=== PATIENT | female | born 1955 | race Caucasian/White ===

== ENCOUNTER 2023-01-13 19:00 | Emergency (ER) | payer OTHER ==
--- OUTSIDE RECORDS SUMMARY | 2023-01-13 19:13 | XMS REPORT | Continuity of Care Document ---
:1955 Author Organization [facility] t Address [address] [facility]. [address] [place] [address] Care Team Providers Name Role Phone DANICA JEAN-BAPTISTE Primary Care Physician Unavailable CK VEGA Attending Clinician Unavailable DARCY ZAMAN Attending Clinician Unavailable Jonh Clark MD Attending Clinician Thais WORRELL, Dioni Chavez Attending Clinician [phone] Brittni Gallo APRN Attending Clinician Tabitha WORRELL, Sangita Martinez Attending Clinician Lynda Alston Attending Clinician Zahira Hui MA Attending Clinician Unavailable Kerry Dunaway MA Attending Clinician Unavailable Luis Emery MD Attending Clinician Félix Recinos MD Attending Clinician Juan Smith MD Attending Clinician Stanton WORRELL, Jony Recinos Attending Clinician [phone] Pastora Kenny MD Attending Clinician [phone] Mo WORRELL, James Soto Attending Clinician Declan WORRELL, Jeremy Loya Attending Clinician MD JONH CLARK Attending Clinician Unavailable MILI CHEUNG Attending Clinician Unavailable Kirk BOOTH, Jessica Kruse Attending Clinician [phone] Silvia WORRELL, Ck Fontana Attending Clinician Austyn WORRELL, Darcy Attending Clinician HERNAN TINSLEY Attending Clinician Unavailable CK VEGA Admitting Clinician Unavailable DARCY ZAMAN Admitting Clinician Unavailable JONH CLARK Admitting Clinician Unavailable FÉLIX RECINOS Admitting Clinician Unavailable MD JONH CLARK Admitting Clinician Unavailable Payers Payer Name Policy Type Policy Number Effective Date Expiration Date S ourdella BCBS ADV HMO [id number] 2015 2016 EXCHANGE 00:00:00 00:00:00 [employer] MEDICARE [id number] 2018 2019 HMO POS PPO 00:00:00 00:00:00 [facility]LY [facility] [id number] 2017 2018 CHOICE EXCHANGE 00:00:00 00:00:00 Problems Condition Condition Condition Status Onset Resolution Last Treating Co mments Source Name Details Category Date Date Treatment Clinician Date Respirator Respirator Disease Active M ethodi y failure y failure [facility]-23 [facility] 00[facility]: Hospita 00 l Mobility Mobility Disease Active [facility] di impaired impaired 01-22 [facility] 00:00: Hospita 00 l Tracheobro Tracheobro Disease Active M ethodi nchitis nchitis 5-20 st 00:00: Hospita 00 l Trachea, Trachea, Disease 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 Dyspnea Dyspnea Disease Active [facility] 3-11 College 00:00: of 00 Medicin e 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 00:00: Medi barbie 00 Center Dyspnea on Dyspnea on Disease Active [facility] exertion exertion 5[facility]12 [facility] 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 2[facility]12 [facility] Supraglott Supraglott Disease Active 2016-[address] ic ic 1-14 [facility]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 00:00: Medica l 00 Center 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 00:00: Medi barbie 00 Center Tracheal Tracheal Disease Active 2015-08 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 5-03 [facility] Edema of Edema of Disease Active [facility] larynx larynx 224 [facility] 00:00: of 00 Medicin e Tracheosto Tracheosto Disease Active [facility] 2-24 [facility] dependence dependence 00:00: of (HCCode) (HCCode) 00 Medici n e 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 2-24 Colleg e 00:00: of 00 Medicin e Tracheal Tracheal Disease Active [facility]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 2-24 [facility] e 00:00: of 00 Medicin e Dysphagia Dysphagia Disease Active [facility] 224 College 00:00: of 00 Medicin e Hoarse Hoarse Disease Active [facility] 2-24 College 00:00: of 00 Medicin e Insomnia Insomnia Diagnosis Active [facility] Depression Depression Diagnosis Active [facility] Anxiety Anxiety Problem Active [facility] 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 - [facility] Osteoarthr Osteoarthr Diagnosis Active Common itis of itis of Spirit multiple multiple - [facility] joints joints [facility] Bilateral Bilateral Diagnosis Active C ommon lower lower Spirit extremity extremity - CH I edema edema [facility] Hyperlipid Hyperlipid Diagnosis Active Common emia, emia, Spirit mixed mixed [facility] Allergies, Adverse Reactions, Alerts Allergy Allergy Status Severity Reaction(s) Onset Inactive Treating Comm ents Source Name Type Date Date Clinician LATEX Allergy [facility] LATEX Allergy [facility] Latex Propensi Active Other (See Pt unsure M ethodi ty to Comments) 03-[address] adverse 00:00: allergy Hospita reaction 00 l s to drug NO KNOWN Allergy Active [facility] Family History Family Member Diagnosis Comments Start Date Stop Date Source Natural father Hyperlipidemia Method [facility] Natural mother Cancer [facility] Social History Social Habit Start Date Stop Date Quantity Comments Source Exposure to Not sure Steve Ana Rosa jamshid SARS-CoV-2 (event) of Med icine Gender identity [facility] Sexual orientation Method [facility] Alcohol intake 2022-12-26 2022-12-26 Ex-drinker Worship 00:00:00 00:00:00 (finding) Hospital History of Social 2022-12-26 2022-12-[address] function 00:00:00 00:00:00 Hospital Tobacco use and 2022-06-09 2022-06-09 Smokeless Worship exposure 00:00:00 00:00:00 tobacco non-user Hospital Sex Ass[birth year] At [birth year] [facility] 00[facility]00:00 00:00:00 Hospital Smoking Status Start Date Stop Date Source Never smoked tobacco [facility]ital Medications Ordered Filled Start Stop Current Ordering Indication Dosage Frequency Signature Comments Components Source Medication Medication Date Date Medication? Clinician (SIG) Name Name omeprazole Yes 40mg QD Take 1 Metho di (PriLOSEC) 4-[address] 40 MG 14:17: (40 mg Hospita capsule 33 total) by l mouth daily. aspirin Yes 81mg QD Take 1 [facility]i (ECOTRIN) 4-28 tablet (81 st 81 MG 14:17: mg total) Hospita enteric 33 by mouth l coated daily. tablet furosemide Yes 20mg QD Take 1 Metho di (LASIX) 20 -28 tablet (20 st mg tablet 14:17: mg total) Hos olive 33 by mouth l daily. tiZANidine 0 Yes 4mg Q.5D Take 1 Metho di (ZANAFLEX) 4-28 tablet (4 st 4 MG tablet 14:17: mg total) H ospita 33 by mouth 2 l (two) times a day. buprenorphi 0 Yes 1{film} Q.5D Place 1 [facility] ne-naloxone 4-[address] (SUBOXONE) 14:17: the tongue H ospita 8-2 mg film 33 2 (two) l times a day .acute pain. (per Prescripti on Drug Monitoring Program, last filled 01/10/2022 , quantity: 42, day supply: 21) alendronate Yes 70mg 1 tablet [facility] (FOSAMAX) - ([address] 70 MG 14:17: total). Hospita tablet 33 l citalopram 2022- No 1 tablet [facility] (CeleXA) 10 12-12- st MG tablet 15:21: 00:00 Hospita 01 :00 l meloxicam 2022- No 1 tablet Met hodi 15 mg 12-12 st tablet,disi 15:21: 00:00 Hospi ta ntegrating 01 :00 l omeprazole No 40mg QD Take 40 mg Methodi magnesium 12-[address] 10 mg 15:21: 00:00 daily. Hospita susp,delaye 01 :00 l d release for recon indapamide No 2.5mg QD Take 1 Met hodi (LOZOL) 2.5 12-11- tablet st MG tablet 10:24: 00:00 (2.5 mg Hosp fran 13 :00 total) by l mouth daily. amoxicillin Yes 1{tbl} Q.5D Take 1 [facility] -pot 12-[address] clavulanate 00:00: mouth 2 Hos olive (Augmentin) 00 (two) l 875-125 mg times a per tablet day. acetaminoph 2022- [place] [id number] 1{tbl} Q6H Take 1 Methodi en-codeine 12-11- tablet by st (TYLENOL 00:00: 04:59 mouth Hospita WITH 00 :00 every 6 l CODEINE #3) (six) 300-30 mg hours as per tablet needed for moderate pain for up to 7 days .acute pain. alendronate 2022- No 70mg Q1W Take 1 Met hodi (FOSAMAX) 3-28 -28 tablet (70 st 70 MG 13:26: 00:00 mg total) Hospit a tablet 25 :00 by mouth l every 7 days. On in the morning with a full glass of water on an empty stomach, do NOT take anything else by mouth or lie down for the next 30 min. budesonide Yes [id number] .5mg QD Take 2 mL [facility] (Pulmicort) 05-12 (0.[address] 0.5 mg/2 mL 00:00: total) by H ospita nebulizer 00 nebulizati l suspension on once daily. acetylcyste 2022- No 4mL Q.5D Take 4 mL Methodi ine 05-12-[address] (MUCOMYST) 00:00: 00:00 (two) Hospi ta 200 mg/mL 00 :00 times a l (20 %) day. solution buprenorphi 2021- No [id number] 1{tbl} Q.5D Place 1 [facility]i ne-naloxone 01-25 05-[address] (SUBOXONE) 16:38: 00:00 under the H ospita 8-2 mg per 03 :00 tongue 2 l SL tablet (two) times a day .acute pain. predniSONE 2021- No 50mg QD Take 1 Meth kiko (DELTASONE) 01-25-03 tablet (50 s t 50 mg 00:00: 04:59 mg total) Hospit a tablet 00 :00 by mouth l daily for 5 days. gabapentin No 300mg QD Take 1 Met hodi (NEURONTIN) 01-24-[address] 300 mg 00:00: 04:59 (300 mg Hospita capsule 00 :00 total) by l mouth nightly for 30 days. benzonatate 2021- No 100mg Q6H Take 1 Me thodi (TESSALON) 01-24-[address] 100 MG 00:00: 04:59 (100 mg Hospita capsule 00 :00 total) by l mouth every 6 (six) hours as needed for cough for up to 30 days. nystatin 2021- No 5mL Q.25D Take 5 mL Me [facility] (MYCOSTATIN 01-24 06-02 by mouth 4 s t ) 100,000 00:00: 04:59 (four) Hospi ta unit/mL 00 :00 times a l suspension day for 5 days. Swish in mouth HYDROcodone 2021- No [id number] 1{tbl} Q6H Take 1 [facility]i -acetaminop 5-20 05-[address] hen (NORCO) 16:28: 00:00 mouth Hosp fran 10-325 mg 06 :00 every 6 l per tablet (six) hours as needed for moderate pain .acute pain. clonazePAM Yes 1mg Take [address] (KLONOPIN) 4-27 by mouth 2 Sarah es 1 MG tablet 16:04: (two) Medic al 17 times Center daily as needed for Anxiety. aspirin 81 Yes 81mg QD Take [address] MG EC 4-27 by mouth [facility] tablet 16:04: daily. Medical 17 Center gabapentin Yes 300mg Q.5D Take [address] (NEURONTIN) 4-27 mg by [facility] 300 MG 16:04: mouth 2 Medical capsule 17 (two) Center times daily. atorvastati Yes 10mg QD Take [address] n (LIPITOR) 4-27 by mouth Luke s 10 MG 16:04: daily. Medical tablet 17 Center citalopram Yes 40mg QD Take [address] (CELEXA) 20 4-27 by mouth Luke s MG tablet 16:04: daily . Medic al 17 Center indapamide Yes 2.5mg QD Take 2.[address] (LOZOL) 2.5 4-27 mg by [facility] MG tablet 16:04: mouth Medical 17 every Center morning. omeprazole Yes 40mg QD Take [address] (PRILOSEC) 4-27 by mouth [facility] 40 MG 16:04: daily. Medical capsule 17 Center alendronate Yes 70mg Take [address] (FOSAMAX) 4-27 by mouth [facility] 70 MG 16:04: every 7 Medical tablet 17 days Take Center in the morning with a full glass of water, on an empty stomach, and do not take anything else by mouth or lie down for the next 30 min. . ferrous Yes QD Take by [facility] fumarate 4-27 mouth [facility] (HEMOCYTE 16:04: daily. Medica l ORAL) 17 Center acetaminoph 2021-0 Yes 1{tbl} Take [address] en-codeine 4-27 tablet by [place] (TYLENOL 16:04: mouth Medical #3) 300-30 17 every 4 Center mg per (four) tablet hours as needed for Pain. guaiFENesin 1-0 Yes 1200mg Q.5D Take 1,[address] (mucINEX) 4-27 mg by [facility] 600 mg 12 16:04: mouth 2 Medic al hr tablet 17 (two) Center times daily. aspirin 81 2020-0 Yes 81mg Take 81 mg [facility] tablet 3-08 by mouth Colleg e 20:09: daily. of 28 Medicin e GuaiFENesin 2020-0 Yes Take by [facility] (MUCUS 3-08 mouth. College RELIEF 20:09: of ADULT OR) 28 Medicin e Omeprazole 2020-0 Yes 40mg Take 40 mg [facility] (PRILOSEC 3-08 by mouth Colleg e OR) 20:09: daily. of 28 Medicin e Alendronate 2020-0 Yes Take by [facility] Sodium 3-08 mouth. College (FOSAMAX 20:09: of OR) 28 Medicin e aspirin 81 2020-0 Yes 81mg Take 81 mg [facility] MG tablet 3-08 by mouth Colleg e 20:09: daily. of 28 Medicin e GuaiFENesin 2020-0 Yes Take by [facility] (MUCUS 3-08 mouth. College RELIEF 20:09: of ADULT OR) 28 Medicin e Omeprazole 2020-0 Yes 40mg Take 40 mg [facility] (PRILOSEC 3-08 by mouth Colleg e OR) 20:09: daily. of 28 Medicin e Alendronate 2020-0 Yes Take by [facility] Sodium 3-08 mouth. College (FOSAMAX 20:09: of OR) 28 Medicin e aspirin 81 2020-0 Yes 81mg Take 81 mg [facility] MG tablet 2-25 by mouth Colleg e 18:33: daily. of 41 Medicin e GuaiFENesin 2020-0 Yes Take by [facility] (MUCUS 2-25 mouth. College RELIEF 18:33: of ADULT OR) 41 Medicin e Omeprazole 1-0 Yes 40mg Take 40 mg [facility] (PRILOSEC 2-25 by mouth Colleg e OR) 18:33: daily. of 41 Medicin e Alendronate 2020-0 Yes Take by [facility] Sodium 2-25 mouth. College (FOSAMAX 18:33: of OR) 41 Medicin e acetaminoph 2020-0 Yes [id number] 1{tbl} Take 1-2 Steve en-codeine 5-12 Tabs by Colleg e (TYLENOL 00:00: mouth of #3) 300-30 00 every 6 Medici n MG per hours as e tablet needed for Pain. acetaminoph 2020-0 Yes [id number] 1{tbl} Take 1-2 [facility] en-codeine 5-12 Tabs by Colleg e (TYLENOL 00:00: mouth of #3) 300-30 00 every 6 Medici n MG per hours as e tablet needed for Pain. acetaminoph 2020-0 Yes [id number] 1{tbl} Take 1-2 [facility] en-codeine 5-12 Tabs by Colleg e (TYLENOL 00:00: mouth of #3) 300-30 00 every 6 Medici n MG per hours as e tablet needed for Pain. acetaminoph 2020-0 Yes [id number] 1{tbl} Take 1-2 [facility] en-codeine 5-12 Tabs by Colleg e (TYLENOL 00:00: mouth of #3) 300-30 00 every 6 Medici n MG per hours as e tablet needed for Pain. aspirin 81 2020-0 Yes 81mg Take 81 mg [facility] MG tablet 3-16 by mouth Colleg e 20:09: daily. of 39 Medicin e GuaiFENesin 2020-0 Yes Take by [facility] (MUCUS 3-16 mouth. College RELIEF 20:09: of ADULT OR) 39 Medicin e Omeprazole 2020-0 Yes 40mg Take 40 mg [facility] (PRILOSEC 3-16 by mouth Colleg e OR) 20:09: daily. of 39 Medicin e Alendronate 2020-0 Yes Take by [facility] Sodium 3-16 mouth. College (FOSAMAX 20:09: of OR) 39 Medicin e aspirin 81 2020-0 Yes 81mg Take 81 mg [facility] MG tablet 3-16 by mouth Colleg e 20:09: daily. of 39 Medicin e GuaiFENesin 2020-0 Yes Take by [facility] (MUCUS 3-16 mouth. College RELIEF 20:09: of ADULT OR) 39 Medicin e Omeprazole 2019-0 Yes 40mg Take 40 mg [facility] (PRILOSEC 3-16 by mouth Colleg e OR) 20:09: daily. of 39 Medicin e Alendronate 2019-0 Yes Take by [facility] Sodium 3-16 mouth. [place] (FOSAMAX 20:09: of OR) 39 Medicin e acetaminoph 2019-0 Yes [id number] 1{tbl} Take 1-2 [facility] en-codeine 1-21 Tabs by Colleg e (TYLENOL 00:00: mouth of #3) 300-30 00 every 6 Medici n MG per hours as e tablet needed for Pain. aspirin 81 2018-08 Yes 81mg Take 81 mg [facility] MG tablet 0-28 by mouth Colleg e 17:05: daily. of 19 Medicin e GuaiFENesin 2018-08 Yes Take by [facility] (MUCUS 0-28 mouth. [place] RELIEF 17:05: of ADULT OR) 19 Medicin e Omeprazole 2018-08 Yes 40mg Take 40 mg [facility] (PRILOSEC 0-28 by mouth Colleg e OR) 17:05: daily. of 19 Medicin e Alendronate 2018-08 Yes Take by [facility] Sodium 0-28 mouth. [place] (FOSAMAX 17:05: of OR) 19 Medicin e aspirin 81 0 Yes 81mg Take 81 mg [facility] MG tablet 8-19 by mouth Colleg e 16:47: daily. of 24 Medicin e GuaiFENesin Yes Take by [facility] (MUCUS 8-19 mouth. [place] RELIEF 16:47: of ADULT OR) 24 Medicin e Omeprazole 2019-0 Yes 40mg Take 40 mg [facility] (PRILOSEC 8-19 by mouth Colleg e OR) 16:47: daily. of 24 Medicin e Omeprazole 2019-0 Yes 40mg Take 40 mg [facility] (PRILOSEC 8-08 by mouth Colleg e OR) 20:48: daily. of 24 Medicin e aspirin 81 2019-0 Yes 81mg Take 81 mg [facility] MG tablet 8-08 by mouth Colleg e 20:47: daily. of 59 Medicin e GuaiFENesin 2018-0 Yes Take by [facility] (MUCUS 8-08 mouth. College RELIEF 20:47: of ADULT OR) 59 Medicin e Tessalon Tessalon 2017- Yes [facility] 1 capsule Common Perles Perles 7-19 [facility] as needed Spiri t 00:00: - [facility] 00 [facility] citalopram Yes 1{tbl} Take 1 Tab Steve (CELEXA) 20 4-06 by mouth [facility] MG tablet 00:00: daily. of Medicin e citalopram Yes 1{tbl} Take 1 Tab [facility] (CELEXA) 20 4-06 by mouth [facility] MG tablet 00:00: daily. of Medicin e citalopram Yes 1{tbl} Take 1 Tab Steve (CELEXA) 20 4-06 by mouth [facility] MG tablet 00:00: daily. of Medicin e citalopram Yes 1{tbl} Take 1 Tab [facility] (CELEXA) 20 4-06 by mouth [facility] ege MG tablet 00:00: daily. of Medicin e citalopram Yes 1{tbl} Take 1 Tab Steve (CELEXA) 20 4-06 by mouth [facility] MG tablet 00:00: daily. of Medicin e citalopram Yes 1{tbl} Take 1 Tab Steve (CELEXA) 20 4-06 by mouth [facility] MG tablet 00:00: daily. of Medicin e citalopram Yes 1{tbl} Take 1 Tab Steve (CELEXA) 20 4-06 by mouth [facility] MG tablet 00:00: daily. of Medicin e citalopram Yes 1{tbl} Take 1 Tab [facility] (CELEXA) 20 4-06 by mouth [facility] MG tablet 00:00: daily. of Medicin e citalopram Yes 20mg QD Take 1 Metho di (CeleXA) 20 4-06 tablet (20 st MG tablet 00:00: mg total) Hos olive 00 by mouth l daily. clonazepam Yes [facility] (KLONOPIN) 2-16 [place] 1 MG tablet 00:00: of Medicin e clonazepam Yes [facility] (KLONOPIN) 2-16 College 1 MG tablet 00:00: of 00 Medicin e clonazepam 2016-0 Yes [facility] (KLONOPIN) 2-16 College 1 MG tablet 00:00: of 00 Medicin e clonazepam 2016-0 Yes [facility] (KLONOPIN) 2-16 College 1 MG tablet 00:00: of 00 Medicin e clonazepam 2016-0 Yes [facility] (KLONOPIN) 2-16 College 1 MG tablet 00:00: of 00 Medicin e clonazepam 2015-0 Yes [facility] (KLONOPIN) 2-16 College 1 MG tablet 00:00: of 00 Medicin e clonazepam 2016-0 Yes [facility] (KLONOPIN) 2-16 College 1 MG tablet 00:00: of 00 Medicin e clonazepam 2015-0 Yes [facility] (KLONOPIN) 2-16 [place] 1 MG tablet 00:00: of 00 Medicin e clonAZEPAM 2015-0 Yes 1mg Q.5D Take 1 Metho di (KlonoPIN) 2-16 tablet (1 st 1 MG tablet 00:00: mg total) H ospita 00 by mouth 2 l (two) times a day as needed for anxiety. (per Prescripti on Drug Monitoring Program, last filled 01/06/2022 , quantity: 60, day supply: 30) gabapentin 2016-0 Yes [facility] (NEURONTIN) 2-11 College 300 MG 00:00: of capsule 00 Medicin e gabapentin 2016-0 Yes [facility] (NEURONTIN) 2-11 College 300 MG 00:00: of capsule 00 Medicin e gabapentin 2016-0 Yes [facility] (NEURONTIN) 2-11 College 300 MG 00:00: of capsule 00 Medicin e gabapentin 2016-0 Yes [facility] (NEURONTIN) 2-11 College 300 MG 00:00: of capsule 00 Medicin e gabapentin 2016-0 Yes [facility] (NEURONTIN) 2-11 College 300 MG 00:00: of capsule 00 Medicin e gabapentin 2016-0 Yes [facility] (NEURONTIN) 2-11 College 300 MG 00:00: of capsule 00 Medicin e gabapentin 2016-0 Yes [facility] (NEURONTIN) 2-11 College 300 MG 00:00: of capsule 00 Medicin e gabapentin 2015-0 Yes [facility] (NEURONTIN) 2-11 College 300 MG 00:00: of capsule 00 Medicin e gabapentin 2016-0 2021- No 600mg QD Take 600 M ethodi (NEURONTIN) 2-11 05-[address] 300 mg 00:00: 00:00 mouth Hospita capsule 00 :00 nightly. l atorvastati Yes Steve n (LIPITOR) 1-15 College 10 MG 00:00: of tablet 00 Medicin e atorvastati Yes [facility] n (LIPITOR) 1-15 College 10 MG 00:00: of tablet 00 Medicin e indapamide Yes Steve (LOZOL) 2.5 1-15 College MG tablet 00:00: of 00 Medicin e meloxicam Yes [facility] (MOBIC) 15 1-15 College MG tablet 00:00: of 00 Medicin e indapamide Yes Steve (LOZOL) 2.5 1-15 College MG tablet 00:00: of 00 Medicin e atorvastati Yes Steve n (LIPITOR) 1-15 College 10 MG 00:00: of tablet 00 Medicin e indapamide Yes [facility] (LOZOL) 2.5 1-15 College MG tablet 00:00: of 00 Medicin e meloxicam Yes [facility] (MOBIC) 15 1-15 College MG tablet 00:00: of 00 Medicin e atorvastati Yes [facility] n (LIPITOR) 1-15 College 10 MG 00:00: of tablet 00 Medicin e indapamide Yes [facility] (LOZOL) 2.5 1-15 College MG tablet 00:00: of 00 Medicin e atorvastati Yes [facility] n (LIPITOR) 1-15 College 10 MG 00:00: of tablet 00 Medicin e indapamide Yes [facility] (LOZOL) 2.5 1-15 College MG tablet 00:00: of 00 Medicin e atorvastati Yes [facility] n (LIPITOR) 1-15 College 10 MG 00:00: of tablet 00 Medicin e indapamide 0 Yes [facility] (LOZOL) 2.5 1-15 College MG tablet 00:00: of 00 Medicin e atorvastati Yes Steve n (LIPITOR) 1-15 College 10 MG 00:00: of tablet 00 Medicin e indapamide Yes [facility] (LOZOL) 2.5 1-15 College MG tablet 00:00: of 00 Medicin e meloxicam Yes [facility] (MOBIC) 15 1-15 College MG tablet 00:00: of 00 Medicin e atorvastati Yes [facility] n (LIPITOR) 1-15 College 10 MG 00:00: of tablet 00 Medicin e indapamide Yes [facility] (LOZOL) 2.5 1-15 College MG tablet 00:00: of 00 Medicin e meloxicam Yes [facility] (MOBIC) 15 1-15 College MG tablet 00:00: of 00 Medicin e atorvastati Yes 10mg QD Take 1 Meth kiko n (LIPITOR) 1-15 tablet (10 st 10 mg 00:00: mg total) Hospita tablet 00 by mouth l nightly. meloxicam [facility] (MOBIC) 15 1-15 -21 College MG tablet 00:00: 00:00 of 00 :00 Medicin e Neurontin Neurontin Yes [facility] 1 capsule Common [facility] before [facility] bedtime [facility] Indapamide Indapamide Yes [facility] 1 tablet Common [facility] in the Spirit morning [facility] Lipitor Lipitor Yes [facility] 1 tablet [facility] Aspir-81 Aspir-81 Yes [facility] 1 tablet C ommon [facility] Meloxicam Meloxicam Yes [facility] 1 tablet Common [facility] Citalopram Citalopram Yes [facility] 1 tablet Common Hydrobromid Hydrobromid [facility] Clonazepam Clonazepam Yes [facility] 1 tablet Common [facility] Immunizations Ordered Immunization Filled Immunization Date Status Commen ts Source Name Name ANGELA SCOTT-2022-11-27 Completed [facility] MRNA BIVALENT 00:00:00 Hospital BOOSTER VACCINATION ANGELA COVID-19 2020-12-21 Completed [facility] VACCINATION 00:00:00 Hospital [facility] COVID-19 2020-11-23 Completed [facility] t MRNA VACCINATION 00:00:00 Hospital Pneumococcal 2019-06-27 Completed W[facility] Conjugate 13-Valent 00:00:00 Hospi rose FLUZONE HIGH-DOSE PF 2019-06-27 Completed Meth odist 00:00:00 Hospital Influenza Hd 2019-06-27 Completed Steve Colle ge 00:00:00 of Medicine Pneumococcal 2019-06-27 Completed [facility] Colle ge 13-valent Conjugate 00:00:00 of Me dicine Vaccine Influenza Hd 2019-06-27 Completed Steve [facility] 00:00:00 of Medicine Pneumococcal 2019-06-27 Completed Steve [facility] 13-valent Conjugate 00:00:00 of Me dicine Vaccine Influenza Hd 2019-06-27 Completed [facility] Colle ge 00:00:00 of Medicine Pneumococcal 2019-06-27 Completed [facility] Colle ge 13-valent Conjugate 00:00:00 of Me dicine Vaccine Influenza Hd 2019-06-27 Completed [facility] Colle ge 00:00:00 of Medicine Pneumococcal 2019-06-27 Completed [facility] Colle ge 13-valent Conjugate 00:00:00 of Me dicine Vaccine Influenza Hd 2019-06-27 Completed Steve [facility] 00:00:00 of Medicine Pneumococcal 2019-06-27 Completed Steve [facility]le [facility] 13-valent Conjugate 00:00:00 of Me dicine Vaccine FLUZONE QUAD PF 2018-05-20 Completed [facility] 00:00:00 Hospital Influenza Quad-PF 2018-05-20 Completed [facility] 00:00:00 of Medicine Influenza Quad-PF 2018-05-20 Completed [facility] 00:00:00 of Medicine Influenza Quad-PF 2018-05-20 Completed [facility] 00:00:00 of Medicine Influenza Quad-PF 2018-05-20 Completed [facility] 00:00:00 of Medicine Influenza Quad-PF 2018-05-20 Completed [facility] 00:00:00 of Medicine Influenza Quad-PF 2018-05-20 Completed [facility] 00:00:00 of Medicine Influenza Quad-PF 2018-05-20 Completed [facility] 00:00:00 of Medicine Influenza Quad-PF 2018-05-20 Completed [facility] 00:00:00 of Medicine Vital Signs Vital Name Observation Time Observation Value Comments Source HEIGHT 2020-12-25 11:00:00 160 cm WEIGHT 2020-12-25 11:00:00 46.267 kg HEIGHT 2020-12-24 10:31:00 160 cm WEIGHT 2020-12-24 10:31:00 47.628 kg WEIGHT 2020-10-12 06:20:00 46.811 kg HEIGHT 2020-10-12 06:20:00 160 cm HEIGHT 2020-10-09 09:11:00 160 cm WEIGHT 2020-10-09 09:11:00 44.453 kg HEIGHT 2020-09-11 09:00:00 160 cm WEIGHT 2020-09-11 09:00:00 47.628 kg HEIGHT 2020 10:00:00 160 cm WEIGHT 2020 10:00:00 48.081 kg WEIGHT 2020-07-17 08:56:00 48.081 kg HEIGHT 2020-07-16 15:14:00 160 cm WEIGHT 2020-07-16 15:14:00 51.256 kg HEIGHT 2020-05-29 00:00:00 160 cm WEIGHT 2020-05-29 00:00:00 47.537 kg HEIGHT 2020-03-15 00:00:00 160 cm WEIGHT 2020-03-15 00:00:00 47.083 kg HEIGHT 2020-12-25 11:00:00 160 cm WEIGHT 2020-12-25 11:00:00 46.267 kg HEIGHT 2020-12-24 10:31:00 160 cm WEIGHT 2020-12-24 10:31:00 47.628 kg Systolic blood 2020-11-05 20:05:00 138 mm[Hg] [facility] Diastolic blood 2020-11-05 20:05:00 74 mm[Hg] [facility] pressure Medicine Heart rate 2020-11-05 20:05:00 66 /min [facility] Body temperature 2020-11-05 20:05:00 36.11 [facility] Respiratory rate 2020-11-05 20:05:00 16 /min [facility] Body height 2020-11-05 20:05:00 160 cm [facility] Body weight 2020-11-05 20:05:00 47.9 kg [facility] BMI 2020-11-05 20:05:00 18.71 kg/m2 [facility] Systolic blood 2020-10-25 18:34:00 130 mm[Hg] [facility] Diastolic blood 2020-10-25 18:34:00 75 mm[Hg] [facility] pressure Medicine Heart rate 2020-10-25 18:34:00 61 /min [facility] Respiratory rate 2020-10-25 18:34:00 18 /min [facility] Body height 2020-10-25 18:34:00 160 cm [facility] Body weight 2020-10-25 18:34:00 48.081 kg [facility] BMI 2020-10-25 18:34:00 18.78 kg/m2 [facility] WEIGHT 2020-10-12 06:20:00 46.811 kg HEIGHT 2020-10-12 06:20:00 160 cm HEIGHT 2020-10-09 09:11:00 160 cm WEIGHT 2020-10-09 09:11:00 44.453 kg Systolic blood 2020-09-20 21:35:00 120 mm[Hg] [facility] Diastolic blood 2020-09-20 21:35:00 60 mm[Hg] [facility] pressure Medicine Heart rate 2020-09-20 21:35:00 73 /min [facility] Body height 2020-09-20 21:35:00 160 cm [facility] Body weight 2020-09-20 21:35:00 48.081 kg [facility] BMI 2020-09-20 21:35:00 18.78 kg/m2 [facility] HEIGHT 2020-09-11 09:00:00 160 cm WEIGHT 2020-09-11 09:00:00 47.628 kg HEIGHT 2020 10:00:00 160 cm WEIGHT 2020 10:00:00 48.081 kg WEIGHT 2020-07-17 08:56:00 48.081 kg HEIGHT 2020-07-16 15:14:00 160 cm WEIGHT 2020-07-16 15:14:00 51.256 kg HEIGHT 2020-05-29 00:00:00 160 cm WEIGHT 2020-05-29 00:00:00 47.537 kg HEIGHT 2020-03-15 00:00:00 160 cm WEIGHT 2020-03-15 00:00:00 47.083 kg HEIGHT 2020-01-03 00:00:00 160 cm WEIGHT 2020-01-03 00:00:00 51.256 kg HEIGHT 2020-01-03 00:00:00 160 cm WEIGHT 2020-01-03 00:00:00 51.256 kg Systolic blood 2019-11-14 20:06:00 147 mm[Hg] [facility] Diastolic blood 2019-11-14 20:06:00 83 mm[Hg] [facility] Medicine Heart rate 2019-11-14 20:06:00 58 /min [facility] Body temperature 2019-11-14 20:06:00 36.67 [facility] Respiratory rate 2019-11-14 20:06:00 16 /min [facility] Body height 2019-11-14 20:06:00 160 cm [facility] Body weight 2019-11-14 20:06:00 50.349 kg [facility] BMI 2019-11-14 20:06:00 19.66 kg/m2 [facility] Systolic blood 2019-11-14 20:06:00 147 mm[Hg] [facility] Diastolic blood 2019-11-14 20:06:00 83 mm[Hg] [facility] Medicine Heart rate 2019-11-14 20:06:00 58 /min [facility] Body temperature 2019-11-14 20:06:00 36.67 [facility] Respiratory rate 2019-11-14 20:06:00 16 /min [facility] Body height 2019-11-14 20:06:00 160 cm [facility] Body weight 2019-11-14 20:06:00 50.349 kg [facility] BMI 2019-11-14 20:06:00 19.66 kg/m2 [facility] Systolic blood 2019-06-27 17:00:00 119 mm[Hg] [facility] Diastolic blood 2019-06-27 17:00:00 76 mm[Hg] [facility] pressure Medicine Heart rate 2019-06-27 17:00:00 67 /min [facility] Body temperature 2019-06-27 17:00:00 37.06 [facility] Respiratory rate 2019-06-27 17:00:00 16 /min [facility] Body height 2019-06-27 17:00:00 160 cm [facility] Body weight 2019-06-27 17:00:00 49.17 kg [facility] BMI 2019-06-27 17:00:00 19.20 [facility] Systolic blood 2019-06-27 17:00:00 119 mm[Hg] [facility] Diastolic blood 2019-06-27 17:00:00 76 mm[Hg] [facility] pressure Medicine Heart rate 2019-06-27 17:00:00 67 /min [facility] Body temperature 2019-06-27 17:00:00 37.06 [facility] Respiratory rate 2019-06-27 17:00:00 16 /min [facility] Body height 2019-06-27 17:00:00 160 cm [facility] Body weight 2019-06-27 17:00:00 [facility].17 [facility] BMI 2019-06-27 17:00:00 19.20 kg[facility]m2 [facility] Systolic blood 2019-04-18 16:43:00 119 mm[Hg] [facility] Diastolic blood 2019-04-18 16:43:00 79 mm[Hg] [facility] pressure Medicine Heart rate 2019-04-18 16:43:00 78 /min [facility] Body temperature 2019-04-18 16:43:00 37.33 [facility] Respiratory rate 2019-04-18 16:43:00 16 /min [facility] Body height 2019-04-18 16:43:00 160 cm [facility] Body weight 2019-04-18 16:43:00 49.986 kg [facility] BMI 2019-04-18 16:43:00 19.52 kg/m2 [facility] Systolic blood 2019-04-18 16:43:00 119 mm[Hg] [facility] Medicine Diastolic blood 2019-04-18 16:43:00 79 mm[Hg] [facility] pressure Medicine Heart rate 2019-04-18 16:43:00 78 /min [facility] Body temperature 2019-04-18 16:43:00 37.33 [facility] Respiratory rate 2019-04-18 16:43:00 16 /min [facility] Body height 2019-04-18 16:43:00 160 cm [facility] Body weight 2019-04-18 16:43:00 49.986 kg [facility] BMI 2019-04-18 16:43:00 19.52 kg/m2 [facility] Systolic blood 2019-04-07 20:47:00 121 mm[Hg] [facility] Medicine Diastolic blood 2019-04-07 20:47:00 67 mm[Hg] [facility] Medicine Heart rate 2019-04-07 20:47:00 67 /min [facility] Body height 2019-04-07 20:47:00 160 cm [facility] Body weight 2019-04-07 20:47:00 48.535 kg [facility] BMI 2019-04-07 20:47:00 18.95 kg/m2 [facility] Systolic blood 2019-04-07 20:47:00 121 mm[Hg] [facility] Diastolic blood 2019-04-07 20:47:00 67 mm[Hg] [facility] Medicine Heart rate 2019-04-07 20:47:00 67 /min [facility] Body height 2019-04-07 20:47:00 160 cm [facility] Body weight 2019-04-07 20:47:00 48.535 kg [facility] BMI 2019-04-07 20:47:00 18.95 kg/m2 [facility] Body height 2022-12-26 19:17:00 160 cm [facility] Body weight 2022-12-26 19:17:00 40.824 kg [facility] BMI 2022-12-26 19:17:00 15.94 kg/m2 [facility] Systolic blood 2022-12-11 19:30:00 121 mm[Hg] [facility] pressure Diastolic blood 2022-12-11 19:30:00 60 mm[Hg] [facility] pressure Heart rate 2022-12-11 19:30:00 59 /min [facility] Body temperature 2022-12-11 19:30:00 36.78 Niya [facility] Respiratory rate 2022-12-11 19:30:00 18 /min [facility] Oxygen saturation in 2022-12-11 19:30:00 95 /min [facility] Arterial blood by Pulse oximetry Procedures Procedure Date / Time Performing Clinician Source Performed SURGICAL PATHOLOGY REQUEST 2022-12-11 20:05:00 Amber, [facility] ANESTHESIA INTUBATION 2022-12-11 16:46:00 Wandy Earl [facility] Rukayat LARYNGOSCOPY, DIRECT 2022-12-11 16:31:00 [facility] URINE CULTURE 2022-11-27 19:35:00 Sabino [facility] URINALYSIS SCREEN AND 2022-11-27 19:35:00 Sabion, [facility] MICROSCOPY, WITH REFLEX TO CULTURE PARTIAL THROMBOPLASTIN TIME 2022-11-27 19:17:00 [facility] (PTT) PROTHROMBIN TIME WITH INR 2022-11-27 19:17:00 [facility] CBC WITH PLATELET AND 2022-11-27 19:17:00 [facility] DIFFERENTIAL COMPREHENSIVE METABOLIC 2022-11-27 19:17:00 [facility] PANEL HEMOGLOBIN A1C 2022-11-27 19:17:00 [facility] ESTIMATED GFR 2022-11-27 19:17:00 [facility] ECG PRE/POST OP 2022-11-27 19:14:58 Sabino, [facility] SURGICAL PATHOLOGY REQUEST 2022-05-29 18:41:00 Amber, [facility] ANESTHESIA INTUBATION 2022-05-29 15:08:00 Sangita Lu [facility] LARYNGOSCOPY, DIRECT 2022-05-29 14:55:00 Amber, [facility] COVID-19 QUALITATIVE RT-PCR 2022-05-26 18:59:00 Amber, [facility] CBC WITH PLATELET AND 2022-05-15 20:12:00 [facility] DIFFERENTIAL Magda COMPREHENSIVE METABOLIC 2022-05-15 20:12:00 [facility] PANEL Magda HEMOGLOBIN A1C 2022-05-15 20:12:00 [facility] ospital Magda ESTIMATED GFR 2022-05-15 20:12:00 [facility] ospital Magda ANTINUCLEAR ANTIBODIES (SEGUNDO) 2022-02-07 16:28:00 [facility], [facility] WITH REFLEX TO TITER AND PATTERN, IMMUNOFLUORESCENCE RHEUMATOID FACTOR 2022-02-07 16:28:00 Amber, [facility] ANTI-NEUTROPHILIC 2022-02-07 16:28:00 Amber, [facility] CYTOPLASMIC ABS PANEL C-REACTIVE PROTEIN 2022-02-07 16:28:00 [facility], [facility] SEDIMENTATION RATE 2022-02-07 16:28:00 [facility] DURABLE MEDICAL EQUIPMENT 2022-01-24 17:21:00 Jony Eid [facility] Graciela PHOSPHORUS LEVEL 2022-01-24 09:36:00 Félix Recinos [facility] ospital BASIC METABOLIC PANEL 2022-01-24 09:36:00 [facility] CBC WITH PLATELET AND 2022-01-24 09:36:00 [facility]FFER[facility] [place] MAGNESIUM LEVEL 2022-01-24 09:36:00 Jony Eid [facility] spital Graciela ESTIMATED GFR 2022-01-24 09:36:00 Jony Eid [facility] DURABLE MEDICAL EQUIPMENT 2022-01-24 00:02:31 Jony Eid [facility] Graciela XR CHEST 1 VW PORTABLE 2022-01-23 21:55:00 [facility] VT AN ELECTIVE ENDOTRACHEAL 2022-01-23 20:19:00 Lynn Figueroa [facility] AIRWAY Andre BRONCHOSCOPY 2022-01-23 20:08:[address] [facility] BASIC METABOLIC PANEL 2022-01-23 09:24:00 Félix Recinos [facility] CBC WITH PLATELET AND 2022-01-23 09:24:00 Félix Recinos [facility] DIFFERENTIAL MAGNESIUM LEVEL 2022-01-23 09:24:00 Félix Recinos spital PHOSPHORUS LEVEL 2022-01-23 09:24:00 Félix Recinos ospital ESTIMATED GFR 2022-01-23 09:24:00 Félix Recinos spital DURABLE MEDICAL EQUIPMENT 2022-01-22 18:53:27 Juan Smith [facility] COVID-19 QUALITATIVE RT-PCR 2022-01-22 16:36:00 [facility] BASIC METABOLIC PANEL 2022-01-22 09:49:00 Félix Recinos [facility] CBC WITH PLATELET AND 2022-01-22 09:49:00 Félix Recinos [facility] DIFFERENTIAL MAGNESIUM LEVEL 2022-01-22 09:49:00 Félix Recinos Ho spital PHOSPHORUS LEVEL 2022-01-22 09:49:00 Félix Recinos ospital ESTIMATED GFR 2022-01-22 09:49:00 Félix Recinos spital BASIC METABOLIC PANEL 2022-01-21 09:34:00 Félix Recinos [facility] CBC WITH PLATELET AND 2022-01-21 09:34:00 Félix Recinos [facility] DIFFERENTIAL MAGNESIUM LEVEL 2022-01-21 09:34:00 Félix eRcinos Ho spital PHOSPHORUS LEVEL 2022-01-21 09:34:00 Félix Recinos ospital ESTIMATED GFR 2022-01-21 09:34:00 Félix Recinos spital BASIC METABOLIC PANEL 2022-01-20 09:21:00 Félix Recinos [facility] CBC WITH PLATELET AND 2022-01-20 09:21:00 Graciela [facility] DIFFERENTIAL MAGNESIUM LEVEL 2022-01-20 09:21:00 Félix Recinos [facility] spital PHOSPHORUS LEVEL 2022-01-20 09:21:00 [facility] 2022-01-20 09:21:00 Félix Recinos [facility] spital ZZCOVID-19 ANTI-SPIKE IGG 2022-01-19 10:03:00 [facility] ANTIBODY TITER [place] BASIC METABOLIC PANEL 2022-01-19 10:03:00 Graciela [facility] CBC WITH PLATELET AND 2022-01-19 10:03:00 Graciela [facility] DIFFERENTIAL MAGNESIUM LEVEL 2022-01-19 10:03:00 [facility] PHOSPHORUS LEVEL 2022-01-19 10:03:00 Félix Recinos [facility] ospital ZZCOVID-19 SEROLOGY PATIENT 2022-01-19 10:03:00 [facility] SURVEILLANCE [place] ESTIMATED GFR 2022-01-19 10:03:00 Félix Recinos spital SPUTUM CULTURE 2022-01-18 16:21:00 [facility] 2022-01-18 16:21:00 Estelle Jefferson [facility] ospital US DUPLEX VENOUS LOWER 2022-01-18 15:10:00 Estelle Jefferson [facility] EXTREMITY BILATERAL TTE COMPLETE, WO CONTRAST, W 2022-01-18 14:32:00 Estelle Jefferson [facility] DOPPLER ([id number]) BASIC METABOLIC PANEL 2022-01-18 10:08:00 Graciela [facility] CBC WITH PLATELET AND 2022-01-18 10:08:00 Graciela [facility] DIFFERENTIAL MAGNESIUM LEVEL 2022-01-18 10:08:00 Graciela Félix [facility] spital PHOSPHORUS LEVEL 2022-01-18 10:08:00 Graciela [facility] ospital ESTIMATED GFR 2022-01-18 10:08:00 Graciela [facility] spital METHICILLIN-RESISTANT 2022-01-18 01:54:00 [facility] STAPHYLOCOCCUS AUREUS (MRSA), MENA BLOOD CULTURE, AEROBIC & 2022-01-17 22:40:00 [facility] ANAEROBIC INFLUENZA ANTIGEN TEST, 2022-01-17 22:38:00 [facility] REFLEX NEGATIVE TO RPP RESPIRATORY PATHOGEN PANEL 2022-01-17 22:38:00 [facility] WITH COVID-19 RT-PCR COVID-19 QUALITATIVE RT-PCR 2022-01-17 22:25:00 [facility] BLOOD CULTURE, AEROBIC & 2022-01-17 22:25:00 [facility] ANAEROBIC B NATRIURETIC PEPTIDE 2022-01-17 22:25:00 [facility] COVID-19 QUALITATIVE RT-PCR 2022-01-17 20:56:00 [facility] CBC WITH PLATELET AND 2022-01-17 20:56:00 [facility] DIFFERENTIAL COMPREHENSIVE METABOLIC 2022-01-17 20:56:00 [facility] PANEL ESTIMATED GFR 2022-01-17 20:56:00 [facility] spital XR CHEST 1 VW PORTABLE 2022-01-17 20:45:00 [facility] ECG ED PRELIMINARY 2022-01-17 20:32:28 [facility] INTERPRETATION ECG 12-LEAD 2022-01-17 19:34:47 [facility] spital Plan of Care Planned Activity Planned Date Details Comments Source Future Scheduled 2023-05-[address] [facility] Test 00:00:00 (Season Ended) [code Medical Center = INFLUENZA VACCINE (Season Ended)] Future Scheduled 2023-01-06 Hepatitis C [facility] Test 08:35:43 screening Hospital (procedure) [code = 000741006] Future Scheduled 2023-01-06 BREAST CANCER [facility] 08:35:43 SCREENING [code = Hospital BREAST CANCER SCREENING] Future Scheduled 2023-01-06 COLONOSCOPY [facility] 08:35:43 SCREENING [code = Hospital COLONOSCOPY SCREENING] Future Scheduled 2023-01-06 SHINGLES VACCINES (1 Met [facility] Test 08:35:43 of 2) [code = Hospital SHINGLES VACCINES (1 of 2)] Future Scheduled 2023-01-06 65+ [facility]OC[facility]CC[facility] Test 08:35:43 VACCINE (2 - PPSV23 Hospital if available, else PCV20) [code = 65+ PNEUMOCOCCAL VACCINE (2 - PPSV23 if available, else PCV20)] Future Scheduled 2023-01-06 INFLUENZA VACCINE Method ist Test 08:35:43 [code = INFLUENZA Hospital VACCINE] Future Scheduled 2022-08-[address] [facility] Test 00:00:00 (12+) [code = Medical Center DEPRESSION SCREENING (12+)] Future Scheduled 2022-08-31 FALLS RISK SCREENING [facility] Test 00:00:00 [code = FALLS RISK Medical C enter SCREENING] Future Scheduled 2021-12-[address] [facility] Test 00:00:00 Counseling and Medical Cente r Screening (12+) [code = Tobacco Cessation Counseling and Screening (12+)] Future Scheduled 2020-06-27 PNEUMOCOCCAL 65+ YRS [facility] Test 00:00:00 (2 - PPSV23 if Medical Cente r available, else PCV20) [code = PNEUMOCOCCAL 65+ YRS (2 - PPSV23 if available, else PCV20)] Future Scheduled 2019-09-[address] [facility] 00:00:00 WELLNESS (YEAR 2 or Medical Center FIRST YEAR if no IPPE) [code = MEDICARE ANNUAL WELLNESS (YEAR 2 or FIRST YEAR if no IPPE)] Diagnostic Test 2019-07-08 BRONCHOSCOPY [code = Expected: [employer] Pending 00:00:00 NOCPT] 07/08/2019, of Medicine Expires: 06/27/2020 Diagnostic Test 2019-04-29 BRONCHOSCOPY [code = Expected: [employer] Pending 00:00:00 NOCPT] 04/29/2019, of Medicine Expires: 04/18/2020 Future Scheduled 2003 SHINGLES VACCINES ([address] [facility] Test 00:00:00 of 2) [code = Medical Center SHINGLES VACCINES (1 of 2)] Future Scheduled 1972 DTAP/TDAP/TD [facility] 00:[facility]00 VACCINES (1 - Tdap) [facility] [code = DTAP/TDAP/TD VACCINES (1 - Tdap)] Future Scheduled [address] [facility] Test 00:00:00 SCREENING [code = Medical nter HEPATITIS C SCREENING] Future Scheduled 1954-02-18 COVID-[address] [facility] Test 00:00:00 (#1) [code = Medical Center COVID-19 VACCINE (#1)] Future Scheduled [address] [facility] Test 00:00:00 malignant neoplasm Medical C enter of breast (procedure) [code = 408536170] Future Scheduled [address] [facility] Test 00:00:00 (combo) [code = CT Medical C enter Colonography (combo)] Future Scheduled [address] [facility] Test 00:00:00 malignant neoplasm Medical C enter of colon (procedure) [code = 656326273] Future Scheduled [address] [facility] Test 00:00:00 malignant neoplasm Medical C enter of colon (procedure) [code = 939436658] Future Scheduled 1953 DXA SCAN [code = DXA [facility] Test 00:00:00 SCAN] [facility] Future Scheduled [address] [facility] Test 00:00:00 malignant neoplasm Medical C enter of colon (procedure) [code = 234963306] Future Scheduled [address] [facility] Test 00:00:00 malignant neoplasm Medical C enter of colon (procedure) [code = 239223406] Future Scheduled 1955 Sigmoidoscopy [code [facility] Test 00:00:00 = Sigmoidoscopy] Medical [facility] Future Scheduled COLON CANCER [facility] ege Test SCREENING: of Medicine COLONOSCOPY [code = COLON CANCER SCREENING: COLONOSCOPY] Future Scheduled MAMMOGRAM ANNUAL [facility] Test [code = MAMMOGRAM of Medicin e ANNUAL] Future Scheduled MEDICARE AWV [code = [employer] Test MEDICARE AWV] of Medicine Future Scheduled TETANUS SHOT (ADULT) [employer] Test [code = TETANUS SHOT of Medi cine (ADULT)] Future Scheduled HEPATITIS C [facility] Test SCREENING [code = of Medicin e HEPATITIS C SCREENING] Future Scheduled FALL SCREEN [code = [employer] Test FALL SCREEN] of Medicine Future Scheduled OSTEOPOROSIS [facility] [employer] Test SCREENING [code = of Medicin e OSTEOPOROSIS SCREENING] Future Scheduled PNEUMOVAX >=65 [facility] Test (PPSV23) [code = of Medicine PNEUMOVAX >=65 (PPSV23)] Future Scheduled PREVNAR >= 65 [facility] Test (PCV13) [code = of Medicine PREVNAR >= 65 (PCV13)] Future Scheduled FLU VACCINE > 6 [facility] C [facility]lege Test MONTHS [code = FLU of Medici ne VACCINE > 6 MONTHS] Future Scheduled COLON CANCER [facility] Test SCREENING: of Medicine COLONOSCOPY [code = COLON CANCER SCREENING: COLONOSCOPY] Future Scheduled MAMMOGRAM ANNUAL [facility] Test [code = MAMMOGRAM of Medicin e ANNUAL] Future Scheduled TETANUS SHOT (ADULT) [employer] Test [code = TETANUS SHOT of Medi cine (ADULT)] Future Scheduled HEPATITIS C [facility] [employer] Test SCREENING [code = of Medicin e HEPATITIS C SCREENING] Future Scheduled FALL SCREEN [code = [employer] Test FALL SCREEN] of Medicine Future Scheduled OSTEOPOROSIS [facility] [employer] Test SCREENING [code = of Medicin e OSTEOPOROSIS SCREENING] Future Scheduled MEDICARE IPPE [facility] Test (WELCOME TO of Medicine MEDICARE) [code = MEDICARE IPPE (WELCOME TO MEDICARE)] Future Scheduled LARYNGOSCOPY, Ordered: [facility] Test FLEXIBLE OR RIGID 09/20/2020 of Medicin e TELESCOPIC, WITH STROBOSCOPY [code = 12236] Future Scheduled LARYNGOSCOPY, Ordered: [facility] Test FLEXIBLE: DIAGNOSTIC 09/20/2020 of Medi cine [code = 06862] Future Scheduled COLON CANCER [facility] [employer] Test SCREENING: of Medicine COLONOSCOPY [code = COLON CANCER SCREENING: COLONOSCOPY] Future Scheduled COVID-19 Vaccine [facility] Test Evaluation [code = of Medici ne COVID-19 Vaccine Evaluation] Future Scheduled MAMMOGRAM ANNUAL [facility] Test [code = MAMMOGRAM of Medicin e ANNUAL] Future Scheduled TETANUS SHOT (ADULT) [employer] Test [code = TETANUS SHOT of Medi cine (ADULT)] Future Scheduled HEPATITIS C [facility] [employer] Test SCREENING [code = of Medicin e HEPATITIS C SCREENING] Future Scheduled ZOSTER VACCINE (1 of [employer] Test 2) [code = ZOSTER of Medicin e VACCINE (1 of 2)] Future Scheduled FALL SCREEN [code = [employer] Test FALL SCREEN] of Medicine Future Scheduled OSTEOPOROSIS [facility] Test SCREENING [code = of Medicin e OSTEOPOROSIS SCREENING] Future Scheduled MEDICARE IPPE [facility] (WELCOME TO of Medicine MEDICARE) [code = MEDICARE IPPE (WELCOME TO MEDICARE)] Future Scheduled FLU VACCINE > 6 [facility] C [facility] Test MONTHS [code = FLU of Medici ne VACCINE > 6 MONTHS] Future Scheduled SETH SCOPE [code = Ordered: [facility] Test [id number]] 10/25/2020 of Medicine Future Scheduled COLON CANCER [facility] [employer] Test SCREENING: of Medicine COLONOSCOPY [code = COLON CANCER SCREENING: COLONOSCOPY] Future Scheduled COVID-19 Vaccine [facility] Test Evaluation [code = of Medici ne COVID-19 Vaccine Evaluation] Future Scheduled MAMMOGRAM ANNUAL [facility] Test [code = MAMMOGRAM of Medicin e ANNUAL] Future Scheduled TETANUS SHOT (ADULT) [employer] Test [code = TETANUS SHOT of Medi cine (ADULT)] Future Scheduled HEPATITIS C [facility] Test SCREENING [code = of Medicin e HEPATITIS C SCREENING] Future Scheduled ZOSTER VACCINE (1 of [employer] Test 2) [code = ZOSTER of Medicin e VACCINE (1 of 2)] Future Scheduled FALL SCREEN [code = [employer] [facility] FALL SCREEN] of Medicine Future Scheduled OSTEOPOROSIS [facility] Test SCREENING [code = of Medicin e OSTEOPOROSIS SCREENING] Future Scheduled MEDICARE IPPE [facility] Col lege Test (WELCOME TO [facility] MEDICARE) [code = MEDICARE IPPE (WELCOME TO MEDICARE)] Future Scheduled FLU VACCINE > 6 [facility] C ollege Test MONTHS [code = FLU of Medici ne VACCINE > 6 MONTHS] Future Scheduled COLON CANCER [facility] Yamil ege Test SCREENING: of Medicine COLONOSCOPY [code = COLON CANCER SCREENING: COLONOSCOPY] Future Scheduled COVID-19 Vaccine [facility] College Test Evaluation [code = of Medici ne COVID-19 Vaccine Evaluation] Future Scheduled MAMMOGRAM ANNUAL [facility] Test [code = MAMMOGRAM of Medicin e ANNUAL] Future Scheduled TETANUS SHOT (ADULT) [employer] Test [code = TETANUS SHOT of Medi cine (ADULT)] Future Scheduled HEPATITIS C [facility] [employer] Test SCREENING [code = of Medicin e HEPATITIS C SCREENING] Future Scheduled ZOSTER VACCINE (1 of [employer] Test 2) [code = ZOSTER of Medicin e VACCINE (1 of 2)] Future Scheduled FALL SCREEN [code = [employer] [facility] FALL SCREEN] of Medicine Future Scheduled OSTEOPOROSIS [facility] [employer] Test SCREENING [code = of Medicin e OSTEOPOROSIS SCREENING] Future Scheduled MEDICARE IPPE [facility] [employer] Test (WELCOME TO of Medicine MEDICARE) [code = MEDICARE IPPE (WELCOME TO MEDICARE)] Future Scheduled FLU VACCINE > 6 [facility] C ollege Test MONTHS [code = FLU of Medici ne VACCINE > 6 MONTHS] Future Scheduled Screening for [facility] Col lege Test malignant neoplasm of Medici ne of colon (procedure) [code = 514734651] Future Scheduled COVID-19 Vaccine [facility] Test Evaluation [code = of Medici ne COVID-19 Vaccine Evaluation] Future Scheduled Screening for [facility] Col lege Test malignant neoplasm of Medici ne of breast (procedure) [code = 100584124] Future Scheduled [place] LARYNGOSCOPY Ordered: [facility] ollege Test FLEXIBLE DIAGNOSTIC 04/07/2019 of Medic ine [code = 83721] Future Scheduled TETANUS SHOT (ADULT) [employer] Test [code = TETANUS SHOT of Medi cine (ADULT)] Future Scheduled Hepatitis C [facility] [employer] Test screening of Medicine (procedure) [code = 259373356] Future Scheduled ZOSTER VACCINE (1 of [employer] Test 2) [code = ZOSTER of Medicin e VACCINE (1 of 2)] Future Scheduled FALL SCREEN [code = [employer] FALL SCREEN] of Medicine Future Scheduled Screening for [facility] Col lege Test osteoporosis of Medicine (procedure) [code = 090959578] Future Scheduled MEDICARE IPPE [facility] [employer] Test (WELCOME TO of Medicine MEDICARE) [code = MEDICARE IPPE (WELCOME TO MEDICARE)] Future Scheduled FLU VACCINE > 6 [facility] [employer]lege Test MONTHS [code = FLU of Medici ne VACCINE > 6 MONTHS] Future Scheduled COLON CANCER [facility] [employer] Test SCREENING: of Medicine COLONOSCOPY [code = COLON CANCER SCREENING: COLONOSCOPY] Future Scheduled MAMMOGRAM ANNUAL [facility] Test [code = MAMMOGRAM of Medicin e ANNUAL] Future Scheduled MEDICARE AWV [code = [employer] Test MEDICARE AWV] of Medicine Future Scheduled TETANUS SHOT (ADULT) [employer] Test [code = TETANUS SHOT of Medi cine (ADULT)] Future Scheduled HEPATITIS C [facility] [employer] Test SCREENING [code = of Medicin e HEPATITIS C SCREENING] Future Scheduled FALL SCREEN [code = [employer] FALL SCREEN] of Medicine Future Scheduled OSTEOPOROSIS [facility] [employer] Test SCREENING [code = of Medicin e OSTEOPOROSIS SCREENING] Future Scheduled PNEUMOVAX >=65 [facility] Co [employer]lege Test (PPSV23) [code = of Medicine PNEUMOVAX >=65 (PPSV23)] Future Scheduled PREVNAR >= 65 [facility] Col [facility]ge Test (PCV13) [code = of Medicine PREVNAR >= 65 (PCV13)] Future Scheduled FLU VACCINE > 6 [facility] [employer]lege Test MONTHS [code = FLU of Medici ne VACCINE > 6 MONTHS] Future Scheduled COLON CANCER [facility] Test SCREENING: of Medicine COLONOSCOPY [code = COLON CANCER SCREENING: COLONOSCOPY] Future Scheduled MAMMOGRAM ANNUAL [facility] Test [code = MAMMOGRAM of Medicin e ANNUAL] Future Scheduled MEDICARE AWV [code = [employer] MEDICARE AWV] of Medicine Future Scheduled TETANUS SHOT (ADULT) [employer] Test [code = TETANUS SHOT of Medi cine (ADULT)] Future Scheduled HEPATITIS C [facility] Test SCREENING [code = of Medicin e HEPATITIS C SCREENING] Future Scheduled FALL SCREEN [code = [employer] FALL SCREEN] of Medicine Future Scheduled OSTEOPOROSIS [facility] [employer] Test SCREENING [code = of Medicin e OSTEOPOROSIS SCREENING] Future Scheduled PNEUMOVAX >=65 [facility] Co [employer]lege Test (PPSV23) [code = of Medicine PNEUMOVAX >=65 (PPSV23)] Future Scheduled PREVNAR >= 65 [facility] Col lege Test (PCV13) [code = of Medicine PREVNAR >= 65 (PCV13)] Future Scheduled FLU VACCINE > 6 [facility] C ollege Test MONTHS [code = FLU of Medici ne VACCINE > 6 MONTHS] Future Scheduled BRONCHOSCOPY [code = 1 Occurrences [employer] Test NOCPT] starting of Medicine 11/14/2019 until 11/13/2020 Encounters Start End Encounter Admission Attending Care Care Encounter Source Date/Time Date/Time Type Type Clinicians Facility Department ID 2021-06-08 Outpatient CK VEGA Surgery [id number] [facility] 15:02:15 2021-06-08 Outpatient AUSTYN SLE Surgery [id number] [facility] 00:49:01 DARCY 2021-06-08 Outpatient CK VEGA [facility] Surgery [id number] [facility] 00:31:54 2021-06-07 Outpatient CK VEGA SLE Surgery [id number] [facility] 20:14:13 2021-06-05 Outpatient CK VEGA [facility] Surgery [id number] [facility] 10:33:00 2021-06-05 Outpatient CK VEGA [facility] Surgery [id number] [facility] 08:46:19 2021-06-05 Outpatient CK VEGA SLE Surgery [id number] [facility] 00:05:33 2022-12-26 2022-12-26 Office Jonh Clark 1.2.840.1 [id number] 89330 Methodi 13:30:00 14:42:[address] 3.430.2.7 Hospit a .3.455806 l .8 2022-12-26 2022-12-26 Outpatient JONH CLARK [facility] [id number] [place] 00:00:00 00:00:[address] 2022-12-11 2022-12-11 [facility] Jonh Clark 1.2.840.1 [id number] 2100 [id number] Methodi 09:49:00 15:21:[address] 3.430.2.7 Hospit a .3.673903 l .8 2022-12-11 2022-12-11 Surgery Jonh Clark 1.2.840.1 [id number] 85599 10327 Methodi 11:30:00 13:20:[address] 3.430.2.7 Hospit a .3.791431 l .8 2022-12-11 2022-12-11 Anesthesia Dioni Plascencia 1.2.840 .1 [id number] Methodi 11:31:00 13:17:00 Event Sabino, Brittni W. 93237.1.[address] 3.430.2.7 Hospit a .3.784873 l .8 2022-12-11 2022-12-11 Telephone Jonh Clark 1.2.840.1 [id number] 087 [id number] Methodi 00:00:00 00:00:[address] 3.430.2.7 Hospit a .3.566509 l .8 2022-12-11 2022-12-11 Travel 1.2.840.1 1.2.721.117 1160 374966 Methodi 00:00:00 00:00:[address] 3.430.2.7 0.2.7.3.698 Ho spita .3.291435 084.8 l .8 2022-12-11 2022-12-11 Outpatient JONH CLARK [facility] 021 [id number] 1270 [place] 00:00:00 00:00:[address] 2022-11-27 2022-11-27 Pre-Admiss Jonh Clark 1.2.840.1 [id number] 21 [id number] Methodi 13:20:00 14:20:00 Brittni JacksonSarita 84721.1.[address] Testing 3.430.2.7 Hospit a .3.567156 l .8 2022-11-27 2022-11-27 Travel 1.2.840.1 1.2.289.150 9119 620482 Methodi 00:00:00 00:00:[address] 3.430.2.7 0.2.7.3.698 Ho spita .3.857515 084.8 l .8 2022-11-27 2022-11-27 Outpatient JONH CLARK [facility] [id number] 7460 [place] 00:00:00 00:00:[address] 2022-11-25 2022-11-25 Office Jonh Clark 1.2.840.1 [id number] 80617 57771 Methodi 13:15:00 17:23:[address] 3.430.2.7 Hospit a .3.091387 l .8 2022-11-25 2022-11-25 Travel 1.2.840.1 1.2.792.655 4891 401667 Methodi 00:00:00 00:00:[address] 3.430.2.7 0.2.7.3.698 Ho spita .3.218518 084.8 l .8 2022-11-25 2022-11-25 Outpatient [facility] [id number] 512 [place] 00:00:00 00:00:[address] 2022-10-14 2022-10-14 Office Jonh Clark 1.2.840.1 [id number] 48788 Methodi 14:45:00 15:50:[address] 3.430.2.7 Hospit a .3.746669 l .8 2022-10-14 2022-10-14 Travel 1.2.840.1 1.2.966.336 6592 596428 Methodi 00:00:00 00:00:[address] 3.430.2.7 0.2.7.3.698 Ho spita .3.819363 084.8 l .8 2022-10-14 2022-10-14 Outpatient JONH CLARK [facility] [id number] 4546 [place] 00:00:00 00:00:[address] 2022-06-09 2022-06-09 Office Jonh Clark 1.2.840.1 [id number] 12640 Methodi 13:45:00 16:26:[address] 3.430.2.7 Hospit a .3.994506 l .8 2022-06-09 2022-06-09 Outpatient JONH CLARK [facility] [id number] 4640 [place] 00:00:00 00:00:[address] 2022-06-09 2022-06-09 Travel 1.2.840.1 1.2.876.045 5655 744904 Methodi 00:00:00 00:00:[address] 3.430.2.7 0.2.7.3.698 Ho spita .3.456504 084.8 l .8 2022-05-29 2022-05-29 Hospital Jonh Clark 1.2.840.1 [id number] 2100 [id number] Methodi 08:29:00 14:02:[address] 3.430.2.7 Hospit a .3.878438 l .8 2022-05-29 2022-05-29 Anesthesia TabithaSangita 1.2.840.1 104 [id number] Methodi 09:55:00 12:07:00 Event Lynda Alston 24647.1.[address] 3.430.2.7 Hospit a .3.606058 l .8 2022-05-29 2022-05-29 Surgery Jonh Clark 1.2.840.1 [id number] 36670 47447 Methodi 09:25:00 11:15:[address] 3.430.2.7 Hospit a .3.011796 l .8 2022-05-29 2022-05-29 Outpatient JONH CLARK [facility] 021 [id number] 6116 [place] 00:00:00 00:00:[address] 2022-05-29 2022-05-29 Travel 1.2.840.1 1.2.512.626 2322 410091 Methodi 00:00:00 00:00:[address] 3.430.2.7 0.2.7.3.698 Ho spita .3.518563 084.8 l .8 2022-05-26 2022-05-26 Outpatient JONH CLARK [facility] [id number] 1579 [place] 00:00:00 00:00:[address] 2022-05-20 2022-05-20 Travel 1.2.840.1 1.2.277.567 6794 527867 Methodi 00:00:00 00:00:[address] 3.430.2.7 0.2.7.3.698 Ho spita .3.894655 084.8 l .8 2022-05-15 2022-05-15 Pre-Admiss Jonh Clark 1.2.840.1 [id number] 21 [id number] Methodi 13:30:00 14:30:[address] Testing 3.430.2.7 Hospit a .3.234506 l .8 2022-05-15 2022-05-15 Outpatient JONH CLARK [facility] [id number] 3795 [place] 00:00:00 00:00:[address] 2022-05-14 2022-05-14 Travel 1.2.840.1 1.2.889.888 8412 122714 Methodi 00:00:00 00:00:[address] 3.430.2.7 0.2.7.3.698 Ho spita .3.749444 084.8 l .8 2022-05-12 2022-05-12 Office Jonh Clark 1.2.840.1 [id number] 05175 20277 Methodi 14:00:00 16:48:[address] 3.430.2.7 Hospit a .3.040004 l .8 2022-05-12 2022-05-12 Outpatient JONH CLARK [facility] [id number] 6248 [place] 00:00:00 00:00:[address] 2022-05-12 2022-05-12 Orders Korina, 1.2.840.1 [id number] 5938 Methodi 00:00:00 00:00:00 Only Zahira 10984.1.[address] 3.430.2.7 Hospit a .3.527880 l .8 2022-05-12 2022-05-12 Travel 1.2.840.1 1.2.078.894 6926 779666 Methodi 00:00:00 00:00:[address] 3.430.2.7 0.2.7.3.698 Ho spita .3.379435 084.8 l .8 2022-04-08 2022-04-08 Office AmberJonh 1.2.840.1 [id number] 54954 87233 Methodi 13:00:00 13:52:[address] 3.430.2.7 Hospit a .3.822477 l .8 2022-04-08 2022-04-08 Outpatient JONH CLARK [facility] [id number] 4394 [place] 00:00:00 00:00:[address] 2022-04-08 2022-04-08 Travel 1.2.840.1 1.2.831.616 0939 151258 Methodi 00:00:00 00:00:[address] 3.430.2.7 0.2.7.3.698 Ho spita .3.721220 084.8 l .8 2022-02-26 2022-02-26 Telephone Gume 1.2.840.1 [id number] 21 [id number] Methodi 00:00:00 00:00:[address] 3.430.2.7 Hospit a .3.402239 l .8 2022-02-25 2022-02-25 Telephone Jonh Clark 1.2.840.1 [id number] 053 [id number] Methodi 00:00:00 00:00:[address] 3.430.2.7 Hospit a .3.281938 l .8 2022-02-07 2022-02-07 Office Jonh Clark 1.2.840.1 [id number] 07673 42090 Methodi 10:45:00 14:39:[address] 3.430.2.7 Hospit a .3.167545 l .8 2022-02-07 2022-02-07 Lab Jonh Clark 1.2.840.1 [id number] 38656 98720 Methodi 11:35:00 11:40:[address] 3.430.2.7 Hospit a .3.366368 l .8 2022-02-07 2022-02-07 Outpatient JNOH CLARK [facility] [id number] 7627 [place] 00:00:00 00:00:[address] 2022-02-07 2022-02-07 Outpatient JONH CLARK [facility] [id number] 8546 [place] 00:00:00 00:00:[address] 2022-02-07 2022-02-07 Travel 1.2.840.1 1.2.684.324 3923 499114 Methodi 00:00:00 00:00:[address] 3.430.2.7 0.2.7.3.698 Ho spita .3.633293 084.8 l .8 2022-01-17 2022-01-24 Hospital EmeryLuis 1.2.840.1 [id number] 54 [id number] Methodi 14:43:00 16:38:00 Encounter Félix Recinos 58644.1.[address] Juan Smith Salvador 3.430.2.7 [facility]ospita [facility] Eidmaty Recinos .3.411219 l .8 2022-01-17 2022-01-24 [facility] 064 [id number] 20 [place] 00:00:00 00:00:00 JONY [address] 2022-01-23 2022-01-23 Anesthesia Pastora Kenny. 1.2.840 .1 [id number] Methodi 15:05:00 16:33:00 Event James Hampton 38454.1.[address] 3.430.2.7 Hospit a .3.695450 l .8 2022-01-23 2022-01-23 Surgery Jeremy Manriquez 1.2.840.1 [id number] 954 [id number] Methodi 13:30:00 15:30:00 Mart Loya 41259.1.[address] 3.430.2.7 Hospit a .3.488126 l .8 2022-01-17 2022-01-17 Office Jonh Clark 1.2.840.1 [id number] 13899 51561 Methodi 13:15:00 14:17:[address] 3.430.2.7 Hospit a .3.226746 l .8 2022-01-17 2022-01-17 Outpatient JONH CLARK [facility] [id number] 1476 [place] 00:00:00 00:00:[address] 2022-01-17 2022-01-17 Travel 1.2.840.1 1.2.908.352 8552 310390 Methodi 00:00:00 00:00:[address] 3.430.2.7 0.2.7.3.698 spita .3.279746 084.8 l .8 2021-10-18 2021-10-18 Outpatient JONH CLARK [facility] [id number] 1241 [place] 00:00:00 00:00:[address] 2021-10-10 2021-10-10 Outpatient JONH CLARK [facility] 021 [id number] [place] 00:00:00 00:00:[address] 2021-10-07 2021-10-07 Outpatient JONH CLARK [facility] [id number] 7488 [place] 00:00:00 00:00:[address] 2021-10-07 2021-10-07 Outpatient JONH CLARK [facility] [id number] 2731 [place] 00:00:00 00:00:[address] 2021-09-18 2021-09-18 Outpatient JONH CLARK [facility] [id number] 3156 [place] 00:00:00 00:00:[address] 2021-08-14 2021-08-14 Outpatient JONH CLARK [facility] [id number] 5891 [place] 00:00:00 00:00:[address] 2021-06-03 2021-06-03 Outpatient [facility] [id number] 571 [place] 00:00:00 00:00:[address] 2021-04-29 2021-04-29 Outpatient JONH CLARK [facility] [id number] 7317 [place] 00:00:00 00:00:[address] 2021-04-18 2021-04-18 Outpatient JONH CLARK [facility] 021 [id number] 0066 [place] 00:00:00 00:00:[address] 2021-04-16 2021-04-16 Outpatient JONH CLARK [facility] [id number] 6187 [place] 00:00:00 00:00:[address] 2021-04-02 2021-04-02 Outpatient JONH CLARK [facility] [id number] 7193 [place] 00:00:00 00:00:[address] 2021-03-28 2021-03-28 Outpatient [facility] [id number] 414 [place] 00:00:00 00:00:00 350 Method i 2021-03-28 2021-03-28 Outpatient THEYANELII, [facility] [id number] 414 [place] 00:00:00 00:00:00 MILI [address] 2020-12-24 2020-12-24 Outpatient EL SLE SLE [id number] [facility] 00:00:00 00:00:00 2020-11-08 2020-11-08 Office NIRU Bradley 1.2.840.114 [id number] [facility] 11:02:43 12:05:27 Visit Jessica AMBULATOR 350.1.13.21 College Uriah Y 0.2.7.2.686 of [id number] [facility] maribel 800 e 2020-11-05 2020-11-05 Office Ck Vega [facility] 1.2.840.114 81 [id number] [facility] 14:01:58 14:31:58 Visit Addi AMBULATOR 350.1.13.21 College Y 0.2.7.2.686 of [id number] Medi maribel 380 e 2020-10-25 2020-10-25 Office NIRU Zaman 1.2.840.114 81 [id number] [facility] 12:24:49 16:36:07 Visit Deandreina AMBULATOR 350.1.13.21 College Y 0.2.7.2.686 of [id number] [facility] 800 e 2020-10-09 2020-10-09 Outpatient EL [facility] [id number] [facility] 09:15:53 23:59:00 2020-09-20 2020-09-20 Office NIRU Zaman 1.2.840.114 79 [id number] [facility] 15:04:13 16:32:24 Visit Julina AMBULATOR 350.1.13.21 College Y 0.2.7.2.686 of [id number] [facility] 800 e 2020 2020 Outpatient EL [facility] [id number] [facility] 00:00:00 00:00:00 2020-07-16 2020-07-16 Outpatient EL [facility] [id number] [facility] 00:00:00 00:00:00 2020-01-10 2020-01-10 Outpatient EL CK VEGA [facility] Surgery [id number] [facility] 06:21:00 06:21:00 2020-01-05 2020-01-05 Outpatient EL [facility] [id number] [facility] 00:00:00 00:00:00 2019-11-15 2019-11-15 Outpatient SLEH [facility] [id number] 2-2 [facility] 12:24:00 12:24:00 [id number] 2019-11-14 2019-11-14 Office Ck Vega [facility] 1.2.840.114 [id number] 15:01:16 15:31:16 Visit Addi AMBULATOR 350.1.13.21 Y 0.2.7.2.686 [id number] 380 2019-11-14 2019-11-14 Office Ck Vega [facility] 1.2.840.114 [id number] [facility] 15:01:16 15:31:16 Visit Addi AMBULATOR 350.1.13.21 College Y 0.2.7.2.686 of [id number] [facility] 380 e 2019-06-27 2019-06-27 Office Ck Vega [facility] 1.2.840.114 71 [id number] [facility] 11:51:26 12:21:26 Visit Addi AMBULATOR 350.1.13.21 College Y 0.2.7.2.686 of [id number] [facility] 315 e 2019-06-27 2019-06-27 Office Ck Vega [facility] 1.2.840.114 71 [id number] 11:51:26 12:21:26 Visit Addi AMBULATOR 350.1.13.21 Y 0.2.7.2.686 [id number] 315 2019-04-28 2019-04-28 Outpatient CK VEGA [facility] SLE [id number] [facility] 00:00:00 00:00:00 2019-04-28 2019-04-28 Outpatient SLE SLE [id number] 2-2 [facility] 00:00:00 00:00:00 [id number] 2019-04-18 2019-04-18 Office Ck Vega 1.2.840.114 68 [id number] [facility] 11:37:35 12:07:35 Visit Addi AMBULATOR 350.1.13.21 College Y 0.2.7.2.686 of [id number] [facility] 315 e 2019-04-18 2019-04-18 Office Ck Vega 1.2.840.114 68 [id number] 11:37:35 12:07:35 Visit Addi AMBULATOR 350.1.13.21 Y 0.2.7.2.686 [id number] 315 2019-04-07 2019-04-07 Office NIRU Zaman 1.2.840.114 70 [id number] [facility] 14:34:30 16:44:29 Visit Julina AMBULATOR 350.1.13.21 College Y 0.2.7.2.686 of [id number] [facility] 800 e 2019-04-07 2019-04-07 Office NIRU Zaman 1.2.840.114 70 [id number] 14:34:30 16:44:29 Visit Julina AMBULATOR 350.1.13.21 Y 0.2.7.2.686 [id number] 800 2018-09-23 2018-09-23 Outpatient [facility] 22 [id number] [place] 11:00:00 11:00:[address] [place] [address] [facility] 2018-09-17 2018-09-17 Out[facility] 23 [id number] [facility] 11:00:00 11:00:[address] [address] [facility] 2018-06-03 2018-06-03 Out[facility] 14 [id number] [facility] 15:30:00 15:30:[address] [address] [facility] 2018-03-18 2018-03-18 Out[facility] 14 [id number] Common 15:00:00 15:00:[address] [address] [facility] 2018-02-23 2018-02-23 Out[facility] 14 [id number] Common 14:40:00 14:40:[address] [address] [facility] 2018-02-03 2018-02-03 [facility] 12 [id number] Common 15:15:00 15:15:[address] [address] [facility] 2017-11-16 2017-11-16 [facility] 13 [id number] Common 13:45:00 13:45:[address] [address] [facility] Results Test Description Test Time Test Comments Results Result Comments Source Surgical pathology request 2022-12-15 16:05:27 Test Item Value Reference Range Interpretation Comme nts Case number (test code = 4774247) [id number] Surgical pathology report (test code = See link below for PDF Lab R eport 5590) Result status (test code = 3644963) This is Final Report for [id number] [facility] Pre/Post [id number] 02:14:20 Test Item Value Reference Range Interpretation Comments Ventricular rate (test 61 code = 253) Atrial rate (test code 61 = 255) VT interval (test code 156 = 266) QRSD interval (test 84 code = 260) QT interval (test code 442 = 264) QTC interval (test code 444 = 265) P axis 1 (test code = 80 267) QRS axis 1 (test code = 71 268) T wave axis (test code 69 = 270) EKG impression (test Normal sinus code = 273) rhythm-Minimal voltage criteria for LVH, may be normal variant ( Sokolow-Zhang )-Borderline ECG-In automated comparison with ECG of 17-JAN-2022 14:34,-No significant change was found[id number] 20:35:00 Test Item Value Reference Range Interpretation Comments Urine culture (test SEE COMMENT Bacteriu rupali screen code = 0561390) negative. [facility] RNA [Presence] in Respiratory specimen by MENA with probe [id number] 22:16:15 Test Item Value Reference Range Interpretation Comments SARS-CoV-2 (COVID-19) RNA Not detected [Presence] in Respiratory specimen by MENA with probe detection (test code = 75366-4) Whether patient is employed in a Unknown healthcare setting (test code = 41299-8) Whether the patient has symptoms Unknown related to condition of interest (test code = 36509-5) Whether the patient was Unknown hospitalized for condition of interest (test code = 33481-2) Whether the patient was admitted Unknown to intensive care unit (ICU) for condition of interest (test code = 50647-3) Whether patient resides in a Unknown congregate care setting (test code = 62948-9) status (test code = Unknown 26166-8) Date and time of symptom onset Unknown (test code = 95805-0) [facility]22-02-12 03:07:00 Test Item Value Reference Interpretation Comments Range C-ANCA (test <1:20 See_Comment [Automated mes clara] The code = 47383-4) system which generated this result tra nsmitted reference range : Neg:<1:20 titer . The reference range was not used to interpr et this result as normal/abnormal . Perinuclear <1:20 See_Comment The presence of positive (P-ANCA) (test fluorescence exhibiting code = 77517-9) P-ANCA or C- ANCApatterns alone is not sp ecific for the diagnosis o f Bette'sGranul omatosis (WG) or microsc opic polyangiitis. D ecisions abouttreatment should not be based solely on ANCA IFA results. TheInternationa l ANCA Group Consensus recommends foll ow up testing ofposit meghan sera with both VT-3 and MPO-ANCA enzyme immunoassays. A smany as 5% serum sample s are positive only b y EIA.Ref. AM J Clin Patho l 1999;111:507-51 3. [Automated mess age] The system which ge nerated this result tra nsmitted reference range : Neg:<1:20 titer . The reference range was not used to interpr et this result as normal/abnormal . Atypical pANCA <1:20 See_Comment The atypical pANCA (test code = pattern has bee n observed 77296-4) in a significantperc entage of patients with u lcerative colitis, primar y sclerosingchola ngitis and autoimmune hepa titis. [Automated mess age] The system which ge nerated this result tra nsmitted reference range : Neg:<1:20 titer . The reference range was not used to interpr et this result as normal/abnormal . NAS (test code = Performed at: [facility]) [address] [place] [id number] Director: Henrietta Taveras MD, Phone: [phone] [facility]2022-06-14 05:06:00 Test Item Value Reference Range Interpretation Comments SEGUNDO direct (test code Negative Negative = 8061-4) NAS (test code = NAS) Performed at: [address] [place] [id number] Director: Benjamin Albarado MD, Phone: [phone] [facility] [id number] 14:10:00 Test Item Value Reference Range Interpretation Comments CRP (test code = 3 mg/L 01987-12) NAS (test code = Performed at: [facility]) [address] [id number] Director: Benjamin Albarado MD, Phone: [phone] [facility]heumatoid [id number] 14:10:00 Test Item Value Reference Range Interpretation Comments Rheumatoid <10.0 See_Comment [Automated arthritis latex message] The turbid (test code system whi ch = 58018-2) generated this result transmit dustin reference range : <14.0 IU/mL. Th e reference range was not used to interpret this result as normal/abnormal . NAS (test code = Performed at: NAS) [facility] [address] [place], [place] [id number] Director: Benjamin Albarado MD, Phone: [phone] [facility] Services[facility] [id number] 12:11:00 Test Item Value Reference Range Interpretation Comments Sedimentation rate 31 See_Comment [Automat ed (test code = 4537-7) message ] The system which generated this result transmitted reference range : 0 - 40 mm/hr. T he reference range was not used to interpret this result as normal/abnormal . NAS (test code = Performed at: NAS) - [facility] [address] [place], [place] [id number] Director: Benjamin Albarado MD, Phone: [phone] [facility] O2 [id number] 23:49:59 Test Item Value Reference Range Interpretation Comments SUPPLIER NAME (test [facility] code = 6415) SUPPLIER PHONE (test code = 6416) ORDER STATUS (test Delivery code = 6417) Successful DELIVERY NOTE (test code = 6419) REQUESTED DELIVEY 01/24/2022 DATE (test code = 6420) ITEM DESCRIPTION Portable Tank with Qty: (test code = 6423) Conserving Device 1Ins tructions: / Pulse Dose Supplier to evaluate patien t for oxygen conserving adela ce via pulse oximetry at res t and with activities of daily living. Maintain oxygen saturation leve ls at or above 90% while on oxygen conserving setting range o f 1-5 EXPECTED DELIVERY 01/24/2022 DATE (test code = 6421) ACTUAL DELIVERY 01/24/2022 DATE (test code = 6422) [facility]19) RNA [Presence] in Respiratory specimen by MENA with probe [id number] 15:25:38 Test Item Value Reference Range Interpretation Comments SARS-CoV-2 (COVID-19) RNA Not detected [Presence] in Respiratory specimen by MENA with probe detection (test code = 45606-4) Whether patient is employed in a Unknown healthcare setting (test code = 38151-6) Whether the patient has symptoms Unknown related to condition of interest (test code = 64462-7) Whether the patient was Unknown hospitalized for condition of interest (test code = 91336-1) Whether the patient was admitted Unknown to intensive care unit (ICU) for condition of interest (test code = 85362-1) Whether patient resides in a Unknown congregate care setting (test code = 66232-3) status (test code = Unknown 80667-5) Date and time of symptom onset Unknown (test code = 23529-6) [facility] 12 [id number] 19:59:16 Test Item Value Reference Range Interpretation Comments Ventricular rate (test 67 code = 253) Atrial rate (test code 67 = 255) VT interval (test code 146 = 266) QRSD interval (test 82 code = 260) QT interval (test code 458 = 264) QTC interval (test code 483 = 265) P axis 1 (test code = 85 267) QRS axis 1 (test code = 66 268) T wave axis (test code 59 = 270) EKG impression (test Normal sinus code = 273) rhythm-Normal ECG-In automated comparison with ECG of 02-APR-2021 15:10,-No significant change was found- [facility]uuFCS[facility]-FgO-4 (COVID-19) RNA [Presence] in Respiratory specimen by MENA with probe [id number] 08:29:07 Test Item Value Reference Range Interpretation Comments SARS-CoV-2 (COVID-19) RNA Not detected [Presence] in Respiratory specimen by MENA with probe detection (test code = 56198-4) Whether patient is employed in a Unknown healthcare setting (test code = 97418-1) Whether the patient has symptoms Unknown related to condition of interest (test code = 62344-3) Whether the patient was Unknown hospitalized for condition of interest (test code = 12063-5) Whether the patient was admitted Unknown to intensive care unit (ICU) for condition of interest (test code = 39372-6) Whether patient resides in a Unknown congregate care setting (test code = 30556-1) status (test code = Unknown 38157-1) Date and time of symptom onset Unknown (test code = 73795-5) IVIS CORTEZSARS-CoV-2 (COVID-19) RNA [Presence] in Respiratory specimen by MENA with probe [id number] 19:55:27 Test Item Value Reference Range Interpretation Comments SARS-CoV-2 (COVID-19) RNA Not detected [Presence] in Respiratory specimen by MENA with probe detection (test code = 43740-4) Whether patient is employed in a Unknown healthcare setting (test code = 42541-7) Whether the patient has symptoms Unknown related to condition of interest (test code = 24143-4) Whether the patient was Unknown hospitalized for condition of interest (test code = 39952-1) Whether the patient was admitted Unknown to intensive care unit (ICU) for condition of interest (test code = 26281-5) Whether patient resides in a Unknown congregate care setting (test code = 60266-6) status (test code = Unknown 78857-8) Date and time of symptom onset Unknown (test code = 01735-5) IVIS CORTEZSARS-CoV-2 (COVID-19) RNA [Presence] in Respiratory specimen by MENA with probe [id number] 20:30:47 Test Item Value Reference Range Interpretation Comments SARS-CoV-2 (COVID-19) RNA Not detected Not-Detected [Presence] in Respiratory specimen by MENA with probe detection (test code = 51103-4) Whether patient is employed in a healthcare setting (test code = 07266-7) Whether the patient has symptoms related to condition of interest (test code = 71919-1) Patient was hospitalized because of this condition (test code = 91362-8) Whether the patient was admitted to intensive care unit (ICU) for condition of interest (test code = 43884-8) Whether patient resides in a congregate care setting (test code = 03200-0) IVIS CORTEZSARS-CoV-2 (COVID-19) RNA [Presence] in Respiratory specimen by MENA with probe [id number] 22:21:01 Test Item Value Reference Range Interpretation Comments SARS-CoV-2 (COVID-19) RNA Not detected Not-Detected [Presence] in Respiratory specimen by MENA with probe detection (test code = 39793-3) Whether patient is employed in a healthcare setting (test code = 57389-2) Whether the patient has symptoms related to condition of interest (test code = 65038-7) Patient was hospitalized because of this condition (test code = 20262-8) Whether the patient was admitted to intensive care unit (ICU) for condition of interest (test code = 95134-3) Whether patient resides in a congregate care setting (test code = 56072-0) [facility] [id number] 11:50:00 Test Item Value Reference Range Interpretation Comments TOTAL PROTEIN 7.3 gm/dL 6.0-8.3 Specimen sligh tly (BEAKER) (test code = hemoly zed 770) ALBUMIN (BEAKER) 4.1 g/dL 3.5-5.0 Specimen sl ightly (test code = 1145) hemolyzed ALKALINE PHOSPHATASE 192 U/L 40-150 H (BEAKER) (test code = 346) BILIRUBIN TOTAL 0.4 mg/dL 0.2-1.2 Specimen sli ghtly (BEAKER) (test code = hemoly zed 377) SODIUM (BEAKER) (test 143 meq/L 136-145 code = 381) POTASSIUM (BEAKER) 4.1 meq/L 3.5-5.1 Specimen slightly (test code = 379) hemolyzed CHLORIDE (BEAKER) 99 meq/L 98-107 (test code = 382) CO2 (BEAKER) (test 32 meq/L 22-29 H code = 355) BLOOD UREA NITROGEN 36 mg/dL 7-21 H (BEAKER) (test code = 354) CREATININE (BEAKER) 0.90 mg/dL 0.57-1.25 Specimen slightly (test code = 358) hemolyzed GLUCOSE RANDOM 86 mg/dL 70-105 (BEAKER) (test code = 652) CALCIUM (BEAKER) 8.8 mg/dL 8.4-10.2 (test code = 697) AST (SGOT) (BEAKER) 88 U/L 5-34 H Specimen slightly (test code = 353) hemolyzed ALT (SGPT) (BEAKER) 128 U/L 6-55 H Specimen slightly (test code = 347) hemolyzed EGFR (BEAKER) (test 62 mL/min/1.73 ESTIMA DUSTIN GFR IS code = 1092) sq m NOT ACCURATE CREATININE CLEARANCE IN PREDICTING GLOMERULAR FILTRATION RATE . ESTIMATED GFR I S NOT APPLICABLE FOR DIALYSIS PATIEN TS. Proofer ID - RMPROTHROMBIN TIME/[id number] 11:44:00 Test Item Value Reference Range Interpretation Comments PROTIME (BEAKER) 12.4 seconds 11.9-14.2 (test code = 759) INR (BEAKER) (test 0.95 See_Comment [Automat ed message] code = 370) The system [employer] generated this result transmitted ref erence range: <=5.90. The reference range was not used to int erpret this result as normal/abnormal . Effective 01/26/2019: PT Reference Range ChangeNew: 11.9-14.2 Previous: 11.7- 14.7RECOMMENDED COUMADIN/WARFARIN INR THERAPY RANGESSTANDARD DOSE: 2.0-3.0 Includes: PROPHYLAXIS for venous thrombosis, systemic embolization; TREATMENT for venous thrombosis and/or pulmonary embolus.HIGH RISK: Target INR is 2.5-3.5 for patients wiht mechanical heart valves.[id number] 11:44:00 Test Item Value Reference Range Interpretation Comments PARTIAL THROMBOPLASTIN TIME 30.6 seconds 22.5-36.0 (BEAKER) (test code = 760) CBC W/PLT COUNT & AUTO [id number] 11:35:00 Test Item Value Reference Range Interpretation Comments WHITE BLOOD CELL COUNT (BEAKER) 6.2 K/ L 3.5-10.5 (test code = 775) RED BLOOD CELL COUNT (BEAKER) 4.45 M/ L 3.93-5.22 (test code = 761) HEMOGLOBIN (BEAKER) (test code = 13.2 GM/DL 11.2-15.7 410) HEMATOCRIT (BEAKER) (test code = 41.3 % 34.1-44.9 411) MEAN CORPUSCULAR VOLUME (BEAKER) 92.8 fL 79.4-94.8 (test code = 753) MEAN CORPUSCULAR HEMOGLOBIN 29.7 pg 25.6-32.2 (BEAKER) (test code = 751) MEAN CORPUSCULAR HEMOGLOBIN CONC 32.0 GM/DL 32.2-35.5 L (BEAKER) (test code = 752) RED CELL DISTRIBUTION WIDTH 14.4 % 11.7-14.4 (BEAKER) (test code = 412) PLATELET COUNT (BEAKER) (test 274 K/CU MM 150-450 code = 756) MEAN PLATELET VOLUME (BEAKER) 9.2 fL 9.4-12.3 L (test code = 754) NUCLEATED RED BLOOD CELLS 0 /100 WBC 0-0 (BEAKER) (test code = 413) NEUTROPHILS RELATIVE PERCENT 61 % (BEAKER) (test code = 429) LYMPHOCYTES RELATIVE PERCENT 26 % (BEAKER) (test code = 430) MONOCYTES RELATIVE PERCENT 10 % (BEAKER) (test code = 431) EOSINOPHILS RELATIVE PERCENT 3 % (BEAKER) (test code = 432) BASOPHILS RELATIVE PERCENT 1 % (BEAKER) (test code = 437) NEUTROPHILS ABSOLUTE COUNT 3.79 K/ L 1.56-6.13 (BEAKER) (test code = 670) LYMPHOCYTES ABSOLUTE COUNT 1.59 K/ L 1.18-3.74 (BEAKER) (test code = 414) MONOCYTES ABSOLUTE COUNT (BEAKER) 0.61 K/ L 0.24-0.36 H (test code = 415) EOSINOPHILS ABSOLUTE COUNT 0.17 K/ L 0.04-0.36 (BEAKER) (test code = 416) BASOPHILS ABSOLUTE COUNT (BEAKER) 0.03 K/ L 0.01-0.08 (test code = 417) IMMATURE GRANULOCYTES-RELATIVE 0 % 0-1 PERCENT (BEAKER) (test code = 2801) CBC W/PLT COUNT & AUTO [id number] 08:31:00 Test Item Value Reference Range Interpretation Comments WHITE BLOOD CELL COUNT (BEAKER) 17.2 K/ L 3.5-10.5 H (test code = 775) RED BLOOD CELL COUNT (BEAKER) 4.28 M/ L 3.93-5.22 (test code = 761) HEMOGLOBIN (BEAKER) (test code = 12.8 GM/DL 11.2-15.7 410) HEMATOCRIT (BEAKER) (test code = 39.0 % 34.1-44.9 411) MEAN CORPUSCULAR VOLUME (BEAKER) 91.1 fL 79.4-94.8 (test code = 753) MEAN CORPUSCULAR HEMOGLOBIN 29.9 pg 25.6-32.2 (BEAKER) (test code = 751) MEAN CORPUSCULAR HEMOGLOBIN CONC 32.8 GM/DL 32.2-35.5 (BEAKER) (test code = 752) RED CELL DISTRIBUTION WIDTH 14.7 % 11.7-14.4 H (BEAKER) (test code = 412) PLATELET COUNT (BEAKER) (test 389 K/CU MM 150-450 code = 756) MEAN PLATELET VOLUME (BEAKER) 10.0 fL 9.4-12.3 (test code = 754) NUCLEATED RED BLOOD CELLS 0 /100 WBC 0-0 (BEAKER) (test code = 413) (CELLAVISION MANUAL DIFF)2020-10-12 08:31:00 Test Item Value Reference Range Interpretation Comments NEUTROPHILS - REL 78 % (CELLAVISION)(BEAKER) (test code = 2816) LYMPHOCYTES - REL 6 % (CELLAVISION)(BEAKER) (test code = 2817) MONOCYTES - REL 10 % (CELLAVISION)(BEAKER) (test code = 2818) EOSINOPHILS - REL 2 % (CELLAVISION)(BEAKER) (test code = 2819) BASOPHILS - REL 1 % (CELLAVISION)(BEAKER) (test code = 2820) BANDS - REL (CELLAVISION)(BEAKER) 2 % 0-10 (test code = 2826) ATYPICAL LYMPHOCYTES - REL 1 % 0-0 H (CELLAVISION)(BEAKER) (test code = 2829) NEUTROPHILS - ABS 13.42 K/ul 1.56-6.13 H (CELLAVISION)(BEAKER) (test code = 2830) LYMPHOCYTES - ABS 1.03 K/ul 1.18-3.74 L (CELLAVISION)(BEAKER) (test code = 2831) MONOCYTES - ABS 1.72 K/uL 0.24-0.36 H (CELLAVISION)(BEAKER) (test code = 2832) EOSINOPHILS - ABS 0.34 K/uL 0.04-0.36 (CELLAVISION)(BEAKER) (test code = 2834) BASOPHILS - ABS 0.17 K/uL 0.01-0.08 H (CELLAVISION)(BEAKER) (test code = 2835) BANDS - ABS (CELLAVISION)(BEAKER) 0.34 K/uL 0.00-0.80 (test code = 2840) ATYPICAL LYMPHOCYTES - ABS 0.17 K/uL 0.00-0.00 H (CELLAVISION)(BEAKER) (test code = 2858) TOTAL COUNTED (BEAKER) (test code 100 = 1351) RBC MORPHOLOGY (BEAKER) (test code Normal = 762) WBC MORPHOLOGY (BEAKER) (test code Normal = 487) PLT MORPHOLOGY (BEAKER) (test code Normal = 486) PLATELET CONCENTRATION Adequate (CELLAVISION)(BEAKER) (test code = 3438) Proofer ID - Khadra comments: Slide comments:COMPREHENSIVE METABOLIC PANEL 2020-10-12 08:03:00 Test Item Value Reference Range Interpretation Comments TOTAL PROTEIN 6.2 gm/dL 6.0-8.3 (BEAKER) (test code = 770) ALBUMIN (BEAKER) 3.1 g/dL 3.5-5.0 L (test code = 1145) ALKALINE PHOSPHATASE 178 U/L 40-150 H (BEAKER) (test code = 346) BILIRUBIN TOTAL 0.3 mg/dL 0.2-1.2 (BEAKER) (test code = 377) SODIUM (BEAKER) (test 138 meq/L 136-145 code = 381) POTASSIUM (BEAKER) 3.3 meq/L 3.5-5.1 L (test code = 379) CHLORIDE (BEAKER) 95 meq/L 98-107 L (test code = 382) CO2 (BEAKER) (test 31 meq/L 22-29 H code = 355) BLOOD UREA NITROGEN 34 mg/dL 7-21 H (BEAKER) (test code = 354) CREATININE (BEAKER) 0.92 mg/dL 0.57-1.25 (test code = 358) GLUCOSE RANDOM 104 mg/dL 70-105 (BEAKER) (test code = 652) CALCIUM (BEAKER) 8.4 mg/dL 8.4-10.2 (test code = 697) AST (SGOT) (BEAKER) 36 U/L 5-34 H (test code = 353) ALT (SGPT) (BEAKER) 35 U/L 6-55 (test code = 347) EGFR (BEAKER) (test 61 mL/min/1.73 ESTIMA DUSTIN GFR IS code = 1092) sq m NOT ACCURATE CREATININE CLEARANCE IN PREDICTING GLOMERULAR FILTRATION RATE . ESTIMATED GFR I S NOT APPLICABLE FOR DIALYSIS PATIEN TS. Proofer ID - KWESI [id number] 07:50:00 Test Item Value Reference Range Interpretation Comments PARTIAL THROMBOPLASTIN TIME 30.4 seconds 22.5-36.0 (BEAKER) (test code = 760) PROTHROMBIN TIME/[id number] 07:49:00 Test Item Value Reference Range Interpretation Comments PROTIME (BEAKER) 13.0 seconds 11.9-14.2 (test code = 759) INR (BEAKER) (test 1.01 See_Comment [Automat ed message] code = 370) The system [employer] generated this result transmitted ref erence range: <=5.90. The reference range was not used to int erpret this result as normal/abnormal . Effective 01/26/2019: PT Reference Range ChangeNew: 11.9-14.2 Previous: 11.7- 14.7RECOMMENDED COUMADIN/WARFARIN INR THERAPY RANGESSTANDARD DOSE: 2.0-3.0 Includes: PROPHYLAXIS for venous thrombosis, systemic embolization; TREATMENT for venous thrombosis and/or pulmonary embolus.HIGH RISK: Target INR is 2.5-3.5 for patients wiht mechanical heart valves.POCT-GLUCOSE [id number] 06:33:00 Test Item Value Reference Range Interpretation Comments POC-GLUCOSE METER 91 mg/dL 70-110 : TESTED A T [facility] 6720 (BEAKER) (test code = [place], 1538) [address]: Proofer/Techni mirtha ID = [id number] for JORD AN, EDAYSTAL COMPREHENSIVE METABOLIC [id number] 10:10:00 Test Item Value Reference Range Interpretation Comments TOTAL PROTEIN 6.7 gm/dL 6.0-8.3 Specimen sligh tly (BEAKER) (test code = hemoly zed 770) ALBUMIN (BEAKER) 4.0 g/dL 3.5-5.0 Specimen sl ightly (test code = 1145) hemolyzed ALKALINE PHOSPHATASE 74 U/L 40-150 (BEAKER) (test code = 346) BILIRUBIN TOTAL 0.4 mg/dL 0.2-1.2 Specimen sli ghtly (BEAKER) (test code = hemoly zed 377) SODIUM (BEAKER) (test 142 meq/L 136-145 code = 381) POTASSIUM (BEAKER) 3.8 meq/L 3.5-5.1 Specimen slightly (test code = 379) hemolyzed CHLORIDE (BEAKER) 100 meq/L 98-107 (test code = 382) CO2 (BEAKER) (test 34 meq/L 22-29 H code = 355) BLOOD UREA NITROGEN 28 mg/dL 7-21 H (BEAKER) (test code = 354) CREATININE (BEAKER) 0.80 mg/dL 0.57-1.25 Specimen slightly (test code = 358) hemolyzed GLUCOSE RANDOM 89 mg/dL 70-105 (BEAKER) (test code = 652) CALCIUM (BEAKER) 8.6 mg/dL 8.4-10.2 (test code = 697) AST (SGOT) (BEAKER) 34 U/L 5-34 Specimen slightly (test code = 353) hemolyzed ALT (SGPT) (BEAKER) 27 U/L 6-55 Specimen slightly (test code = 347) hemolyzed EGFR (BEAKER) (test 72 mL/min/1.73 ESTIMA DUSTIN GFR IS code = 1092) sq m NOT ACCURATE CREATININE CLEARANCE IN PREDICTING GLOMERULAR FILTRATION RATE . ESTIMATED GFR I S NOT APPLICABLE FOR DIALYSIS PATIEN TS. Proofer ID - JUAN MPROTHROMBIN TIME/[id number] 09:42:00 Test Item Value Reference Range Interpretation Comments PROTIME (BEAKER) (test code = 12.3 seconds 11.9-14.2 759) INR (BEAKER) (test code = 370) 0.94 <=5.90 Effective 01/26/2019: PT Reference Range ChangeNew: 11.9-14.2 Previous: 11.7- 14.7RECOMMENDED COUMADIN/WARFARIN INR THERAPY RANGESSTANDARD DOSE: 2.0-3.0 Includes: PROPHYLAXIS for venous thrombosis, systemic embolization; TREATMENT for venous thrombosis and/or pulmonary embolus.HIGH RISK: Target INR is 2.5-3.5 for patients wiht mechanical heart valves.[id number] 09:42:00 Test Item Value Reference Range Interpretation Comments PARTIAL THROMBOPLASTIN TIME 29.2 seconds 22.5-36.0 (BEAKER) (test code = 760) CBC W/PLT COUNT & AUTO [id number] 09:32:00 Test Item Value Reference Range Interpretation Comments WHITE BLOOD CELL COUNT (BEAKER) 6.3 K/ L 3.5-10.5 (test code = 775) RED BLOOD CELL COUNT (BEAKER) 4.32 M/ L 3.93-5.22 (test code = 761) HEMOGLOBIN (BEAKER) (test code = 13.2 GM/DL 11.2-15.7 410) HEMATOCRIT (BEAKER) (test code = 40.5 % 34.1-44.9 411) MEAN CORPUSCULAR VOLUME (BEAKER) 93.8 fL 79.4-94.8 (test code = 753) MEAN CORPUSCULAR HEMOGLOBIN 30.6 pg 25.6-32.2 (BEAKER) (test code = 751) MEAN CORPUSCULAR HEMOGLOBIN CONC 32.6 GM/DL 32.2-35.5 (BEAKER) (test code = 752) RED CELL DISTRIBUTION WIDTH 13.3 % 11.7-14.4 (BEAKER) (test code = 412) PLATELET COUNT (BEAKER) (test 292 K/CU MM 150-450 code = 756) MEAN PLATELET VOLUME (BEAKER) 9.5 fL 9.4-12.3 (test code = 754) NUCLEATED RED BLOOD CELLS 0 /100 WBC 0-0 (BEAKER) (test code = 413) NEUTROPHILS RELATIVE PERCENT 55 % (BEAKER) (test code = 429) LYMPHOCYTES RELATIVE PERCENT 27 % (BEAKER) (test code = 430) MONOCYTES RELATIVE PERCENT 14 % (BEAKER) (test code = 431) EOSINOPHILS RELATIVE PERCENT 4 % (BEAKER) (test code = 432) BASOPHILS RELATIVE PERCENT 1 % (BEAKER) (test code = 437) NEUTROPHILS ABSOLUTE COUNT 3.42 K/ L 1.56-6.13 (BEAKER) (test code = 670) LYMPHOCYTES ABSOLUTE COUNT 1.71 K/ L 1.18-3.74 (BEAKER) (test code = 414) MONOCYTES ABSOLUTE COUNT (BEAKER) 0.87 K/ L 0.24-0.36 H (test code = 415) EOSINOPHILS ABSOLUTE COUNT 0.22 K/ L 0.04-0.36 (BEAKER) (test code = 416) BASOPHILS ABSOLUTE COUNT (BEAKER) 0.03 K/ L 0.01-0.08 (test code = 417) IMMATURE GRANULOCYTES-RELATIVE 0 % 0-1 PERCENT (BEAKER) (test code = 2801) COMPREHENSIVE METABOLIC [id number] 10:02:00 Test Item Value Reference Range Interpretation Comments TOTAL PROTEIN 7.1 gm/dL 6.0-8.3 (BEAKER) (test code = 770) ALBUMIN (BEAKER) 4.3 g/dL 3.5-5.0 (test code = 1145) ALKALINE PHOSPHATASE 73 U/L 40-150 (BEAKER) (test code = 346) BILIRUBIN TOTAL 0.2 mg/dL 0.2-1.2 (BEAKER) (test code = 377) SODIUM (BEAKER) (test 139 meq/L 136-145 code = 381) POTASSIUM (BEAKER) 3.6 meq/L 3.5-5.1 (test code = 379) CHLORIDE (BEAKER) 98 meq/L 98-107 (test code = 382) CO2 (BEAKER) (test 31 meq/L 22-29 H code = 355) BLOOD UREA NITROGEN 32 mg/dL 7-21 H (BEAKER) (test code = 354) CREATININE (BEAKER) 0.86 mg/dL 0.57-1.25 (test code = 358) GLUCOSE RANDOM 90 mg/dL 70-105 (BEAKER) (test code = 652) CALCIUM (BEAKER) 8.8 mg/dL 8.4-10.2 (test code = 697) AST (SGOT) (BEAKER) 22 U/L 5-34 (test code = 353) ALT (SGPT) (BEAKER) 17 U/L 6-55 (test code = 347) EGFR (BEAKER) (test 66 mL/min/1.73 ESTIMA DUSTIN GFR IS code = 1092) sq m NOT ACCURATE CREATININE CLEARANCE IN PREDICTING GLOMERULAR FILTRATION RATE . ESTIMATED GFR I S NOT APPLICABLE FOR DIALYSIS PATIEN TS. Proofer ID - ТАТЬЯНА FPROTHROMBIN TIME/[id number] 09:33:00 Test Item Value Reference Range Interpretation Comments PROTIME (BEAKER) (test code = 12.2 seconds 11.9-14.2 759) INR (BEAKER) (test code = 370) 0.93 <=5.90 Effective 01/26/2019: PT Reference Range ChangeNew: 11.9-14.2 Previous: 11.7- 14.7RECOMMENDED COUMADIN/WARFARIN INR THERAPY RANGESSTANDARD DOSE: 2.0-3.0 Includes: PROPHYLAXIS for venous thrombosis, systemic embolization; TREATMENT for venous thrombosis and/or pulmonary embolus.HIGH RISK: Target INR is 2.5-3.5 for patients wiht mechanical heart valves.[id number] 09:33:00 Test Item Value Reference Range Interpretation Comments PARTIAL THROMBOPLASTIN TIME 30.6 seconds 22.5-36.0 (BEAKER) (test code = 760) CBC W/PLT COUNT & AUTO [id number] 09:25:00 Test Item Value Reference Range Interpretation Comments WHITE BLOOD CELL COUNT (BEAKER) 8.1 K/ L 3.5-10.5 (test code = 775) RED BLOOD CELL COUNT (BEAKER) 4.37 M/ L 3.93-5.22 (test code = 761) HEMOGLOBIN (BEAKER) (test code = 13.4 GM/DL 11.2-15.7 410) HEMATOCRIT (BEAKER) (test code = 42.1 % 34.1-44.9 411) MEAN CORPUSCULAR VOLUME (BEAKER) 96.3 fL 79.4-94.8 H (test code = 753) MEAN CORPUSCULAR HEMOGLOBIN 30.7 pg 25.6-32.2 (BEAKER) (test code = 751) MEAN CORPUSCULAR HEMOGLOBIN CONC 31.8 GM/DL 32.2-35.5 L (BEAKER) (test code = 752) RED CELL DISTRIBUTION WIDTH 12.7 % 11.7-14.4 (BEAKER) (test code = 412) PLATELET COUNT (BEAKER) (test 302 K/CU MM 150-450 code = 756) MEAN PLATELET VOLUME (BEAKER) 9.7 fL 9.4-12.3 (test code = 754) NUCLEATED RED BLOOD CELLS 0 /100 WBC 0-0 (BEAKER) (test code = 413) NEUTROPHILS RELATIVE PERCENT 55 % (BEAKER) (test code = 429) LYMPHOCYTES RELATIVE PERCENT 30 % (BEAKER) (test code = 430) MONOCYTES RELATIVE PERCENT 13 % (BEAKER) (test code = 431) EOSINOPHILS RELATIVE PERCENT 2 % (BEAKER) (test code = 432) BASOPHILS RELATIVE PERCENT 1 % (BEAKER) (test code = 437) NEUTROPHILS ABSOLUTE COUNT 4.44 K/ L 1.56-6.13 (BEAKER) (test code = 670) LYMPHOCYTES ABSOLUTE COUNT 2.45 K/ L 1.18-3.74 (BEAKER) (test code = 414) MONOCYTES ABSOLUTE COUNT (BEAKER) 1.02 K/ L 0.24-0.36 H (test code = 415) EOSINOPHILS ABSOLUTE COUNT 0.14 K/ L 0.04-0.36 (BEAKER) (test code = 416) BASOPHILS ABSOLUTE COUNT (BEAKER) 0.04 K/ L 0.01-0.08 (test code = 417) IMMATURE GRANULOCYTES-RELATIVE 0 % 0-1 PERCENT (BEAKER) (test code = 2801) COMPREHENSIVE METABOLIC [id number] 09:53:00 Test Item Value Reference Range Interpretation Comments TOTAL PROTEIN 6.7 gm/dL 6.0-8.3 Specimen sligh tly (BEAKER) (test code = hemoly zed 770) ALBUMIN (BEAKER) 3.9 g/dL 3.5-5.0 Specimen sl ightly (test code = 1145) hemolyzed ALKALINE PHOSPHATASE 64 U/L 40-150 (BEAKER) (test code = 346) BILIRUBIN TOTAL 0.3 mg/dL 0.2-1.2 Specimen sli ghtly (BEAKER) (test code = hemoly zed 377) SODIUM (BEAKER) (test 142 meq/L 136-145 code = 381) POTASSIUM (BEAKER) 4.1 meq/L 3.5-5.1 Specimen slightly (test code = 379) hemolyzed CHLORIDE (BEAKER) 102 meq/L 98-107 (test code = 382) CO2 (BEAKER) (test 31 meq/L 22-29 H code = 355) BLOOD UREA NITROGEN 26 mg/dL 7-21 H (BEAKER) (test code = 354) CREATININE (BEAKER) 0.78 mg/dL 0.57-1.25 Specimen slightly (test code = 358) hemolyzed GLUCOSE RANDOM 84 mg/dL 70-105 (BEAKER) (test code = 652) CALCIUM (BEAKER) 8.5 mg/dL 8.4-10.2 (test code = 697) AST (SGOT) (BEAKER) 33 U/L 5-34 Specimen slightly (test code = 353) hemolyzed ALT (SGPT) (BEAKER) 24 U/L 6-55 Specimen slightly (test code = 347) hemolyzed EGFR (BEAKER) (test 74 mL/min/1.73 ESTIMA DUSTIN GFR IS code = 1092) sq m NOT ACCURATE CREATININE CLEARANCE IN PREDICTING GLOMERULAR FILTRATION RATE . ESTIMATED GFR I S NOT APPLICABLE FOR DIALYSIS PATIEN TS. Proofer ID - YAEL CPROTHROMBIN TIME/[id number] 09:47:00 Test Item Value Reference Range Interpretation Comments PROTIME (BEAKER) (test code = 12.6 seconds 11.9-14.2 759) INR (BEAKER) (test code = 370) 0.97 <=5.90 Effective 01/26/2019: PT Reference Range ChangeNew: 11.9-14.2 Previous: 11.7- 14.7RECOMMENDED COUMADIN/WARFARIN INR THERAPY RANGESSTANDARD DOSE: 2.0-3.0 Includes: PROPHYLAXIS for venous thrombosis, systemic embolization; TREATMENT for venous thrombosis and/or pulmonary embolus.HIGH RISK: Target INR is 2.5-3.5 for patients wiht mechanical heart valves.[id number] 09:47:00 Test Item Value Reference Range Interpretation Comments PARTIAL THROMBOPLASTIN TIME 29.6 seconds 22.5-36.0 (BEAKER) (test code = 760) CBC W/PLT COUNT & AUTO [id number] 09:43:00 Test Item Value Reference Range Interpretation Comments WHITE BLOOD CELL COUNT (BEAKER) 6.0 K/ L 3.5-10.5 (test code = 775) RED BLOOD CELL COUNT (BEAKER) 4.02 M/ L 3.93-5.22 (test code = 761) HEMOGLOBIN (BEAKER) (test code = 12.4 GM/DL 11.2-15.7 410) HEMATOCRIT (BEAKER) (test code = 38.6 % 34.1-44.9 411) MEAN CORPUSCULAR VOLUME (BEAKER) 96.0 fL 79.4-94.8 H (test code = 753) MEAN CORPUSCULAR HEMOGLOBIN 30.8 pg 25.6-32.2 (BEAKER) (test code = 751) MEAN CORPUSCULAR HEMOGLOBIN CONC 32.1 GM/DL 32.2-35.5 L (BEAKER) (test code = 752) RED CELL DISTRIBUTION WIDTH 13.1 % 11.7-14.4 (BEAKER) (test code = 412) PLATELET COUNT (BEAKER) (test 292 K/CU MM 150-450 code = 756) MEAN PLATELET VOLUME (BEAKER) 9.6 fL 9.4-12.3 (test code = 754) NUCLEATED RED BLOOD CELLS 0 /100 WBC 0-0 (BEAKER) (test code = 413) NEUTROPHILS RELATIVE PERCENT 43 % (BEAKER) (test code = 429) LYMPHOCYTES RELATIVE PERCENT 36 % (BEAKER) (test code = 430) MONOCYTES RELATIVE PERCENT 16 % (BEAKER) (test code = 431) EOSINOPHILS RELATIVE PERCENT 4 % (BEAKER) (test code = 432) BASOPHILS RELATIVE PERCENT 1 % (BEAKER) (test code = 437) NEUTROPHILS ABSOLUTE COUNT 2.61 K/ L 1.56-6.13 (BEAKER) (test code = 670) LYMPHOCYTES ABSOLUTE COUNT 2.17 K/ L 1.18-3.74 (BEAKER) (test code = 414) MONOCYTES ABSOLUTE COUNT (BEAKER) 0.97 K/ L 0.24-0.36 H (test code = 415) EOSINOPHILS ABSOLUTE COUNT 0.21 K/ L 0.04-0.36 (BEAKER) (test code = 416) BASOPHILS ABSOLUTE COUNT (BEAKER) 0.05 K/ L 0.01-0.08 (test code = 417) IMMATURE GRANULOCYTES-RELATIVE 0 % 0-1 PERCENT (BEAKER) (test code = 2801) POCT-GLUCOSE [id number] 08:59:00 Test Item Value Reference Range Interpretation Comments POC-GLUCOSE METER 81 mg/dL 70-110 : TESTED A T [facility] 6720 (BEAKER) (test code = [place], 1538) [id number]: Proofer/Techni mirtha ID = [id number] for CHARIS MARIANO COMPREHENSIVE METABOLIC [id number] 11:27:00 Test Item Value Reference Range Interpretation Comments TOTAL PROTEIN 6.4 gm/dL 6.0-8.3 Specimen sligh tly (BEAKER) (test code = hemoly zed 770) ALBUMIN (BEAKER) 3.9 g/dL 3.5-5.0 Specimen sl ightly (test code = 1145) hemolyzed ALKALINE PHOSPHATASE 60 U/L 40-150 (BEAKER) (test code = 346) BILIRUBIN TOTAL 0.3 mg/dL 0.2-1.2 Specimen sli ghtly (BEAKER) (test code = hemoly zed 377) SODIUM (BEAKER) (test 140 meq/L 136-145 code = 381) POTASSIUM (BEAKER) 4.4 meq/L 3.5-5.1 Specimen slightly (test code = 379) hemolyzed CHLORIDE (BEAKER) 102 meq/L 98-107 (test code = 382) CO2 (BEAKER) (test 31 meq/L 22-29 H code = 355) BLOOD UREA NITROGEN 33 mg/dL 7-21 H (BEAKER) (test code = 354) CREATININE (BEAKER) 0.92 mg/dL 0.57-1.25 Specimen slightly (test code = 358) hemolyzed GLUCOSE RANDOM 77 mg/dL 70-105 (BEAKER) (test code = 652) CALCIUM (BEAKER) 8.7 mg/dL 8.4-10.2 (test code = 697) AST (SGOT) (BEAKER) 27 U/L 5-34 Specimen slightly (test code = 353) hemolyzed ALT (SGPT) (BEAKER) 25 U/L 6-55 Specimen slightly (test code = 347) hemolyzed EGFR (BEAKER) (test 61 mL/min/1.73 ESTIMA DUSTIN GFR IS code = 1092) sq m NOT ACCURATE CREATININE CLEARANCE IN PREDICTING GLOMERULAR FILTRATION RATE . ESTIMATED GFR I S NOT APPLICABLE FOR DIALYSIS PATIEN TS. Proofer ID - NTPPROTHROMBIN TIME/[id number] 11:25:00 Test Item Value Reference Range Interpretation Comments PROTIME (BEAKER) (test code = 12.8 seconds 11.9-14.2 759) INR (BEAKER) (test code = 370) 1.0 <=5.9 Effective 01/26/2019: PT Reference Range ChangeNew: 11.9-14.2 Previous: 11.7- 14.7RECOMMENDED COUMADIN/WARFARIN INR THERAPY RANGESSTANDARD DOSE: 2.0-3.0 Includes: PROPHYLAXIS for venous thrombosis, systemic embolization; TREATMENT for venous thrombosis and/or pulmonary embolus.HIGH RISK: Target INR is 2.5-3.5 for patients wiht mechanical heart valves.CBC W/PLT COUNT & AUTO [id number] 11:03:00 Test Item Value Reference Range Interpretation Comments WHITE BLOOD CELL COUNT (BEAKER) 6.3 K/ L 3.5-10.5 (test code = 775) RED BLOOD CELL COUNT (BEAKER) 3.98 M/ L 3.93-5.22 (test code = 761) HEMOGLOBIN (BEAKER) (test code = 12.2 GM/DL 11.2-15.7 410) HEMATOCRIT (BEAKER) (test code = 37.4 % 34.1-44.9 411) MEAN CORPUSCULAR VOLUME (BEAKER) 94.0 fL 79.4-94.8 (test code = 753) MEAN CORPUSCULAR HEMOGLOBIN 30.7 pg 25.6-32.2 (BEAKER) (test code = 751) MEAN CORPUSCULAR HEMOGLOBIN CONC 32.6 GM/DL 32.2-35.5 (BEAKER) (test code = 752) RED CELL DISTRIBUTION WIDTH 14.3 % 11.7-14.4 (BEAKER) (test code = 412) PLATELET COUNT (BEAKER) (test 316 K/CU MM 150-450 code = 756) MEAN PLATELET VOLUME (BEAKER) 9.4 fL 9.4-12.3 (test code = 754) NUCLEATED RED BLOOD CELLS 0 /100 WBC 0-0 (BEAKER) (test code = 413) NEUTROPHILS RELATIVE PERCENT 49 % (BEAKER) (test code = 429) LYMPHOCYTES RELATIVE PERCENT 32 % (BEAKER) (test code = 430) MONOCYTES RELATIVE PERCENT 13 % (BEAKER) (test code = 431) EOSINOPHILS RELATIVE PERCENT 5 % (BEAKER) (test code = 432) BASOPHILS RELATIVE PERCENT 1 % (BEAKER) (test code = 437) NEUTROPHILS ABSOLUTE COUNT 3.09 K/ L 1.56-6.13 (BEAKER) (test code = 670) LYMPHOCYTES ABSOLUTE COUNT 2.01 K/ L 1.18-3.74 (BEAKER) (test code = 414) MONOCYTES ABSOLUTE COUNT (BEAKER) 0.81 K/ L 0.24-0.36 H (test code = 415) EOSINOPHILS ABSOLUTE COUNT 0.34 K/ L 0.04-0.36 (BEAKER) (test code = 416) BASOPHILS ABSOLUTE COUNT (BEAKER) 0.05 K/ L 0.01-0.08 (test code = 417) IMMATURE GRANULOCYTES-RELATIVE 0 % 0-1 PERCENT (BEAKER) (test code = 2801) POCT-GLUCOSE [id number] 09:13:00 Test Item Value Reference Range Interpretation Comments POC-GLUCOSE METER 75 mg/dL 70-110 : TESTED A T [facility] 6720 (BEAKER) (test code = [place], 1538) [id number]: Proofer/Techni mirtha ID = [id number] for JORD AN, LACRYSTAL COMPREHENSIVE METABOLIC [id number] 07:36:00 Test Item Value Reference Range Interpretation Comments TOTAL PROTEIN 6.7 gm/dL 6.0-8.3 Specimen sligh tly (BEAKER) (test code = hemoly zed 770) ALBUMIN (BEAKER) 4.0 g/dL 3.5-5.0 Specimen sl ightly (test code = 1145) hemolyzed ALKALINE PHOSPHATASE 59 U/L 40-150 (BEAKER) (test code = 346) BILIRUBIN TOTAL 0.2 mg/dL 0.2-1.2 Specimen sli ghtly (BEAKER) (test code = hemoly zed 377) SODIUM (BEAKER) (test 142 meq/L 136-145 code = 381) POTASSIUM (BEAKER) 4.2 meq/L 3.5-5.1 Specimen slightly (test code = 379) hemolyzed CHLORIDE (BEAKER) 106 meq/L 98-107 (test code = 382) CO2 (BEAKER) (test 27 meq/L 22-29 code = 355) BLOOD UREA NITROGEN 30 mg/dL 7-21 H (BEAKER) (test code = 354) CREATININE (BEAKER) 0.98 mg/dL 0.57-1.25 Specimen slightly (test code = 358) hemolyzed GLUCOSE RANDOM 81 mg/dL 70-105 (BEAKER) (test code = 652) CALCIUM (BEAKER) 8.4 mg/dL 8.4-10.2 (test code = 697) AST (SGOT) (BEAKER) 28 U/L 5-34 Specimen slightly (test code = 353) hemolyzed ALT (SGPT) (BEAKER) 21 U/L 6-55 Specimen slightly (test code = 347) hemolyzed EGFR (BEAKER) (test 57 mL/min/1.73 ESTIMA DUSTIN GFR IS code = 1092) sq m NOT ACCURATE CREATININE CLEARANCE IN PREDICTING GLOMERULAR FILTRATION RATE . ESTIMATED GFR I S NOT APPLICABLE FOR DIALYSIS PATIEN TS. Proofer ID - LAPROTHROMBIN TIME/[id number] 07:29:00 Test Item Value Reference Range Interpretation Comments PROTIME (BEAKER) (test code = 12.5 seconds 11.9-14.2 759) INR (BEAKER) (test code = 370) 1.0 <=5.9 Effective 01/26/2019: PT Reference Range ChangeNew: 11.9-14.2 Previous: 11.7- 14.7RECOMMENDED COUMADIN/WARFARIN INR THERAPY RANGESSTANDARD DOSE: 2.0-3.0 Includes: PROPHYLAXIS for venous thrombosis, systemic embolization; TREATMENT for venous thrombosis and/or pulmonary embolus.HIGH RISK: Target INR is 2.5-3.5 for patients wiht mechanical heart valves.[id number] 07:29:00 Test Item Value Reference Range Interpretation Comments PARTIAL THROMBOPLASTIN TIME 29.8 seconds 22.5-36.0 (BEAKER) (test code = 760) CBC W/PLT COUNT & AUTO [id number] 07:22:00 Test Item Value Reference Range Interpretation Comments WHITE BLOOD CELL COUNT (BEAKER) 6.1 K/ L 3.5-10.5 (test code = 775) RED BLOOD CELL COUNT (BEAKER) 4.18 M/ L 3.93-5.22 (test code = 761) HEMOGLOBIN (BEAKER) (test code = 11.8 GM/DL 11.2-15.7 410) HEMATOCRIT (BEAKER) (test code = 37.3 % 34.1-44.9 411) MEAN CORPUSCULAR VOLUME (BEAKER) 89.2 fL 79.4-94.8 (test code = 753) MEAN CORPUSCULAR HEMOGLOBIN 28.2 pg 25.6-32.2 (BEAKER) (test code = 751) MEAN CORPUSCULAR HEMOGLOBIN CONC 31.6 GM/DL 32.2-35.5 L (BEAKER) (test code = 752) RED CELL DISTRIBUTION WIDTH 16.8 % 11.7-14.4 H (BEAKER) (test code = 412) PLATELET COUNT (BEAKER) (test 325 K/CU MM 150-450 code = 756) MEAN PLATELET VOLUME (BEAKER) 9.8 fL 9.4-12.3 (test code = 754) NUCLEATED RED BLOOD CELLS 0 /100 WBC 0-0 (BEAKER) (test code = 413) NEUTROPHILS RELATIVE PERCENT 45 % (BEAKER) (test code = 429) LYMPHOCYTES RELATIVE PERCENT 37 % (BEAKER) (test code = 430) MONOCYTES RELATIVE PERCENT 13 % (BEAKER) (test code = 431) EOSINOPHILS RELATIVE PERCENT 4 % (BEAKER) (test code = 432) BASOPHILS RELATIVE PERCENT 1 % (BEAKER) (test code = 437) NEUTROPHILS ABSOLUTE COUNT 2.74 K/ L 1.56-6.13 (BEAKER) (test code = 670) LYMPHOCYTES ABSOLUTE COUNT 2.27 K/ L 1.18-3.74 (BEAKER) (test code = 414) MONOCYTES ABSOLUTE COUNT (BEAKER) 0.80 K/ L 0.24-0.36 H (test code = 415) EOSINOPHILS ABSOLUTE COUNT 0.26 K/ L 0.04-0.36 (BEAKER) (test code = 416) BASOPHILS ABSOLUTE COUNT (BEAKER) 0.05 K/ L 0.01-0.08 (test code = 417) IMMATURE GRANULOCYTES-RELATIVE 0 % 0-1 PERCENT (BEAKER) (test code = 2801) COMPREHENSIVE METABOLIC [id number] 13:37:00 Test Item Value Reference Range Interpretation Comments TOTAL PROTEIN 7.1 gm/dL 6.0-8.3 Specimen sligh tly (BEAKER) (test code = hemoly zed 770) ALBUMIN (BEAKER) 4.4 g/dL 3.5-5.0 Specimen sl ightly (test code = 1145) hemolyzed ALKALINE PHOSPHATASE 63 U/L 40-150 (BEAKER) (test code = 346) BILIRUBIN TOTAL 0.4 mg/dL 0.2-1.2 Specimen sli ghtly (BEAKER) (test code = hemoly zed 377) SODIUM (BEAKER) (test 140 meq/L 136-145 code = 381) POTASSIUM (BEAKER) 4.0 meq/L 3.5-5.1 Specimen slightly (test code = 379) hemolyzed CHLORIDE (BEAKER) 103 meq/L 98-107 (test code = 382) CO2 (BEAKER) (test 27 meq/L 22-29 code = 355) BLOOD UREA NITROGEN 30 mg/dL 7-21 H (BEAKER) (test code = 354) CREATININE (BEAKER) 0.99 mg/dL 0.57-1.25 Specimen slightly (test code = 358) hemolyzed GLUCOSE RANDOM 82 mg/dL 70-105 (BEAKER) (test code = 652) CALCIUM (BEAKER) 8.6 mg/dL 8.4-10.2 (test code = 697) AST (SGOT) (BEAKER) 29 U/L 5-34 Specimen slightly (test code = 353) hemolyzed ALT (SGPT) (BEAKER) 22 U/L 6-55 Specimen slightly (test code = 347) hemolyzed EGFR (BEAKER) (test 56 mL/min/1.73 ESTIMA DUSTIN GFR IS code = 1092) sq m NOT ACCURATE CREATININE CLEARANCE IN PREDICTING GLOMERULAR FILTRATION RATE . ESTIMATED GFR I S NOT APPLICABLE FOR DIALYSIS PATIEN TS. Proofer ID - JUAN MPROTHROMBIN TIME/[id number] 13:25:00 Test Item Value Reference Range Interpretation Comments PROTIME (BEAKER) (test code = 13.0 seconds 11.9-14.2 759) INR (BEAKER) (test code = 370) 1.0 <=5.9 Effective 01/26/2019: PT Reference Range ChangeNew: 11.9-14.2 Previous: 11.7- 14.7RECOMMENDED COUMADIN/WARFARIN INR THERAPY RANGESSTANDARD DOSE: 2.0-3.0 Includes: PROPHYLAXIS for venous thrombosis, systemic embolization; TREATMENT for venous thrombosis and/or pulmonary embolus.HIGH RISK: Target INR is 2.5-3.5 for patients wiht mechanical heart valves.[id number] 13:25:00 Test Item Value Reference Range Interpretation Comments PARTIAL THROMBOPLASTIN TIME 31.3 seconds 22.5-36.0 (BEAKER) (test code = 760) CBC W/PLT COUNT & AUTO [id number] 13:18:00 Test Item Value Reference Range Interpretation Comments WHITE BLOOD CELL COUNT (BEAKER) 6.7 K/ L 3.5-10.5 (test code = 775) RED BLOOD CELL COUNT (BEAKER) 3.91 M/ L 3.93-5.22 L (test code = 761) HEMOGLOBIN (BEAKER) (test code = 10.9 GM/DL 11.2-15.7 L 410) HEMATOCRIT (BEAKER) (test code = 34.3 % 34.1-44.9 411) MEAN CORPUSCULAR VOLUME (BEAKER) 87.7 fL 79.4-94.8 (test code = 753) MEAN CORPUSCULAR HEMOGLOBIN 27.9 pg 25.6-32.2 (BEAKER) (test code = 751) MEAN CORPUSCULAR HEMOGLOBIN CONC 31.8 GM/DL 32.2-35.5 L (BEAKER) (test code = 752) RED CELL DISTRIBUTION WIDTH 15.8 % 11.7-14.4 H (BEAKER) (test code = 412) PLATELET COUNT (BEAKER) (test 382 K/CU MM 150-450 code = 756) MEAN PLATELET VOLUME (BEAKER) 10.1 fL 9.4-12.3 (test code = 754) NUCLEATED RED BLOOD CELLS 0 /100 WBC 0-0 (BEAKER) (test code = 413) NEUTROPHILS RELATIVE PERCENT 47 % (BEAKER) (test code = 429) LYMPHOCYTES RELATIVE PERCENT 36 % (BEAKER) (test code = 430) MONOCYTES RELATIVE PERCENT 12 % (BEAKER) (test code = 431) EOSINOPHILS RELATIVE PERCENT 5 % (BEAKER) (test code = 432) BASOPHILS RELATIVE PERCENT 1 % (BEAKER) (test code = 437) NEUTROPHILS ABSOLUTE COUNT 3.11 K/ L 1.56-6.13 (BEAKER) (test code = 670) LYMPHOCYTES ABSOLUTE COUNT 2.39 K/ L 1.18-3.74 (BEAKER) (test code = 414) MONOCYTES ABSOLUTE COUNT (BEAKER) 0.77 K/ L 0.24-0.36 H (test code = 415) EOSINOPHILS ABSOLUTE COUNT 0.36 K/ L 0.04-0.36 (BEAKER) (test code = 416) BASOPHILS ABSOLUTE COUNT (BEAKER) 0.05 K/ L 0.01-0.08 (test code = 417) IMMATURE GRANULOCYTES-RELATIVE 0 % 0-1 PERCENT (BEAKER) (test code = 2801) COMPREHENSIVE METABOLIC [id number] 08:11:00 Test Item Value Reference Range Interpretation Comments TOTAL PROTEIN 7.1 gm/dL 6.0-8.3 (BEAKER) (test code = 770) ALBUMIN (BEAKER) 4.4 g/dL 3.5-5.0 (test code = 1145) ALKALINE PHOSPHATASE 73 U/L 40-150 (BEAKER) (test code = 346) BILIRUBIN TOTAL 0.1 mg/dL 0.2-1.2 L (BEAKER) (test code = 377) SODIUM (BEAKER) (test 143 meq/L 136-145 code = 381) POTASSIUM (BEAKER) 4.0 meq/L 3.5-5.1 (test code = 379) CHLORIDE (BEAKER) 106 meq/L 98-107 (test code = 382) CO2 (BEAKER) (test 28 meq/L 22-29 code = 355) BLOOD UREA NITROGEN 32 mg/dL 7-21 H (BEAKER) (test code = 354) CREATININE (BEAKER) 1.02 mg/dL 0.57-1.25 (test code = 358) GLUCOSE RANDOM 83 mg/dL 70-105 (BEAKER) (test code = 652) CALCIUM (BEAKER) 8.9 mg/dL 8.4-10.2 (test code = 697) AST (SGOT) (BEAKER) 21 U/L 5-34 (test code = 353) ALT (SGPT) (BEAKER) 18 U/L 6-55 (test code = 347) EGFR (BEAKER) (test 54 mL/min/1.73 ESTIMA DUSTIN GFR IS code = 1092) sq m NOT ACCURATE CREATININE CLEARANCE IN PREDICTING GLOMERULAR FILTRATION RATE . ESTIMATED GFR I S NOT APPLICABLE FOR DIALYSIS PATIEN TS. Proofer ID - [id number] 08:00:00 Test Item Value Reference Range Interpretation Comments PARTIAL THROMBOPLASTIN TIME 28.8 seconds 22.5-36.0 (BEAKER) (test code = 760) PROTHROMBIN [id number] 07:59:00 Test Item Value Reference Range Interpretation Comments PROTIME (BEAKER) (test code = 12.4 seconds 11.9-14.2 759) INR (BEAKER) (test code = 370) 1.0 <=5.9 Effective 01/26/2019: PT Reference Range ChangeNew: 11.9-14.2 Previous: 11.7- 14.7RECOMMENDED COUMADIN/WARFARIN INR THERAPY RANGESSTANDARD DOSE: 2.0-3.0 Includes: PROPHYLAXIS for venous thrombosis, systemic embolization; TREATMENT for venous thrombosis and/or pulmonary embolus.HIGH RISK: Target INR is 2.5-3.5 for patients wiht mechanical heart valves.CBC W/PLT COUNT & AUTO [id number] 07:51:00 Test Item Value Reference Range Interpretation Comments WHITE BLOOD CELL COUNT (BEAKER) 8.1 K/ L 3.5-10.5 (test code = 775) RED BLOOD CELL COUNT (BEAKER) 3.90 M/ L 3.93-5.22 L (test code = 761) HEMOGLOBIN (BEAKER) (test code = 10.6 GM/DL 11.2-15.7 L 410) HEMATOCRIT (BEAKER) (test code = 34.3 % 34.1-44.9 411) MEAN CORPUSCULAR VOLUME (BEAKER) 87.9 fL 79.4-94.8 (test code = 753) MEAN CORPUSCULAR HEMOGLOBIN 27.2 pg 25.6-32.2 (BEAKER) (test code = 751) MEAN CORPUSCULAR HEMOGLOBIN CONC 30.9 GM/DL 32.2-35.5 L (BEAKER) (test code = 752) RED CELL DISTRIBUTION WIDTH 15.4 % 11.7-14.4 H (BEAKER) (test code = 412) PLATELET COUNT (BEAKER) (test 366 K/CU MM 150-450 code = 756) MEAN PLATELET VOLUME (BEAKER) 9.6 fL 9.4-12.3 (test code = 754) NUCLEATED RED BLOOD CELLS 0 /100 WBC 0-0 (BEAKER) (test code = 413) NEUTROPHILS RELATIVE PERCENT 52 % (BEAKER) (test code = 429) LYMPHOCYTES RELATIVE PERCENT 32 % (BEAKER) (test code = 430) MONOCYTES RELATIVE PERCENT 11 % (BEAKER) (test code = 431) EOSINOPHILS RELATIVE PERCENT 4 % (BEAKER) (test code = 432) BASOPHILS RELATIVE PERCENT 1 % (BEAKER) (test code = 437) NEUTROPHILS ABSOLUTE COUNT 4.21 K/ L 1.56-6.13 (BEAKER) (test code = 670) LYMPHOCYTES ABSOLUTE COUNT 2.61 K/ L 1.18-3.74 (BEAKER) (test code = 414) MONOCYTES ABSOLUTE COUNT (BEAKER) 0.89 K/ L 0.24-0.36 H (test code = 415) EOSINOPHILS ABSOLUTE COUNT 0.29 K/ L 0.04-0.36 (BEAKER) (test code = 416) BASOPHILS ABSOLUTE COUNT (BEAKER) 0.05 K/ L 0.01-0.08 (test code = 417) IMMATURE GRANULOCYTES-RELATIVE 0 % 0-1 PERCENT (BEAKER) (test code = 2801) COMPREHENSIVE METABOLIC [id number] 10:29:00 Test Item Value Reference Range Interpretation Comments TOTAL PROTEIN 7.2 gm/dL 6.0-8.3 Specimen sligh tly (BEAKER) (test code = hemoly zed 770) ALBUMIN (BEAKER) 4.3 g/dL 3.5-5.0 Specimen sl ightly (test code = 1145) hemolyzed ALKALINE PHOSPHATASE 70 U/L 40-150 (BEAKER) (test code = 346) BILIRUBIN TOTAL 0.3 mg/dL 0.2-1.2 Specimen sli ghtly (BEAKER) (test code = hemoly zed 377) SODIUM (BEAKER) (test 141 meq/L 136-145 code = 381) POTASSIUM (BEAKER) 3.8 meq/L 3.5-5.1 Specimen slightly (test code = 379) hemolyzed CHLORIDE (BEAKER) 102 meq/L 98-107 (test code = 382) CO2 (BEAKER) (test 30 meq/L 22-29 H code = 355) BLOOD UREA NITROGEN 23 mg/dL 7-21 H (BEAKER) (test code = 354) CREATININE (BEAKER) 1.01 mg/dL 0.57-1.25 Specimen slightly (test code = 358) hemolyzed GLUCOSE RANDOM 82 mg/dL 70-105 (BEAKER) (test code = 652) CALCIUM (BEAKER) 9.0 mg/dL 8.4-10.2 (test code = 697) AST (SGOT) (BEAKER) 29 U/L 5-34 Specimen slightly (test code = 353) hemolyzed ALT (SGPT) (BEAKER) 23 U/L 6-55 Specimen slightly (test code = 347) hemolyzed EGFR (BEAKER) (test 55 mL/min/1.73 ESTIMA DUSTIN GFR IS code = 1092) sq m NOT ACCURATE CREATININE CLEARANCE IN PREDICTING GLOMERULAR FILTRATION RATE . ESTIMATED GFR I S NOT APPLICABLE FOR DIALYSIS PATIEN [id number] 09:42:00 Test Item Value Reference Range Interpretation Comments PARTIAL THROMBOPLASTIN TIME 31.2 seconds 22.5-36.0 (BEAKER) (test code = 760) CBC W/PLT COUNT & AUTO [id number] 09:41:00 Test Item Value Reference Range Interpretation Comments WHITE BLOOD CELL COUNT (BEAKER) 6.8 K/ L 3.5-10.5 (test code = 775) RED BLOOD CELL COUNT (BEAKER) 3.95 M/ L 3.93-5.22 (test code = 761) HEMOGLOBIN (BEAKER) (test code = 10.9 GM/DL 11.2-15.7 L 410) HEMATOCRIT (BEAKER) (test code = 34.7 % 34.1-44.9 411) MEAN CORPUSCULAR VOLUME (BEAKER) 87.8 fL 79.4-94.8 (test code = 753) MEAN CORPUSCULAR HEMOGLOBIN 27.6 pg 25.6-32.2 (BEAKER) (test code = 751) MEAN CORPUSCULAR HEMOGLOBIN CONC 31.4 GM/DL 32.2-35.5 L (BEAKER) (test code = 752) RED CELL DISTRIBUTION WIDTH 15.5 % 11.7-14.4 H (BEAKER) (test code = 412) PLATELET COUNT (BEAKER) (test 398 K/CU MM 150-450 code = 756) MEAN PLATELET VOLUME (BEAKER) 9.7 fL 9.4-12.3 (test code = 754) NUCLEATED RED BLOOD CELLS 0 /100 WBC 0-0 (BEAKER) (test code = 413) NEUTROPHILS RELATIVE PERCENT 47 % (BEAKER) (test code = 429) LYMPHOCYTES RELATIVE PERCENT 34 % (BEAKER) (test code = 430) MONOCYTES RELATIVE PERCENT 12 % (BEAKER) (test code = 431) EOSINOPHILS RELATIVE PERCENT 6 % (BEAKER) (test code = 432) BASOPHILS RELATIVE PERCENT 1 % (BEAKER) (test code = 437) NEUTROPHILS ABSOLUTE COUNT 3.19 K/ L 1.56-6.13 (BEAKER) (test code = 670) LYMPHOCYTES ABSOLUTE COUNT 2.33 K/ L 1.18-3.74 (BEAKER) (test code = 414) MONOCYTES ABSOLUTE COUNT (BEAKER) 0.84 K/ L 0.24-0.36 H (test code = 415) EOSINOPHILS ABSOLUTE COUNT 0.39 K/ L 0.04-0.36 H (BEAKER) (test code = 416) BASOPHILS ABSOLUTE COUNT (BEAKER) 0.05 K/ L 0.01-0.08 (test code = 417) IMMATURE GRANULOCYTES-RELATIVE 0 % 0-1 PERCENT (BEAKER) (test code = 2801) PROTHROMBIN [id number] 09:41:00 Test Item Value Reference Range Interpretation Comments PROTIME (BEAKER) (test code = 12.3 seconds 11.9-14.2 759) INR (BEAKER) (test code = 370) 1.0 <=5.9 Effective 01/26/2019: PT Reference Range ChangeNew: 11.9-14.2 Previous: 11.7- 14.7RECOMMENDED COUMADIN/WARFARIN INR THERAPY RANGESSTANDARD DOSE: 2.0-3.0 Includes: PROPHYLAXIS for venous thrombosis, systemic embolization; TREATMENT for venous thrombosis and/or pulmonary embolus.HIGH RISK: Target INR is 2.5-3.5 for patients wiht mechanical heart valves.POCT-GLUCOSE [id number] 09:17:00 Test Item Value Reference Range Interpretation Comments POC-GLUCOSE METER 77 mg/dL 70-110 : TESTED A T [facility] 6720 (BEAKER) (test code = [place], 1538) [id number]: Proofer/Techni mirtha ID = [id number] for CHARIS MARIANO COMPREHENSIVE METABOLIC [id number] 07:43:00 Test Item Value Reference Range Interpretation Comments TOTAL PROTEIN 7.3 gm/dL 6.0-8.3 (BEAKER) (test code = 770) ALBUMIN (BEAKER) 4.5 g/dL 3.5-5.0 (test code = 1145) ALKALINE PHOSPHATASE 70 U/L 40-150 (BEAKER) (test code = 346) BILIRUBIN TOTAL 0.3 mg/dL 0.2-1.2 (BEAKER) (test code = 377) SODIUM (BEAKER) (test 137 meq/L 136-145 code = 381) POTASSIUM (BEAKER) 3.8 meq/L 3.5-5.1 (test code = 379) CHLORIDE (BEAKER) 102 meq/L 98-107 (test code = 382) CO2 (BEAKER) (test 25 meq/L 22-29 code = 355) BLOOD UREA NITROGEN 29 mg/dL 7-21 H (BEAKER) (test code = 354) CREATININE (BEAKER) 1.47 mg/dL 0.57-1.25 H (test code = 358) GLUCOSE RANDOM 90 mg/dL 70-105 (BEAKER) (test code = 652) CALCIUM (BEAKER) 8.9 mg/dL 8.4-10.2 (test code = 697) AST (SGOT) (BEAKER) 24 U/L 5-34 (test code = 353) ALT (SGPT) (BEAKER) 20 U/L 6-55 (test code = 347) EGFR (BEAKER) (test 36 mL/min/1.73 ESTIMA DUSTIN GFR IS code = 1092) sq m NOT ACCURATE CREATININE CLEARANCE IN PREDICTING GLOMERULAR FILTRATION RATE . ESTIMATED GFR I S NOT APPLICABLE FOR DIALYSIS PATIEN TS. [id number] 07:39:00 Test Item Value Reference Range Interpretation Comments PARTIAL THROMBOPLASTIN TIME 29.3 seconds 22.5-36.0 (BEAKER) (test code = 760) PROTHROMBIN [id number] 07:38:00 Test Item Value Reference Range Interpretation Comments PROTIME (BEAKER) (test code = 12.3 seconds 11.9-14.2 759) INR (BEAKER) (test code = 370) 1.0 <=5.9 Effective 01/26/2019: PT Reference Range ChangeNew: 11.9-14.2 Previous: 11.7- 14.7RECOMMENDED COUMADIN/WARFARIN INR THERAPY RANGESSTANDARD DOSE: 2.0-3.0 Includes: PROPHYLAXIS for venous thrombosis, systemic embolization; TREATMENT for venous thrombosis and/or pulmonary embolus.HIGH RISK: Target INR is 2.5-3.5 for patients wiht mechanical heart valves.CBC W/PLT COUNT & AUTO [id number] 07:28:00 Test Item Value Reference Range Interpretation Comments WHITE BLOOD CELL COUNT (BEAKER) 8.1 K/ L 3.5-10.5 (test code = 775) RED BLOOD CELL COUNT (BEAKER) 4.17 M/ L 3.93-5.22 (test code = 761) HEMOGLOBIN (BEAKER) (test code = 11.5 GM/DL 11.2-15.7 410) HEMATOCRIT (BEAKER) (test code = 36.5 % 34.1-44.9 411) MEAN CORPUSCULAR VOLUME (BEAKER) 87.5 fL 79.4-94.8 (test code = 753) MEAN CORPUSCULAR HEMOGLOBIN 27.6 pg 25.6-32.2 (BEAKER) (test code = 751) MEAN CORPUSCULAR HEMOGLOBIN CONC 31.5 GM/DL 32.2-35.5 L (BEAKER) (test code = 752) RED CELL DISTRIBUTION WIDTH 15.5 % 11.7-14.4 H (BEAKER) (test code = 412) PLATELET COUNT (BEAKER) (test 392 K/CU MM 150-450 code = 756) MEAN PLATELET VOLUME (BEAKER) 9.6 fL 9.4-12.3 (test code = 754) NUCLEATED RED BLOOD CELLS 0 /100 WBC 0-0 (BEAKER) (test code = 413) NEUTROPHILS RELATIVE PERCENT 43 % (BEAKER) (test code = 429) LYMPHOCYTES RELATIVE PERCENT 41 % (BEAKER) (test code = 430) MONOCYTES RELATIVE PERCENT 12 % (BEAKER) (test code = 431) EOSINOPHILS RELATIVE PERCENT 4 % (BEAKER) (test code = 432) BASOPHILS RELATIVE PERCENT 1 % (BEAKER) (test code = 437) NEUTROPHILS ABSOLUTE COUNT 3.46 K/ L 1.56-6.13 (BEAKER) (test code = 670) LYMPHOCYTES ABSOLUTE COUNT 3.31 K/ L 1.18-3.74 (BEAKER) (test code = 414) MONOCYTES ABSOLUTE COUNT (BEAKER) 0.98 K/ L 0.24-0.36 H (test code = 415) EOSINOPHILS ABSOLUTE COUNT 0.29 K/ L 0.04-0.36 (BEAKER) (test code = 416) BASOPHILS ABSOLUTE COUNT (BEAKER) 0.05 K/ L 0.01-0.08 (test code = 417) IMMATURE GRANULOCYTES-RELATIVE 0 % 0-1 PERCENT (BEAKER) (test code = 2801) POCT-GLUCOSE [id number] 07:06:00 Test Item Value Reference Range Interpretation Comments POC-GLUCOSE METER 87 mg/dL 70-110 : TESTED [place] T [facility] 6720 (BEAKER) (test code = [place], 1538) [id number]: Proofer/Techni mirtha ID = [id number] for JOHANNA AN, LACRYSTAL BASIC METABOLIC [id number] 10:55:00 Test Item Value Reference Range Interpretation Comments SODIUM (BEAKER) 141 meq/L 136-145 (test code = 381) POTASSIUM (BEAKER) 4.3 meq/L 3.5-5.1 Specimen moderately (test code = 379) hemolyzed CHLORIDE (BEAKER) 102 meq/L 98-107 (test code = 382) CO2 (BEAKER) (test 31 meq/L 22-29 H code = 355) BLOOD UREA NITROGEN 32 mg/dL 7-21 H (BEAKER) (test code = 354) CREATININE (BEAKER) 0.99 mg/dL 0.57-1.25 Specimen moderately (test code = 358) hemolyzed GLUCOSE RANDOM 81 mg/dL 70-105 (BEAKER) (test code = 652) CALCIUM (BEAKER) 9.0 mg/dL 8.4-10.2 (test code = 697) EGFR (BEAKER) (test 56 mL/min/1.73 ESTIMA DUSTIN GFR IS code = 1092) sq m NOT ACCURATE CREATININE CLEARANCE IN PREDICTING GLOMERULAR FILTRATION RATE . ESTIMATED GFR I S NOT APPLICABLE FOR DIALYSIS PATIEN TS. PROTHROMBIN [id number] 10:42:00 Test Item Value Reference Range Interpretation Comments PROTIME (BEAKER) (test code = 12.4 seconds 11.9-14.2 759) INR (BEAKER) (test code = 370) 1.0 <=5.9 Effective 01/26/2019: PT Reference Range ChangeNew: 11.9-14.2 Previous: 11.7- 14.7RECOMMENDED COUMADIN/WARFARIN INR THERAPY RANGESSTANDARD DOSE: 2.0-3.0 Includes: PROPHYLAXIS for venous thrombosis, systemic embolization; TREATMENT for venous thrombosis and/or pulmonary embolus.HIGH RISK: Target INR is 2.5-3.5 for patients wiht mechanical heart valves.CBC W/PLT COUNT & AUTO [id number] 10:35:00 Test Item Value Reference Range Interpretation Comments WHITE BLOOD CELL COUNT (BEAKER) 5.7 K/ L 3.5-10.5 (test code = 775) RED BLOOD CELL COUNT (BEAKER) 3.71 M/ L 3.93-5.22 L (test code = 761) HEMOGLOBIN (BEAKER) (test code = 10.5 GM/DL 11.2-15.7 L 410) HEMATOCRIT (BEAKER) (test code = 33.7 % 34.1-44.9 L 411) MEAN CORPUSCULAR VOLUME (BEAKER) 90.8 fL 79.4-94.8 (test code = 753) MEAN CORPUSCULAR HEMOGLOBIN 28.3 pg 25.6-32.2 (BEAKER) (test code = 751) MEAN CORPUSCULAR HEMOGLOBIN CONC 31.2 GM/DL 32.2-35.5 L (BEAKER) (test code = 752) RED CELL DISTRIBUTION WIDTH 12.9 % 11.7-14.4 (BEAKER) (test code = 412) PLATELET COUNT (BEAKER) (test 359 K/CU MM 150-450 code = 756) MEAN PLATELET VOLUME (BEAKER) 9.8 fL 9.4-12.3 (test code = 754) NUCLEATED RED BLOOD CELLS 0 /100 WBC 0-0 (BEAKER) (test code = 413) NEUTROPHILS RELATIVE PERCENT 51 % (BEAKER) (test code = 429) LYMPHOCYTES RELATIVE PERCENT 31 % (BEAKER) (test code = 430) MONOCYTES RELATIVE PERCENT 13 % (BEAKER) (test code = 431) EOSINOPHILS RELATIVE PERCENT 4 % (BEAKER) (test code = 432) BASOPHILS RELATIVE PERCENT 1 % (BEAKER) (test code = 437) NEUTROPHILS ABSOLUTE COUNT 2.90 K/ L 1.56-6.13 (BEAKER) (test code = 670) LYMPHOCYTES ABSOLUTE COUNT 1.78 K/ L 1.18-3.74 (BEAKER) (test code = 414) MONOCYTES ABSOLUTE COUNT (BEAKER) 0.72 K/ L 0.24-0.36 H (test code = 415) EOSINOPHILS ABSOLUTE COUNT 0.23 K/ L 0.04-0.36 (BEAKER) (test code = 416) BASOPHILS ABSOLUTE COUNT (BEAKER) 0.06 K/ L 0.01-0.08 (test code = 417) IMMATURE GRANULOCYTES-RELATIVE 0 % 0-1 PERCENT (BEAKER) (test code = 2801) COMPREHENSIVE METABOLIC [id number] 08:31:00 Test Item Value Reference Range Interpretation Comments TOTAL PROTEIN 7.0 gm/dL 6.0-8.3 (BEAKER) (test code = 770) ALBUMIN (BEAKER) 4.3 g/dL 3.5-5.0 (test code = 1145) ALKALINE PHOSPHATASE 72 U/L 40-150 (BEAKER) (test code = 346) BILIRUBIN TOTAL 0.3 mg/dL 0.2-1.2 (BEAKER) (test code = 377) SODIUM (BEAKER) (test 145 meq/L 136-145 code = 381) POTASSIUM (BEAKER) 4.1 meq/L 3.5-5.1 (test code = 379) CHLORIDE (BEAKER) 105 meq/L 98-107 (test code = 382) CO2 (BEAKER) (test 31 meq/L 22-29 H code = 355) BLOOD UREA NITROGEN 45 mg/dL 7-21 H (BEAKER) (test code = 354) CREATININE (BEAKER) 1.05 mg/dL 0.57-1.25 (test code = 358) GLUCOSE RANDOM 82 mg/dL 70-105 (BEAKER) (test code = 652) CALCIUM (BEAKER) 9.4 mg/dL 8.4-10.2 (test code = 697) AST (SGOT) (BEAKER) 30 U/L 5-34 (test code = 353) ALT (SGPT) (BEAKER) 32 U/L 6-55 (test code = 347) EGFR (BEAKER) (test 53 mL/min/1.73 ESTIMA DUSTIN GFR IS code = 1092) sq m NOT ACCURATE CREATININE CLEARANCE IN PREDICTING GLOMERULAR FILTRATION RATE . ESTIMATED GFR I S NOT APPLICABLE FOR DIALYSIS PATIEN TS. [id number] 08:24:00 Test Item Value Reference Range Interpretation Comments PARTIAL THROMBOPLASTIN TIME 30.6 seconds 22.5-36.0 (BEAKER) (test code = 760) PROTHROMBIN TIME/[id number] 08:23:00 Test Item Value Reference Range Interpretation Comments PROTIME (BEAKER) (test code = 14.7 seconds 11.7-14.7 759) INR (BEAKER) (test code = 370) 1.1 <=5.9 RECOMMENDED COUMADIN/WARFARIN INR THERAPY RANGESSTANDARD DOSE: 2.0 - 3.0 Includes: PROPHYLAXIS for venous thrombosis, systemic embolization; TREATMENT for venous thrombosis and/or pulmonary embolus.HIGH RISK: Target INR is 2.5-3.5 for patients with mechanical heart valves.CBC W/PLT COUNT & AUTO [id number] 08:13:00 Test Item Value Reference Range Interpretation Comments WHITE BLOOD CELL COUNT (BEAKER) 7.7 K/ L 3.5-10.5 (test code = 775) RED BLOOD CELL COUNT (BEAKER) 3.92 M/ L 3.93-5.22 L (test code = 761) HEMOGLOBIN (BEAKER) (test code = 12.3 GM/DL 11.2-15.7 410) HEMATOCRIT (BEAKER) (test code = 38.0 % 34.1-44.9 411) MEAN CORPUSCULAR VOLUME (BEAKER) 96.9 fL 79.4-94.8 H (test code = 753) MEAN CORPUSCULAR HEMOGLOBIN 31.4 pg 25.6-32.2 (BEAKER) (test code = 751) MEAN CORPUSCULAR HEMOGLOBIN CONC 32.4 GM/DL 32.2-35.5 (BEAKER) (test code = 752) RED CELL DISTRIBUTION WIDTH 13.7 % 11.7-14.4 (BEAKER) (test code = 412) PLATELET COUNT (BEAKER) (test 369 K/CU MM 150-450 code = 756) MEAN PLATELET VOLUME (BEAKER) 9.5 fL 9.4-12.3 (test code = 754) NUCLEATED RED BLOOD CELLS 0 /100 WBC 0-0 (BEAKER) (test code = 413) NEUTROPHILS RELATIVE PERCENT 49 % (BEAKER) (test code = 429) LYMPHOCYTES RELATIVE PERCENT 32 % (BEAKER) (test code = 430) MONOCYTES RELATIVE PERCENT 11 % (BEAKER) (test code = 431) EOSINOPHILS RELATIVE PERCENT 8 % (BEAKER) (test code = 432) BASOPHILS RELATIVE PERCENT 1 % (BEAKER) (test code = 437) NEUTROPHILS ABSOLUTE COUNT 3.75 K/ L 1.56-6.13 (BEAKER) (test code = 670) LYMPHOCYTES ABSOLUTE COUNT 2.47 K/ L 1.18-3.74 (BEAKER) (test code = 414) MONOCYTES ABSOLUTE COUNT (BEAKER) 0.83 K/ L 0.24-0.36 H (test code = 415) EOSINOPHILS ABSOLUTE COUNT 0.58 K/ L 0.04-0.36 H (BEAKER) (test code = 416) BASOPHILS ABSOLUTE COUNT (BEAKER) 0.06 K/ L 0.01-0.08 (test code = 417) IMMATURE GRANULOCYTES-RELATIVE 0 % 0-1 PERCENT (BEAKER) (test code = 2801) PROTHROMBIN [id number] 10:21:00 Test Item Value Reference Range Interpretation Comments PROTIME (BEAKER) (test code = 13.5 seconds 11.7-14.7 759) INR (BEAKER) (test code = 370) 1.0 <=5.9 RECOMMENDED COUMADIN/WARFARIN INR THERAPY RANGESSTANDARD DOSE: 2.0 - 3.0 Includes: PROPHYLAXIS for venous thrombosis, systemic embolization; TREATMENT for venous thrombosis and/or pulmonary embolus.HIGH RISK: Target INR is 2.5-3.5 for patients with mechanical heart valves.[id number] 10:21:00 Test Item Value Reference Range Interpretation Comments PARTIAL THROMBOPLASTIN TIME 28.7 seconds 22.5-36.0 (BEAKER) (test code = 760) CBC W/PLT COUNT & AUTO [id number] 10:05:00 Test Item Value Reference Range Interpretation Comments WHITE BLOOD CELL COUNT (BEAKER) 9.2 K/ L 3.5-10.5 (test code = 775) RED BLOOD CELL COUNT (BEAKER) 4.12 M/ L 3.93-5.22 (test code = 761) HEMOGLOBIN (BEAKER) (test code = 12.6 GM/DL 11.2-15.7 410) HEMATOCRIT (BEAKER) (test code = 39.1 % 34.1-44.9 411) MEAN CORPUSCULAR VOLUME (BEAKER) 94.9 fL 79.4-94.8 H (test code = 753) MEAN CORPUSCULAR HEMOGLOBIN 30.6 pg 25.6-32.2 (BEAKER) (test code = 751) MEAN CORPUSCULAR HEMOGLOBIN CONC 32.2 GM/DL 32.2-35.5 (BEAKER) (test code = 752) RED CELL DISTRIBUTION WIDTH 13.7 % 11.7-14.4 (BEAKER) (test code = 412) PLATELET COUNT (BEAKER) (test 375 K/CU MM 150-450 code = 756) MEAN PLATELET VOLUME (BEAKER) 9.8 fL 9.4-12.3 (test code = 754) NUCLEATED RED BLOOD CELLS 0 /100 WBC 0-0 (BEAKER) (test code = 413) NEUTROPHILS RELATIVE PERCENT 61 % (BEAKER) (test code = 429) LYMPHOCYTES RELATIVE PERCENT 25 % (BEAKER) (test code = 430) MONOCYTES RELATIVE PERCENT 10 % (BEAKER) (test code = 431) EOSINOPHILS RELATIVE PERCENT 4 % (BEAKER) (test code = 432) BASOPHILS RELATIVE PERCENT 0 % (BEAKER) (test code = 437) NEUTROPHILS ABSOLUTE COUNT 5.60 K/ L 1.56-6.13 (BEAKER) (test code = 670) LYMPHOCYTES ABSOLUTE COUNT 2.29 K/ L 1.18-3.74 (BEAKER) (test code = 414) MONOCYTES ABSOLUTE COUNT (BEAKER) 0.89 K/ L 0.24-0.36 H (test code = 415) EOSINOPHILS ABSOLUTE COUNT 0.36 K/ L 0.04-0.36 (BEAKER) (test code = 416) BASOPHILS ABSOLUTE COUNT (BEAKER) 0.04 K/ L 0.01-0.08 (test code = 417) IMMATURE GRANULOCYTES-RELATIVE 0 % 0-1 PERCENT (BEAKER) (test code = 2801) COMPREHENSIVE METABOLIC [id number] 07:38:00 Test Item Value Reference Range Interpretation Comments TOTAL PROTEIN 6.7 gm/dL 6.0-8.3 (BEAKER) (test code = 770) ALBUMIN (BEAKER) 4.3 g/dL 3.5-5.0 (test code = 1145) ALKALINE PHOSPHATASE 74 U/L 40-150 (BEAKER) (test code = 346) BILIRUBIN TOTAL 0.2 mg/dL 0.2-1.2 (BEAKER) (test code = 377) SODIUM (BEAKER) (test 142 meq/L 136-145 code = 381) POTASSIUM (BEAKER) 4.0 meq/L 3.5-5.1 (test code = 379) CHLORIDE (BEAKER) 105 meq/L 98-107 (test code = 382) CO2 (BEAKER) (test 28 meq/L 22-29 code = 355) BLOOD UREA NITROGEN 34 mg/dL 7-21 H (BEAKER) (test code = 354) CREATININE (BEAKER) 0.83 mg/dL 0.57-1.25 (test code = 358) GLUCOSE RANDOM 90 mg/dL 70-105 (BEAKER) (test code = 652) CALCIUM (BEAKER) 9.2 mg/dL 8.4-10.2 (test code = 697) AST (SGOT) (BEAKER) 25 U/L 5-34 (test code = 353) ALT (SGPT) (BEAKER) 24 U/L 6-55 (test code = 347) EGFR (BEAKER) (test 69 mL/min/1.73 ESTIMA DUSTIN GFR IS code = 1092) sq m NOT ACCURATE CREATININE CLEARANCE IN PREDICTING GLOMERULAR FILTRATION RATE . ESTIMATED GFR I S NOT APPLICABLE FOR DIALYSIS PATIEN TS. PROTHROMBIN [id number] 07:25:00 Test Item Value Reference Range Interpretation Comments PROTIME (BEAKER) (test code = 12.8 seconds 11.7-14.7 759) INR (BEAKER) (test code = 370) 1.0 <=5.9 RECOMMENDED COUMADIN/WARFARIN INR THERAPY RANGESSTANDARD DOSE: 2.0 - 3.0 Includes: PROPHYLAXIS for venous thrombosis, systemic embolization; TREATMENT for venous thrombosis and/or pulmonary embolus.HIGH RISK: Target INR is 2.5-3.5 for patients with mechanical heart valves.[id number] 07:25:00 Test Item Value Reference Range Interpretation Comments PARTIAL THROMBOPLASTIN TIME 30.0 seconds 22.5-36.0 (BEAKER) (test code = 760) CBC W/PLT COUNT & AUTO [id number] 07:21:00 Test Item Value Reference Range Interpretation Comments WHITE BLOOD CELL COUNT (BEAKER) 7.4 K/ L 3.5-10.5 (test code = 775) RED BLOOD CELL COUNT (BEAKER) 3.91 M/ L 3.93-5.22 L (test code = 761) HEMOGLOBIN (BEAKER) (test code = 12.0 GM/DL 11.2-15.7 410) HEMATOCRIT (BEAKER) (test code = 36.3 % 34.1-44.9 411) MEAN CORPUSCULAR VOLUME (BEAKER) 92.8 fL 79.4-94.8 (test code = 753) MEAN CORPUSCULAR HEMOGLOBIN 30.7 pg 25.6-32.2 (BEAKER) (test code = 751) MEAN CORPUSCULAR HEMOGLOBIN CONC 33.1 GM/DL 32.2-35.5 (BEAKER) (test code = 752) RED CELL DISTRIBUTION WIDTH 13.7 % 11.7-14.4 (BEAKER) (test code = 412) PLATELET COUNT (BEAKER) (test 359 K/CU MM 150-450 code = 756) MEAN PLATELET VOLUME (BEAKER) 9.7 fL 9.4-12.3 (test code = 754) NUCLEATED RED BLOOD CELLS 0 /100 WBC 0-0 (BEAKER) (test code = 413) NEUTROPHILS RELATIVE PERCENT 51 % (BEAKER) (test code = 429) LYMPHOCYTES RELATIVE PERCENT 29 % (BEAKER) (test code = 430) MONOCYTES RELATIVE PERCENT 11 % (BEAKER) (test code = 431) EOSINOPHILS RELATIVE PERCENT 7 % (BEAKER) (test code = 432) BASOPHILS RELATIVE PERCENT 1 % (BEAKER) (test code = 437) NEUTROPHILS ABSOLUTE COUNT 3.78 K/ L 1.56-6.13 (BEAKER) (test code = 670) LYMPHOCYTES ABSOLUTE COUNT 2.17 K/ L 1.18-3.74 (BEAKER) (test code = 414) MONOCYTES ABSOLUTE COUNT (BEAKER) 0.84 K/ L 0.24-0.36 H (test code = 415) EOSINOPHILS ABSOLUTE COUNT 0.55 K/ L 0.04-0.36 H (BEAKER) (test code = 416) BASOPHILS ABSOLUTE COUNT (BEAKER) 0.05 K/ L 0.01-0.08 (test code = 417) IMMATURE GRANULOCYTES-RELATIVE 0 % 0-1 PERCENT (BEAKER) (test code = 2801) [id number] 10:05:00 Test Item Value Reference Range Interpretation Comments PARTIAL THROMBOPLASTIN TIME 29.5 seconds 22.5-36.0 (BEAKER) (test code = 760) PROTHROMBIN [id number] 10:04:00 Test Item Value Reference Range Interpretation Comments PROTIME (BEAKER) (test code = 13.0 seconds 11.7-14.7 759) INR (BEAKER) (test code = 370) 1.0 <=5.9 RECOMMENDED COUMADIN/WARFARIN INR THERAPY RANGESSTANDARD DOSE: 2.0 - 3.0 Includes: PROPHYLAXIS for venous thrombosis, systemic embolization; TREATMENT for venous thrombosis and/or pulmonary embolus.HIGH RISK: Target INR is 2.5-3.5 for patients with mechanical heart valves.COMPREHENSIVE METABOLIC PANEL 2017-11-11 10:02:00 Test Item Value Reference Range Interpretation Comments TOTAL PROTEIN 6.7 gm/dL 6.0-8.3 (BEAKER) (test code = 770) ALBUMIN (BEAKER) 4.2 g/dL 3.5-5.0 (test code = 1145) ALKALINE PHOSPHATASE 84 U/L 40-150 (BEAKER) (test code = 346) BILIRUBIN TOTAL 0.3 mg/dL 0.2-1.2 (BEAKER) (test code = 377) SODIUM (BEAKER) (test 143 meq/L 136-145 code = 381) POTASSIUM (BEAKER) 3.9 meq/L 3.5-5.1 (test code = 379) CHLORIDE (BEAKER) 104 meq/L 98-107 (test code = 382) CO2 (BEAKER) (test 29 meq/L 22-29 code = 355) BLOOD UREA NITROGEN 29 mg/dL 7-21 H (BEAKER) (test code = 354) CREATININE (BEAKER) 0.91 mg/dL 0.57-1.25 (test code = 358) GLUCOSE RANDOM 84 mg/dL 70-105 (BEAKER) (test code = 652) CALCIUM (BEAKER) 9.1 mg/dL 8.4-10.2 (test code = 697) AST (SGOT) (BEAKER) 25 U/L 5-34 (test code = 353) ALT (SGPT) (BEAKER) 28 U/L 6-55 (test code = 347) EGFR (BEAKER) (test 62 mL/min/1.73 ESTIMA DUSTIN GFR IS code = 1092) sq m NOT ACCURATE CREATININE CLEARANCE IN PREDICTING GLOMERULAR FILTRATION RATE . ESTIMATED GFR I S NOT APPLICABLE FOR DIALYSIS PATIEN TS. CBC W/PLT COUNT & AUTO [id number] 09:53:00 Test Item Value Reference Range Interpretation Comments WHITE BLOOD CELL COUNT (BEAKER) 9.3 K/ L 3.5-10.5 (test code = 775) RED BLOOD CELL COUNT (BEAKER) 4.07 M/ L 3.93-5.22 (test code = 761) HEMOGLOBIN (BEAKER) (test code = 12.5 GM/DL 11.2-15.7 410) HEMATOCRIT (BEAKER) (test code = 38.1 % 34.1-44.9 411) MEAN CORPUSCULAR VOLUME (BEAKER) 93.6 fL 79.4-94.8 (test code = 753) MEAN CORPUSCULAR HEMOGLOBIN 30.7 pg 25.6-32.2 (BEAKER) (test code = 751) MEAN CORPUSCULAR HEMOGLOBIN CONC 32.8 GM/DL 32.2-35.5 (BEAKER) (test code = 752) RED CELL DISTRIBUTION WIDTH 13.8 % 11.7-14.4 (BEAKER) (test code = 412) PLATELET COUNT (BEAKER) (test 385 K/CU MM 150-450 code = 756) MEAN PLATELET VOLUME (BEAKER) 9.7 fL 9.4-12.3 (test code = 754) NUCLEATED RED BLOOD CELLS 0 /100 WBC 0-0 (BEAKER) (test code = 413) NEUTROPHILS RELATIVE PERCENT 53 % (BEAKER) (test code = 429) LYMPHOCYTES RELATIVE PERCENT 27 % (BEAKER) (test code = 430) MONOCYTES RELATIVE PERCENT 10 % (BEAKER) (test code = 431) EOSINOPHILS RELATIVE PERCENT 9 % (BEAKER) (test code = 432) BASOPHILS RELATIVE PERCENT 1 % (BEAKER) (test code = 437) NEUTROPHILS ABSOLUTE COUNT 4.92 K/ L 1.56-6.13 (BEAKER) (test code = 670) LYMPHOCYTES ABSOLUTE COUNT 2.50 K/ L 1.18-3.74 (BEAKER) (test code = 414) MONOCYTES ABSOLUTE COUNT (BEAKER) 0.92 K/ L 0.24-0.36 H (test code = 415) EOSINOPHILS ABSOLUTE COUNT 0.86 K/ L 0.04-0.36 H (BEAKER) (test code = 416) BASOPHILS ABSOLUTE COUNT (BEAKER) 0.05 K/ L 0.01-0.08 (test code = 417) IMMATURE GRANULOCYTES-RELATIVE 0 % 0-1 PERCENT (BEAKER) (test code = 2801) TISSUE [id number] 09:41:00Surgical Pathology Report Case: [id number] Authorizing Provider: Ck Vega MD Collected: 10/20/2017 1440 Ordering Location: [facility] Received: 10/20/2017 1500 SERVICES Pathologist: Castro Austin MD Specimen: Tracheal, EBBX A. TRACHEA, ENDOBRONCHIAL BIOPSY: - INFLAMED GRANULATION TISSUE WITH RARE MULTINUCLEATED GIANT CELLS - NEGATIVE FOR MALIGNANCY Signing Pathologist Direct Phone Line: [phone] signed by Castro Austin MD on 10/22/2017 at 9:41 AMImmunostain for pancytokeratin is negative, supporting the above diagnosis.[id number] stenosis, tracheostomy dependent, shortness of breath Tracheal endobronchial biopsy The specimen is received in a formalin- filled container labeled with the patient's information and labeled "tracheal endobronchial biopsy" and consists of multiple fragments of webb-pink soft tissue ranging from 0.1 to 0.6 cm, submitted entirely in A1. CG/ew Performed.The following special studies were performed on this case and the interpretation is incorporated in the diagnostic report above:The immunohistochemistry test was developed and its performance characteristics determined by [facility], Pathology Laboratory. It has not been cleared or approved by the U.S. Food and Drug Administration. The FDA has determined that such clearance or approval is not necessary. The test is used for clinical purposes. It should not be regarded as investigational or for research. This laboratory is certified under the Clinical Laboratory Improvement Amendments of 1988 (CLIA-88) as qualified to perform high complexity clinical laboratory testing.COMPREHENSIVE METABOLIC [id number] 11:47:00 Test Item Value Reference Range Interpretation Comments TOTAL PROTEIN 7.1 gm/dL 6.0-8.3 Specimen sligh tly (BEAKER) (test code = hemoly zed 770) ALBUMIN (BEAKER) 4.2 g/dL 3.5-5.0 Specimen sl ightly (test code = 1145) hemolyzed ALKALINE PHOSPHATASE 79 U/L 40-150 (BEAKER) (test code = 346) BILIRUBIN TOTAL 0.5 mg/dL 0.2-1.2 Specimen sli ghtly (BEAKER) (test code = hemoly zed 377) SODIUM (BEAKER) (test 142 meq/L 136-145 code = 381) POTASSIUM (BEAKER) 4.3 meq/L 3.5-5.1 Specimen slightly (test code = 379) hemolyzed CHLORIDE (BEAKER) 102 meq/L 98-107 (test code = 382) CO2 (BEAKER) (test 30 meq/L 22-29 H code = 355) BLOOD UREA NITROGEN 29 mg/dL 7-21 H (BEAKER) (test code = 354) CREATININE (BEAKER) 1.00 mg/dL 0.57-1.25 Specimen slightly (test code = 358) hemolyzed GLUCOSE RANDOM 91 mg/dL 70-105 (BEAKER) (test code = 652) CALCIUM (BEAKER) 9.0 mg/dL 8.4-10.2 (test code = 697) AST (SGOT) (BEAKER) 26 U/L 5-34 Specimen slightly (test code = 353) hemolyzed ALT (SGPT) (BEAKER) 22 U/L 6-55 Specimen slightly (test code = 347) hemolyzed EGFR (BEAKER) (test 56 mL/min/1.73 ESTIMA DUSTIN GFR IS code = 1092) sq m NOT ACCURATE CREATININE CLEARANCE IN PREDICTING GLOMERULAR FILTRATION RATE . ESTIMATED GFR I S NOT APPLICABLE FOR DIALYSIS PATIEN TS. CBC W/PLT COUNT & AUTO [id number] 11:23:00 Test Item Value Reference Range Interpretation Comments WHITE BLOOD CELL COUNT (BEAKER) 8.2 K/ L 3.5-10.5 (test code = 775) RED BLOOD CELL COUNT (BEAKER) 4.30 M/ L 3.93-5.22 (test code = 761) HEMOGLOBIN (BEAKER) (test code = 12.9 GM/DL 11.2-15.7 410) HEMATOCRIT (BEAKER) (test code = 40.2 % 34.1-44.9 411) MEAN CORPUSCULAR VOLUME (BEAKER) 93.5 fL 79.4-94.8 (test code = 753) MEAN CORPUSCULAR HEMOGLOBIN 30.0 pg 25.6-32.2 (BEAKER) (test code = 751) MEAN CORPUSCULAR HEMOGLOBIN CONC 32.1 GM/DL 32.2-35.5 L (BEAKER) (test code = 752) RED CELL DISTRIBUTION WIDTH 13.4 % 11.7-14.4 (BEAKER) (test code = 412) PLATELET COUNT (BEAKER) (test 391 K/CU MM 150-450 code = 756) MEAN PLATELET VOLUME (BEAKER) 9.7 fL 9.4-12.3 (test code = 754) NUCLEATED RED BLOOD CELLS 0 /100 WBC 0-0 (BEAKER) (test code = 413) NEUTROPHILS RELATIVE PERCENT 56 % (BEAKER) (test code = 429) LYMPHOCYTES RELATIVE PERCENT 27 % (BEAKER) (test code = 430) MONOCYTES RELATIVE PERCENT 10 % (BEAKER) (test code = 431) EOSINOPHILS RELATIVE PERCENT 7 % (BEAKER) (test code = 432) BASOPHILS RELATIVE PERCENT 1 % (BEAKER) (test code = 437) NEUTROPHILS ABSOLUTE COUNT 4.54 K/ L 1.56-6.13 (BEAKER) (test code = 670) LYMPHOCYTES ABSOLUTE COUNT 2.19 K/ L 1.18-3.74 (BEAKER) (test code = 414) MONOCYTES ABSOLUTE COUNT (BEAKER) 0.78 K/ L 0.24-0.36 H (test code = 415) EOSINOPHILS ABSOLUTE COUNT 0.61 K/ L 0.04-0.36 H (BEAKER) (test code = 416) BASOPHILS ABSOLUTE COUNT (BEAKER) 0.05 K/ L 0.01-0.08 (test code = 417) IMMATURE GRANULOCYTES-RELATIVE 0 % 0-1 PERCENT (BEAKER) (test code = 2801) TISSUE [id number] 17:05:00Surgical Pathology Report Case: [id number] Authorizing Provider: Ck Vega MD Collected: 08/14/2017 1236 Ordering Location: [facility] Received: 08/14/2017 1313 SERVICES Pathologist: Gissell Kidd MD Specimen: Soft Tissue, Other, TRACHEAL TISSUE SOFT TISSUE, TRACHEA, EXCISION- GRANULATION TISSUE- ACUTE AND CHRONIC INFLAMMATION- GRANULOMATOUS INFLAMMATION WITH FOREIGN BODY GIANT CELLS Signing Pathologist Direct Phone Line: [phone] signed by Gissell Kidd MD on 08/17/2017 at 5:05 [id number] stenosis, acute allergic rhinitis, tracheostomy dependent and hoarse, arthritis Tracheal tissue The specimen is received in saline labeled with the patient's information and labeled "tracheal tissue" and consists of fragments of webb-pink soft tissue measuring 1 x 0.5 x 0.2 cm, submitted entirely in A1. CG/ew Performed.COMPREHENSIVE METABOLIC PANEL 2017-08-14 09:20:00 Test Item Value Reference Range Interpretation Comments TOTAL PROTEIN 6.7 gm/dL 6.0-8.3 (BEAKER) (test code = 770) ALBUMIN (BEAKER) 4.1 g/dL 3.5-5.0 (test code = 1145) ALKALINE PHOSPHATASE 71 U/L 40-150 (BEAKER) (test code = 346) BILIRUBIN TOTAL 0.3 mg/dL 0.2-1.2 (BEAKER) (test code = 377) SODIUM (BEAKER) (test 143 meq/L 136-145 code = 381) POTASSIUM (BEAKER) 3.6 meq/L 3.5-5.1 (test code = 379) CHLORIDE (BEAKER) 105 meq/L 98-107 (test code = 382) CO2 (BEAKER) (test 28 meq/L 22-29 code = 355) BLOOD UREA NITROGEN 26 mg/dL 7-21 H (BEAKER) (test code = 354) CREATININE (BEAKER) 0.87 mg/dL 0.57-1.25 (test code = 358) GLUCOSE RANDOM 82 mg/dL 70-105 (BEAKER) (test code = 652) CALCIUM (BEAKER) 8.9 mg/dL 8.4-10.2 (test code = 697) AST (SGOT) (BEAKER) 23 U/L 5-34 (test code = 353) ALT (SGPT) (BEAKER) 19 U/L 6-55 (test code = 347) EGFR (BEAKER) (test 66 mL/min/1.73 ESTIMA DUSTIN GFR IS code = 1092) sq m NOT ACCURATE CREATININE CLEARANCE IN PREDICTING GLOMERULAR FILTRATION RATE . ESTIMATED GFR I S NOT APPLICABLE FOR DIALYSIS PATIEN TS. [id number] 09:12:00 Test Item Value Reference Range Interpretation Comments PARTIAL THROMBOPLASTIN TIME 30.4 seconds 22.5-36.0 (BEAKER) (test code = 760) PROTHROMBIN [id number] 09:11:00 Test Item Value Reference Range Interpretation Comments PROTIME (BEAKER) (test code = 12.3 seconds 11.7-14.7 759) INR (BEAKER) (test code = 370) 0.9 <=5.9 RECOMMENDED COUMADIN/WARFARIN INR THERAPY RANGESSTANDARD DOSE: 2.0 - 3.0 Includes: PROPHYLAXIS for venous thrombosis, systemic embolization; TREATMENT for venous thrombosis and/or pulmonary embolus.HIGH RISK: Target INR is 2.5-3.5 for patients with mechanical heart valves.CBC W/PLT COUNT & AUTO [id number] 08:55:00 Test Item Value Reference Range Interpretation Comments WHITE BLOOD CELL COUNT (BEAKER) 6.3 K/ L 3.5-10.5 (test code = 775) RED BLOOD CELL COUNT (BEAKER) 3.90 M/ L 3.93-5.22 L (test code = 761) HEMOGLOBIN (BEAKER) (test code = 11.8 GM/DL 11.2-15.7 410) HEMATOCRIT (BEAKER) (test code = 36.5 % 34.1-44.9 411) MEAN CORPUSCULAR VOLUME (BEAKER) 93.6 fL 79.4-94.8 (test code = 753) MEAN CORPUSCULAR HEMOGLOBIN 30.3 pg 25.6-32.2 (BEAKER) (test code = 751) MEAN CORPUSCULAR HEMOGLOBIN CONC 32.3 GM/DL 32.2-35.5 (BEAKER) (test code = 752) RED CELL DISTRIBUTION WIDTH 13.4 % 11.7-14.4 (BEAKER) (test code = 412) PLATELET COUNT (BEAKER) (test 352 K/CU MM 150-450 code = 756) MEAN PLATELET VOLUME (BEAKER) 9.3 fL 9.4-12.3 L (test code = 754) NUCLEATED RED BLOOD CELLS 0 /100 WBC 0-0 (BEAKER) (test code = 413) NEUTROPHILS RELATIVE PERCENT 52 % (BEAKER) (test code = 429) LYMPHOCYTES RELATIVE PERCENT 30 % (BEAKER) (test code = 430) MONOCYTES RELATIVE PERCENT 11 % (BEAKER) (test code = 431) EOSINOPHILS RELATIVE PERCENT 7 % (BEAKER) (test code = 432) BASOPHILS RELATIVE PERCENT 1 % (BEAKER) (test code = 437) NEUTROPHILS ABSOLUTE COUNT 3.28 K/ L 1.56-6.13 (BEAKER) (test code = 670) LYMPHOCYTES ABSOLUTE COUNT 1.87 K/ L 1.18-3.74 (BEAKER) (test code = 414) MONOCYTES ABSOLUTE COUNT (BEAKER) 0.71 K/ L 0.24-0.36 H (test code = 415) EOSINOPHILS ABSOLUTE COUNT 0.41 K/ L 0.04-0.36 H (BEAKER) (test code = 416) BASOPHILS ABSOLUTE COUNT (BEAKER) 0.05 K/ L 0.01-0.08 (test code = 417) IMMATURE GRANULOCYTES-RELATIVE 0 % 0-1 PERCENT (BEAKER) (test code = 2801) [id number] 07:23:00 Test Item Value Reference Range Interpretation Comments PARTIAL THROMBOPLASTIN TIME 30.3 seconds 22.5-36.0 (BEAKER) (test code = 760) PROTHROMBIN [id number] 07:22:00 Test Item Value Reference Range Interpretation Comments PROTIME (BEAKER) (test code = 12.5 seconds 11.7-14.7 759) INR (BEAKER) (test code = 370) 0.9 <=5.9 RECOMMENDED COUMADIN/WARFARIN INR THERAPY RANGESSTANDARD DOSE: 2.0 - 3.0 Includes: PROPHYLAXIS for venous thrombosis, systemic embolization; TREATMENT for venous thrombosis and/or pulmonary embolus.HIGH RISK: Target INR is 2.5-3.5 for patients with mechanical heart valves.RAD, CHEST, 1 VIEW, NON [id number] 11:54:00Reason for exam:->post-op rigid bronchShould this be performed at the bedside?->YesFINAL REPORT Chest one view compared to April 07 Discussion: Tracheostomy in place. Cardiopulmonary appearance unremarkable. No effusion or pneumothorax. Signed: Adria Ellison Verified Date/Time: 06/19/2017 11:54:27 Reading Location: [facility] Reading Room COMPREHENSIVE METABOLIC [id number] 14:47:00 Test Item Value Reference Range Interpretation Comments TOTAL PROTEIN 7.0 gm/dL 6.0-8.3 (BEAKER) (test code = 770) ALBUMIN (BEAKER) 4.3 g/dL 3.5-5.0 (test code = 1145) ALKALINE PHOSPHATASE 76 U/L 40-150 (BEAKER) (test code = 346) BILIRUBIN TOTAL 0.2 mg/dL 0.2-1.2 (BEAKER) (test code = 377) SODIUM (BEAKER) (test 142 meq/L 136-145 code = 381) POTASSIUM (BEAKER) 4.0 meq/L 3.5-5.1 (test code = 379) CHLORIDE (BEAKER) 103 meq/L 98-107 (test code = 382) CO2 (BEAKER) (test 31 meq/L 22-29 H code = 355) BLOOD UREA NITROGEN 26 mg/dL 7-21 H (BEAKER) (test code = 354) CREATININE (BEAKER) 1.00 mg/dL 0.57-1.25 (test code = 358) GLUCOSE RANDOM 89 mg/dL 70-105 (BEAKER) (test code = 652) CALCIUM (BEAKER) 9.1 mg/dL 8.4-10.2 (test code = 697) AST (SGOT) (BEAKER) 27 U/L 5-34 (test code = 353) ALT (SGPT) (BEAKER) 25 U/L 6-55 (test code = 347) EGFR (BEAKER) (test 56 mL/min/1.73 ESTIMA DUSTIN GFR IS code = 1092) sq m NOT ACCURATE CREATININE CLEARANCE IN PREDICTING GLOMERULAR FILTRATION RATE . ESTIMATED GFR I S NOT APPLICABLE FOR DIALYSIS PATIEN TS. [id number] 14:42:00 Test Item Value Reference Range Interpretation Comments PROTIME (BEAKER) (test code = 13.4 seconds 11.7-14.7 759) INR (BEAKER) (test code = 370) 1.0 <=5.9 PARTIAL THROMBOPLASTIN TIME 31.4 seconds 22.5-36.0 (BEAKER) (test code = 760) RECOMMENDED COUMADIN/WARFARIN INR THERAPY RANGESSTANDARD DOSE: 2.0 - 3.0 Includes: PROPHYLAXIS for venous thrombosis, systemic embolization; TREATMENT for venous thrombosis and/or pulmonary embolus.HIGH RISK: Target INR is 2.5-3.5 for patients with mechanical heart valves.CBC W/PLT COUNT & AUTO [id number] 14:29:00 Test Item Value Reference Range Interpretation Comments WHITE BLOOD CELL COUNT (BEAKER) 7.0 K/ L 3.5-10.5 (test code = 775) RED BLOOD CELL COUNT (BEAKER) 4.06 M/ L 3.93-5.22 (test code = 761) HEMOGLOBIN (BEAKER) (test code = 12.6 GM/DL 11.2-15.7 410) HEMATOCRIT (BEAKER) (test code = 38.2 % 34.1-44.9 411) MEAN CORPUSCULAR VOLUME (BEAKER) 94.1 fL 79.4-94.8 (test code = 753) MEAN CORPUSCULAR HEMOGLOBIN 31.0 pg 25.6-32.2 (BEAKER) (test code = 751) MEAN CORPUSCULAR HEMOGLOBIN CONC 33.0 GM/DL 32.2-35.5 (BEAKER) (test code = 752) RED CELL DISTRIBUTION WIDTH 13.0 % 11.7-14.4 (BEAKER) (test code = 412) PLATELET COUNT (BEAKER) (test 330 K/CU MM 150-450 code = 756) MEAN PLATELET VOLUME (BEAKER) 9.4 fL 9.4-12.3 (test code = 754) NUCLEATED RED BLOOD CELLS 0 /100 WBC 0-0 (BEAKER) (test code = 413) NEUTROPHILS RELATIVE PERCENT 58 % (BEAKER) (test code = 429) LYMPHOCYTES RELATIVE PERCENT 30 % (BEAKER) (test code = 430) MONOCYTES RELATIVE PERCENT 9 % (BEAKER) (test code = 431) EOSINOPHILS RELATIVE PERCENT 3 % (BEAKER) (test code = 432) BASOPHILS RELATIVE PERCENT 1 % (BEAKER) (test code = 437) NEUTROPHILS ABSOLUTE COUNT 4.05 K/ L 1.56-6.13 (BEAKER) (test code = 670) LYMPHOCYTES ABSOLUTE COUNT 2.10 K/ L 1.18-3.74 (BEAKER) (test code = 414) MONOCYTES ABSOLUTE COUNT (BEAKER) 0.60 K/ L 0.24-0.36 H (test code = 415) EOSINOPHILS ABSOLUTE COUNT 0.19 K/ L 0.04-0.36 (BEAKER) (test code = 416) BASOPHILS ABSOLUTE COUNT (BEAKER) 0.04 K/ L 0.01-0.08 (test code = 417) IMMATURE GRANULOCYTES-RELATIVE 0 % 0-1 PERCENT (ROD) (test code = 2801) Notes Date/Time Note Provider Source 2018-10-12 19:25:18-00:00 COLT QUINN [facility] OPERATIVE/PROCEDURE REPORT DANYEL HAMPTON FACILITY: [facility] Billing #: [id number] Room: [facility] MR #: [id number] : 1955 DATE OF PROCEDURE: 10/12/2018 SURGEON: Colt Quinn MD PREOPERATIVE DIAGNOSIS: Subglottic stenosis. POSTOPERATIVE DIAGNOSIS: Subglottic stenosis. PROCEDURE PERFORMED: Direct microscopic/telescop ic laryngoscopy. ANESTHESIA: General endotracheal. ESTIMATED BLOOD LOSS: Negligible. INDICATIONS: Ms. 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 Vega. At this point, however, she was still noted to have a subglottic component with A-frame defo rmity at the superior aspect of her tracheotomy stoma. She is being considered for decannulation. She now presents f or surgical evaluation and treatment. PROCEDURE IN DETAIL: The patient was taken to e operative room, positively identified, and placed on the o perative table in a supine position. Following the induction of general endotracheal anesthesia per Anesthesia through e xisting tracheotomy stoma, the table was turned 90 degre es. She initially underwent bronchoscopy with Dr. Vega , which was described in a separate operative report. The af orementioned findings of patent immediate subglottis however A-frame deformity at the level of the superior aspect of the tracheotomy stoma was appreciated. This was perf ormed under a combination of laryngeal mask anesthesia while d ecannulating her trachea stoma with the endotracheal tube. At this point, I recannulated the endotracheal tube into the stom a and performed direct telescopic laryngoscopy in order to size the likelihood of successful intubation should she require intu bation in the future. The Storz Shanika laryngoscope was used to visualize the larynx with an athletic quality tooth guard on her upper incisors in a 2+ sniffing position and the laryn goscope was suspended overlying the patient's chest area wit h suspension arm. Pierson mohsen 0 degree 5 mm telescope was use d to visualize the vocal folds as well as the immediate subglot tis, which was grossly patent. However, the A-frame deformity d id reveal prominent narrowing laterally. In order to size the likelihood of successful intubation, I threaded the 6.5 end otracheal tube over the Pierson mohsen telescope, inserted the tel escope into the laryngeal inlet into the proximal trachea, and t hen slowly rocked passed through the endotracheal tube to d etermine if she can be intubated in the Seldinger like technique fashion. A 6.5 endotracheal tube was able to be advanced wi th some resistance. However, due to the irregular contou r of the proximal tracheal airway, it was felt that she m ay still have dyspnea with her present diameter lumen. The lar yngoscope was removed from suspension and the patient underwen t laryngeal mask anesthesia with bronchoscopic procedure to attempt to dilate her A-frame deformity. This was again matilda cribed by Dr. Vega and the patient was aroused from anesthesia at the conclusion of the procedure with her Shiley #4 cuffless tracheotomy. KWA/MODL /[id number] 2017-10-20 15:43:00-00:00 COLT QUINN [facility] REPORT OF PROCEDURE DANYEL HAMPTON FACILITY: [facility] BILLING #: [id number] ROOM: [facility] MR #: [id number] : 1955 DATE OF PROCEDURE: 10/20/2017 SURGEON: Colt Quinn MD DOCTOR NATUROPATHIC: Dr. Soumya Yap PREOPERATIVE DIAGNOSIS: Subglottic stenosis with tracheal granulation tissue. POSTOPERATIVE DIAGNOSES 1. Subglottic stenosis with tracheal granulation tissue. 2. Low-grade posterior glottal stenosis. PROCEDURES 1. Direct telescopic/microscopic laryngoscopy wi th excision of suprastomal/subglottic granulation tissue. 2. Lysis of posterior glottal stenosis. ANESTHESIA: General endotracheal. EBL: Negligible. INDICATIONS: Ms. Hampton is a patient well known to me with subglottic stenosis, who is not candidate for cricotracheal resection based on proximity to the true vocal folds. She has made good progr ess under the care of Dr. Ck Vega, interventional pulmonology, who is a lso performing a procedure today. He asked that I come into the room in ord er to help assess and excise subglottic and tracheal granulation tissue prior to his anticipated dilation. PROCEDURE IN DETAIL: Patient was taken to the op erating room and positively identified and placed on the operating room tabl e in the supine position. Following the induction of general endotracheal anesthesia through her existing tracheotomy stoma per anesthesia, the t able was turned 90 degrees. At that time, she was prepped and draped in the usual fashion. Visualization of larynx was maintained with a StorWantful l aryngoscope with the head in a 2+ sniffing position and athletic quality toot h guard on her upper incisors, and this was suspended overlying the p atient's chest area. 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 It appeared to be somewhat worst on the left compared to the right , and was essentially part of her original stenosis. This was confirmed by ins erting a medium Oates tip suction through the laryngeal inlet, and lateral izing the right arytenoid at the vocal process and recognizing pole on the le ft side. This also enhanced visualization of the anterior arytenoid scar and web. At the level of the infraglottis and subglottis, there were multiple bands of multilobulated granulation tissue that may have been related to previous cryo therapy with dilation by Dr. Vega in the past. The granulat ion tissue was addressed first. Using a medium up-cupped forceps with Hop kins mohsen telescope to excise multiple lobules of granulation tissue at the ma prastomal area at 11 o'clock at the proximal trachea, and at 4 o'clock at the subglottis. These were sent to pathology for appropriate evaluation. Next, m icroscopic up-biting scissors was used to make an incision at the lef t posterior glottal inlet infraglottically in order to release the scar, a nd this was addressed with a needle knife Bovie tip as the working channel th rough a flexible bronchoscope through the Shanika laryngoscope in order to es tablish improved patency and hemostasis. At this point, the laryngoscope was removed from suspension and dentition was noted to be intact and unchanged a t the conclusion of the procedure. The table was addressed to Dr. Ck zuniga who will be describing his efforts with regard to the subglottic stenos is in a separate operative report. Raymond P P Job#: [id number] Doc#: [id number] FN: [id number] cc: Colt Quinn MD
[2023-01-13 19:43] LABS: Absolute Lymphocytes (CBC) 0.4 K/uL (0.7-4.9); MCV 94.8 fL (80-100); MPV 8.3 fL (7.6-11.3); RBC Red Blood Cell Count 4.01 M/uL (3.86-4.86)
[2023-01-13 19:47] LABS: Protime INR 1.28
[2023-01-13] MEDS ORDERED: NA CHLORIDE 0.9% 250 ML ONE ×2 (19:48→20:26)
[2023-01-13] MEDS ORDERED: PANTOPRAZOLE 40 MG INJ ONE (19:48)
[2023-01-13] MEDS ORDERED: NA CHLORIDE 0.9% 1,000 ML ONE (19:54)
[2023-01-13 20:02] LABS: Blood Gas Oxyhemoglobin 86.1 % (94-97); Blood O2 Saturation 88.6 % (92-98.5)
[2023-01-13] MEDS ORDERED: IPRATROPIUM BROM 0.5MG/2.5ML ONE (20:17)
[2023-01-13] MEDS ORDERED: ALBUTEROL 2.5 MG/3 ML NEB SOL ONE (20:17)
--- NOTE | 2023-01-13 20:25 | RAD REPORT ---
EXAM DESCRIPTION: RAD - Chest Single View - 01/13/2023 8:18 pm CLINICAL HISTORY: hypoxia Chest pain. COMPARISON: No comparisons FINDINGS: Portable technique limits examination quality. Severe bilateral consolidations are seen in both lung bases. This is most compatible with pneumonia. The heart is moderately enlarged in size. Tracheostomy tube tip is above the lisa. IMPRESSION: Severe bilateral mid and lower lung consolidations likely pneumonia.
[2023-01-13] MEDS ORDERED: FENTANYL CITR 100 MCG/2 ML ONE (20:26)
[2023-01-13] MEDS ORDERED: PIPERACIL/TAZO 3.375 GM VIAL IV ONE (20:26)
[2023-01-13] MEDS ORDERED: VANCOMYCIN 1 GM/VIAL ONE (20:26)
[2023-01-13] MEDS ORDERED: NA CHLORIDE 0.9% 100 ML ONE (20:26)
[2023-01-13] MEDS ORDERED: ONDANSETRON 4 MG/2 ML VIAL ONE (20:46)
[2023-01-13 20:59] LABS: Bilirubin Total 1.3 mg/dL (0.2-1.0); Protein, Total 5.6 g/dL (6.4-8.2)
--- NOTE | 2023-01-13 21:26 | RAD REPORT ---
EXAM DESCRIPTION: RAD - Chest Single View - 01/13/2023 9:20 pm CLINICAL HISTORY: post central line placement Chest pain. COMPARISON: <Comparisons> FINDINGS: Portable technique limits examination quality. Right-sided venous catheter has tip in the SVC. No pneumothorax.
[2023-01-13] MEDS ORDERED: NOREPINEPHRINE BITARTRATE/D5W 4 MG/250 ML BAG IV ONE (21:48)
[2023-01-13] MEDS ORDERED: METOPROLOL TARTRATE 5 MG/5 ML INJ IV ONE (21:48)
[2023-01-13 21:59] LABS: Blood Morphology Comment NOT SEEN (NOT SEEN); Platelet Estimate ADEQ
--- NOTE | 2023-01-13 21:59 | EDPHYS ---
Physician Documentation [facility] Name: Demetra Hassan Age: 67 yrs Sex: Female : 1955 Arrival Date: 01/13/2023 Time: 19:00 Bed 14 Private MD: ED Physician Mio Garnica HPI: 01/13 20:06 This 67 yrs old Female presents to ER via EMS with complaints of Abdominal sp4 Pain, Shortness Of Breath. 20:16 67-year-old female presents via central EMS for hypoxia and hematemesis. According to ms3 patient's son patient began vomiting on Thursday. Patient denies pain. Patient denies alleviating or inciting factors. Historical: - Allergies: 19:14 Narcotics; ld1 - PMHx: 19:14 Anxiety; neuropathy; ld1 - PSHx: 19:14 Trach; ld1 - Immunization history:: Adult Immunizations up to date, Client reports receiving the 2nd dose of the Covid vaccine. - Social history:: Smoking status: Patient denies any tobacco usage or history of. Patient/guardian denies using alcohol. ROS: 20:16 Constitutional: Negative for fever, and chills. Neck: Negative for injury, pain, and ms3 swelling, Cardiovascular: Negative for chest pain, and palpitations. 20:16 Abdomen/GI: Positive for nausea and vomiting. 20:16 All other systems are negative. Exam: 20:16 Constitutional: This is a well developed, well nourished patient who is awake, alert, ms3 and in no acute distress. Head/Face: Normocephalic, atraumatic. 20:16 Chest/axilla: Normal chest wall appearance and motion. Nontender with no deformity. 20:16 Abdomen/GI: Soft, non-tender, with normal bowel sounds. No distension or tympany. No guarding or rebound. No evidence of tenderness throughout. Skin: Warm, dry with normal turgor. Normal color with no rashes, no lesions, and no evidence of cellulitis. 20:16 Neck: External neck: Tracheostomy with trach in place, no drainage, no surrounding erythema, trachea midline. 20:16 Cardiovascular: Rate: tachycardic, Rhythm: regular, Pulses: no pulse deficits are appreciated, Heart sounds: normal, normal S1and S2. 20:16 ECG was reviewed by the Attending Physician. Vital Signs: 19:12 BP 109 / 65; Pulse 122; Resp 20; Temp 99(O); Pulse Ox 49% on R/A; Weight 44.45 kg; ld1 Height 5 ft. 0 in. ; Pain 9/10; 20:02 BP 90 / 57; Pulse 108; Resp 19 S; Pulse Ox 85% on 60% FiO2 ETT vent; as6 20:09 BP 104 / 48; Pulse 109; Resp 20 S; Pulse Ox 89% on 60% FiO2 ETT vent; as6 20:34 BP 116 / 67; Pulse 104; Resp 34 S; Pulse Ox 91% on 60% FiO2 ETT vent; as6 21:38 BP 89 / 76; Pulse 164; Resp 15; Pulse Ox 90% ; as6 21:52 BP 103 / 80; Pulse 129; Resp 28 S; Pulse Ox 80% on 60% FiO2 ETT vent; as6 22:00 BP 110 / 80; Pulse 134; Resp 27 S; Pulse Ox 82% on 60% FiO2 ETT vent; as6 22:15 BP 108 / 84; Pulse 131; Resp 22 S; Pulse Ox 76% on 60% FiO2 ETT vent; as6 22:30 BP 139 / 98; Pulse 134; Resp 24; Pulse Ox 86% ; as6 22:45 BP 86 / 58; Pulse 129; Resp 20; Pulse Ox 96% on ETT vent; as6 23:00 BP 105 / 71; Pulse 129; Resp 27 S; Temp 99.3(O); Pulse Ox 97% on 100% FiO2 ETT vent; as6 23:15 BP 116 / 68; Pulse 129; Resp 28 S; Pulse Ox 98% on 100% FiO2 ETT vent; as6 23:30 BP 90 / 68; Pulse 128; Resp 26 S; Pulse Ox 97% on 100% FiO2 ETT vent; as6 23:45 BP 85 / 67; Pulse 128; Resp 27 S; Pulse Ox 100% on 100% FiO2 ETT vent; as6 01/14 00:00 BP 103 / 69; Pulse 128; Resp 27 S; Pulse Ox 99% on 100% FiO2 ETT vent; as6 01/13 19:12 Body Mass Index 19.14 (44.45 kg, 152.4 cm) ld1 05/16 19:12 Pain Scale: Adult ld1 Procedures: 01/13 21:00 Central Line: the site was prepped with in sterile fashion, Hibiclens , a triple lumen sp4 catheter was inserted, in the right internal jugular vein, in 1 attempts. placement was verified, by CXR, by blood return, the site was dressed with 4X4s, Tegaderm, the patient tolerated the procedure, well, Right internal jugular triple-lumen central venous catheter placed with ultrasound guidance without any complication. MDM: 19:12 Patient medically screened. ms3 20:16 Transition of care: After a detail discussion of the patient's case, care is ms3 transferred to Mio Garnica MD. 20:16 Differential diagnosis: pneumonia, pulmonary edema, GI bleed vs PUD. ms3 21:51 Antibiotic administration: The patient is for pseudomonal infection, Vancomycin and sp4 Zosyn IV, . Data reviewed: vital signs, nurses notes, EMS record, old medical records, lab test result(s), EKG, radiologic studies, plain films. Consideration of Admission/Observation Patient was admitted/placed on observation. Escalation of care including admission/observation considered. Management of patient was discussed with the following: Hospitalist: [facility]. ED course: Patient is 67-year-old female whose care was assumed from Dr. Chas Vasquez, patient has history of tracheal stenosis diagnosed in 2000 showed history of tracheostomy in [address] Clark , at [facility] primary care doctor is Dr. Friedman , patient stays home most of the time her care is handled by her son at home. Patient started feeling badly this Thursday 5 days ago with generalized weakness, shortness of breath, feeling unwell overall, and then she has developed vomiting which also culminated in bloody vomiting today during EMS transport. On arrival patient was hypoxemic with oxygen 40s her tracheostomy was exchanged here in the emergency room with some improvement in oxygenation which now remains at 80% briefly going up to 90%. Patient is hypoxemic based on the blood gas with PCO2 being 47.3 and PO2 60.9 patient has had right CVL placed for resuscitation was started on Levophed for hypotension and AR she has history of upper GI bleed with gastric ulcer in the past she takes daily aspirin.. At this time patient is unstable for the CAT scan with poor oxygenation and suboptimal blood pressure also tachycardia with sinus arrhythmia at the rate of 130. We will continue Levophed infusion for blood pressure stabilization and see about transferring patient for intensive care management at the main [facility]. 23:56 ED course: Patient's oxygenation has markedly improved after tracheostomy was exchanged sp4 for a cuffed tracheostomy. Patient's oxygenation improved up to 94% patient is hemodynamically stable now and helicopter is here to transport patient to [facility]. 01/13 19:23 Order name: Blood Culture Adult (2) ms3 01/13 19:23 Order name: CBC with Diff; Complete Time: 22:39 ms3 01/13 19:23 Order name: CMP; Complete Time: 21:50 ms3 01/13 19:23 Order name: Lactate w/ 2H reflex if indic.; Complete Time: 21:50 ms3 01/13 19:23 Order name: Protime (+inr); Complete Time: 20:08 ms3 01/13 19:23 Order name: Ptt, Activated; Complete Time: 20:08 ms3 01/13 19:23 Order name: Urinalysis w/ reflexes; Complete Time: 00:09 ms3 01/13 19:23 Order name: Lipase; Complete Time: 21:50 ms3 01/13 19:24 Order name: ABG; Complete Time: 21:50 ms3 01/13 21:54 Order name: SARS-COV-2 RT PCR; Complete Time: 00:09 pf1 01/13 22:00 Order name: Manual Differential; Complete Time: 22:39 EDMS 01/13 22:45 Order name: Lactate Sepsis 2 HR Follow-up; Complete Time: 00:09 EDMS 01/13 19:23 Order name: Chest Single View XRAY; Complete Time: 21:50 ms3 01/13 20:58 Order name: Chest Single View XRAY; Complete Time: 21:50 as6 01/13 19:23 Order name: EKG; Complete Time: 19:24 ms3 01/13 19:23 Order name: Accucheck; Complete Time: 19:40 ms3 01/13 19:23 Order name: Cardiac monitoring; Complete Time: 19:24 ms3 01/13 19:23 Order name: EKG - Nurse/Tech; Complete Time: 19:56 ms3 01/13 19:23 Order name: IV Saline Lock - Large Bore; Complete Time: 19:40 ms3 01/13 19:23 Order name: Labs collected and sent; Complete Time: 19:40 ms3 01/13 19:23 Order name: O2 Per Protocol; Complete Time: 19:24 ms3 01/13 19:23 Order name: O2 Sat Monitoring; Complete Time: 19:24 ms3 01/13 19:23 Order name: Vital Signs; Complete Time: 19:24 ms3 01/13 20:08 Order name: Central Line Kit; Complete Time: 20:17 sp4 EC:16 Rate is 115 beats/min. Rhythm is regular. QRS [place] is Normal. [place] interval is normal. ms3 QRS interval is normal. Clinical impression: Sinus tachycardia. Interpreted by me. Reviewed by me. Administered Medications: 19:58 Drug: Pantoprazole IVP 40 mg Route: IVP; Site: right forearm; as6 21:54 Follow up: Response: No adverse reaction as6 19:58 Drug: Pantoprazole IV 8 mg/hr Route: IV; Rate: 25 ml/hr; Site: right forearm; as6 23:25 Follow up: Response: No adverse reaction; IV Status: Infusion continued upon transfer; as6 IV Intake: 100ml 19:58 Drug: NS 0.9% IV 1000 ml Route: IV; Rate: 1 bolus; Site: right forearm; as6 21:54 Follow up: Response: No adverse reaction; IV Status: Completed infusion; IV Intake: as6 1000ml 20:22 Drug: fentaNYL (PF) IVP 50 mcg Route: IVP; Site: right forearm; as6 21:54 Follow up: Response: No adverse reaction as6 20:30 Drug: Piperacillin-Tazobactam IVPB 3.375 grams Route: IVPB; Infused Over: 60 mins; as6 Site: left forearm; 21:54 Follow up: Response: No adverse reaction; IV Status: Completed infusion; IV Intake: as6 100ml 20:41 Drug: Ondansetron IVP 4 mg Route: IVP; Site: right forearm; as6 21:54 Follow up: Response: No adverse reaction as6 21:14 Drug: vancoMYCIN IVPB 1 grams Route: IVPB; Infused Over: 2 hrs; Site: right jugular; as6 23:25 Follow up: Response: No adverse reaction; IV Status: Completed infusion; IV Intake: as6 250ml 21:45 Drug: Norepinephrine IV 0.1 mcg/kg/min {Note: started at 5 mcg/min per provider verbal as6 order.} Route: IV; Rate: calculated rate; Site: right jugular; 23:25 Follow up: Response: No adverse reaction; IV Status: Infusion continued upon transfer; as6 IV Intake: 75ml 21:46 Drug: Metoprolol IVP 5 mg Route: IVP; Site: right jugular; as6 22:34 Follow up: Response: No adverse reaction as6 22:15 Drug: Ativan IVP 0.5 mg Route: IVP; Site: right jugular; as6 22:35 Follow up: Response: No adverse reaction as6 22:16 Drug: D5-1/2 NS with KCl IV 20 mEq/L 1000 ml Route: IV; Rate: 100 ml/hr; Site: right as6 jugular; 23:24 Follow up: Response: No adverse reaction; IV Status: Infusion continued upon transfer; as6 IV Intake: 200ml 22:16 Drug: Albumin IVPB 25 grams Volume: 100 ml; Route: IVPB; Site: right jugular; as6 22:34 Follow up: Response: No adverse reaction; IV Status: Completed infusion; IV Intake: as6 100ml 22:46 Drug: NS 0.9% IV 500 ml Route: IV; Rate: bolus; Site: right jugular; as6 23:24 Follow up: Response: No adverse reaction; IV Status: Completed infusion; IV Intake: as6 500ml Disposition: 23:56 Critical Care:. sp4 Disposition Summary: 01/13/23 21:58 Transfer Ordered Transfer Location: [facility] sp4 Reason: Higher level of care sp4 Condition: Critical sp4 Problem: new sp4 Symptoms: have improved sp4 Accepting Physician: [facility] payroll benefits administrator(01/14/23 00:09) as6 Diagnosis - Acute on chronic respiratory failure, hypoxemia, hypercarbia., Sinus tachycardia sp4 with sinus arrhythmia. Attention to tracheostomy, tracheostomy care. - Hematemesis, upper gastrointestinal bleed, physical deconditioning, unintentional sp4 weight loss, severe sepsis with septic shock, bilateral lung multifocal pneumonia. - Septic shock sp4 Forms: - Medication Reconciliation Form sp4 - SBAR form sp4 Critical care time excluding procedures: 23:56 Critical care time: Bedside Care: 36 minutes, Consultation: 12 minutes, Family sp4 Intervention: 12 minutes. Total time: 60 minutes Signatures: Dispatcher [employer] EDMS Chas Vasquez, DO ms3 Katie Vasquez, RN RN ld1 Felipe Gonzalez, RN RN as6 Mio Garnica MD MD sp4 Corrections: (The following items were deleted from the chart) 20:49 19:24 Abdomen Pelvis W Con+CT.RAD.BRZ ordered. EDMS EDMS 21:21 21:00 Chest Single View+RAD.RAD.BRZ ordered. EDMS EDMS 23:51 20:29 Chest Abdomen Pelvis W Con+CT.RAD.BRZ ordered. EDMS EDMS 01/14 00:09 01/13 21:58 [facility] payroll benefits administrator sp4 as6
--- NOTE | 2023-01-13 21:59 | ER ---
Nurse's Notes [facility] Name: Demetra Hassan Age: 67 yrs Sex: Female : 1955 Arrival Date: 01/13/2023 Time: 19:00 Bed 14 Private MD: Diagnosis: Acute on chronic respiratory failure, hypoxemia, hypercarbia., Sinus tachycardia with sinus arrhythmia. Attention to tracheostomy, tracheostomy care.;Hematemesis, upper gastrointestinal bleed, physical deconditioning, unintentional weight loss, severe sepsis with septic shock, bilateral lung multifocal pneumonia. ;Septic shock Presentation: 01/13 19:12 Chief complaint: EMS states: toned out to pt home for N/V/ABD pain. Pt SpO2 upon ld1 arrival 49% RA. Applied non rebreather to pt trach - SpO2 56%. EMS reports patient vomiting dark blood/emesis en route to ER. Coronavirus screen: At this time, the client does not indicate any symptoms associated with coronavirus-19. Ebola Screen: No symptoms or risks identified at this time. Initial Sepsis Screen: Does the patient meet any 2 criteria? No. Patient's initial sepsis screen is negative. Does the patient have a suspected source of infection? No. Patient's initial sepsis screen is negative. Risk Assessment: Do you want to hurt yourself or someone else? Patient reports no desire to harm self or others. Onset of symptoms was January 13, 2023 at 19:14. 19:12 Method Of Arrival: [facility]: [facility] ld1 19:12 Acuity: JARAD 1 as6 Triage Assessment: 19:14 General: Appears in no apparent distress. comfortable, Behavior is calm, cooperative, ld1 appropriate for age. Pain: Complains of pain in abdomen Pain does not radiate. Pain currently is 9 out of 10 on a pain scale. Quality of pain is described as throbbing, Pain began 1 day ago. Is continuous. EENT: No signs and/or symptoms were reported regarding the EENT system. Neuro: Level of Consciousness is awake, alert, obeys commands, Oriented to person, place, time, situation. Cardiovascular: Capillary refill < 3 seconds Patient's skin is warm and dry. Rhythm is sinus tachycardia. Respiratory: Reports shortness of breath Airway via trache Respiratory effort is even, labored, Onset: The symptoms/episode began/occurred just prior to arrival, the patient has severe shortness of breath. GI: Abdomen is flat, non-distended, Reports nausea, vomiting. : No signs and/or symptoms were reported regarding the genitourinary system. Derm: No signs and/or symptoms reported regarding the dermatologic system. Musculoskeletal: No signs and/or symptoms reported regarding the musculoskeletal system. Historical: - Allergies: 19:14 Narcotics; ld1 - PMHx: 19:14 Anxiety; neuropathy; ld1 - PSHx: 19:14 Trach; ld1 - Immunization history:: Adult Immunizations up to date, Client reports receiving the 2nd dose of the Covid vaccine. - Social history:: Smoking status: Patient denies any tobacco usage or history of. Patient/guardian denies using alcohol. Screenin:02 [facility] ED Fall Risk Assessment (Adult) Score/Fall Risk Level 0 - 2 = Low Risk. Abuse as6 screen: Denies threats or abuse. Denies injuries from another. Nutritional screening: No deficits noted. Tuberculosis screening: No symptoms or risk factors identified. Assessment: 19:00 General: Appears ill, slender, Behavior is calm, cooperative. Pain: Complains of pain as6 in abdomen. Neuro: Level of Consciousness is awake, alert, obeys commands, Oriented to person, place, time, situation. Cardiovascular: Capillary refill is > 3 seconds Patient's skin is warm and dry. Respiratory: Airway via trache Trachea midline Respiratory effort is even, labored, Respiratory pattern is regular, symmetrical, tachypnea. GI: Reports vomiting, coffee ground emesis. : No deficits noted. No signs and/or symptoms were reported regarding the genitourinary system. EENT: No deficits noted. No signs and/or symptoms were reported regarding the EENT system. Derm:. 21:39 General: provider notified of VS. as6 22:28 General: provider and RT at bedside. as6 23:23 Respiratory: Ventilator assessment: ET Tube: 6.5 trach Ventilator Mode: Assist Control as6 (AC) Tidal Volume: 350 Respiratory Rate: 14 FiO2: 100%. PEEP: 10 HOB > 30 degrees. 23:52 General: life flight now at bedside taking over care. as6 Vital Signs: 19:12 BP 109 / 65; Pulse 122; Resp 20; Temp 99(O); Pulse Ox 49% on R/A; Weight 44.45 kg; ld1 Height 5 ft. 0 in. ; Pain 9/10; 20:02 BP 90 / 57; Pulse 108; Resp 19 S; Pulse Ox 85% on 60% FiO2 ETT vent; as6 20:09 BP 104 / 48; Pulse 109; Resp 20 S; Pulse Ox 89% on 60% FiO2 ETT vent; as6 20:34 BP 116 / 67; Pulse 104; Resp 34 S; Pulse Ox 91% on 60% FiO2 ETT vent; as6 21:38 BP 89 / 76; Pulse 164; Resp 15; Pulse Ox 90% ; as6 21:52 BP 103 / 80; Pulse 129; Resp 28 S; Pulse Ox 80% on 60% FiO2 ETT vent; as6 22:00 BP 110 / 80; Pulse 134; Resp 27 S; Pulse Ox 82% on 60% FiO2 ETT vent; as6 22:15 BP 108 / 84; Pulse 131; Resp 22 S; Pulse Ox 76% on 60% FiO2 ETT vent; as6 22:30 BP 139 / 98; Pulse 134; Resp 24; Pulse Ox 86% ; as6 22:45 BP 86 / 58; Pulse 129; Resp 20; Pulse Ox 96% on ETT vent; as6 23:00 BP 105 / 71; Pulse 129; Resp 27 S; Temp 99.3(O); Pulse Ox 97% on 100% FiO2 ETT vent; as6 23:15 BP 116 / 68; Pulse 129; Resp 28 S; Pulse Ox 98% on 100% FiO2 ETT vent; as6 23:30 BP 90 / 68; Pulse 128; Resp 26 S; Pulse Ox 97% on 100% FiO2 ETT vent; as6 23:45 BP 85 / 67; Pulse 128; Resp 27 S; Pulse Ox 100% on 100% FiO2 ETT vent; as6 01/14 00:00 BP 103 / 69; Pulse 128; Resp 27 S; Pulse Ox 99% on 100% FiO2 ETT vent; as6 01/13 19:12 Body Mass Index 19.14 (44.45 kg, 152.4 cm) ld1 01/13 19:12 Pain Scale: Adult ld1 ED Course: 01/13 19:09 Patient arrived in ED. ld1 19:12 Chas Vasquez DO is Attending Physician. ms3 19:14 Triage completed. ld1 19:14 Arm band placed on right wrist. ld1 19:20 Felipe Gonzalez, RN is Primary Nurse. as6 19:25 Radiology exam delayed due to lab results not completed at this time. (BUN/Creatinine) jg10 IV insertion attempt and/or patient not having appropriate IV at this time. 19:29 Maintain EMS IV. Dressing intact. Good blood return noted. Site clean \T\ dry. Gauge \T\ as 6 site: 22g left FA. 19:40 Inserted saline lock: 20 gauge in right forearm, using aseptic technique. Blood as6 collected. 20:02 Bed in low position. Call light in reach. Side rails up X2. as6 20:06 Attending Physician role handed off by Chas Vasquez, sp4 20:06 Mio Garnica MD is Attending Physician. sp4 20:20 Chest Single View XRAY In Process Unspecified. EDMS 20:35 Assist provider with tracheotomy using cuffless # 6 Shiley. Set up for procedure. as6 Performed by Mio Garnica MD Patient tolerated well. exchanged tracheotomy by provider . 20:51 Assisted provider with central line placement. Set up central line tray. Triple lumen as6 line placed in right internal jugular. Line placed by Mio Garnica MD Placement verified by blood return, Dressed with Tegaderm, Blood was collected. Patient tolerated well. 21:22 Chest Single View XRAY In Process Unspecified. EDMS 21:53 Initiated transfer with [facility], spoke with Gume. 22:34 Assist provider with tracheotomy using cuffed 6.5. Set up for procedure. Performed by as6 Mio Garnica MD Patient tolerated well. 22:45 Pt accepted for transfer by Dr. Bains \T\ 2240 per Joe Echavarria. as7 23:17 Richards cath inserted, using sterile technique, 16 Fr., by nm, balloon inflated, to as6 gravity drainage, urine specimen collected. returned clear yellow urine. Patient tolerated well. 23:22 Patient transferred, IV remains in place. as6 Administered Medications: 19:58 Drug: Pantoprazole IVP 40 mg Route: IVP; Site: right forearm; as6 21:54 Follow up: Response: No adverse reaction as6 19:58 Drug: Pantoprazole IV 8 mg/hr Route: IV; Rate: 25 ml/hr; Site: right forearm; as6 23:25 Follow up: Response: No adverse reaction; IV Status: Infusion continued upon transfer; as6 IV Intake: 100ml 19:58 Drug: NS 0.9% IV 1000 ml Route: IV; Rate: 1 bolus; Site: right forearm; as6 21:54 Follow up: Response: No adverse reaction; IV Status: Completed infusion; IV Intake: as6 1000ml 20:22 Drug: fentaNYL (PF) IVP 50 mcg Route: IVP; Site: right forearm; as6 21:54 Follow up: Response: No adverse reaction as6 20:30 Drug: Piperacillin-Tazobactam IVPB 3.375 grams Route: IVPB; Infused Over: 60 mins; as6 Site: left forearm; 21:54 Follow up: Response: No adverse reaction; IV Status: Completed infusion; IV Intake: as6 100ml 20:41 Drug: Ondansetron IVP 4 mg Route: IVP; Site: right forearm; as6 21:54 Follow up: Response: No adverse reaction as6 21:14 Drug: vancoMYCIN IVPB 1 grams Route: IVPB; Infused Over: 2 hrs; Site: right jugular; as6 23:25 Follow up: Response: No adverse reaction; IV Status: Completed infusion; IV Intake: as6 250ml 21:45 Drug: Norepinephrine IV 0.1 mcg/kg/min {Note: started at 5 mcg/min per provider verbal as6 order.} Route: IV; Rate: calculated rate; Site: right jugular; 23:25 Follow up: Response: No adverse reaction; IV Status: Infusion continued upon transfer; as6 IV Intake: 75ml 21:46 Drug: Metoprolol IVP 5 mg Route: IVP; Site: right jugular; as6 22:34 Follow up: Response: No adverse reaction as6 22:15 Drug: Ativan IVP 0.5 mg Route: IVP; Site: right jugular; as6 22:35 Follow up: Response: No adverse reaction as6 22:16 Drug: D5-1/2 NS with KCl IV 20 mEq/L 1000 ml Route: IV; Rate: 100 ml/hr; Site: right as6 jugular; 23:24 Follow up: Response: No adverse reaction; IV Status: Infusion continued upon transfer; as6 IV Intake: 200ml 22:16 Drug: Albumin IVPB 25 grams Volume: 100 ml; Route: IVPB; Site: right jugular; as6 22:34 Follow up: Response: No adverse reaction; IV Status: Completed infusion; IV Intake: as6 100ml 22:46 Drug: NS 0.9% IV 500 ml Route: IV; Rate: bolus; Site: right jugular; as6 23:24 Follow up: Response: No adverse reaction; IV Status: Completed infusion; IV Intake: as6 500ml Medication: 20:02 VIS not applicable for this client. as6 Intake: 21:54 IV: 1000ml; Total: 1000ml. as6 21:54 IV: 100ml; Total: 1100ml. as6 22:34 IV: 100ml; Total: 1200ml. as6 23:24 IV: 500ml; Total: 1700ml. as6 23:24 IV: 200ml; Total: 1900ml. as6 23:25 IV: 75ml; Total: 1975ml. as6 23:25 IV: 250ml; Total: 2225ml. as6 23:25 IV: 100ml; Total: 2325ml. as6 Outcome: 21:58 ER care complete, transfer ordered by . sp4 23:10 critical as6 23:10 Instructed on the need for transfer. 23:22 Transferred by helicopter to [facility], Transfer form completed. as6 X-rays sent w/ patient. 01/14 00:09 Patient left the ED. as6 Signatures: Dispatcher [employer] EDMS Chas Vasquez DO DO ms3 Katie Vasquez RN RN ld1 Christa Chi Ashby, RN RN as6 Ro [id number] Karen Vines as7 Mio Garnica MD MD sp4 Corrections: (The following items were deleted from the chart) 01/13 19:20 19:12 Acuity: JARAD 2 ld1 as6 20:42 20:35 Assist provider with tracheotomy using cuffless # 4 Shiley. Set up for procedure. as6 Performed by Mio Garnica MD Patient tolerated well. exchanged tracheotomy by provider . as6
[2023-01-13] MEDS ORDERED: LORazepam 2 MG/ML VIAL ONE (22:14)
[2023-01-13] MEDS ORDERED: ALBUMIN HUMAN 25% 100 ML IV ONE (22:15)
[2023-01-13] MEDS ORDERED: D5.45NS W/KCL 20MEQ 1,000 ML IV ONE (22:15)
[2023-01-13] MEDS ORDERED: NA CHLORIDE 0.9% 500 ML ONE (22:51)
[2023-01-13 23:49] LABS: Specific Gravity 1.024 (1.005-1.030); Urine Bacteria <20 /HPF (<20); Urine Bilirubin NEGATIVE (Negative); Urine Blood Negative (Negative); Urine Clarity Clear (Clear); Urine Color Yellow (Yellow); Urine Glucose NEGATIVE (Negative); Urine Mucus Slight /HPF (None Seen); Urine Protein TRACE (Negative); Urine RBC <5 /HPF (None Seen); Urine Urobilinogen 2+ (Normal); Urine pH 5.5 (5.0-7.0)
[2023-01-14 00:51] VITALS: TEMP 99.3
[2023-01-14 00:56] VITALS: BP 103/69; O2SAT 99
--- NOTE | 2023-01-14 11:46 | EKG ---
Test Date: 2023-01-13 Test Time: 19:54:20 Home Extension Agent: ERICA MEASUREMENT RESULTS: Intervals: Rate: 115 VA: 118 QRSD: 86 QT: 394 QTc: 545 [place]: P: 75 VA: 118 QRS: 74 T: 72 INTERPRETIVE STATEMENTS: Sinus tachycardia Possible Left atrial enlargement Nonspecific ST and T wave abnormality Prolonged QT Abnormal ECG Compared to ECG 09/11/2014 13:08:08 ST (T wave) deviation now present Prolonged QT interval now present Sinus bradycardia no longer present Electronically Signed On 01-14-23 11:44:35 CDT by Horace Kaminski
== END 2023-01-14 00:09 | disposition short-term general hospital (02) ==
LOC: ER 19:00
PROC: 05HM33Z Insertion of Infusion Device into Right Internal Jugular Vein, Percutaneous Approach (ICD-10-PCS; principal; 2023-01-14)
DX: J96.22 Acute and chronic respiratory failure with hypercapnia (principal); A41.9 Sepsis, unspecified organism; R65.21 Severe sepsis with septic shock; J18.9 Pneumonia, unspecified organism; R00.0 Tachycardia, unspecified; I49.8 Other specified cardiac arrhythmias; K92.0 Hematemesis; R63.4 Abnormal weight loss; Z43.0 Encounter for attention to tracheostomy; Z72.3 Lack of physical exercise; Z20.822 Contact with and (suspected) exposure to COVID-19; Z88.5 Allergy status to narcotic agent
CPT/HCPCS: 93005; 87040 ×2; 85025; 81001; 36415; 85610; 83605 ×2; 85730; 83690; 80053; 71045 ×2; 82805; 51702; 99291; 99292; 94002; 36556; U0003; J2543; J7613; J7644; C9113; J3010; J2405; P9047; J7050 ×2; J7040; J7030

== ENCOUNTER 2023-06-18 09:24 | Inpatient (IN) | payer OTHER ==
--- OUTSIDE RECORDS SUMMARY | 2023-06-18 09:35 | XMS REPORT | Continuity of Care Document ---
:1955 Author Organization [facility] t Address [address] [facility]. [address] [place] [address] Care Team Providers Name Role Phone DANICA JEAN-BAPTISTE Primary Care Physician Unavailable Anthony Lebron Anavella Attending Clinician Unava ilable NATALIIA LIGHT Attending Clinician Unavailable CAROLINE LOYD Attending Clinician Unavailable [id number] Attending Clinician Unavailable CK MCCANN Attending Clinician Unavailable DARCY SHERMAN Attending Clinician Unavailable Jonh Clark MD Attending Clinician Zo Jennings MD Attending Clinician Horace Fisher MD Attending Clinician [phone] MAXI BAINS Attending Clinician Unavailable MAXI BAINS Attending Clinician Unavailable Thais WORRELL, Dioni Chavez Attending Clinician [phone] Brittni Gallo APRN Attending Clinician Sangita Lu MD Attending Clinician Lynda Alston Attending Clinician Zahira Hui MA Attending Clinician Unavailable Kerry Dunaway MA Attending Clinician Unavailable Luis Emery MD Attending Clinician Félix Recinos MD Attending Clinician Smith MD, Juan Salvador Attending Clinician Stanton WORRELL, Sangita Recinos Attending Clinician [phone] Zoya WORRELL, Pastora Foy Attending Clinician [phone] Mo WORRELL, James Soto Attending Clinician Declan WORRELL, Jeremy Loya Attending Clinician MD JONH CLARK Attending Clinician Unavailable MILI CHEUNG Attending Clinician Unavailable HERNAN TINSLEY Attending Clinician Unavailable Baldemar Lebron Anav Admitting Clinician Unavailable MAXI BAINS Admitting Clinician Unavailable [id number] Admitting Clinician Unavailable CK MCCANN Admitting Clinician Unavailable DARCY SHERMAN Admitting Clinician Unavailable JONH CLARK Admitting Clinician Unavailable FÉLIX RECINOS Admitting Clinician Unavailable MD JONH CLRAK Admitting Clinician Unavailable Payers Payer Name Policy Type Policy Number Effective Date Expiration Date S ource AETM AETM [id number] AETNA MEDICARE [id number] 2019 HMO POS PPO 00:00:00 BCBS ADV HMO [id number] 2015 2016 EXCHANGE 00:00:00 00:00:00 [facility] [id number] 2017 2018 CHOICE EXCHANGE 00:00:00 00:00:00 AETNA MA PPO 5 [id number] 2023 00:00:00 Problems Condition Condition Condition Status Onset Resolution Last Treating Co mments Source Name Details Category Date Date Treatment Clinician Date Septic Septic Disease [facility]urre [facility] Respirator Respirator Disease Active M ethodi y failure y failure 01-23 [facility] 00[facility]: Hospita 00 l Mobility Mobility Disease Active Metho di impaired impaired 01-22 [facility] 00:00: Hospita 00 l Tracheobro Tracheobro Disease Active M ethodi nchitis nchitis 01-17 st 00:00: Hospita 00 l Trachea, Trachea, Disease Active 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 00:00: Medi barbie 00 [place] Dyspnea on Dyspnea on Disease Active [facility] exertion exertion 5-12 [facility]: Medical 00 [place] 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 2-12 [facility]: Medical 00 [place] Supraglott Supraglott Disease Active 2016-[address] ic ic 1-14 [facility]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 00:00: Medica l 00 Center 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 00:00: Medi barbie 00 [place] 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 Osteoarthr Osteoarthr Diagnosis Active Common itis of itis of Spirit multiple multiple - [facility]I joints joints [facility] Bilateral Bilateral Diagnosis Active C ommon lower lower Spirit extremity extremity - CH I edema edema [facility] Hyperlipid Hyperlipid Diagnosis Active Common emia, emia, Spirit mixed mixed - [facility] Allergies, Adverse Reactions, Alerts Allergy Allergy Status Severity Reaction(s) Onset Inactive Treating Comm ents Source Name Type Date Date Clinician LATEX Allergy Active [facility] Center Latex Propensi Active Other (See Pt unsure M ethodi ty to Comments) 03-[address] adverse 00:00: allergy Hospita reaction 00 l s to drug LATEX Allergy Active [facility]: Medical 00 [place] NO KNOWN Allergy Active [facility] Family History Family Member Diagnosis Comments Start Date Stop Date Source Natural father Hyperlipidemia [facility] Natural mother Cancer [facility] Social History Social Habit Start Date Stop Date Quantity Comments Source Sexual orientation [facility] Gender identity [facility] Alcohol intake 2023-03-24 2023-03-24 Ex-drinker [facility] 00:00:00 00:00:00 (finding) Hospital History of Social 2023-03-24 2023-03-[address] function 00:00:00 00:00:00 Hospital Tobacco use and 2022-06-09 2022-06-09 Smokeless [facility] exposure 00:00:00 00:00:00 tobacco non-user Hospital Sex Ass[birth year] At [birth year] [facility] 00:00:00 00:00:00 Hospital Smoking Status Start Date Stop Date Source Never smoked tobacco [facility]spital Medications Ordered Filled Start Stop Current Ordering Indication Dosage Frequency Signature Comments Components Source Medication Medication Date Date Medication? Clinician (SIG) Name Name omeprazole Yes 40mg QD Take 1 Metho di (PriLOSEC) 7-[address] 40 MG 14:30: (40 mg Hospita capsule 00 total) by l mouth daily. aspirin 0 Yes 81mg QD Take 1 Methodi (ECOTRIN) 7-25 tablet (81 st 81 MG 14:30: mg total) Hospita enteric 00 by mouth l coated daily. tablet furosemide 0 Yes 20mg QD Take 1 Metho di (LASIX) 20 7-25 tablet (20 st mg tablet 14:30: mg total) Hos olive 00 by mouth l daily. tiZANidine 0 Yes 4mg Q.5D Take 1 Metho di (ZANAFLEX) 7-25 tablet (4 st 4 MG tablet 14:30: mg total) H ospita 00 by mouth 2 l (two) times a day. buprenorphi 0 Yes [id number] 1{film} Q.5D Place 1 Methodi ne-naloxone 7-[address] (SUBOXONE) 14:30: the tongue H ospita 8-2 mg film 00 2 (two) l times a day .acute pain. (per Prescripti on Drug Monitoring Program, last filled 01/10/2022 , quantity: 42, day supply: 21) alendronate 0 Yes 70mg 1 tablet Me thodi (FOSAMAX) 7-25 ([address] 70 MG 14:30: total). Hospita tablet 00 l clonazePAM 2023-0 Yes 1mg Take [address] (KLONOPIN) 5-17 by mouth 2 Sarah es 1 MG tablet 00:38: (two) Medic al 05 times Center daily as needed for Anxiety. aspirin 81 0 Yes 81mg QD Take [address] MG EC 5-17 by mouth [facility] tablet 00:38: daily. Medical [address] [place] [address] gabapentin 0 Yes 300mg Q.5D Take [address] (NEURONTIN) 5-17 mg by [facility] 300 MG 00:38: mouth 2 Medical capsule 05 (two) Center times daily. atorvastati Yes 10mg QD Take [address] n (LIPITOR) 5-17 by mouth Luke s 10 MG 00:38: daily. Medical tablet 05 [place] citalopram Yes 40mg QD Take [address] (CELEXA) 20 5-17 by mouth Luke s MG tablet 00:38: daily . Medic al [address] [place] [address] indapamide Yes 2.5mg QD Take 2.[address] (LOZOL) 2.5 5-17 mg by [facility] MG tablet 00:38: mouth Medical 05 every Center morning. omeprazole Yes 40mg QD Take [address] (PRILOSEC) 5-17 by mouth [facility] 40 MG 00:38: daily. Medical capsule [address] [place] [address] alendronate Yes 70mg Take [address] (FOSAMAX) 5-17 by mouth [facility] 70 MG 00:38: every 7 Medical tablet 05 days Take Center in the morning with a full glass of water, on an empty stomach, and do not take anything else by mouth or lie down for the next 30 min. . ferrous Yes QD Take by [facility] fumarate 5-17 mouth [facility] (HEMOCYTE 00:38: daily. Medica l ORAL) [address] [place] [address] acetaminoph Yes 1{tbl} Take [address] en-codeine 5-17 tablet by Luke s (TYLENOL 00:38: mouth Medical #3) 300-30 05 every 4 Center mg per (four) tablet hours as needed for Pain. guaiFENesin 0 Yes 1200mg Q.5D Take 1,[address] (mucINEX) 5-17 mg by [facility] 600 mg 12 00:38: mouth 2 Medic al hr tablet 05 (two) Center times daily. omeprazole 2022-0 Yes 40mg QD Take 1 Metho di (PriLOSEC) 4-[address] 40 MG 14:17: (40 mg Hospita capsule 33 total) by l mouth daily. aspirin 2022-0 Yes 81mg QD Take 1 Methodi (ECOTRIN) 4-28 tablet (81 st 81 MG 14:17: mg total) Hospita enteric 33 by mouth l coated daily. tablet furosemide 2022-0 Yes 20mg QD Take 1 Metho di (LASIX) 20 -28 tablet (20 st mg tablet 14:17: mg total) Hos olive 33 by mouth l daily. tiZANidine 2022-0 Yes 4mg Q.5D Take 1 Metho di (ZANAFLEX) -28 tablet (4 st 4 MG tablet 14:17: mg total) H ospita 33 by mouth 2 l (two) times a day. buprenorphi 2022-0 Yes [id number] 1{film} Q.5D Place 1 Methodi ne-naloxone - Film under st (SUBOXONE) 14:17: the tongue H ospita 8-2 mg film 33 2 (two) l times a day .acute pain. (per Prescripti on Drug Monitoring Program, last filled 01/10/2022 , quantity: 42, day supply: 21) alendronate 2022-0 Yes 70mg 1 tablet Me thodi (FOSAMAX) 12-26 ([address] 70 MG 14:17: total). Hospita tablet 33 l citalopram 2022- No 1 tablet Me thodi (CeleXA) 10 12-12 st MG tablet 15:21: 00:00 Hospita 01 :00 l meloxicam 2022-0 2022- No 1 tablet Met hodi 15 mg 12-12 st tablet,disi 15:21: 00:00 Hospi ta ntegrating 01 :00 l omeprazole 2022-2022- No 40mg QD Take 40 mg Methodi magnesium 12-12- by mouth st 10 mg 15:21: 00:00 daily. Hospita susp,delaye 01 :00 l d release for recon citalopram 2022- No 1 tablet Me thodi (CeleXA) 10 12-12 st MG tablet 15:21: 00:00 Hospita 01 :00 l meloxicam 2022- No 1 tablet Met hodi 15 mg 12-12 st tablet,disi 15:21: 00:00 Hospi ta ntegrating 01 :00 l omeprazole 2022- No 40mg QD Take 40 mg Methodi magnesium 12-[address] 10 mg 15:21: 00:00 daily. Hospita susp,delaye 01 :00 l d release for recon indapamide 2022- No 2.5mg QD Take 1 Met hodi (LOZOL) 2.5 -12-[address] MG tablet 10:24: 00:00 (2.5 mg Hosp fran 13 :00 total) by l mouth daily. indapamide 2022- No 2.5mg QD Take 1 Met hodi (LOZOL) 2.5 12-[address] MG tablet 10:24: 00:00 (2.5 mg Hosp fran 13 :00 total) by l mouth daily. amoxicillin Yes 1{tbl} Q.5D Take 1 Me thodi -pot 4-[address] clavulanate 00:00: mouth 2 Hos olive (Augmentin) 00 (two) l 875-125 mg times a per tablet day. amoxicillin Yes 1{tbl} Q.5D Take 1 Me thodi -pot 4-[address] clavulanate 00:00: mouth 2 Hos olive (Augmentin) 00 (two) l 875-125 mg times a per tablet day. acetaminoph 2022- [place] [id number] 1{tbl} Q6H Take 1 Methodi en-codeine 12-[address] (TYLENOL 00:00: 04:59 mouth Hospita WITH 00 :00 every 6 l CODEINE #3) (six) 300-30 mg hours as per tablet needed for moderate pain for up to 7 days .acute pain. acetaminoph 2022- [place] [id number] 1{tbl} Q6H Take 1 Methodi en-codeine 12-11- tablet by st (TYLENOL 00:00: 04:59 mouth Hospita WITH 00 :00 every 6 l CODEINE #3) (six) 300-30 mg hours as per tablet needed for moderate pain for up to 7 days .acute pain. alendronate 2022-0 2022- No 70mg Q1W Take 1 Met hodi (FOSAMAX) 11-25 tablet (70 st 70 MG 13:26: 00:00 mg total) Hospit a tablet 25 :00 by mouth l every 7 days. On ke in the morning with a full glass of water on an empty stomach, do NOT take anything else by mouth or lie down for the next 30 min. alendronate 2022-0 2022- No 70mg Q1W Take 1 Met hodi (FOSAMAX) 11-25 tablet (70 st 70 MG 13:26: 00:00 mg total) Hospit a tablet 25 :00 by mouth l every 7 days. On ke in the morning with a full glass of water on an empty stomach, do NOT take anything else by mouth or lie down for the next 30 min. budesonide 2021-0 Yes [id number] .5mg QD Take 2 mL Methodi (Pulmicort) - (0.[address] 0.5 mg/2 mL 00:00: total) by H ospita nebulizer 00 nebulizati l suspension on once daily. budesonide 2021-0 Yes [id number] .5mg QD Take 2 mL [facility]i (Pulmicort) - (0.[address] 0.5 mg/2 mL 00:00: total) by H ospita nebulizer 00 nebulizati l suspension on once daily. acetylcyste 2021-0 2022- No 4mL Q.5D Take 4 mL Methodi ine 05-[address] (MUCOMYST) 00:00: 00:00 (two) Hospi ta 200 mg/mL 00 :00 times a l (20 %) day. solution acetylcyste 2021-0 2022- No 4mL Q.5D Take 4 mL Methodi ine 05-[address] (MUCOMYST) 00:00: 00:00 (two) Hospi ta 200 mg/mL 00 :00 times a l (20 %) day. solution buprenorphi 2021- No 1{tbl} Q.5D Place 1 Methodi ne-naloxone 01-25-[address] (SUBOXONE) 16:38: 00:00 under the H ospita 8-2 mg per 03 :00 tongue 2 l SL tablet (two) times a day .acute pain. predniSONE 2021- No 50mg QD Take 1 Meth kiko (DELTASONE) 01-25-03 tablet (50 s t 50 mg 00:00: 04:59 mg total) Hospit a tablet 00 :00 by mouth l daily for 5 days. gabapentin 2021- No 300mg QD Take 1 Met hodi (NEURONTIN) 01-24- capsule st 300 mg 00:00: 04:59 (300 mg Hospita capsule 00 :00 total) by l mouth nightly for 30 days. benzonatate 2021- No 100mg Q6H Take 1 Me thodi (TESSALON) 01-24- capsule st 100 MG 00:00: 04:59 (100 mg Hospita capsule 00 :00 total) by l mouth every 6 (six) hours as needed for cough for up to 30 days. nystatin 2021- No 5mL Q.25D Take 5 mL Me thodi (MYCOSTATIN 01-24 by mouth 4 s t ) 100,000 00:00: 04:59 (four) Hospi ta unit/mL 00 :00 times a l suspension day for 5 days. Swish in mouth HYDROcodone 2021- No 1{tbl} Q6H Take 1 Methodi -acetaminop 5-20 05-[address] hen (NORCO) 16:28: 00:00 mouth Hosp fran 10-325 mg 06 :00 every 6 l per tablet (six) hours as needed for moderate pain .acute pain. indapamide Yes 2.5mg QD Take 2.[address] (LOZOL) 2.5 4-27 mg by [facility] MG tablet 16:04: mouth Medical 17 every Center morning. omeprazole Yes 40mg QD Take [address] (PRILOSEC) 4-27 by mouth [facility] 40 MG 16:04: daily. Medical capsule 17 [place] alendronate Yes 70mg Take 70 mg [facility]I [...] (HEMOCYTE 16:04: daily. Medica l ORAL) 17 [place] acetaminoph Yes 1{tbl} Take [address] en-codeine 4-27 tablet by Luke s (TYLENOL 16:04: mouth Medical #3) 300-30 17 every 4 Center mg per (four) tablet hours as needed for Pain. guaiFENesin Yes 1200mg Q.5D Take 1,[address] (mucINEX) 4-27 mg by [facility] 600 mg 12 16:04: mouth 2 Medic al hr tablet 17 (two) Center times daily. clonazePAM Yes 1mg Take [address] (KLONOPIN) 4-27 by mouth 2 Sarah es 1 MG tablet 16:04: (two) Medic al 17 times Center daily as needed for Anxiety. aspirin 81 Yes 81mg QD Take [address] MG EC 4-27 by mouth [facility] tablet 16:04: daily. [address] gabapentin Yes 300mg Q.5D Take [address] (NEURONTIN) 4-27 mg by [facility] 300 MG 16:04: mouth 2 Medical capsule 17 (two) Center times daily. atorvastati Yes 10mg QD Take [address] n (LIPITOR) 4-27 by mouth Luke s 10 MG 16:04: daily. Medical tablet 17 [place] citalopram Yes 40mg QD Take [address] (CELEXA) 20 4-27 by mouth Luke s MG tablet 16:04: daily . Medic al 17 [place] Tessalon Tessalon Yes Orlin 1 capsule Common Perles Perles 7-19 [facility] as needed Spiri t 00:00: - [facility] citalopram Yes 20mg QD Take 1 Metho di (CeleXA) 20 4-06 tablet (20 st MG tablet 00:00: mg total) Hos olive 00 by mouth l daily. citalopram Yes 20mg QD Take 1 Metho di (CeleXA) 20 4-06 tablet (20 st MG tablet 00:00: mg total) Hos olive 00 by mouth l daily. clonAZEPAM Yes 1mg Q.5D Take 1 Metho di (KlonoPIN) 2-16 tablet (1 st 1 MG tablet 00:00: mg total) H ospita 00 by mouth 2 l (two) times a day as needed for anxiety. (per Prescripti on Drug Monitoring Program, last filled 01/06/2022 , quantity: 60, day supply: 30) clonAZEPAM Yes 1mg Q.5D Take 1 Metho di (KlonoPIN) 2-16 tablet (1 st 1 MG tablet 00:00: mg total) H ospita 00 by mouth 2 l (two) times a day as needed for anxiety. (per Prescripti on Drug Monitoring Program, last filled 01/06/2022 , quantity: 60, day supply: 30) gabapentin 2021- No 600mg QD Take 600 M ethodi (NEURONTIN) 2-11 05-[address] 300 mg 00:00: 00:00 mouth Hospita capsule 00 :00 nightly. l atorvastati Yes 10mg QD Take 1 Meth kiko n (LIPITOR) 1-15 tablet (10 st 10 mg 00:00: mg total) Hospita tablet 00 by mouth l nightly. atorvastati Yes 10mg QD Take 1 Meth kiko n (LIPITOR) 1-15 tablet (10 st 10 mg 00:00: mg total) Hospita tablet 00 by mouth l nightly. Neurontin Neurontin Yes Orlin 1 capsule Common [facility] before Spirit bedtime - [facility] Indapamide Indapamide Yes Orlin 1 tablet Common [facility] in the Spirit morning [facility] Lipitor Lipitor Yes Orlin 1 tablet Com mon [facility] Aspir-81 Aspir-81 Yes Orlin 1 tablet C ommon [facility] Meloxicam Meloxicam Yes Orlin 1 tablet Common [facility] - [facility] Citalopram Citalopram Yes Orlin 1 tablet Common Hydrobromid Hydrobromid [facility] e e - [facility] Clonazepam Clonazepam Yes Orlin 1 tablet Common [facility] - [facility] Immunizations Ordered Filled Immunization Date Status Comments Sourc e Immunization Name Name ANGELA POOLE 2022-11-27 Completed Methodis t MRNA BIVALENT 00:00:00 Hospital BOOSTER VACCINATION ANGELA REISID-Lalo 2020-12-21 Completed Methodis t MRNA VACCINATION 00:00:00 [facility] ANGELA REISID-19 2020-11-23 Completed Methodis t MRNA VACCINATION 00:00:00 Hospital Pneumococcal 2019-06-27 Completed [facility] Conjugate 13-Valent 00:00:00 Hospi rose FLUZONE HIGH-DOSE 2019-06-[address] PF 00:00:00 [facility] FLUZONE QUAD PF 2018-05-20 Completed [facility] 00:00:00 Located within [facility] COVID-19 Unknown Completed Methodis t MRNA VACCINATION Located within [facility] COVID-19 Unknown Completed Methodis t MRNA VACCINATION [facility] Pneumococcal Unknown Completed [facility] Conjugate 13-Valent Hospi rose FLUZONE HIGH-DOSE Unknown Completed Methodi st PF [facility] Influenza, Unknown Completed [facility] Injectable, [facility] Quadrivalent, Preservative Free [facility] Unknown Completed Methodis t MRNA BIVALENT Hospital BOOSTER VACCINATION Vital Signs Vital Name Observation Time Observation Value Comments Source HEIGHT 2020-12-25 11:00:00 160 cm WEIGHT 2020-12-25 11:00:00 46.267 kg HEIGHT 2020-12-24 10:31:00 160 cm WEIGHT 2020-12-24 10:31:00 47.628 kg HEIGHT 2020-10-12 06:20:00 160 cm WEIGHT 2020-10-12 06:20:00 46.811 kg HEIGHT 2020-10-09 09:11:00 160 cm WEIGHT 2020-10-09 [...] 160 cm WEIGHT 2020-03-15 00:00:00 47.083 kg WEIGHT 2023-02-18 06:00:00 43.137 kg WEIGHT 2023-02-13 06:23:00 42.91 kg WEIGHT 2023-02-12 05:00:00 43.182 kg WEIGHT 2023-02-03 06:00:00 44.407 kg WEIGHT 2023-02-02 06:00:00 46.72 kg WEIGHT 2023-01-19 06:00:00 58 kg WEIGHT 2023-01-18 05:45:00 55 kg WEIGHT 2023-01-17 04:00:00 50.8 kg WEIGHT 2023-01-16 06:00:00 49 kg WEIGHT 2023-01-15 06:00:00 47.7 kg HEIGHT 2023-01-14 01:00:00 160 cm WEIGHT 2023-01-14 01:00:00 46 kg WEIGHT 2023-02-18 06:00:00 43.137 kg WEIGHT 2023-02-13 06:23:00 42.91 kg WEIGHT 2023-02-12 05:00:00 43.182 kg WEIGHT 2023-02-03 06:00:00 44.407 kg WEIGHT 2023-02-02 06:00:00 46.72 kg WEIGHT 2023-01-19 06:00:00 58 kg WEIGHT 2023-01-18 05:45:00 55 kg WEIGHT 2023-01-17 04:00:00 50.8 kg WEIGHT 2023-01-16 06:00:00 49 kg WEIGHT 2023-01-15 06:00:00 47.7 kg HEIGHT 2023-01-14 01:00:00 160 cm WEIGHT 2023-01-14 01:00:00 46 kg HEIGHT 2020-12-25 11:00:00 160 cm WEIGHT 2020-12-25 11:00:00 46.267 kg HEIGHT 2020-12-24 10:31:00 160 cm WEIGHT 2020-12-24 10:31:00 47.628 kg HEIGHT 2020-10-12 06:20:00 160 cm WEIGHT 2020-10-12 06:20:00 46.811 kg HEIGHT 2020-10-09 09:11:00 160 cm WEIGHT 2020-10-09 [...] 160 cm WEIGHT 2020-01-03 00:00:00 51.256 kg Body height 2023-03-24 19:27:00 160 cm [facility] Body weight 2023-03-24 19:27:00 40.824 kg [facility] BMI 2023-03-24 19:27:00 15.94 kg/m2 [facility] Systolic blood 2023-01-15 07:22:00 112 mm[Hg] [facility] Diastolic blood 2023-01-15 07:22:00 18 mm[Hg] [facility] Heart rate 2023-01-15 07:00:00 119 /min [facility] Respiratory rate 2023-01-15 07:00:00 17 /min [facility] Oxygen saturation in 2023-01-15 07:00:00 95 /min [facility] Arterial blood by Medical Ce nter Pulse oximetry Body weight 2023-01-15 06:00:00 47.7 kg [facility] BMI 2023-01-15 06:00:00 18.63 kg/m2 [facility] Body temperature 2023-01-15 04:00:[address] [facility] Body height 2023-01-14 01:00:00 160 cm [facility] Body height 2022-12-26 19:17:00 160 cm [facility] Body weight 2022-12-26 19:17:00 40.824 kg [facility] BMI 2022-12-26 19:17:00 15.94 kg/m2 [facility] Systolic blood 2022-12-11 19:30:00 121 mm[Hg] [facility] pressure Diastolic blood 2022-12-11 19:30:00 60 mm[Hg] [facility] pressure Heart rate 2022-12-11 19:30:00 59 /min [facility] Body temperature 2022-12-11 19:30:00 36.78 Niya [facility] Respiratory rate 2022-12-11 19:30:00 18 /min [facility] Oxygen saturation in 2022-12-11 19:30:00 95 /min [facility] Arterial blood by Pulse oximetry Procedures Procedure Date / Time Performing Clinician Source Performed POCT-GLUCOSE METER 2023-01-15 04:52[facility] AUTO 2023-01-15 04:35:00 Yohannes Lloyd [facility] MAGNESIUM 2023-01-15 04:35:00 Yohannes Lloyd [facility] BLOOD GAS, VENOUS 2023-01-15 04:35[facility] AUTO 2023-01-15 04:35:00 Yohannes Lloyd [facility] (CELLAVISION MANUAL DIFF) 2023-01-15 04:35:00 Mike Lloyd [facility] POCT-GLUCOSE METER 2023-01-14 23:23:00 [facility] BLOOD GAS, VENOUS 2023-01-14 18:06:00 [facility] REPORT OF PROCEDURE - 2023-01-14 16:10:05 Horace Fisher [facility] ENDOSCOPY URL [facility] BLOOD GAS, VENOUS 2023-01-14 12:50:00 Yohannes Lloyd [facility] SODIUM, RANDOM URINE 2023-01-14 12:50:00 [facility] CREATININE, RANDOM URINE 2023-01-14 12:50:00 [facility] XR ABDOMEN/KUB 1 VIEW 2023-01-14 10:38:00 Segundo Leone [facility] TSH/FREE T4 IF INDICATED 2023-01-14 10:17:00 [facility] T4, FREE 2023-01-14 10:17:00 [facility] SARS-COV2/RT-PCR (HS & REF 2023-01-14 09:29:00 [facility] LEGIONELLA ANTIGEN, URINE 2023-01-14 09:29:00 [facility] LACTIC ACID, VENOUS 2023-01-14 09:29:00 [facility] SPUTUM CULTURE + GRAM STAIN 2023-01-14 08:21:00 Mahamed Mejia [facility] LACTIC ACID, VENOUS 2023-01-14 08:03:00 [facility] CBC W/PLT COUNT & AUTO 2023-01-14 08:03:00 [facility] CORTISOL 2023-01-14 08:03:00 [facility] VITAMIN B12 2023-01-14 08:03:00 [facility] IRON, TIBC, % SAT. (WITHOUT 2023-01-14 08:03:00 [facility] FERRITIN) Medical Center FERRITIN 2023-01-14 08:03:00 [facility] CBC W/PLT COUNT & AUTO 2023-01-14 08:03:00 [facility] (CELLAVISION MANUAL DIFF) 2023-01-14 08:03:00 [facility] BLOOD GAS, VENOUS 2023-01-14 06:07:00 Yohannes Lloyd [facility] HC LAB HIV-1 AG W/HIV-1&2 AB 2023-01-14 06:07:00 Preet Lloyd [facility] HEMOGLOBIN AND HEMATOCRIT 2023-01-14 06:07:00 [facility] LACTIC ACID, VENOUS 2023-01-14 06:07:00 [facility] CBC W/PLT COUNT & AUTO 2023-01-14 06:07:00 [facility] CBC W/PLT COUNT & AUTO 2023-01-14 06:07:00 [facility] (CELLAVISION MANUAL DIFF) 2023-01-14 06:07:00 [facility] URINALYSIS W/ MICROSCOPIC 2023-01-14 01:43:00 Mike Lloyd [facility] CBC W/PLT COUNT & AUTO 2023-01-14 01:42:00 [facility] COMPREHENSIVE METABOLIC 2023-01-14 01:42:00 [facility] LACTIC ACID, VENOUS 2023-01-14 01:42:00 [facility] PT/APTT 2023-01-14 01:42:00 [facility] PROCALCITONIN 2023-01-14 01:42:00 [facility] B-TYPE NATRIURETIC FACTOR 2023-01-14 01:42:[address] [facility] (BNP) [facility] BLOOD GAS, VENOUS 2023-01-14 01:42:00 [facility] MAGNESIUM 2023-01-14 01:42:00 Prema Yohannes [facility] TYPE AND SCREEN, AUTOMATED 2023-01-14 01:42:00 Cristy Baisneet [facility] CBC W/PLT COUNT & AUTO 2023-01-14 01:42:00 [facility] (CELLAVISION MANUAL DIFF) 2023-01-14 01:42:00 [facility] BLOOD CULTURE 2023-01-14 01:41:00 [facility] XR CHEST 1 VIEW PORTABLE / 2023-01-14 00:59:00 Maxi Bains [facility] Center SURGICAL PATHOLOGY REQUEST 2022-12-11 20:05:00 Jonh Clark [facility] ANESTHESIA INTUBATION 2022-12-11 16:46:00 Wandy Earl [facility] LARYNGOSCOPY, DIRECT 2022-12-11 16:31:00 Amber [facility] URINE CULTURE 2022-11-27 19:35:00 Sabino [facility] URINALYSIS SCREEN AND 2022-11-27 19:35:00 Brittni Gallo [facility] MICROSCOPY, WITH REFLEX TO CULTURE PARTIAL THROMBOPLASTIN TIME 2022-11-27 19:17:00 Sabino [facility] (PTT) PROTHROMBIN TIME WITH INR 2022-11-27 19:17:00 Sabino [facility] CBC WITH PLATELET AND 2022-11-27 19:17:00 Sabino Brittniblanka Car [facility] DIFFERENTIAL COMPREHENSIVE METABOLIC 2022-11-27 19:17:00 Sabino, [facility] PANEL HEMOGLOBIN A1C 2022-11-27 19:17:00 [facility] ESTIMATED GFR 2022-11-27 19:17:00 [facility] ECG PRE/POST OP 2022-11-27 19:14:58 [facility] SURGICAL PATHOLOGY REQUEST 2022-05-29 18:41:00 [facility] ANESTHESIA INTUBATION 2022-05-29 15:08:00 Sangita Lu [facility] LARYNGOSCOPY, DIRECT 2022-05-29 14:55:00 Amber, [facility] COVID-19 QUALITATIVE RT-PCR 2022-05-26 18:59:00 [facility] CBC WITH PLATELET AND 2022-05-15 20:12:00 [facility] DIFFERENTIAL Magda COMPREHENSIVE METABOLIC 2022-05-15 20:12:00 [facility] PANEL Magda HEMOGLOBIN A1C 2022-05-15 20:12:00 [facility] ospital Magda ESTIMATED GFR 2022-05-15 20:12:00 [facility]ital Magda ANTINUCLEAR ANTIBODIES (SEGUNDO) 2022-02-07 16:28:00 [facility], [facility] WITH REFLEX TO TITER AND PATTERN, IMMUNOFLUORESCENCE RHEUMATOID FACTOR 2022-02-07 16:28:00 [facility], [facility] ANTI-NEUTROPHILIC 2022-02-07 16:28:00 Amber, [facility] CYTOPLASMIC ABS PANEL C-REACTIVE PROTEIN 2022-02-07 16:28:00 Amber, [facility] SEDIMENTATION RATE 2022-02-07 16:28:00 [facility], [facility] DURABLE MEDICAL EQUIPMENT 2022-01-24 17:21:00 Sangita Eid [facility] Graciela PHOSPHORUS LEVEL 2022-01-24 09:36:00 [facility]OLIC PANEL 2022-01-24 09:36[facility]00 [facility] WITH PLATELET AND 2022-01-24 09:36[facility]00 [facility] Graciela MAGNESIUM LEVEL 2022-01-24 09:36:00 Dustin Eidmaty [facility] spital Graciela ESTIMATED GFR 2022-01-24 09:36:00 Stanton Sangita Berry spital Graciela DURABLE MEDICAL EQUIPMENT 2022-01-24 00:02:31 [facility] Graciela XR CHEST 1 VW PORTABLE 2022-01-23 21:55:00 Jeremy Manriquez [facility] NM AN ELECTIVE ENDOTRACHEAL 2022-01-23 20:19:00 Lynn Figueroa [facility] AIRWAY Andre BRONCHOSCOPY 2022-01-23 20:08:00 Jeremy Manriquez [facility] BASIC METABOLIC PANEL 2022-01-23 09:24:00 Félix Recinos [facility] CBC WITH PLATELET AND 2022-01-23 09:24:00 [facility]FFERENTIAL MAGNESIUM LEVEL 2022-01-23 09:24:00 Félix Recinos spital PHOSPHORUS LEVEL 2022-01-23 09:24:00 Félix Recinos H ospital ESTIMATED GFR 2022-01-23 09:24:00 Félix Recinos spital DURABLE MEDICAL EQUIPMENT 2022-01-22 18:53:27 Juan Smith [facility] COVID-19 QUALITATIVE RT-PCR 2022-01-22 16:36:00 Jeremy Manriquez [facility] BASIC METABOLIC PANEL 2022-01-22 09:49:00 Félix Recinos [facility] CBC WITH PLATELET AND 2022-01-22 09:49:00 Félix Recinos [facility] DIFFERENTIAL MAGNESIUM LEVEL 2022-01-22 09:49:00 Félix Recinos spital PHOSPHORUS LEVEL 2022-01-22 09:49:00 Félix Recinos H ospital ESTIMATED GFR 2022-01-22 09:49:00 Félix Recinos spital BASIC METABOLIC PANEL 2022-01-21 09:34:00 Félix Recinos [facility] CBC WITH PLATELET AND 2022-01-21 09:34:00 Graciela [facility] DIFFERENTIAL MAGNESIUM LEVEL 2022-01-21 09:34:00 Félix Recinos spital PHOSPHORUS LEVEL 2022-01-21 09:34:00 Félix Recinos ospital ESTIMATED GFR 2022-01-21 09:34:00 Félix Recinos spital BASIC METABOLIC PANEL 2022-01-20 09:21:00 Graciela [facility] CBC WITH PLATELET AND 2022-01-20 09:21:00 Graciela [facility] DIFFERENTIAL MAGNESIUM LEVEL 2022-01-20 09:21:00 Félix Recinos spital PHOSPHORUS LEVEL 2022-01-20 09:21:00 Félix Recinos ospital ESTIMATED GFR 2022-01-20 09:21:00 Félix Recinos spital ZZCOVID-19 ANTI-SPIKE IGG 2022-01-19 10:03:00 [facility] ANTIBODY TITER [place] BASIC METABOLIC PANEL 2022-01-19 10:03:00 Graciela [facility] CBC WITH PLATELET AND 2022-01-19 10:03:00 Graciela [facility] DIFFERENTIAL MAGNESIUM LEVEL 2022-01-19 10:03:00 Félix Recinos spital PHOSPHORUS LEVEL 2022-01-19 10:03:00 Félix Recinos ospital ZZCOVID-19 SEROLOGY PATIENT 2022-01-19 10:03:00 [facility] SURVEILLANCE [place] ESTIMATED GFR 2022-01-19 10:03:00 Félix Recinos spital SPUTUM CULTURE 2022-01-18 16:21:00 Estelle Jefferson ospital GRAM STAIN 2022-01-18 16:21:00 Estelle Jefferson ospital US DUPLEX VENOUS LOWER 2022-01-18 15:10:00 sEtelle Jefferson [facility] EXTREMITY BILATERAL TTE COMPLETE, WO CONTRAST, W 2022-01-18 14:32:00 [facility] DOPPLER ([id number]) BASIC METABOLIC PANEL 2022-01-18 10:08:00 [facility] CBC WITH PLATELET AND 2022-01-18 10:08:00 [facility] DIFFERENTIAL MAGNESIUM LEVEL 2022-01-18 10:08:00 [facility] spital PHOSPHORUS LEVEL 2022-01-18 10:08:00 [facility] H ospital ESTIMATED GFR 2022-01-18 10:08:00 [facility] spital METHICILLIN-RESISTANT 2022-01-18 01:54:00 [facility] STAPHYLOCOCCUS AUREUS (MRSA), MENA BLOOD CULTURE, AEROBIC & 2022-01-17 22:40:00 [facility] ANAEROBIC INFLUENZA ANTIGEN TEST, 2022-01-17 22:38:00 [facility] REFLEX NEGATIVE TO RPP RESPIRATORY PATHOGEN PANEL 2022-01-17 22:38:00 [facility] WITH COVID-19 RT-PCR COVID-19 QUALITATIVE RT-PCR 2022-01-17 22:25:00 [facility] BLOOD CULTURE, AEROBIC & 2022-01-17 22:25:00 [facility] ANAEROBIC B NATRIURETIC PEPTIDE 2022-01-17 22:25:00 [facility] COVID-19 QUALITATIVE RT-PCR 2022-01-17 20:56:00 [facility] CBC WITH PLATELET AND 2022-01-17 20:56:00 [facility] DIFFERENTIAL COMPREHENSIVE METABOLIC 2022-01-17 20:56:00 [facility] PANEL ESTIMATED GFR 2022-01-17 20:56:00 [facility] spital XR CHEST 1 VW PORTABLE 2022-01-17 20:45:00 [facility] ECG ED PRELIMINARY 2022-01-17 20:32:28 [facility] INTERPRETATION ECG 12-LEAD 2022-01-17 19:34:47 [facility] Planned Activity Planned Date Details Comments Source Future Scheduled 2023-06-18 Screening for [facility] Test 09:26:30 malignant neoplasm of colon (procedure) [code = 444290930] Future Scheduled 2023-06-18 Screening for [facility] Test 09:26:30 malignant neoplasm of colon (procedure) [code = 700941263] Future Scheduled 2023-06-18 Screening for [facility] Test 09:26:30 malignant neoplasm of colon (procedure) [code = 466510699] Future Scheduled 2023-06-18 Hepatitis C screening [facility] Test 09:26:30 (procedure) [code = 401447839] Future Scheduled 2023-06-18 BREAST CANCER [facility] Test 09:26:30 SCREENING [code = BREAST CANCER SCREENING] Future Scheduled 2023-06-18 Screening for [facility] Test 09:26:30 malignant neoplasm of colon (procedure) [code = 782992847] Future Scheduled 2023-06-18 Screening for [facility] Test 09:26:30 malignant neoplasm of colon (procedure) [code = 484817817] Future Scheduled 2023-06-18 SHINGLES VACCINES (1 Met [facility] Test 09:26:30 of 2) [code = SHINGLES VACCINES (1 of 2)] Future Scheduled 2023-06-18 RSV VACCINES > 60 YR [facility] Test 09:26:30 (1 - 1-dose 60+ series) [code = RSV VACCINES > 60 YR (1 - 1-dose 60+ series)] Future Scheduled 2023-06-18 65+ PNEUMOCOCCAL [facility] Test 09:26:30 VACCINE (2 - PPSV23 or PCV20) [code = 65+ PNEUMOCOCCAL VACCINE (2 - PPSV23 or PCV20)] Future Scheduled 2023-06-18 COVID-19 VACCINE (4 - [facility] Test 09:26:30 season) [code = COVID-19 VACCINE ( - season)] Future Scheduled 2023-06-18 INFLUENZA VACCINE (#1) [facility] Test 09:26:30 [code = INFLUENZA VACCINE (#1)] Future Scheduled 2023-05-01 INFLUENZA VACCINE [facility] Test 00:00:00 (Season Ended) [code = Medic al Center INFLUENZA VACCINE (Season Ended)] Future Scheduled 2023-05-[address] [facility] Test 00:00:00 (Season Ended) [code = Medic al Center INFLUENZA VACCINE (Season Ended)] Future Scheduled 2023-01-06 Hepatitis C screening [facility] Test 08:35:43 (procedure) [code = 327438588] Future Scheduled 2023-01-06 BREAST CANCER [facility] Test 08:35:43 SCREENING [code = BREAST CANCER SCREENING] Future Scheduled 2023-01-06 COLONOSCOPY SCREENING [facility] Test 08:35:43 [code = COLONOSCOPY SCREENING] Future Scheduled 2023-01-06 SHINGLES VACCINES (1 Met [facility] Test 08:35:43 of 2) [code = SHINGLES VACCINES (1 of 2)] Future Scheduled 2023-01-06 65+ PNEUMOCOCCAL Methodi [facility] Test 08:35:43 VACCINE (2 - PPSV23 if available, else PCV20) [code = 65+ PNEUMOCOCCAL VACCINE (2 - PPSV23 if available, else PCV20)] Future Scheduled 2023-01-06 [facility] 08:35:43 [code = INFLUENZA VACCINE] Future Scheduled 2022-08-[address] [facility] Test 00:00:00 (12+) [code = Medical Center DEPRESSION SCREENING (12+)] Future Scheduled 2022-08-31 FALLS RISK SCREENING [facility] Test 00:00:00 [code = FALLS RISK Medical C enter SCREENING] Future Scheduled 2022-08-[address] [...] Cessation Counseling and Screening (12+)] Future Scheduled 2021-12-[address] [facility] Test 00:00:00 Counseling and Medical Cente r Screening (12+) [code = Tobacco Cessation Counseling and Screening (12+)] Future Scheduled 2021-02-15 COVID-19 VACCINE (3 [facility] Test 00[facility]00 [facility] series) [code = COVID-19 VACCINE (3 - Booster for [employer] series)] Future Scheduled 2020-06-27 PNEUMOCOCCAL 65+ YRS [facility] Test 00:00:00 (2 - PPSV23 if Medical Cente r available, else PCV20) [code = PNEUMOCOCCAL 65+ YRS (2 - PPSV23 if available, else PCV20)] Future Scheduled 2020-06-27 PNEUMOCOCCAL 65+ YRS [facility] [...] 2 or FIRST YEAR if no IPPE)] Future Scheduled 2019-09-[address] [facility] Test 00:00:00 WELLNESS (YEAR 2 or Medical Center FIRST YEAR if no IPPE) [code = MEDICARE ANNUAL WELLNESS (YEAR 2 or FIRST YEAR if no IPPE)] Future Scheduled 2003 SHINGLES VACCINES ([address] [facility] Test 00:00:00 of 2) [code = SHINGLES Medic al Center VACCINES (1 of 2)] Future Scheduled 2003 SHINGLES VACCINES ([address] [facility] Test 00:00:00 of 2) [code = SHINGLES Medic al Center VACCINES (1 of 2)] Future Scheduled 1972 DTAP/TDAP/TD VACCINES [facility] Test 00:00:00 (1 - Tdap) [code = Medical C enter DTAP/TDAP/TD VACCINES (1 - Tdap)] Future Scheduled 1972 DTAP/TDAP/TD VACCINES [facility] Test 00:00:00 (1 - Tdap) [code = Medical C enter DTAP/TDAP/TD VACCINES (1 - Tdap)] Future Scheduled 1971 HEPATITIS C [facility]CRE[facility]ING [facility] Test 00:00:00 [code = HEPATITIS C Medical Center SCREENING] Future Scheduled 1971 HEPATITIS C [facility]CRE[facility] Test 00:00:00 [code = HEPATITIS C Medical Center SCREENING] Future Scheduled 1954-02-18 COVID-19 VACCINE (#1) [facility] Test 00:00:00 [code = COVID-[address] VACCINE (#1)] Future Scheduled [address] [facility] Test 00:[facility]:00 malignant neoplasm of Medica l Center breast (procedure) [code = 779499858] Future Scheduled [address] [facility] Test 00:00:00 (combo) [code = CT Medical C enter Colonography (combo)] Future Scheduled [address] [facility] Test 00:00:00 malignant neoplasm of Medica l Center colon (procedure) [code = 484876889] Future Scheduled [address] [facility] Test 00:00:00 malignant neoplasm of Medica l Center colon (procedure) [code = 244869226] Future Scheduled 1953 DXA SCAN [code = DXA [facility] Test 00:00:00 SCAN] [facility] Future Scheduled [address] [facility] Test 00:00:00 malignant neoplasm of Medica l Center colon (procedure) [code = 808006764] Future Scheduled [address] [facility] Test 00:00:00 malignant neoplasm of Medica l Center colon (procedure) [code = 740075634] Future Scheduled 1955 Sigmoidoscopy [code = [facility] Sigmoidoscopy] [facility] Future Scheduled [address] [facility] Test 00:00:00 malignant neoplasm of Medica l Center breast (procedure) [code = 007407568] Future Scheduled [address] [facility] Test 00:00:00 (combo) [code = CT Medical C enter Colonography (combo)] Future Scheduled [address] [facility] Test 00:00:00 malignant neoplasm of Medica l Center colon (procedure) [code = 721223999] Future Scheduled [address] [facility] Test 00:00:00 malignant neoplasm of Medica l Center colon (procedure) [code = 523198171] Future Scheduled 1953 DXA SCAN [code = DXA [facility] Test 00:00:00 SCAN] [facility] Future Scheduled [address] [facility] [facility] Test 00:00:[address] [facility] colon (procedure) [code = 763445519] Future Scheduled [address] [facility] Test 00:00:[address] [facility] colon (procedure) [code = 978171162] Future Scheduled 1955 Sigmoidoscopy [facility]code [facility] 00:[facility] Sigmoidoscopy] Medical Cente r Encounters Start End Encounter Admission Attending Care Care Encounter Source Date/Time Date/Time Type Type Clinicians Facility Department ID 2023-02-16 Outpatient 3 [facility] ENCPL PUL 2022 [facility] 11:03:06 hemahendra, 0619 [facility] [place] 2023-02-12 Inpatient ER NATALIIA LIGHT [facility] [id number] [facility] 16:20:31 2023-02-12 Inpatient ER CAROLINE LOYD [facility] [id number] [facility] 11:45:06 2023-02-10 Outpatient 3 [facility] ENCPL PUL 2022 [facility] 18:41:57 [facility]hendra, 0613 [facility] [place] 2023-02-06 Outpatient 3 [id number] ENCPL REF [facility] 14:44:40 0609 [facility] [place] 2021-06-08 Outpatient CK MCCANN [facility] Surgery [id number] [facility] 15:02:15 2021-06-08 Outpatient JESSYArtTHOMASALBERTO [facility] Surgery [id number] [facility] 00:49:01 DARCY 2021-06-08 Outpatient CK MCCANN [facility] Surgery [id number] [facility] 00:31:54 2021-06-07 Outpatient CK MCCANN [facility] Surgery [id number] [facility] 20:14:13 2021-06-05 Outpatient CK MCCANN [facility] Surgery [id number] [facility] 10:33:00 2021-06-05 Outpatient CK MCCANN [facility] Surgery [id number] [facility] 08:46:19 2021-06-05 Outpatient CK MCCANN [facility] Surgery [id number] [facility] 00:05:33 2023-03-24 2023-03-24 Office Jonh Clark 1.2.840.1 [id number] Methodi 14:00:00 14:56:[address] 3.430.2.7 Hospit a .3.961709 l .8 2023-03-24 2023-03-24 Outpatient JONH CLARK [facility] [id number] [place] 00:00:00 00:00:[address] 2023-01-14 2023-02-22 Inpatient ER CAROLINE LOYD [facility] [id number] [facility] 00:37:00 10:16:00 2023-02-13 2023-02-13 Inpatient ER NATALIIA LIGHT [facility] [id number] [facility] 13:21:20 23:59:00 2023-01-14 2023-01-14 Anesthesia Jennings, [facility] [id number] 15:57:00 16:10:00 Event [facility] 2023-01-14 2023-01-14 Surgery [facility], [facility] [id number] [facility] 13:49:00 14:49:00 [facility] 2023-01-14 2023-01-14 Outpatient EDITH BAINS [id number] Edith 00:00:00 00:00:00 MAXI sargent 2022-12-26 2022-12-26 Office Jonh Clark 1.2.840.1 [id number] Methodi 13:30:00 14:42:[address] 3.430.2.7 Hospit a .3.887538 l .8 2022-12-26 2022-12-26 Office AmberJonh 1.2.840.1 [id number] Methodi 13:30:00 14:42:[address] 3.430.2.7 Hospit a .3.884774 l .8 2022-12-11 2022-12-11 [facility] [id number] Methodi 09:49:00 15:21:[address] 3.430.2.7 Hospit a .3.289966 l .8 2022-12-11 2022-12-11 [facility]1 [id number] Methodi 09:49:00 15:21:[address] 3.430.2.7 Hospit a .3.371027 l .8 2022-12-11 2022-12-11 [facility] Jonh 1.2.840.1 [id number] Methodi 11:30:00 13:20:[address] 3.430.2.7 Hospit a .3.291132 l .8 2022-12-11 2022-12-11 [facility] Jonh 1.2.840.1 [id number] Methodi 11:30:00 13:20:[address] 3.430.2.7 Hospit a .3.299413 l .8 2022-12-11 2022-12-11 Anesthesia Dioni Plascencia 1.2.840 .1 [id number] Methodi 11:31:00 13:17:00 Event Brittni Gallo 69191.1.[address] 3.430.2.7 Hospit a .3.402797 l .8 2022-12-11 2022-12-11 Anesthesia Dioni Plascencia 1.2.840 .1 [id number] Methodi 11:31:00 13:17:00 Event Brittni Gallo 97494.1.[address] 3.430.2.7 Hospit a .3.038141 l .8 2022-12-11 2022-12-11 Telephone Jonh Clark 1.2.840.1 [id number] Methodi 00:00:00 00:00:[address] 3.430.2.7 Hospit a .3.190936 l .8 2022-12-11 2022-12-11 Travel 1.2.840.1 1.2.873.339 [id number] [id number] Methodi 00:00:00 00:00:[address] 3.430.2.7 0.2.7.3.698 Ho spita .3.303986 084.8 l .8 2022-12-11 2022-12-11 Telephone Jonh Clark 1.2.840.1 [id number] Methodi 00:00:00 00:00:[address] 3.430.2.7 Hospit a .3.368153 l .8 2022-12-11 2022-12-11 Travel 1.2.840.1 1.2.628.771 [id number] [id number] Methodi 00:00:00 00:00:[address] 3.430.2.7 0.2.7.3.698 Ho spita .3.292619 084.8 l .8 2022-11-27 2022-11-27 Pre-Admiss Jonh Clark 1.2.840.1 [id number] Methodi 13:20:00 14:20:00 Brittni Jackson 61408.1.[address] Testing 3.430.2.7 Hospit a .3.597287 l .8 2022-11-27 2022-11-27 Pre-Admiss Amber Jonh 1.2.840.1 [id number] 21 [id number] Methodi 13:20:00 14:20:00 Brittni Jackson 33830.1.[address] Testing 3.430.2.7 Hospit a .3.076500 l .8 2022-11-27 2022-11-27 Travel 1.2.840.1 1.2.818.244 4874 [id number] Methodi 00:00:00 00:00:[address] 3.430.2.7 0.2.7.3.698 Ho spita .3.980033 084.8 l .8 2022-11-27 2022-11-27 Travel 1.2.840.1 1.2.786.565 2156 [id number] Methodi 00:00:00 00:00:[address] 3.430.2.7 0.2.7.3.698 Ho spita .3.165742 084.8 l .8 2022-11-25 2022-11-25 Office Jonh Clark 1.2.840.1 [id number] Methodi 13:15:00 17:23:[address] 3.430.2.7 Hospit a .3.061125 l .8 2022-11-25 2022-11-25 Office Jonh Clark 1.2.840.1 [id number] Methodi 13:15:00 17:23:[address] 3.430.2.7 Hospit a .3.580210 l .8 2022-11-25 2022-11-25 Travel 1.2.840.1 1.2.757.352 1335 [id number] Methodi 00:00:00 00:00:[address] 3.430.2.7 0.2.7.3.698 Ho spita .3.064494 084.8 l .8 2022-11-25 2022-11-25 Travel 1.2.840.1 1.2.518.680 5705 147069 Methodi 00:00:00 00:00:[address] 3.430.2.7 0.2.7.3.698 Ho spita .3.994431 084.8 l .8 2022-10-14 2022-10-14 Office Jonh Clark 1.2.840.1 [id number] Methodi 14:45:00 15:50:[address] 3.430.2.7 Hospit a .3.994732 l .8 2022-10-14 2022-10-14 Office Jonh Clark 1.2.840.1 [id number] Methodi 14:45:00 15:50:[address] 3.430.2.7 Hospit a .3.075959 l .8 2022-10-14 2022-10-14 Travel 1.2.840.1 1.2.001.802 1609 [id number] Methodi 00:00:00 00:00:[address] 3.430.2.7 0.2.7.3.698 Ho spita .3.215896 084.8 l .8 2022-10-14 2022-10-14 Travel 1.2.840.1 1.2.129.126 1000 [id number] Methodi 00:00:00 00:00:[address] 3.430.2.7 0.2.7.3.698 Ho spita .3.560746 084.8 l .8 2022-06-09 2022-06-09 Office Jonh Clark 1.2.840.1 [id number] 74926 Methodi 13:45:00 16:26:[address] 3.430.2.7 Hospit a .3.042402 l .8 2022-06-09 2022-06-09 Travel 1.2.840.1 1.2.564.064 2527 034180 Methodi 00:00:00 00:00:[address] 3.430.2.7 0.2.7.3.698 Ho spita .3.973284 084.8 l .8 2022-05-29 2022-05-29 Hospital Jonh Clark 1.2.840.1 [id number] 2100 [id number] Methodi 08:29:00 14:02:[address] 3.430.2.7 Hospit a .3.511147 l .8 2022-05-29 2022-05-29 Anesthesia [facility] 1.2.840.1 104 149660 [id number] Methodi 09:55:00 12:07:00 Event Lynda Alston 31893.1.[address] 3.430.2.7 Hospit a .3.349414 l .8 2022-05-29 2022-05-29 Surgery Jonh Clark 1.2.840.1 [id number] 08328 11843 Methodi 09:25:00 11:15:[address] 3.430.2.7 Hospit a .3.642774 l .8 2022-05-29 2022-05-29 Travel 1.2.840.1 1.2.869.005 1804 231716 Methodi 00:00:00 00:00:[address] 3.430.2.7 0.2.7.3.698 Ho spita .3.953140 084.8 l .8 2022-05-26 2022-05-26 Outpatient JONH CLARK [facility] [id number] [address] [place] 00:00:00 00:00:[address] 2022-05-20 2022-05-20 Travel 1.2.840.1 1.2.783.952 4216 364401 Methodi 00:00:00 00:00:[address] 3.430.2.7 0.2.7.3.698 Ho spita .3.631059 084.8 l .8 2022-05-15 2022-05-15 Pre-Admiss Jonh Clark 1.2.840.1 [id number] Methodi 13:30:00 14:30:[address] Testing 3.430.2.7 Hospit a .3.533968 l .8 2022-05-14 2022-05-14 Travel 1.2.840.1 1.2.786.600 4159 717122 Methodi 00:00:00 00:00:00 29982.1.1 350.1.13.43 [address] 3.430.2.7 0.2.7.3.698 Ho spita .3.241571 084.8 l .8 2022-05-12 2022-05-12 Office AmberJonh pickens 1.2.840.1 [id number] Methodi 14:00:00 16:48:[address] 3.430.2.7 Hospit a .3.481840 l .8 2022-05-12 2022-05-12 Orders Korina 1.2.840.1 [id number] Methodi 00:00:00 00:00:00 Only Zahira 44215.1.[address] 3.430.2.7 Hospit a .3.806332 l .8 2022-05-12 2022-05-12 Travel 1.2.840.1 1.2.276.126 8984 [id number] Methodi 00:00:00 00:00:[address] 3.430.2.7 0.2.7.3.698 Ho spita .3.798301 084.8 l .8 2022-04-08 2022-04-08 Office AmberJonh pickens 1.2.840.1 [id number] Methodi 13:00:00 13:52:[address] 3.430.2.7 Hospit a .3.038318 l .8 2022-04-08 2022-04-08 Travel 1.2.840.1 1.2.908.047 4966 [id number] Methodi 00:00:00 00:00:[address] 3.430.2.7 0.2.7.3.698 Ho spita .3.973238 084.8 l .8 2022-02-26 2022-02-26 Telephone Gume, 1.2.840.1 [id number] Methodi 00:00:00 00:00:[address] 3.430.2.7 Hospit a .3.673425 l .8 2022-02-25 2022-02-25 Telephone Jonh Clark 1.2.840.1 [id number] [id number] Methodi 00:00:00 00:00:[address] 3.430.2.7 Hospit a .3.240314 l .8 2022-02-07 2022-02-07 Office Jonh Clark 1.2.840.1 [id number] [id number] 47839 Methodi 10:45:00 14:39:[address] 3.430.2.7 Hospit a .3.806919 l .8 2022-02-07 2022-02-07 Lab Jonh Clark 1.2.840.1 [id number] 40776 50227 Methodi 11:35:00 11:40:[address] 3.430.2.7 Hospit a .3.029037 l .8 2022-02-07 2022-02-07 Travel 1.2.840.1 1.2.804.565 4122 [id number] Methodi 00:00:00 00:00:[address] 3.430.2.7 0.2.7.3.698 Ho spita .3.518316 084.8 l .8 2022-01-17 2022-01-24 [facility] Luis Emery 1.2.840.1 [id number] Methodi 14:43:00 16:38:00 Encounter Félix Recinos 06418.1.[address] Juan Smith Salvador 3.430.2.7 [facility] .3.939372 l .8 2022-01-23 2022-01-23 Anesthesia Pastora KennySarita 1.2.840 .1 [id number] Methodi 15:05:00 16:33:00 Event James Hassan 75621.1.[address] 3.430.2.7 Hospit a .3.632326 l .8 2022-01-23 2022-01-23 Surgery Jeremy Manriquez 1.2.840.1 [id number] [id number] Methodi 13:30:00 15:30:00 [place] Shalini [address] 3.430.2.7 Hospit a .3.804625 l .8 2022-01-17 2022-01-17 Office Jonh Clark 1.2.840.1 [id number] 88300 71040 Methodi 13:15:00 14:17:[address] 3.430.2.7 Hospit a .3.026156 l .8 2022-01-17 2022-01-17 Travel 1.2.840.1 1.2.708.506 4905 [id number] Methodi 00:00:00 00:00:[address] 3.430.2.7 0.2.7.3.698 Ho spita .3.156413 084.8 l .8 2021-10-18 2021-10-18 Outpatient JONH CLARK [facility] [id number] [address] [place] 00:00:00 00:00:00 260 Method i 2021-10-10 2021-10-10 Outpatient JONH CLARK [facility] 021 [id number] 6845 [place] 00:00:00 00:00:[address] 2021-10-07 2021-10-07 Outpatient AMBERJONH Pickens [facility] [id number] 9686 [place] 00:00:00 00:00:00 414 Method i 2021-10-07 2021-10-07 Outpatient AMBERJONH Pickens [facility] [id number] 4546 [place] 00:00:00 00:00:[address] 2021-09-18 2021-09-18 Outpatient JONH CLARK [facility] [id number] 2747 [place] 00:00:00 00:00:[address] 2021-08-14 2021-08-14 Outpatient JONH CLARK [facility] [id number] 7941 [place] 00:00:00 00:00:[address] 2021-06-03 2021-06-03 Outpatient [facility] [id number] 571 [place] 00:00:00 00:00:[address] 2021-04-29 2021-04-29 Outpatient JONH CLARK [facility] [id number] 3158 [place] 00:00:00 00:00:[address] 2021-04-18 2021-04-18 Outpatient JONH CLARK [facility] 021 [id number] 2629 [place] 00:00:00 00:00:[address] 2021-04-16 2021-04-16 Outpatient JONH CLARK [facility] [id number] 1857 [place] 00:00:00 00:00:[address] 2021-04-02 2021-04-02 Outpatient JONH CLARK [facility] [id number] 7176 [place] 00:00:00 00:00:[address] 2021-03-28 2021-03-28 Outpatient [facility] [id number] 414 [place] 00:00:00 00:00:[address] 2021-03-28 2021-03-28 Outpatient THEYANELII, [facility] [id number] 414 [place] 00:00:00 00:00:[address] MILI [address] 2020-12-24 2020-12-24 Outpatient [facility] [id number] [facility] 00:00:00 00:00:00 2020-10-09 2020-10-09 Outpatient [facility] [id number] [facility] 09:15:53 23:59:00 2020 2020 Outpatient [facility] [id number] [facility] 00:00:00 00:00:00 2020-07-16 2020-07-16 Outpatient EL [facility] [id number] [facility] 00:00:00 00:00:00 2020-01-10 2020-01-10 Outpatient CK HEDRICK [facility] Surgery [id number] [facility] 06:21:00 06:21:00 2020-01-05 2020-01-05 Outpatient EL [facility] [id number] [facility] 00:00:00 00:00:00 2019-11-15 2019-11-15 Outpatient [facility] [id number] 2-2 [facility] 12:24:00 12:24:00 [id number] 2019-04-28 2019-04-28 Outpatient CK HEDRICK [facility] [id number] [facility] 00:00:00 00:00:00 2019-04-28 2019-04-28 Outpatient [facility] [id number] 2-2 [facility] 00:00:00 00:00:00 [id number] 2018-09-23 2018-09-23 [facility] 22 [id number] [place] 11:00:00 11:00:00 [place] [address] [facility] 2018-09-17 2018-09-17 [facility] 23 [id number] [place] 11:00:00 11:00:00 [place] [address] [facility] 2018-06-03 2018-06-03 Out[facility] 14 [id number] [place] 15:30:00 15:30:00 [place] [address] [facility] 2018-03-18 2018-03-18 Out[facility] 14 [id number] [place] 15:00:00 15:00:00 [place] [address] [facility] 2018-02-23 2018-02-23 Out[facility] 14 [id number] Common 14:40:00 14:40:00 [place] [address] [facility] 2018-02-03 2018-02-03 Out[facility] 12 [id number] [place] 15:15:00 15:15:00 [place] [address] [facility] 2017-11-16 2017-11-16 Out[facility] 13 [id number] Common 13:45:00 13:45:00 t [employer] [address] [facility] Results Test Description Test Time Test Comments Results Result Comments Source BLOOD CULTURE 2023-02-17 18:00:48 Test Item Value Reference Range Interpretation Comme nts CULTURE (BEAKER) (test code = 1095) No growth in 5 days The specimen volume collected for this blood culture was below the optimum (10 mL per bottle or 20 mL total). Use of lower volumes may adversely affect recovery and/or detection times of some organisms.BLOOD [id number] 18:00:47 Test Item Value Reference Range Interpretation Comments CULTURE (BEAKER) (test No growth in 5 days code = 1095) BASIC METABOLIC [id number] 07:37:22 Test Item Value Reference Range Interpretation Comments SODIUM (BEAKER) 136 meq/L 136-145 (test code = 381) POTASSIUM 3.7 meq/L 3.5-5.1 (BEAKER) (test code = 379) CHLORIDE (BEAKER) 97 meq/L 98-107 L (test code = 382) CO2 (BEAKER) 30 meq/L 22-29 H (test code = 355) BLOOD UREA 31 mg/dL 7-21 H NITROGEN (BEAKER) (test code = 354) CREATININE 0.83 mg/dL 0.57-1.25 (BEAKER) (test code = 358) GLUCOSE RANDOM 92 mg/dL 70-105 (BEAKER) (test code = 652) CALCIUM (BEAKER) 8.8 mg/dL 8.4-10.2 (test code = 697) EGFR (BEAKER) 76 Interpretatio n of eGFR (test code = mL/min/1.73 values Stage De scription 1092) sq m Result G1 Zainab l or high >=90 G2 Mildly decreased 60-89 G3a Mildl y to moderately 45-5 9 G3b Moderately to s everely 30-44 G4 Severl y decreased 15-29 G5 Kidney failure <15Reported eGF R is based on the CKD-EPI 2020 equation that d oes not use a race coefficientEsti mated GFR is not as accur ate as Creatinine Mamie shandra in predicting glom erular filtration rate . Estimated GFR is not appl icable for dialysis patien ts Rail Specialist ID - ADMINCBC W/PLT COUNT & AUTO [id number] 05:35:01 Test Item Value Reference Range Interpretation Comments WHITE BLOOD CELL COUNT (BEAKER) 13.3 K/ L 3.5-10.5 H (test code = 775) RED BLOOD CELL COUNT (BEAKER) 3.63 M/ L 3.93-5.22 L (test code = 761) HEMOGLOBIN (BEAKER) (test code = 11.5 GM/DL 11.2-15.7 410) HEMATOCRIT (BEAKER) (test code = 36.0 % 34.1-44.9 411) MEAN CORPUSCULAR VOLUME (BEAKER) 99 fL 79-95 H (test code = 753) MEAN CORPUSCULAR HEMOGLOBIN 31.7 pg 25.6-32.2 (BEAKER) (test code = 751) MEAN CORPUSCULAR HEMOGLOBIN CONC 31.9 GM/DL 32.2-35.5 L (BEAKER) (test code = 752) RED CELL DISTRIBUTION WIDTH 15.4 % 11.7-14.4 H (BEAKER) (test code = 412) PLATELET COUNT (BEAKER) (test 507 K/CU MM 150-450 H code = 756) MEAN PLATELET VOLUME (BEAKER) 9.2 fL 9.4-12.3 L (test code = 754) NUCLEATED RED BLOOD CELLS 0 /100 WBC 0-0 (BEAKER) (test code = 413) NEUTROPHILS RELATIVE PERCENT 65 % (BEAKER) (test code = 429) LYMPHOCYTES RELATIVE PERCENT 16 % (BEAKER) (test code = 430) MONOCYTES RELATIVE PERCENT 10 % (BEAKER) (test code = 431) EOSINOPHILS RELATIVE PERCENT 7 % (BEAKER) (test code = 432) BASOPHILS RELATIVE PERCENT 1 % (BEAKER) (test code = 437) NEUTROPHILS ABSOLUTE COUNT 8.67 K/ L 1.56-6.13 H (BEAKER) (test code = 670) LYMPHOCYTES ABSOLUTE COUNT 2.14 K/ L 1.18-3.74 (BEAKER) (test code = 414) MONOCYTES ABSOLUTE COUNT (BEAKER) 1.36 K/ L 0.24-0.36 H (test code = 415) EOSINOPHILS ABSOLUTE COUNT 0.99 K/ L 0.04-0.36 H (BEAKER) (test code = 416) BASOPHILS ABSOLUTE COUNT (BEAKER) 0.06 K/ L 0.01-0.08 (test code = 417) IMMATURE GRANULOCYTES-RELATIVE 0.50 % 0.00-1.00 PERCENT (BEAKER) (test code = 2801) BASIC METABOLIC [id number] 05:59:18 Test Item Value Reference Range Interpretation Comments SODIUM (BEAKER) 138 meq/L 136-145 (test code = 381) POTASSIUM 3.5 meq/L 3.5-5.1 (BEAKER) (test code = 379) CHLORIDE (BEAKER) 94 meq/L 98-107 L (test code = 382) CO2 (BEAKER) 34 meq/L 22-29 H (test code = 355) BLOOD UREA 21 mg/dL 7-21 NITROGEN (BEAKER) (test code = 354) CREATININE 0.89 mg/dL 0.57-1.25 (BEAKER) (test code = 358) GLUCOSE RANDOM 85 mg/dL 70-105 (BEAKER) (test code = 652) CALCIUM (BEAKER) 8.6 mg/dL 8.4-10.2 (test code = 697) EGFR (BEAKER) 70 Interpretatio n of eGFR (test code = mL/min/1.73 values Stage De scription 1092) sq m Result G1 Zainab l or high >=90 G2 Mildly decreased 60-89 G3a Mildl y to moderately 45-5 9 G3b Moderately to s everely 30-44 G4 Severl y decreased 15-29 G5 Kidney failure <15Reported eGF R is based on the CKD-EPI 2020 equation that d oes not use a race coefficientEsti mated GFR is not as accur ate as Creatinine Mamie devi in predicting glom erular filtration rate . Estimated GFR is not appl icable for dialysis patien ts Rail Specialist ID - BVCBC W/PLT COUNT & AUTO [id number] 05:20:19 Test Item Value Reference Range Interpretation Comments WHITE BLOOD CELL COUNT (BEAKER) 12.8 K/ L 3.5-10.5 H (test code = 775) RED BLOOD CELL COUNT (BEAKER) 3.52 M/ L 3.93-5.22 L (test code = 761) HEMOGLOBIN (BEAKER) (test code = 11.2 GM/DL 11.2-15.7 410) HEMATOCRIT (BEAKER) (test code = 33.7 % 34.1-44.9 L 411) MEAN CORPUSCULAR VOLUME (BEAKER) 96 fL 79-95 H (test code = 753) MEAN CORPUSCULAR HEMOGLOBIN 31.8 pg 25.6-32.2 (BEAKER) (test code = 751) MEAN CORPUSCULAR HEMOGLOBIN CONC 33.2 GM/DL 32.2-35.5 (BEAKER) (test code = 752) RED CELL DISTRIBUTION WIDTH 15.5 % 11.7-14.4 H (BEAKER) (test code = 412) PLATELET COUNT (BEAKER) (test 519 K/CU MM 150-450 H code = 756) MEAN PLATELET VOLUME (BEAKER) 9.1 fL 9.4-12.3 L (test code = 754) NUCLEATED RED BLOOD CELLS 0 /100 WBC 0-0 (BEAKER) (test code = 413) NEUTROPHILS RELATIVE PERCENT 61 % (BEAKER) (test code = 429) LYMPHOCYTES RELATIVE PERCENT 20 % (BEAKER) (test code = 430) MONOCYTES RELATIVE PERCENT 11 % (BEAKER) (test code = 431) EOSINOPHILS RELATIVE PERCENT 8 % (BEAKER) (test code = 432) BASOPHILS RELATIVE PERCENT 1 % (BEAKER) (test code = 437) NEUTROPHILS ABSOLUTE COUNT 7.72 K/ L 1.56-6.13 H (BEAKER) (test code = 670) LYMPHOCYTES ABSOLUTE COUNT 2.57 K/ L 1.18-3.74 (BEAKER) (test code = 414) MONOCYTES ABSOLUTE COUNT (BEAKER) 1.36 K/ L 0.24-0.36 H (test code = 415) EOSINOPHILS ABSOLUTE COUNT 1.01 K/ L 0.04-0.36 H (BEAKER) (test code = 416) BASOPHILS ABSOLUTE COUNT (BEAKER) 0.06 K/ L 0.01-0.08 (test code = 417) IMMATURE GRANULOCYTES-RELATIVE 0.30 % 0.00-1.00 PERCENT (BEAKER) (test code = 2801) SPUTUM CULTURE + GRAM [id number] 09:57:25 Test Item Value Reference Interpretation Comments Range CULTURE (BEAKER) (test ENTEROBACTER A 2+ En terobacter code = 1095) CLOACAE COMPLEX cloacae comp elfego Amikacin (test code = S 1) Aztreonam (test code = S 32) Cefepime (test code = S 51) Cefoxitin (test code = R 68) Ceftazidime (test code S = 27) Ceftriaxone (test code S = 52) Ertapenem (test code = S 38) Gentamicin (test code S = 18) Levofloxacin (test S code = 22) Meropenem (test code = S 34) Nitrofurantoin (test S code = 23) Piperacillin + S Tazobactam (test code = 29) Tetracycline (test S code = 2) Tobramycin (test code S = 25) Trimethoprim + S Sulfamethoxazole (test code = 47) CULTURE ([facility]) (test PSEUDOMONAS A 3+ Ps eudomonas code = 1095) AERUGINOSA aeruginosa Amikacin (test code = See_Comment S [Auto mated 1) message] The system which generated this result transmitted reference range : Susceptible 0-1 6 , Resistant <0 or >16 . The reference range was not used to interpret this result as normal/abnormal . Aztreonam (test code = See_Comment S [Aut omated 32) message] The system which generated this result transmitted reference range : Susceptible 0-8 , Resistant <0 or >8 . The reference range was not used to interpret this result as normal/abnormal . Cefepime (test code = See_Comment S [Auto mated 51) message] The system which generated this result transmitted reference range : Susceptible 0-8 , Resistant <0 or >8 . The reference range was not used to interpret this result as normal/abnormal . Ceftazidime (test code See_Comment S [Aut omated = 27) message] The system which generated this result transmitted reference range : Susceptible 0-8 , Resistant <0 or >8 . The reference range was not used to interpret this result as normal/abnormal . Ciprofloxacin (test See_Comment S [Automa dustin code = 7) message] The system which generated this result transmitted reference range : Susceptible 0-0 .5 , Resistant <0 or >.5 . The reference range was not used to interpret this result as normal/abnormal . Gentamicin (test code See_Comment S [Auto mated = 18) message] The system which generated this result transmitted reference range : Susceptible 0-4 , Resistant <0 or >4 . The reference range was not used to interpret this result as normal/abnormal . Levofloxacin (test See_Comment S [Automat ed code = 22) message] The system which generated this result transmitted reference range : Susceptible 0-1 , Resistant <0 or >1 . The reference range was not used to interpret this result as normal/abnormal . Meropenem (test code = See_Comment S [Aut omated 34) message] The system which generated this result transmitted reference range : Susceptible 0-2 , Resistant <0 or >2 . The reference range was not used to interpret this result as normal/abnormal . Piperacillin (test See_Comment S [Automat ed code = 24) message] The system which generated this result transmitted reference range : Susceptible 0-1 6 , Resistant <0 or >16 . The reference range was not used to interpret this result as normal/abnormal . Piperacillin + See_Comment S [Automated Tazobactam (test code messag e] The = 29) system which generated this result transmitted reference range : Susceptible 0-1 6 , Resistant <0 or >16 . The reference range was not used to interpret this result as normal/abnormal . Tobramycin (test code See_Comment S [Auto mated = 25) message] The system which generated this result transmitted reference range : Susceptible 0-4 , Resistant <0 or >4 . The reference range was not used to interpret this result as normal/abnormal . GRAM STAIN RESULT 3+ WBCs (BEAKER) (test code = 1123) GRAM STAIN RESULT <1+ gram positive (BEAKER) (test code = cocci in pairs 491673) GRAM STAIN RESULT <1+ gram negative (BEAKER) (test code = rods 770689) 1+ Normal respiratory michelle presentBASIC METABOLIC [id number] 05:54:32 Test Item Value Reference Range Interpretation Comments SODIUM (BEAKER) 137 meq/L 136-145 (test code = 381) POTASSIUM 3.8 meq/L 3.5-5.1 (BEAKER) (test code = 379) CHLORIDE (BEAKER) 94 meq/L 98-107 L (test code = 382) CO2 (BEAKER) 34 meq/L 22-29 H (test code = 355) BLOOD UREA 18 mg/dL 7-21 NITROGEN (BEAKER) (test code = 354) CREATININE 0.81 mg/dL 0.57-1.25 (BEAKER) (test code = 358) GLUCOSE RANDOM 88 mg/dL 70-105 (BEAKER) (test code = 652) CALCIUM (BEAKER) 8.6 mg/dL 8.4-10.2 (test code = 697) EGFR (BEAKER) 79 Interpretatio n of eGFR (test code = mL/min/1.73 values Stage De scription 1092) sq m Result G1 Zainab l or high >=90 G2 Mildly decreased 60-89 G3a Mildl y to moderately 45-5 9 G3b Moderately to s everely 30-44 G4 Severl y decreased 15-29 G5 Kidney failure <15Reported eGF R is based on the CKD-EPI 2020 equation that d oes not use a race coefficientEsti mated GFR is not as accur ate as Creatinine Mamie shandra in predicting glom erular filtration rate . Estimated GFR is not appl icable for dialysis patien ts Rail Specialist ID - CARI BCBC (HEMOGRAM ONLY)2023-02-15 05:47:01 Test Item Value Reference Range Interpretation Comments WHITE BLOOD CELL COUNT (BEAKER) 12.3 K/ L 3.5-10.5 H (test code = 775) RED BLOOD CELL COUNT (BEAKER) 3.34 M/ L 3.93-5.22 L (test code = 761) HEMOGLOBIN (BEAKER) (test code = 10.5 GM/DL 11.2-15.7 L 410) HEMATOCRIT (BEAKER) (test code = 32.9 % 34.1-44.9 L 411) MEAN CORPUSCULAR VOLUME (BEAKER) 99 fL 79-95 H (test code = 753) MEAN CORPUSCULAR HEMOGLOBIN 31.4 pg 25.6-32.2 (BEAKER) (test code = 751) MEAN CORPUSCULAR HEMOGLOBIN CONC 31.9 GM/DL 32.2-35.5 L (BEAKER) (test code = 752) RED CELL DISTRIBUTION WIDTH 15.9 % 11.7-14.4 H (BEAKER) (test code = 412) PLATELET COUNT (BEAKER) (test 518 K/CU MM 150-450 H code = 756) MEAN PLATELET VOLUME (BEAKER) 8.8 fL 9.4-12.3 L (test code = 754) NUCLEATED RED BLOOD CELLS 0 /100 WBC 0-0 (BEAKER) (test code = 413) BASIC METABOLIC [id number] 07:29:03 Test Item Value Reference Range Interpretation Comments SODIUM (BEAKER) 138 meq/L 136-145 (test code = 381) POTASSIUM 3.4 meq/L 3.5-5.1 L (BEAKER) (test code = 379) CHLORIDE (BEAKER) 96 meq/L 98-107 L (test code = 382) CO2 (BEAKER) 34 meq/L 22-29 H (test code = 355) BLOOD UREA 22 mg/dL 7-21 H NITROGEN (BEAKER) (test code = 354) CREATININE 0.75 mg/dL 0.57-1.25 (BEAKER) (test code = 358) GLUCOSE RANDOM 80 mg/dL 70-105 (BEAKER) (test code = 652) CALCIUM (BEAKER) 8.9 mg/dL 8.4-10.2 (test code = 697) EGFR (BEAKER) 86 Interpretatio n of eGFR (test code = mL/min/1.73 values Stage De scription 1092) sq m Result G1 Zainab l or high >=90 G2 Mildly decreased 60-89 G3a Mildl y to moderately 45-5 9 G3b Moderately to s everely 30-44 G4 Severl y decreased 15-29 G5 Kidney failure <15Reported eGF R is based on the CKD-EPI 2020 equation that d oes not use a race coefficientEsti mated GFR is not as accur ate as Creatinine Mamie devi in predicting glom erular filtration rate . Estimated GFR is not appl icable for dialysis patien ts Rail Specialist ID - ADMINCBC W/PLT COUNT & AUTO [id number] 06:10:21 Test Item Value Reference Range Interpretation Comments WHITE BLOOD CELL COUNT (BEAKER) 14.1 K/ L 3.5-10.5 H (test code = 775) RED BLOOD CELL COUNT (BEAKER) 3.43 M/ L 3.93-5.22 L (test code = 761) HEMOGLOBIN (BEAKER) (test code = 10.9 GM/DL 11.2-15.7 L 410) HEMATOCRIT (BEAKER) (test code = 33.8 % 34.1-44.9 L 411) MEAN CORPUSCULAR VOLUME (BEAKER) 99 fL 79-95 H (test code = 753) MEAN CORPUSCULAR HEMOGLOBIN 31.8 pg 25.6-32.2 (BEAKER) (test code = 751) MEAN CORPUSCULAR HEMOGLOBIN CONC 32.2 GM/DL 32.2-35.5 (BEAKER) (test code = 752) RED CELL DISTRIBUTION WIDTH 15.9 % 11.7-14.4 H (BEAKER) (test code = 412) PLATELET COUNT (BEAKER) (test 641 K/CU MM 150-450 H code = 756) MEAN PLATELET VOLUME (BEAKER) 8.9 fL 9.4-12.3 L (test code = 754) NUCLEATED RED BLOOD CELLS 0 /100 WBC 0-0 (BEAKER) (test code = 413) NEUTROPHILS RELATIVE PERCENT 68 % (BEAKER) (test code = 429) LYMPHOCYTES RELATIVE PERCENT 16 % (BEAKER) (test code = 430) MONOCYTES RELATIVE PERCENT 10 % (BEAKER) (test code = 431) EOSINOPHILS RELATIVE PERCENT 5 % (BEAKER) (test code = 432) BASOPHILS RELATIVE PERCENT 0 % (BEAKER) (test code = 437) NEUTROPHILS ABSOLUTE COUNT 9.55 K/ L 1.56-6.13 H (BEAKER) (test code = 670) LYMPHOCYTES ABSOLUTE COUNT 2.31 K/ L 1.18-3.74 (BEAKER) (test code = 414) MONOCYTES ABSOLUTE COUNT (BEAKER) 1.41 K/ L 0.24-0.36 H (test code = 415) EOSINOPHILS ABSOLUTE COUNT 0.75 K/ L 0.04-0.36 H (BEAKER) (test code = 416) BASOPHILS ABSOLUTE COUNT (BEAKER) 0.05 K/ L 0.01-0.08 (test code = 417) IMMATURE GRANULOCYTES-RELATIVE 0.50 % 0.00-1.00 PERCENT (BEAKER) (test code = 2801) CT ABDOMEN/PELVIS WITH IV [id number] 15:51:15 [facility] 1955 Sex: FCT ABDOMEN/PELVIS WITH IV CONTRASTHISTORY: Nausea/vomitingrising wbc, LLQ painCOMPARISON: NoneTECHNIQUE: CT ABDOMEN/PELVIS WITH IV CONTRAST. The examination wasperformed according to the departmental dose-optimization program, whichincludes automated exposure control, adjustment of the mA and/or kVaccording to patient size and/or use of iterative reconstructiontechnique. FINDINGS:Lower thorax: Moderatesized bilateral pleural effusions. Partialbilateral lower lobe atelectasis and mild atelectasis in the inferiorlingula and right middle lobe with slight hypoenhancement andheterogeneity of the consolidated portions of the left lower lobe.Coronary artery calcifications, interlobular septal thickening.Liver: 2.1 cm hypodensity along the falciform ligament which is ovoid.Mild nonspecific periportal edemaGallbladder and bile ducts: The gallbladder is decompressed. Minimalintrahepatic biliary ductal dilation in segment 2. No extrahepaticbiliary ductal dilationSpleen: Unremarkable.Pancreas: Unremarkable.Adrenals: UnremarkableKidneys and ureters: Unremarkable.Bowel: Marked circumferential wall thickeningof the distal sigmoidcolon and rectum. Hyperdense contrast opacifies the colon and distalsmall bowel, likely barium. There is no evidence for small bowelobstruction. The appendix is not visualized.Bladder: Unremarkable.Reproductive organs: Unremarkable.Lymph nodes: A nonspecific left external iliac chain lymph nodemeasuring 6 mm short axis, probably reactive.Peritoneum: Unremarkable.Vessels: Moderateatherosclerotic calcifications.Abdominal wall: Circumscribed fat density lesion with hazy internalstranding in the left groin measuring 3.1 x 1.9 cm. Body wall edemaBones: Rightward curvature of the lumbar spine. Mild rightward listhesisof L2 on L3.IMPRESSION:1. Marked wall thickening of the sigmoid colon and rectum concerningfor proctocolitis.2. Slight hypoenhancement and heterogeneity of the consolidatedportions of the left lower lobe concerning for metastatic atelectasisand pneumonia. Moderate-sized bilateral pleural effusions.3. Circumscribed fat density lesion with hazy internal stranding in theleft groin, 3.1 cm, probably a fat-containing inguinal hernia withedema, differential considerations include an atypical lipomatous lesionElectronically Signed By: Jesus Banerjee02/13/2023 15:53 CDTWorkstation Name: [id number] BLOOD SMEAR - PATHOLOGIST [id number] 13:03:30 Test Item Value Reference Range Interpretation Comments PERIPHERAL SMR REVIEW Cell counts confirmed. (BEAKER) (test code = WBCs are increased and 2640) predominantly composed of mature granulocytes. No significant blast population seen. [id number] Deni Barros M.D. (BEAKER) (test code = 2849) COMPREHENSIVE METABOLIC [id number] 07:27:40 Test Item Value Reference Range Interpretation Comments TOTAL PROTEIN 4.9 gm/dL 6.0-8.3 L (BEAKER) (test code = 770) ALBUMIN (BEAKER) 2.3 g/dL 3.5-5.0 L (test code = 1145) ALKALINE 185 U/L 40-150 H PHOSPHATASE (BEAKER) (test code = 346) BILIRUBIN TOTAL 0.2 mg/dL 0.2-1.2 (BEAKER) (test code = 377) SODIUM (BEAKER) 140 meq/L 136-145 (test code = 381) POTASSIUM (BEAKER) 3.9 meq/L 3.5-5.1 (test code = 379) CHLORIDE (BEAKER) 100 meq/L 98-107 (test code = 382) CO2 (BEAKER) (test 33 meq/L 22-29 H code = 355) BLOOD UREA 25 mg/dL 7-21 H NITROGEN (BEAKER) (test code = 354) CREATININE 0.76 mg/dL 0.57-1.25 (BEAKER) (test code = 358) GLUCOSE RANDOM 88 mg/dL 70-105 (BEAKER) (test code = 652) CALCIUM (BEAKER) 8.9 mg/dL 8.4-10.2 (test code = 697) AST (SGOT) 18 U/L 5-34 (BEAKER) (test code = 353) ALT (SGPT) 18 U/L 6-55 (BEAKER) (test code = 347) EGFR (BEAKER) 85 Interpretatio n of eGFR (test code = 1092) mL/min/1.[address] age Description sq m Result G1 Zainab l or high >=90 G2 Mildly decreased 60-89 G3a Mildl y to moderately 45-5 9 G3b Moderately to s everely 30-44 G4 Severl y decreased 15-29 G5 Kidney failure <15Reported eGF R is based on the CKD-EPI 2020 equation that d oes not use a race coefficientEsti mated GFR is not as accur ate as Creatinine Mamie shandra in predicting glom erular filtration rate . Estimated GFR is not appl icable for dialysis patien ts Rail Specialist ID - MMCBC W/PLT COUNT & AUTO [id number] 06:50:21 Test Item Value Reference Range Interpretation Comments WHITE BLOOD CELL COUNT (BEAKER) 14.2 K/ L 3.5-10.5 H (test code = 775) RED BLOOD CELL COUNT (BEAKER) 3.29 M/ L 3.93-5.22 L (test code = 761) HEMOGLOBIN (BEAKER) (test code = 10.4 GM/DL 11.2-15.7 L 410) HEMATOCRIT (BEAKER) (test code = 33.2 % 34.1-44.9 L 411) MEAN CORPUSCULAR VOLUME (BEAKER) 101 fL 79-95 H (test code = 753) MEAN CORPUSCULAR HEMOGLOBIN 31.6 pg 25.6-32.2 (BEAKER) (test code = 751) MEAN CORPUSCULAR HEMOGLOBIN CONC 31.3 GM/DL 32.2-35.5 L (BEAKER) (test code = 752) RED CELL DISTRIBUTION WIDTH 16.4 % 11.7-14.4 H (BEAKER) (test code = 412) PLATELET COUNT (BEAKER) (test 588 K/CU MM 150-450 H code = 756) MEAN PLATELET VOLUME (BEAKER) 9.1 fL 9.4-12.3 L (test code = 754) NUCLEATED RED BLOOD CELLS 0 /100 WBC 0-0 (BEAKER) (test code = 413) NEUTROPHILS RELATIVE PERCENT 74 % (BEAKER) (test code = 429) LYMPHOCYTES RELATIVE PERCENT 12 % (BEAKER) (test code = 430) MONOCYTES RELATIVE PERCENT 9 % (BEAKER) (test code = 431) EOSINOPHILS RELATIVE PERCENT 4 % (BEAKER) (test code = 432) BASOPHILS RELATIVE PERCENT 0 % (BEAKER) (test code = 437) NEUTROPHILS ABSOLUTE COUNT 10.45 K/ L 1.56-6.13 H (BEAKER) (test code = 670) LYMPHOCYTES ABSOLUTE COUNT 1.70 K/ L 1.18-3.74 (BEAKER) (test code = 414) MONOCYTES ABSOLUTE COUNT (BEAKER) 1.24 K/ L 0.24-0.36 H (test code = 415) EOSINOPHILS ABSOLUTE COUNT 0.59 K/ L 0.04-0.36 H (BEAKER) (test code = 416) BASOPHILS ABSOLUTE COUNT (BEAKER) 0.06 K/ L 0.01-0.08 (test code = 417) IMMATURE GRANULOCYTES-RELATIVE 1.00 % 0.00-1.00 PERCENT (BEAKER) (test code = 2801) XR CHEST 1 VIEW PORTABLE / [id number] 17:32:26 [facility] 1955 Sex: FTECHNIQUE: Frontal view of the chest.INDICATION: evaluate for pneumonia.COMPARISON: 01/17/2023.FINDINGS:LINES/TUBES: Tracheostomy tube is present, as before.HEART AND MEDIASTINUM: Cardiomediastinal contour is stable.Atherosclerotic calcifications are present within the arch of the aorta.LUNGS: Persistent left lower lobe collapse and/or consolidation withsimilar appearance of patchy right basilar opacities. No pulmonaryedema.PLEURA: Small bilateral pleural effusions. No pneumothorax.SOFT TISSUES AND BONES: Unremarkable.IMPRESSION:Persistent small bilateral pleural effusions with bibasilar opacities,left greater than right, not significantly changed compared to the priorexamination and either represent aspiration or pneumonia. Follow-upresolution is advised.Electronically Signed By: Benjamin Mckenzie02/12/2023 17:34 CDTWorkstation Name: [id number] (CELLAVISION MANUAL DIFF)2023-02-12 16:41:26 Test Item Value Reference Range Interpretation Comments NEUTROPHILS - REL 92 % (CELLAVISION)(BEAKER) (test code = 2816) LYMPHOCYTES - REL 5 % (CELLAVISION)(BEAKER) (test code = 2817) MONOCYTES - REL 2 % (CELLAVISION)(BEAKER) (test code = 2818) EOSINOPHILS - REL 1 % (CELLAVISION)(BEAKER) (test code = 2819) NEUTROPHILS - ABS 23.00 K/ul 1.56-6.13 H (CELLAVISION)(BEAKER) (test code = 2830) LYMPHOCYTES - ABS 1.25 K/ul 1.18-3.74 (CELLAVISION)(BEAKER) (test code = 2831) MONOCYTES - ABS 0.50 K/uL 0.24-0.36 H (CELLAVISION)(BEAKER) (test code = 2832) EOSINOPHILS - ABS 0.25 K/uL 0.04-0.36 (CELLAVISION)(BEAKER) (test code = 2834) TOTAL COUNTED (BEAKER) (test code 100 = 1351) RBC MORPHOLOGY (BEAKER) (test code Normal = 762) WBC MORPHOLOGY (BEAKER) (test code Normal = 487) PLT MORPHOLOGY (BEAKER) (test code Normal = 486) PLATELET CONCENTRATION Increased (CELLAVISION)(BEAKER) (test code = 3438) CBC W/PLT COUNT & AUTO [id number] 15:10:05 Test Item Value Reference Range Interpretation Comments WHITE BLOOD CELL COUNT (BEAKER) 25.0 K/ L 3.5-10.5 H (test code = 775) RED BLOOD CELL COUNT (BEAKER) 3.23 M/ L 3.93-5.22 L (test code = 761) HEMOGLOBIN (BEAKER) (test code = 10.5 GM/DL 11.2-15.7 L 410) HEMATOCRIT (BEAKER) (test code = 32.2 % 34.1-44.9 L 411) MEAN CORPUSCULAR VOLUME (BEAKER) 100 fL 79-95 H (test code = 753) MEAN CORPUSCULAR HEMOGLOBIN 32.5 pg 25.6-32.2 H (BEAKER) (test code = 751) MEAN CORPUSCULAR HEMOGLOBIN CONC 32.6 GM/DL 32.2-35.5 (BEAKER) (test code = 752) RED CELL DISTRIBUTION WIDTH 16.6 % 11.7-14.4 H (BEAKER) (test code = 412) PLATELET COUNT (BEAKER) (test 613 K/CU MM 150-450 H code = 756) MEAN PLATELET VOLUME (BEAKER) 8.8 fL 9.4-12.3 L (test code = 754) NUCLEATED RED BLOOD CELLS 0 /100 WBC 0-0 (BEAKER) (test code = 413) FL MODIFIED BARIUM [id number] 14:39:44 [facility] : 1955 Sex: FEXAMINATION: Modified barium swallow studyINDICATION: Dysphagia.COMPARISON: Modified barium swallow from 01/30/2023.TECHNIQUE: The examination was performed in conjunction with speechpathology. Varying consistencies of barium was administered underlateral fluoroscopic observation.Fluoroscopy time: 1.6 minutesNumber of images: 14IMPRESSION:Please refer to the speech pathologist's note from the same date forfurther description.Electronically Signed By: gO Hardy02/12/2023 14:41 CDTWorkstation Name: [id number] METABOLIC [id number] 05:08:16 Test Item Value Reference Range Interpretation Comments SODIUM (BEAKER) 139 meq/L 136-145 (test code = 381) POTASSIUM 4.3 meq/L 3.5-5.1 (BEAKER) (test code = 379) CHLORIDE (BEAKER) 98 meq/L 98-107 (test code = 382) CO2 (BEAKER) 31 meq/L 22-29 H (test code = 355) BLOOD UREA 27 mg/dL 7-21 H NITROGEN (BEAKER) (test code = 354) CREATININE 0.71 mg/dL 0.57-1.25 (BEAKER) (test code = 358) GLUCOSE RANDOM 106 mg/dL 70-105 H (BEAKER) (test code = 652) CALCIUM (BEAKER) 9.5 mg/dL 8.4-10.2 (test code = 697) EGFR (BEAKER) 92 Interpretatio n of eGFR (test code = mL/min/1.73 values Stage De scription 1092) sq m Result G1 Zainab l or high >=90 G2 Mildly decreased 60-89 G3a Mildl y to moderately 45-5 9 G3b Moderately to s everely 30-44 G4 Severl y decreased 15-29 G5 Kidney failure <15Reported eGF R is based on the CKD-EPI 2020 equation that d oes not use a race coefficientEsti mated GFR is not as accur ate as Creatinine Mamie shandra in predicting glom erular filtration rate . Estimated GFR is not appl icable for dialysis patien ts Rail Specialist ID - ADMINCBC (HEMOGRAM ONLY)2023-02-12 04:25:34 Test Item Value Reference Range Interpretation Comments WHITE BLOOD CELL COUNT (BEAKER) 33.1 K/ L 3.5-10.5 H (test code = 775) RED BLOOD CELL COUNT (BEAKER) 3.77 M/ L 3.93-5.22 L (test code = 761) HEMOGLOBIN (BEAKER) (test code = 11.9 GM/DL 11.2-15.7 410) HEMATOCRIT (BEAKER) (test code = 36.4 % 34.1-44.9 411) MEAN CORPUSCULAR VOLUME (BEAKER) 97 fL 79-95 H (test code = 753) MEAN CORPUSCULAR HEMOGLOBIN 31.6 pg 25.6-32.2 (BEAKER) (test code = 751) MEAN CORPUSCULAR HEMOGLOBIN CONC 32.7 GM/DL 32.2-35.5 (BEAKER) (test code = 752) RED CELL DISTRIBUTION WIDTH 16.5 % 11.7-14.4 H (BEAKER) (test code = 412) PLATELET COUNT (BEAKER) (test 704 K/CU MM 150-450 H code = 756) MEAN PLATELET VOLUME (BEAKER) 9.0 fL 9.4-12.3 L (test code = 754) NUCLEATED RED BLOOD CELLS 0 /100 WBC 0-0 (BEAKER) (test code = 413) LACTIC ACID, [id number] 18:43:31 Test Item Value Reference Range Interpretation Comments LACTATE BLOOD VENOUS 1.43 mmol/L 0.50-2.00 Specime n slightly (2) (BEAKER) (test hemolyzed code = 0842) Rail Specialist ID - mmBASIC METABOLIC [id number] 07:38:54 Test Item Value Reference Range Interpretation Comments SODIUM (BEAKER) 140 meq/L 136-145 (test code = 381) POTASSIUM 4.2 meq/L 3.5-5.1 (BEAKER) (test code = 379) CHLORIDE (BEAKER) 100 meq/L 98-107 (test code = 382) CO2 (BEAKER) 30 meq/L 22-29 H (test code = 355) BLOOD UREA 20 mg/dL 7-21 NITROGEN (BEAKER) (test code = 354) CREATININE 0.60 mg/dL 0.57-1.25 (BEAKER) (test code = 358) GLUCOSE RANDOM 89 mg/dL 70-105 (BEAKER) (test code = 652) CALCIUM (BEAKER) 9.6 mg/dL 8.4-10.2 (test code = 697) EGFR (BEAKER) 97 Interpretati on of eGFR (test code = mL/min/1.73 values Stage De scription 1092) sq m Result G1 Zainab l or high >=90 G2 Mildly decreased 60-89 G3a Mildl y to moderately 45-5 9 G3b Moderately to s everely 30-44 G4 Severl y decreased 15-29 G5 Kidney failure <15Reported eGF R is based on the CKD-EPI 2020 equation that d oes not use a race coefficientEsti mated GFR is not as accur ate as Creatinine Mamie devi in predicting glom erular filtration rate . Estimated GFR is not appl icable for dialysis patien ts Rail Specialist ID - MMCBC W/PLT COUNT & AUTO [id number] 06:43:27 Test Item Value Reference Range Interpretation Comments WHITE BLOOD CELL COUNT (BEAKER) 11.0 K/ L 3.5-10.5 H (test code = 775) RED BLOOD CELL COUNT (BEAKER) 3.17 M/ L 3.93-5.22 L (test code = 761) HEMOGLOBIN (BEAKER) (test code = 10.0 GM/DL 11.2-15.7 L 410) HEMATOCRIT (BEAKER) (test code = 32.2 % 34.1-44.9 L 411) MEAN CORPUSCULAR VOLUME (BEAKER) 102 fL 79-95 H (test code = 753) MEAN CORPUSCULAR HEMOGLOBIN 31.5 pg 25.6-32.2 (BEAKER) (test code = 751) MEAN CORPUSCULAR HEMOGLOBIN CONC 31.1 GM/DL 32.2-35.5 L (BEAKER) (test code = 752) RED CELL DISTRIBUTION WIDTH 16.3 % 11.7-14.4 H (BEAKER) (test code = 412) PLATELET COUNT (BEAKER) (test 581 K/CU MM 150-450 H code = 756) MEAN PLATELET VOLUME (BEAKER) 9.1 fL 9.4-12.3 L (test code = 754) NUCLEATED RED BLOOD CELLS 0 /100 WBC 0-0 (BEAKER) (test code = 413) NEUTROPHILS RELATIVE PERCENT 63 % (BEAKER) (test code = 429) LYMPHOCYTES RELATIVE PERCENT 14 % (BEAKER) (test code = 430) MONOCYTES RELATIVE PERCENT 11 % (BEAKER) (test code = 431) EOSINOPHILS RELATIVE PERCENT 10 % (BEAKER) (test code = 432) BASOPHILS RELATIVE PERCENT 1 % (BEAKER) (test code = 437) NEUTROPHILS ABSOLUTE COUNT 6.92 K/ L 1.56-6.13 H (BEAKER) (test code = 670) LYMPHOCYTES ABSOLUTE COUNT 1.55 K/ L 1.18-3.74 (BEAKER) (test code = 414) MONOCYTES ABSOLUTE COUNT (BEAKER) 1.17 K/ L 0.24-0.36 H (test code = 415) EOSINOPHILS ABSOLUTE COUNT 1.14 K/ L 0.04-0.36 H (BEAKER) (test code = 416) BASOPHILS ABSOLUTE COUNT (BEAKER) 0.09 K/ L 0.01-0.08 H (test code = 417) IMMATURE GRANULOCYTES-RELATIVE 0.70 % 0.00-1.00 PERCENT (BEAKER) (test code = 2801) COMPREHENSIVE METABOLIC [id number] 06:43:44 Test Item Value Reference Range Interpretation Comments TOTAL PROTEIN 5.3 gm/dL 6.0-8.3 L (BEAKER) (test code = 770) ALBUMIN (BEAKER) 2.3 g/dL 3.5-5.0 L (test code = 1145) ALKALINE 304 U/L 40-150 H PHOSPHATASE (BEAKER) (test code = 346) BILIRUBIN TOTAL 0.2 mg/dL 0.2-1.2 (BEAKER) (test code = 377) SODIUM (BEAKER) 137 meq/L 136-145 (test code = 381) POTASSIUM (BEAKER) 5.0 meq/L 3.5-5.1 (test code = 379) CHLORIDE (BEAKER) 98 meq/L 98-107 (test code = 382) CO2 (BEAKER) (test 31 meq/L 22-29 H code = 355) BLOOD UREA 22 mg/dL 7-21 H NITROGEN (BEAKER) (test code = 354) CREATININE 0.59 mg/dL 0.57-1.25 (BEAKER) (test code = 358) GLUCOSE RANDOM 89 mg/dL 70-105 (BEAKER) (test code = 652) CALCIUM (BEAKER) 9.3 mg/dL 8.4-10.2 (test code = 697) AST (SGOT) 29 U/L 5-34 (BEAKER) (test code = 353) ALT (SGPT) 43 U/L 6-55 (BEAKER) (test code = 347) EGFR (BEAKER) 97 Interpretatio n of eGFR (test code = 1092) mL/min/1.[address] age Description sq m Result G1 Zainab l or high >=90 G2 Mildly decreased 60-89 G3a Mildl y to moderately 45-5 9 G3b Moderately to s everely 30-44 G4 Severl y decreased 15-29 G5 Kidney failure <15Reported eGF R is based on the CKD-EPI 2020 equation that d oes not use a race coefficientEsti mated GFR is not as accur ate as Creatinine Mamie shandra in predicting glom erular filtration rate . Estimated GFR is not appl icable for dialysis patien ts Rail Specialist ID - [id number] 06:43:44 Test Item Value Reference Range Interpretation Comments MAGNESIUM (BEAKER) (test code = 1.5 mg/dL 1.6-2.6 L 627) Rail Specialist ID - ADMINCBC W/PLT COUNT & AUTO [id number] 06:17:04 Test Item Value Reference Range Interpretation Comments WHITE BLOOD CELL COUNT (BEAKER) 11.6 K/ L 3.5-10.5 H (test code = 775) RED BLOOD CELL COUNT (BEAKER) 3.05 M/ L 3.93-5.22 L (test code = 761) HEMOGLOBIN (BEAKER) (test code = 9.6 GM/DL 11.2-15.7 L 410) HEMATOCRIT (BEAKER) (test code = 30.2 % 34.1-44.9 L 411) MEAN CORPUSCULAR VOLUME (BEAKER) 99 fL 79-95 H (test code = 753) MEAN CORPUSCULAR HEMOGLOBIN 31.5 pg 25.6-32.2 (BEAKER) (test code = 751) MEAN CORPUSCULAR HEMOGLOBIN CONC 31.8 GM/DL 32.2-35.5 L (BEAKER) (test code = 752) RED CELL DISTRIBUTION WIDTH 16.5 % 11.7-14.4 H (BEAKER) (test code = 412) PLATELET COUNT (BEAKER) (test 569 K/CU MM 150-450 H code = 756) MEAN PLATELET VOLUME (BEAKER) 9.0 fL 9.4-12.3 L (test code = 754) NUCLEATED RED BLOOD CELLS 0 /100 WBC 0-0 (BEAKER) (test code = 413) NEUTROPHILS RELATIVE PERCENT 66 % (BEAKER) (test code = 429) LYMPHOCYTES RELATIVE PERCENT 13 % (BEAKER) (test code = 430) MONOCYTES RELATIVE PERCENT 12 % (BEAKER) (test code = 431) EOSINOPHILS RELATIVE PERCENT 8 % (BEAKER) (test code = 432) BASOPHILS RELATIVE PERCENT 1 % (BEAKER) (test code = 437) NEUTROPHILS ABSOLUTE COUNT 7.64 K/ L 1.56-6.13 H (BEAKER) (test code = 670) LYMPHOCYTES ABSOLUTE COUNT 1.45 K/ L 1.18-3.74 (BEAKER) (test code = 414) MONOCYTES ABSOLUTE COUNT (BEAKER) 1.42 K/ L 0.24-0.36 H (test code = 415) EOSINOPHILS ABSOLUTE COUNT 0.98 K/ L 0.04-0.36 H (BEAKER) (test code = 416) BASOPHILS ABSOLUTE COUNT (BEAKER) 0.07 K/ L 0.01-0.08 (test code = 417) IMMATURE GRANULOCYTES-RELATIVE 0.60 % 0.00-1.00 PERCENT (BEAKER) (test code = 2801) (CELLAVISION MANUAL DIFF)2023-02-03 07:07:21 Test Item Value Reference Range Interpretation Comments NEUTROPHILS - REL 68 % (CELLAVISION)(BEAKER) (test code = 2816) LYMPHOCYTES - REL 11 % (CELLAVISION)(BEAKER) (test code = 2817) MONOCYTES - REL 6 % (CELLAVISION)(BEAKER) (test code = 2818) EOSINOPHILS - REL 15 % (CELLAVISION)(BEAKER) (test code = 2819) NEUTROPHILS - ABS 7.96 K/ul 1.56-6.13 H (CELLAVISION)(BEAKER) (test code = 2830) LYMPHOCYTES - ABS 1.29 K/ul 1.18-3.74 (CELLAVISION)(BEAKER) (test code = 2831) MONOCYTES - ABS 0.70 K/uL 0.24-0.36 H (CELLAVISION)(BEAKER) (test code = 2832) EOSINOPHILS - ABS 1.76 K/uL 0.04-0.36 H (CELLAVISION)(BEAKER) (test code = 2834) TOTAL COUNTED (BEAKER) (test code = 100 1351) WBC MORPHOLOGY (BEAKER) (test code Normal = 487) PLT MORPHOLOGY (BEAKER) (test code Normal = 486) POLYCHROMATOPHILLIC RBCS(BEAKER) 1+ few (test code = 478) ARTIFACT (CELLAVISION)(BEAKER) Present (test code = 3432) PLATELET CONCENTRATION Increased (CELLAVISION)(BEAKER) (test code = 3438) Rail Specialist ID - Desirae Hi comments: Slide comments:CBC W/PLT COUNT & AUTO [id number] 07:07:20 Test Item Value Reference Range Interpretation Comments WHITE BLOOD CELL COUNT (BEAKER) 11.7 K/ L 3.5-10.5 H (test code = 775) RED BLOOD CELL COUNT (BEAKER) 3.19 M/ L 3.93-5.22 L (test code = 761) HEMOGLOBIN (BEAKER) (test code = 10.1 GM/DL 11.2-15.7 L 410) HEMATOCRIT (BEAKER) (test code = 32.3 % 34.1-44.9 L 411) MEAN CORPUSCULAR VOLUME (BEAKER) 101 fL 79-95 H (test code = 753) MEAN CORPUSCULAR HEMOGLOBIN 31.7 pg 25.6-32.2 (BEAKER) (test code = 751) MEAN CORPUSCULAR HEMOGLOBIN CONC 31.3 GM/DL 32.2-35.5 L (BEAKER) (test code = 752) RED CELL DISTRIBUTION WIDTH 16.5 % 11.7-14.4 H (BEAKER) (test code = 412) PLATELET COUNT (BEAKER) (test 609 K/CU MM 150-450 H code = 756) MEAN PLATELET VOLUME (BEAKER) 9.3 fL 9.4-12.3 L (test code = 754) NUCLEATED RED BLOOD CELLS 0 /100 WBC 0-0 (BEAKER) (test code = 413) [id number] 05:19:06 Test Item Value Reference Range Interpretation Comments MAGNESIUM (BEAKER) (test code = 1.6 mg/dL 1.6-2.6 627) Rail Specialist ID - DELLA WCOMPREHENSIVE METABOLIC [id number] 05:19:05 Test Item Value Reference Range Interpretation Comments TOTAL PROTEIN 5.6 gm/dL 6.0-8.3 L (BEAKER) (test code = 770) ALBUMIN (BEAKER) 2.4 g/dL 3.5-5.0 L (test code = 1145) ALKALINE 332 U/L 40-150 H PHOSPHATASE (BEAKER) (test code = 346) BILIRUBIN TOTAL 0.2 mg/dL 0.2-1.2 (BEAKER) (test code = 377) SODIUM (BEAKER) 138 meq/L 136-145 (test code = 381) POTASSIUM (BEAKER) 4.6 meq/L 3.5-5.1 (test code = 379) CHLORIDE (BEAKER) 96 meq/L 98-107 L (test code = 382) CO2 (BEAKER) (test 32 meq/L 22-29 H code = 355) BLOOD UREA 20 mg/dL 7-21 NITROGEN (BEAKER) (test code = 354) CREATININE 0.59 mg/dL 0.57-1.25 (BEAKER) (test code = 358) GLUCOSE RANDOM 91 mg/dL 70-105 (BEAKER) (test code = 652) CALCIUM (BEAKER) 9.5 mg/dL 8.4-10.2 (test code = 697) AST (SGOT) 46 U/L 5-34 H (BEAKER) (test code = 353) ALT (SGPT) 53 U/L 6-55 (BEAKER) (test code = 347) EGFR (BEAKER) 97 Interpretatio n of eGFR (test code = 1092) mL/min/1.[address] age Description sq m Result G1 Zainab l or high >=90 G2 Mildly decreased 60-89 G3a Mildl y to moderately 45-5 9 G3b Moderately to s everely 30-44 G4 Severl y decreased 15-29 G5 Kidney failure <15Reported eGF R is based on the CKD-EPI 202 equation that d oes not use a race coefficientEsti mated GFR is not as accur ate as Creatinine Mamie devi in predicting glom erular filtration rate . Estimated GFR is not appl icable for dialysis patien ts Rail Specialist ID - DELLA WCBC W/PLT COUNT & AUTO [id number] 06:19:03 Test Item Value Reference Range Interpretation Comments WHITE BLOOD CELL COUNT (BEAKER) 9.5 K/ L 3.5-10.5 (test code = 775) RED BLOOD CELL COUNT (BEAKER) 2.66 M/ L 3.93-5.22 L (test code = 761) HEMOGLOBIN (BEAKER) (test code = 8.6 GM/DL 11.2-15.7 L 410) HEMATOCRIT (BEAKER) (test code = 26.8 % 34.1-44.9 L 411) MEAN CORPUSCULAR VOLUME (BEAKER) 101 fL 79-95 H (test code = 753) MEAN CORPUSCULAR HEMOGLOBIN 32.3 pg 25.6-32.2 H (BEAKER) (test code = 751) MEAN CORPUSCULAR HEMOGLOBIN CONC 32.1 GM/DL 32.2-35.5 L (BEAKER) (test code = 752) RED CELL DISTRIBUTION WIDTH 17.2 % 11.7-14.4 H (BEAKER) (test code = 412) PLATELET COUNT (BEAKER) (test 578 K/CU MM 150-450 H code = 756) MEAN PLATELET VOLUME (BEAKER) 9.4 fL 9.4-12.3 (test code = 754) NUCLEATED RED BLOOD CELLS 0 /100 WBC 0-0 (BEAKER) (test code = 413) NEUTROPHILS RELATIVE PERCENT 62 % (BEAKER) (test code = 429) LYMPHOCYTES RELATIVE PERCENT 17 % (BEAKER) (test code = 430) MONOCYTES RELATIVE PERCENT 15 % (BEAKER) (test code = 431) EOSINOPHILS RELATIVE PERCENT 6 % (BEAKER) (test code = 432) BASOPHILS RELATIVE PERCENT 0 % (BEAKER) (test code = 437) NEUTROPHILS ABSOLUTE COUNT 5.80 K/ L 1.56-6.13 (BEAKER) (test code = 670) LYMPHOCYTES ABSOLUTE COUNT 1.61 K/ L 1.18-3.74 (BEAKER) (test code = 414) MONOCYTES ABSOLUTE COUNT (BEAKER) 1.38 K/ L 0.24-0.36 H (test code = 415) EOSINOPHILS ABSOLUTE COUNT 0.58 K/ L 0.04-0.36 H (BEAKER) (test code = 416) BASOPHILS ABSOLUTE COUNT (BEAKER) 0.04 K/ L 0.01-0.08 (test code = 417) IMMATURE GRANULOCYTES-RELATIVE 0.40 % 0.00-1.00 PERCENT (BEAKER) (test code = 2801) [id number] 05:59:05 Test Item Value Reference Range Interpretation Comments MAGNESIUM (BEAKER) (test code = 1.6 mg/dL 1.6-2.6 627) Rail Specialist ID - MMCOMPREHENSIVE METABOLIC [id number] 05:59:04 Test Item Value Reference Range Interpretation Comments TOTAL PROTEIN 5.2 gm/dL 6.0-8.3 L (BEAKER) (test code = 770) ALBUMIN (BEAKER) 2.2 g/dL 3.5-5.0 L (test code = 1145) ALKALINE 295 U/L 40-150 H PHOSPHATASE (BEAKER) (test code = 346) BILIRUBIN TOTAL 0.2 mg/dL 0.2-1.2 (BEAKER) (test code = 377) SODIUM (BEAKER) 137 meq/L 136-145 (test code = 381) POTASSIUM (BEAKER) 4.3 meq/L 3.5-5.1 (test code = 379) CHLORIDE (BEAKER) 95 meq/L 98-107 L (test code = 382) CO2 (BEAKER) (test 35 meq/L 22-29 H code = 355) BLOOD UREA 22 mg/dL 7-21 H NITROGEN (BEAKER) (test code = 354) CREATININE 0.58 mg/dL 0.57-1.25 (BEAKER) (test code = 358) GLUCOSE RANDOM 88 mg/dL 70-105 (BEAKER) (test code = 652) CALCIUM (BEAKER) 9.3 mg/dL 8.4-10.2 (test code = 697) AST (SGOT) 27 U/L 5-34 (BEAKER) (test code = 353) ALT (SGPT) 48 U/L 6-55 (BEAKER) (test code = 347) EGFR (BEAKER) 98 Interpretatio n of eGFR (test code = 1092) mL/min/1.[address] age Description sq m Result G1 Zainab l or high >=90 G2 Mildly decreased 60-89 G3a Mildl y to moderately 45-5 9 G3b Moderately to s everely 30-44 G4 Severl y decreased 15-29 G5 Kidney failure <15Reported eGF R is based on the CKD-EPI 2021 equation that d oes not use a race coefficientEsti mated GFR is not as accur ate as Creatinine Mamie devi in predicting glom erular filtration rate . Estimated GFR is not appl icable for dialysis patien ts Rail Specialist ID - MMBLOOD GAS, [id number] 05:42:35 Test Item Value Reference Range Interpretation Comments PH VENOUS (BEAKER) (test code = 7.43 7.32-7.42 H 701) PCO2 VENOUS (BEAKER) (test code = 59 mm Hg 41-51 H 755) PO2 VENOUS (BEAKER) (test code = 72 mm Hg 25-40 H 702) O2 SATURATION VENOUS (BEAKER) 94.5 % 40.0-70.0 H (test code = 703) HCO3 VENOUS (BEAKER) (test code = 38 mmol/L 21-29 H 705) BASE EXCESS VENOUS (BEAKER) (test 11.3 mmol/L -2.0-3.0 H code = 704) PATIENT TEMPERATURE (BEAKER) 36.9 (test code = 1818) FIO2 (BEAKER) (test code = 1819) 35.0 COMPREHENSIVE METABOLIC [id number] 04:50:33 Test Item Value Reference Range Interpretation Comments TOTAL PROTEIN 5.3 gm/dL 6.0-8.3 L (BEAKER) (test code = 770) ALBUMIN (BEAKER) 2.3 g/dL 3.5-5.0 L (test code = 1145) ALKALINE 332 U/L 40-150 H PHOSPHATASE (BEAKER) (test code = 346) BILIRUBIN TOTAL 0.3 mg/dL 0.2-1.2 (BEAKER) (test code = 377) SODIUM (BEAKER) 137 meq/L 136-145 (test code = 381) POTASSIUM (BEAKER) 4.4 meq/L 3.5-5.1 (test code = 379) CHLORIDE (BEAKER) 96 meq/L 98-107 L (test code = 382) CO2 (BEAKER) (test 31 meq/L 22-29 H code = 355) BLOOD UREA 24 mg/dL 7-21 H NITROGEN (BEAKER) (test code = 354) CREATININE 0.53 mg/dL 0.57-1.25 L (BEAKER) (test code = 358) GLUCOSE RANDOM 89 mg/dL 70-105 (BEAKER) (test code = 652) CALCIUM (BEAKER) 9.5 mg/dL 8.4-10.2 (test code = 697) AST (SGOT) 38 U/L 5-34 H (BEAKER) (test code = 353) ALT (SGPT) 62 U/L 6-55 H (BEAKER) (test code = 347) EGFR (BEAKER) 100 Interpretatio n of eGFR (test code = 1092) mL/min/1.73 values S tage Description sq m Result G1 Zainab l or high >=90 G2 Mildly decreased 60-89 G3a Mildl y to moderately 45-5 9 G3b Moderately to s everely 30-44 G4 Severl y decreased 15-29 G5 Kidney failure <15Reported eGF R is based on the CKD-EPI 1 equation that d oes not use a race coefficientEsti mated GFR is not as accur ate as Creatinine Mamie shandra in predicting glom erular filtration rate . Estimated GFR is not appl icable for dialysis patien ts [employer]ist ID - [id number] 04:50:33 Test Item Value Reference Range Interpretation Comments MAGNESIUM (BEAKER) (test code = 1.7 mg/dL 1.6-2.6 627) [employer] Specialist ID - MARCOCBC W/PLT COUNT & AUTO [id number] 04:27:09 Test Item Value Reference Range Interpretation Comments WHITE BLOOD CELL COUNT (BEAKER) 13.0 K/ L 3.5-10.5 H (test code = 775) RED BLOOD CELL COUNT (BEAKER) 2.80 M/ L 3.93-5.22 L (test code = 761) HEMOGLOBIN (BEAKER) (test code = 8.8 GM/DL 11.2-15.7 L 410) HEMATOCRIT (BEAKER) (test code = 28.5 % 34.1-44.9 L 411) MEAN CORPUSCULAR VOLUME (BEAKER) 102 fL 79-95 H (test code = 753) MEAN CORPUSCULAR HEMOGLOBIN 31.4 pg 25.6-32.2 (BEAKER) (test code = 751) MEAN CORPUSCULAR HEMOGLOBIN CONC 30.9 GM/DL 32.2-35.5 L (BEAKER) (test code = 752) RED CELL DISTRIBUTION WIDTH 17.3 % 11.7-14.4 H (BEAKER) (test code = 412) PLATELET COUNT (BEAKER) (test 621 K/CU MM 150-450 H code = 756) MEAN PLATELET VOLUME (BEAKER) 9.6 fL 9.4-12.3 (test code = 754) NUCLEATED RED BLOOD CELLS 0 /100 WBC 0-0 (BEAKER) (test code = 413) NEUTROPHILS RELATIVE PERCENT 74 % (BEAKER) (test code = 429) LYMPHOCYTES RELATIVE PERCENT 12 % (BEAKER) (test code = 430) MONOCYTES RELATIVE PERCENT 9 % (BEAKER) (test code = 431) EOSINOPHILS RELATIVE PERCENT 5 % (BEAKER) (test code = 432) BASOPHILS RELATIVE PERCENT 1 % (BEAKER) (test code = 437) NEUTROPHILS ABSOLUTE COUNT 9.58 K/ L 1.56-6.13 H (BEAKER) (test code = 670) LYMPHOCYTES ABSOLUTE COUNT 1.50 K/ L 1.18-3.74 (BEAKER) (test code = 414) MONOCYTES ABSOLUTE COUNT (BEAKER) 1.23 K/ L 0.24-0.36 H (test code = 415) EOSINOPHILS ABSOLUTE COUNT 0.60 K/ L 0.04-0.36 H (BEAKER) (test code = 416) BASOPHILS ABSOLUTE COUNT (BEAKER) 0.07 K/ L 0.01-0.08 (test code = 417) IMMATURE GRANULOCYTES-RELATIVE 0.50 % 0.00-1.00 PERCENT (BEAKER) (test code = 2801) BLOOD GAS, [id number] 04:11:41 Test Item Value Reference Range Interpretation Comments PH VENOUS (BEAKER) (test code = 7.43 7.32-7.42 H 701) PCO2 VENOUS (BEAKER) (test code = 61 mm Hg 41-51 H 755) PO2 VENOUS (BEAKER) (test code = 56 mm Hg 25-40 H 702) O2 SATURATION VENOUS (BEAKER) 89.2 % 40.0-70.0 H (test code = 703) HCO3 VENOUS (BEAKER) (test code = 39 mmol/L 21-29 H 705) BASE EXCESS VENOUS (BEAKER) (test 13.1 mmol/L -2.0-3.0 H code = 704) PATIENT TEMPERATURE (BEAKER) 36.9 (test code = 1818) FIO2 (BEAKER) (test code = 1819) 35.0 CBC W/PLT COUNT & AUTO [id number] 11:28:15 Test Item Value Reference Range Interpretation Comments WHITE BLOOD CELL COUNT (BEAKER) 13.2 K/ L 3.5-10.5 H (test code = 775) RED BLOOD CELL COUNT (BEAKER) 2.87 M/ L 3.93-5.22 L (test code = 761) HEMOGLOBIN (BEAKER) (test code = 9.2 GM/DL 11.2-15.7 L 410) HEMATOCRIT (BEAKER) (test code = 28.9 % 34.1-44.9 L 411) MEAN CORPUSCULAR VOLUME (BEAKER) 101 fL 79-95 H (test code = 753) MEAN CORPUSCULAR HEMOGLOBIN 32.1 pg 25.6-32.2 (BEAKER) (test code = 751) MEAN CORPUSCULAR HEMOGLOBIN CONC 31.8 GM/DL 32.2-35.5 L (BEAKER) (test code = 752) RED CELL DISTRIBUTION WIDTH 17.5 % 11.7-14.4 H (BEAKER) (test code = 412) PLATELET COUNT (BEAKER) (test 686 K/CU MM 150-450 H code = 756) MEAN PLATELET VOLUME (BEAKER) 9.6 fL 9.4-12.3 (test code = 754) NUCLEATED RED BLOOD CELLS 0 /100 WBC 0-0 (BEAKER) (test code = 413) NEUTROPHILS RELATIVE PERCENT 77 % (BEAKER) (test code = 429) LYMPHOCYTES RELATIVE PERCENT 9 % (BEAKER) (test code = 430) MONOCYTES RELATIVE PERCENT 11 % (BEAKER) (test code = 431) EOSINOPHILS RELATIVE PERCENT 3 % (BEAKER) (test code = 432) BASOPHILS RELATIVE PERCENT 0 % (BEAKER) (test code = 437) NEUTROPHILS ABSOLUTE COUNT 10.23 K/ L 1.56-6.13 H (BEAKER) (test code = 670) LYMPHOCYTES ABSOLUTE COUNT 1.13 K/ L 1.18-3.74 L (BEAKER) (test code = 414) MONOCYTES ABSOLUTE COUNT (BEAKER) 1.40 K/ L 0.24-0.36 H (test code = 415) EOSINOPHILS ABSOLUTE COUNT 0.37 K/ L 0.04-0.36 H (BEAKER) (test code = 416) BASOPHILS ABSOLUTE COUNT (BEAKER) 0.05 K/ L 0.01-0.08 (test code = 417) IMMATURE GRANULOCYTES-RELATIVE 0.50 % 0.00-1.00 PERCENT (BEAKER) (test code = 2801) CBC W/PLT COUNT & AUTO [id number] 08:34:25 Test Item Value Reference Range Interpretation Comments WHITE BLOOD CELL COUNT (BEAKER) 13.3 K/ L 3.5-10.5 H (test code = 775) RED BLOOD CELL COUNT (BEAKER) 3.15 M/ L 3.93-5.22 L (test code = 761) HEMOGLOBIN (BEAKER) (test code = 10.0 GM/DL 11.2-15.7 L 410) HEMATOCRIT (BEAKER) (test code = 31.6 % 34.1-44.9 L 411) MEAN CORPUSCULAR VOLUME (BEAKER) 100 fL 79-95 H (test code = 753) MEAN CORPUSCULAR HEMOGLOBIN 31.7 pg 25.6-32.2 (BEAKER) (test code = 751) MEAN CORPUSCULAR HEMOGLOBIN CONC 31.6 GM/DL 32.2-35.5 L (BEAKER) (test code = 752) RED CELL DISTRIBUTION WIDTH 17.6 % 11.7-14.4 H (BEAKER) (test code = 412) PLATELET COUNT (BEAKER) (test 685 K/CU MM 150-450 H code = 756) MEAN PLATELET VOLUME (BEAKER) 10.0 fL 9.4-12.3 (test code = 754) NUCLEATED RED BLOOD CELLS 0 /100 WBC 0-0 (BEAKER) (test code = 413) (CELLAVISION MANUAL DIFF)2023-01-31 08:34:25 Test Item Value Reference Range Interpretation Comments NEUTROPHILS - REL 71 % (CELLAVISION)(BEAKER) (test code = 2816) LYMPHOCYTES - REL 8 % (CELLAVISION)(BEAKER) (test code = 2817) MONOCYTES - REL 18 % (CELLAVISION)(BEAKER) (test code = 2818) EOSINOPHILS - REL 2 % (CELLAVISION)(BEAKER) (test code = 2819) BASOPHILS - REL 1 % (CELLAVISION)(BEAKER) (test code = 2820) NEUTROPHILS - ABS 9.44 K/ul 1.56-6.13 H (CELLAVISION)(BEAKER) (test code = 2830) LYMPHOCYTES - ABS 1.06 K/ul 1.18-3.74 L (CELLAVISION)(BEAKER) (test code = 2831) MONOCYTES - ABS 2.39 K/uL 0.24-0.36 H (CELLAVISION)(BEAKER) (test code = 2832) EOSINOPHILS - ABS 0.27 K/uL 0.04-0.36 (CELLAVISION)(BEAKER) (test code = 2834) BASOPHILS - ABS 0.13 K/uL 0.01-0.08 H (CELLAVISION)(BEAKER) (test code = 2835) TOTAL COUNTED (BEAKER) (test code 100 = 1351) WBC MORPHOLOGY (BEAKER) (test Normal code = 487) PLT MORPHOLOGY (BEAKER) (test Normal code = 486) POLYCHROMATOPHILLIC RBCS(BEAKER) 2+ moderate (test code = 478) ARTIFACT (CELLAVISION)(BEAKER) Present (test code = 3432) PLATELET CONCENTRATION Increased (CELLAVISION)(BEAKER) (test code = 3438) Rail Specialist ID - Desirae Hi comments: Slide comments:BLOOD GAS, VENOUS 2023-01-31 06:52:11 Test Item Value Reference Range Interpretation Comments PH VENOUS (BEAKER) (test code = 7.35 7.32-7.42 701) PCO2 VENOUS (BEAKER) (test code = 78 mm Hg 41-51 HH 755) PO2 VENOUS (BEAKER) (test code = 37 mm Hg 25-40 702) O2 SATURATION VENOUS (BEAKER) 65.7 % 40.0-70.0 (test code = 703) HCO3 VENOUS (BEAKER) (test code = 42 mmol/L 21-29 HH 705) BASE EXCESS VENOUS (BEAKER) (test 13.6 mmol/L -2.0-3.0 H code = 704) PATIENT TEMPERATURE (BEAKER) 36.8 (test code = 1818) FIO2 (BEAKER) (test code = 1819) 40.0 COMPREHENSIVE METABOLIC [id number] 06:04:31 Test Item Value Reference Range Interpretation Comments TOTAL PROTEIN 5.8 gm/dL 6.0-8.3 L (BEAKER) (test code = 770) ALBUMIN (BEAKER) 2.5 g/dL 3.5-5.0 L (test code = 1145) ALKALINE 391 U/L 40-150 H PHOSPHATASE (BEAKER) (test code = 346) BILIRUBIN TOTAL 0.3 mg/dL 0.2-1.2 (BEAKER) (test code = 377) SODIUM (BEAKER) 139 meq/L 136-145 (test code = 381) POTASSIUM (BEAKER) 5.0 meq/L 3.5-5.1 (test code = 379) CHLORIDE (BEAKER) 96 meq/L 98-107 L (test code = 382) CO2 (BEAKER) (test 34 meq/L 22-29 H code = 355) BLOOD UREA 26 mg/dL 7-21 H NITROGEN (BEAKER) (test code = 354) CREATININE 0.56 mg/dL 0.57-1.25 L (BEAKER) (test code = 358) GLUCOSE RANDOM 87 mg/dL 70-105 (BEAKER) (test code = 652) CALCIUM (BEAKER) 9.6 mg/dL 8.4-10.2 (test code = 697) AST (SGOT) 57 U/L 5-34 H (BEAKER) (test code = 353) ALT (SGPT) 75 U/L 6-55 H (BEAKER) (test code = 347) EGFR (BEAKER) 99 Interpretatio n of eGFR (test code = 1092) mL/min/1.[address] age Description sq m Result G1 Zainab l or high >=90 G2 Mildly decreased 60-89 G3a Mildl y to moderately 45-5 9 G3b Moderately to s everely 30-44 G4 Severl y decreased 15-29 G5 Kidne y failure <15Reported eGF R is based on the CKD-EPI 202 equation that d oes not use a race coefficientEsti mated GFR is not as accur ate as Creatinine Mamie devi in predicting glom erular filtration rate . Estimated GFR is not appl icable for dialysis patien ts Rail Specialist ID - [id number] 06:04:31 Test Item Value Reference Range Interpretation Comments MAGNESIUM (BEAKER) (test code = 1.8 mg/dL 1.6-2.6 627) Rail Specialist ID - mmFL, ESOPH, SWALLOW FUNCTION, WITH CINE OR [id number] 16:44:00Reason for exam:->[facility]ag[facility] 1955 Sex: FFINAL REPORT Modified Barium Swallow History: Dysphagia Comparison: None Technique: Modified barium swallow was performed in conjunction with speech pathology. Please see separate report for further details. The patient was fed various consistencies of barium under real time fluoroscopic observation. Total Fluoroscopy Time: 1.4 minutes Dose area product: 575 uGy*m\\S\\2 Impression: Mo dified barium swallow as described above. Signed: Gutierrez Zuniga MDReport Verified Date/Time: 01/30/2023 16:44:39 Reading Location: [address] Consult Reading Room POCT-GLUCOSE [id number] 12:29:37 Test Item Value Reference Range Interpretation Comments POC-GLUCOSE METER 102 mg/dL 70-110 : TESTED A T [facility] 6720 (BEAKER) (test code = [facility] Kirstin [facility], 1538) [id number]: Rail Specialist/Techni mirtha ID = [id number] for Parisa Ware BLOOD GAS, [id number] 04:06:23 Test Item Value Reference Range Interpretation Comments PH VENOUS (BEAKER) (test code = 7.42 7.32-7.42 701) PCO2 VENOUS (BEAKER) (test code = 62 mm Hg 41-51 H 755) PO2 VENOUS (BEAKER) (test code = 111 mm Hg 25-40 H 702) O2 SATURATION VENOUS (BEAKER) 98.1 % 40.0-70.0 H (test code = 703) HCO3 VENOUS (BEAKER) (test code = 40 mmol/L 21-29 HH 705) BASE EXCESS VENOUS (BEAKER) (test 13.4 mmol/L -2.0-3.0 H code = 704) PATIENT TEMPERATURE (BEAKER) 36.6 (test code = 1818) FIO2 (BEAKER) (test code = 1819) 30.0 [id number] 03:57:05 Test Item Value Reference Range Interpretation Comments MAGNESIUM (BEAKER) (test code = 1.6 mg/dL 1.6-2.6 627) Rail Specialist ID - DBCOMPREHENSIVE METABOLIC [id number] 03:57:04 Test Item Value Reference Range Interpretation Comments TOTAL PROTEIN 5.3 gm/dL 6.0-8.3 L (BEAKER) (test code = 770) ALBUMIN (BEAKER) 2.2 g/dL 3.5-5.0 L (test code = 1145) ALKALINE 314 U/L 40-150 H PHOSPHATASE (BEAKER) (test code = 346) BILIRUBIN TOTAL 0.2 mg/dL 0.2-1.2 (BEAKER) (test code = 377) SODIUM (BEAKER) 136 meq/L 136-145 (test code = 381) POTASSIUM (BEAKER) 4.5 meq/L 3.5-5.1 (test code = 379) CHLORIDE (BEAKER) 95 meq/L 98-107 L (test code = 382) CO2 (BEAKER) (test 32 meq/L 22-29 H code = 355) BLOOD UREA 26 mg/dL 7-21 H NITROGEN (BEAKER) (test code = 354) CREATININE 0.54 mg/dL 0.57-1.25 L (BEAKER) (test code = 358) GLUCOSE RANDOM 120 mg/dL 70-105 H (BEAKER) (test code = 652) CALCIUM (BEAKER) 9.1 mg/dL 8.4-10.2 (test code = 697) AST (SGOT) 35 U/L 5-34 H (BEAKER) (test code = 353) ALT (SGPT) 45 U/L 6-55 (BEAKER) (test code = 347) EGFR (BEAKER) 100 Interpretatio n of eGFR (test code = 1092) mL/min/1.[address] age Description sq m Result G1 Zainab l or high >=90 G2 Mildly decreased 60-89 G3a Mildl y to moderately 45-5 9 G3b Moderately to s everely 30-44 G4 Severl y decreased 15-29 G5 Kidney failure <15Reported eGF R is based on the CKD-EPI 2020 equation that d oes not use a race coefficientEsti mated GFR is not as accur ate as Creatinine Mamie devi in predicting glom erular filtration rate . Estimated GFR is not appl icable for dialysis patien ts Rail Specialist ID - DBCBC W/PLT COUNT & AUTO [id number] 03:48:47 Test Item Value Reference Range Interpretation Comments WHITE BLOOD CELL COUNT (BEAKER) 15.3 K/ L 3.5-10.5 H (test code = 775) RED BLOOD CELL COUNT (BEAKER) 2.72 M/ L 3.93-5.22 L (test code = 761) HEMOGLOBIN (BEAKER) (test code = 8.5 GM/DL 11.2-15.7 L 410) HEMATOCRIT (BEAKER) (test code = 27.2 % 34.1-44.9 L 411) MEAN CORPUSCULAR VOLUME (BEAKER) 100 fL 79-95 H (test code = 753) MEAN CORPUSCULAR HEMOGLOBIN 31.3 pg 25.6-32.2 (BEAKER) (test code = 751) MEAN CORPUSCULAR HEMOGLOBIN CONC 31.3 GM/DL 32.2-35.5 L (BEAKER) (test code = 752) RED CELL DISTRIBUTION WIDTH 17.8 % 11.7-14.4 H (BEAKER) (test code = 412) PLATELET COUNT (BEAKER) (test 680 K/CU MM 150-450 H code = 756) MEAN PLATELET VOLUME (BEAKER) 9.5 fL 9.4-12.3 (test code = 754) NUCLEATED RED BLOOD CELLS 0 /100 WBC 0-0 (BEAKER) (test code = 413) NEUTROPHILS RELATIVE PERCENT 78 % (BEAKER) (test code = 429) LYMPHOCYTES RELATIVE PERCENT 10 % (BEAKER) (test code = 430) MONOCYTES RELATIVE PERCENT 9 % (BEAKER) (test code = 431) EOSINOPHILS RELATIVE PERCENT 3 % (BEAKER) (test code = 432) BASOPHILS RELATIVE PERCENT 0 % (BEAKER) (test code = 437) NEUTROPHILS ABSOLUTE COUNT 11.87 K/ L 1.56-6.13 H (BEAKER) (test code = 670) LYMPHOCYTES ABSOLUTE COUNT 1.52 K/ L 1.18-3.74 (BEAKER) (test code = 414) MONOCYTES ABSOLUTE COUNT (BEAKER) 1.38 K/ L 0.24-0.36 H (test code = 415) EOSINOPHILS ABSOLUTE COUNT 0.40 K/ L 0.04-0.36 H (BEAKER) (test code = 416) BASOPHILS ABSOLUTE COUNT (BEAKER) 0.05 K/ L 0.01-0.08 (test code = 417) IMMATURE GRANULOCYTES-RELATIVE 0.30 % 0.00-1.00 PERCENT (BEAKER) (test code = 2801) POCT-GLUCOSE [id number] 01:07:35 Test Item Value Reference Range Interpretation Comments POC-GLUCOSE METER 124 mg/dL 70-110 H : TESTED A T [facility] 6720 (BEAKER) (test code = [facility], 1538) [id number]: Rail Specialist/Techni mirtha ID = [id number] for Asif Hanna POCT-GLUCOSE [id number] 17:27:56 Test Item Value Reference Range Interpretation Comments POC-GLUCOSE METER 104 mg/dL 70-110 : TESTED A T [facility] 6720 (BEAKER) (test code = [facility], 1538) [address]: Rail Specialist/Techni mirtha ID = [id number] for Larissa Akbar POCT-GLUCOSE [id number] 11:52:34 Test Item Value Reference Range Interpretation Comments POC-GLUCOSE METER 104 mg/dL 70-110 : TESTED A T [facility] 6720 (BEAKER) (test code = [facility], 1538) [id number]: Rail Specialist/Techni mirtha ID = [id number] for Isaak Akbarlla CBC W/PLT COUNT & AUTO [id number] 08:26:59 Test Item Value Reference Range Interpretation Comments WHITE BLOOD CELL COUNT (BEAKER) 15.1 K/ L 3.5-10.5 H (test code = 775) RED BLOOD CELL COUNT (BEAKER) 2.54 M/ L 3.93-5.22 L (test code = 761) HEMOGLOBIN (BEAKER) (test code = 8.3 GM/DL 11.2-15.7 L 410) HEMATOCRIT (BEAKER) (test code = 25.6 % 34.1-44.9 L 411) MEAN CORPUSCULAR VOLUME (BEAKER) 101 fL 79-95 H (test code = 753) MEAN CORPUSCULAR HEMOGLOBIN 32.7 pg 25.6-32.2 H (BEAKER) (test code = 751) MEAN CORPUSCULAR HEMOGLOBIN CONC 32.4 GM/DL 32.2-35.5 (BEAKER) (test code = 752) RED CELL DISTRIBUTION WIDTH 17.9 % 11.7-14.4 H (BEAKER) (test code = 412) PLATELET COUNT (BEAKER) (test 700 K/CU MM 150-450 H code = 756) MEAN PLATELET VOLUME (BEAKER) 10.0 fL 9.4-12.3 (test code = 754) NUCLEATED RED BLOOD CELLS 0 /100 WBC 0-0 (BEAKER) (test code = 413) (CELLAVISION MANUAL DIFF)2023-01-29 08:26:59 Test Item Value Reference Range Interpretation Comments NEUTROPHILS - REL 86 % (CELLAVISION)(BEAKER) (test code = 2816) LYMPHOCYTES - REL 2 % (CELLAVISION)(BEAKER) (test code = 2817) MONOCYTES - REL 6 % (CELLAVISION)(BEAKER) (test code = 2818) EOSINOPHILS - REL 5 % (CELLAVISION)(BEAKER) (test code = 2819) ATYPICAL LYMPHOCYTES - REL 1 % 0-0 H (CELLAVISION)(BEAKER) (test code = 2829) NEUTROPHILS - ABS 12.99 K/ul 1.56-6.13 H (CELLAVISION)(BEAKER) (test code = 2830) LYMPHOCYTES - ABS 0.30 K/ul 1.18-3.74 L (CELLAVISION)(BEAKER) (test code = 2831) MONOCYTES - ABS 0.91 K/uL 0.24-0.36 H (CELLAVISION)(BEAKER) (test code = 2832) EOSINOPHILS - ABS 0.76 K/uL 0.04-0.36 H (CELLAVISION)(BEAKER) (test code = 2834) ATYPICAL LYMPHOCYTES - ABS 0.15 K/uL 0.00-0.00 H (CELLAVISION)(BEAKER) (test code = 2858) TOTAL COUNTED (BEAKER) (test code 100 = 1351) WBC MORPHOLOGY (BEAKER) (test code Normal = 487) PLT MORPHOLOGY (BEAKER) (test code Normal = 486) POLYCHROMATOPHILLIC RBCS(BEAKER) 1+ few (test code = 478) ANISOCYTOSIS (BEAKER) (test code = 1+ few 961) MACROCYTES (BEAKER) (test code = 1+ few 964) ARTIFACT (CELLAVISION)(BEAKER) Present (test code = 3432) PLATELET CONCENTRATION Increased (CELLAVISION)(BEAKER) (test code = 3438) Rail Specialist ID - Lorraine OverholtUser comments: Slide comments:[id number] 05:30:43 Test Item Value Reference Range Interpretation Comments MAGNESIUM (BEAKER) (test code = 1.7 mg/dL 1.6-2.6 627) Rail Specialist ID - MMCOMPREHENSIVE METABOLIC [id number] 05:30:42 Test Item Value Reference Range Interpretation Comments TOTAL PROTEIN 5.3 gm/dL 6.0-8.3 L (BEAKER) (test code = 770) ALBUMIN (BEAKER) 2.3 g/dL 3.5-5.0 L (test code = 1145) ALKALINE 324 U/L 40-150 H PHOSPHATASE (BEAKER) (test code = 346) BILIRUBIN TOTAL 0.2 mg/dL 0.2-1.2 (BEAKER) (test code = 377) SODIUM (BEAKER) 136 meq/L 136-145 (test code = 381) POTASSIUM (BEAKER) 4.4 meq/L 3.5-5.1 (test code = 379) CHLORIDE (BEAKER) 96 meq/L 98-107 L (test code = 382) CO2 (BEAKER) (test 31 meq/L 22-29 H code = 355) BLOOD UREA 29 mg/dL 7-21 H NITROGEN (BEAKER) (test code = 354) CREATININE 0.52 mg/dL 0.57-1.25 L (BEAKER) (test code = 358) GLUCOSE RANDOM 119 mg/dL 70-105 H (BEAKER) (test code = 652) CALCIUM (BEAKER) 8.8 mg/dL 8.4-10.2 (test code = 697) AST (SGOT) 46 U/L 5-34 H (BEAKER) (test code = 353) ALT (SGPT) 55 U/L 6-55 (BEAKER) (test code = 347) EGFR (BEAKER) 101 Interpretatio n of eGFR (test code = 1092) mL/min/1.[address] age Description sq m Result G1 Zainab l or high >=90 G2 Mildly decreased 60-89 G3a Mild ly to moderately 45-5 9 G3b Moderately to s everely 30-44 G4 Severl y decreased 15-29 G5 Kidney failure <15Reported eGF R is based on the CKD-EPI 2020 equation that d oes not use a race coefficientEsti mated GFR is not as accur ate as Creatinine Mamie devi in predicting glom erular filtration rate . Estimated GFR is not appl icable for dialysis patien ts Rail Specialist ID - MMBLOOD GAS, [id number] 04:54:06 Test Item Value Reference Range Interpretation Comments PH VENOUS (BEAKER) (test code = 7.41 7.32-7.42 701) PCO2 VENOUS (BEAKER) (test code = 59 mm Hg 41-51 H 755) PO2 VENOUS (BEAKER) (test code = 103 mm Hg 25-40 H 702) O2 SATURATION VENOUS (BEAKER) 97.7 % 40.0-70.0 H (test code = 703) HCO3 VENOUS (BEAKER) (test code = 37 mmol/L 21-29 H 705) BASE EXCESS VENOUS (BEAKER) (test 10.7 mmol/L -2.0-3.0 H code = 704) PATIENT TEMPERATURE (BEAKER) 36.8 (test code = 1818) FIO2 (BEAKER) (test code = 1819) 28.0 POCT-GLUCOSE [id number] 00:16:26 Test Item Value Reference Range Interpretation Comments POC-GLUCOSE METER 123 mg/dL 70-110 H : TESTED A T [facility] 6720 (BEAKER) (test code = [employer] [facility], 1538) [address]: Rail Specialist/Techni mirtha ID = [id number] for Af Sahara mendozaat POCT-GLUCOSE [id number] 17:35:29 Test Item Value Reference Range Interpretation Comments POC-GLUCOSE METER 109 mg/dL 70-110 : TESTED A T [facility] 6720 (BEAKER) (test code = [employer] [facility], 1538) [address]: Rail Specialist/Techni mirtha ID = [id number] for Pe Lencho corleyabella POCT-GLUCOSE [id number] 12:02:58 Test Item Value Reference Range Interpretation Comments POC-GLUCOSE METER 121 mg/dL 70-110 H : TESTED A T [facility] 6720 (BEAKER) (test code = [facility] [facility], 1538) [address]11[address]: Rail Specialist/Techni mirtha ID = [id number] for Larissa Akbar BLOOD GAS, [id number] 09:42:05 Test Item Value Reference Range Interpretation Comments PH VENOUS (BEAKER) (test code = 7.43 7.32-7.42 H 701) PCO2 VENOUS (BEAKER) (test code = 54 mm Hg 41-51 H 755) PO2 VENOUS (BEAKER) (test code = 132 mm Hg 25-40 H 702) O2 SATURATION VENOUS (BEAKER) 98.7 % 40.0-70.0 H (test code = 703) HCO3 VENOUS (BEAKER) (test code = 35 mmol/L 21-29 H 705) BASE EXCESS VENOUS (BEAKER) (test 9.3 mmol/L -2.0-3.0 H code = 704) PATIENT TEMPERATURE (BEAKER) (test 36.6 code = 1818) FIO2 (BEAKER) (test code = 1819) 30.0 (CELLAVISION MANUAL DIFF)2023-01-28 08:03:41 Test Item Value Reference Range Interpretation Comments NEUTROPHILS - REL 90 % (CELLAVISION)(BEAKER) (test code = 2816) LYMPHOCYTES - REL 7 % (CELLAVISION)(BEAKER) (test code = 2817) MONOCYTES - REL 2 % (CELLAVISION)(BEAKER) (test code = 2818) EOSINOPHILS - REL 1 % (CELLAVISION)(BEAKER) (test code = 2819) NEUTROPHILS - ABS 15.66 K/ul 1.56-6.13 H (CELLAVISION)(BEAKER) (test code = 2830) LYMPHOCYTES - ABS 1.22 K/ul 1.18-3.74 (CELLAVISION)(BEAKER) (test code = 2831) MONOCYTES - ABS 0.35 K/uL 0.24-0.36 (CELLAVISION)(BEAKER) (test code = 2832) EOSINOPHILS - ABS 0.17 K/uL 0.04-0.36 (CELLAVISION)(BEAKER) (test code = 2834) TOTAL COUNTED (BEAKER) (test code 100 = 1351) WBC MORPHOLOGY (BEAKER) (test Normal code = 487) PLT MORPHOLOGY (BEAKER) (test Normal code = 486) POLYCHROMATOPHILLIC RBCS(BEAKER) 1+ few (test code = 478) ANISOCYTOSIS (BEAKER) (test code 2+ moderate = 961) MACROCYTES (BEAKER) (test code = 2+ moderate 964) ARTIFACT (CELLAVISION)(BEAKER) Present (test code = 3432) PLATELET CONCENTRATION Increased (CELLAVISION)(BEAKER) (test code = 3438) Rail Specialist ID - Desirae CarpenterAdelaide comments: Slide comments:CBC W/PLT COUNT & AUTO [id number] 08:03:40 Test Item Value Reference Range Interpretation Comments WHITE BLOOD CELL COUNT (BEAKER) 17.4 K/ L 3.5-10.5 H (test code = 775) RED BLOOD CELL COUNT (BEAKER) 2.83 M/ L 3.93-5.22 L (test code = 761) HEMOGLOBIN (BEAKER) (test code = 8.9 GM/DL 11.2-15.7 L 410) HEMATOCRIT (BEAKER) (test code = 27.9 % 34.1-44.9 L 411) MEAN CORPUSCULAR VOLUME (BEAKER) 99 fL 79-95 H (test code = 753) MEAN CORPUSCULAR HEMOGLOBIN 31.4 pg 25.6-32.2 (BEAKER) (test code = 751) MEAN CORPUSCULAR HEMOGLOBIN CONC 31.9 GM/DL 32.2-35.5 L (BEAKER) (test code = 752) RED CELL DISTRIBUTION WIDTH 18.0 % 11.7-14.4 H (BEAKER) (test code = 412) PLATELET COUNT (BEAKER) (test 763 K/CU MM 150-450 H code = 756) MEAN PLATELET VOLUME (BEAKER) 10.2 fL 9.4-12.3 (test code = 754) NUCLEATED RED BLOOD CELLS 0 /100 WBC 0-0 (BEAKER) (test code = 413) COMPREHENSIVE METABOLIC [id number] 06:53:49 Test Item Value Reference Range Interpretation Comments TOTAL PROTEIN 5.6 gm/dL 6.0-8.3 L (BEAKER) (test code = 770) ALBUMIN (BEAKER) 2.3 g/dL 3.5-5.0 L (test code = 1145) ALKALINE 296 U/L 40-150 H PHOSPHATASE (BEAKER) (test code = 346) BILIRUBIN TOTAL 0.3 mg/dL 0.2-1.2 (BEAKER) (test code = 377) SODIUM (BEAKER) 136 meq/L 136-145 (test code = 381) POTASSIUM (BEAKER) 5.3 meq/L 3.5-5.1 H (test code = 379) CHLORIDE (BEAKER) 96 meq/L 98-107 L (test code = 382) CO2 (BEAKER) (test 34 meq/L 22-29 H code = 355) BLOOD UREA 31 mg/dL 7-21 H NITROGEN (BEAKER) (test code = 354) CREATININE 0.58 mg/dL 0.57-1.25 (BEAKER) (test code = 358) GLUCOSE RANDOM 97 mg/dL 70-105 (BEAKER) (test code = 652) CALCIUM (BEAKER) 9.0 mg/dL 8.4-10.2 (test code = 697) AST (SGOT) 52 U/L 5-34 H (BEAKER) (test code = 353) ALT (SGPT) 53 U/L 6-55 (BEAKER) (test code = 347) EGFR (BEAKER) 98 Interpretatio n of eGFR (test code = 1092) mL/min/1.[address] age Description sq m Result G1 Zainab l or high >=90 G2 Mildly decreased 60-89 G3a Mildl y to moderately 45-5 9 G3b Moderately to s everely 30-44 G4 Severl y decreased 15-29 G5 Kidney failure <15Reported eGF R is based on the CKD-EPI 2021 equation that d oes not use a race coefficientEsti mated GFR is not as accur ate as Creatinine Mamie shandra in predicting glom erular filtration rate . Estimated GFR is not appl icable for dialysis patien ts Rail Specialist ID - [id number] 06:53:49 Test Item Value Reference Range Interpretation Comments MAGNESIUM (BEAKER) (test code = 1.7 mg/dL 1.6-2.6 627) Rail Specialist ID - MMBLOOD GAS, [id number] 06:24:52 Test Item Value Reference Range Interpretation Comments PH VENOUS (BEAKER) (test code = 7.21 7.32-7.42 L 701) PCO2 VENOUS (BEAKER) (test code = 84 mm Hg 41-51 HH 755) PO2 VENOUS (BEAKER) (test code = 118 mm Hg 25-40 H 702) O2 SATURATION VENOUS (BEAKER) 97.2 % 40.0-70.0 H (test code = 703) HCO3 VENOUS (BEAKER) (test code = 33 mmol/L 21-29 H 705) BASE EXCESS VENOUS (BEAKER) (test 3.2 mmol/L -2.0-3.0 H code = 704) PATIENT TEMPERATURE (BEAKER) (test 37.0 code = 1818) POCT-GLUCOSE [id number] 05:25:53 Test Item Value Reference Range Interpretation Comments POC-GLUCOSE METER 96 mg/dL 70-110 : TESTED A T [facility] (BEAKER) (test code = [facility], 153) [id number]: Rail Specialist/Techni mirtha ID = [id number] for Becky Craig POCT-GLUCOSE [id number] 01:10:05 Test Item Value Reference Range Interpretation Comments POC-GLUCOSE METER 112 mg/dL 70-110 H : TESTED A T [facility] (BEAKER) (test code = [facility], 153) [id number]: Rail Specialist/Techni mirtha ID = [id number] for Becky Craig POCT-GLUCOSE [id number] 17:07:07 Test Item Value Reference Range Interpretation Comments POC-GLUCOSE METER 116 mg/dL 70-110 H : TESTED A T [facility] (BEAKER) (test code = [facility], 153) [id number]: Rail Specialist/Techni mirtha ID = [id number] for [facility] PERIPHERAL BLOOD SMEAR - PATHOLOGIST [id number] 14:36:03 Test Item Value Reference Range Interpretation Comments WBC MORPHOLOGY Toxic Granulation (BEAKER) (test code = 2847) PERIPHERAL SMR REVIEW Cell counts confirmed. (BEAKER) (test code = 2640) [id number] Anita Gilman M.D. (BEAKER) (test code = (electronic signature) 2529) CBC W/PLT COUNT & AUTO [id number] 07:42:58 Test Item Value Reference Range Interpretation Comments WHITE BLOOD CELL COUNT 18.8 K/ L 3.5-10.5 H (BEAKER) (test code = 775) RED BLOOD CELL COUNT 2.71 M/ L 3.93-5.22 L (BEAKER) (test code = 761) HEMOGLOBIN (BEAKER) 8.6 GM/DL 11.2-15.7 L (test code = 410) HEMATOCRIT (BEAKER) 26.8 % 34.1-44.9 L (test code = 411) MEAN CORPUSCULAR 99 fL 79-95 H Discordant results VOLUME (BEAKER) (test compar ed to previous code = 753) results; clinic al correlation req uired MEAN CORPUSCULAR 31.7 pg 25.6-32.2 HEMOGLOBIN (BEAKER) (test code = 751) MEAN CORPUSCULAR 32.1 GM/DL 32.2-35.5 L HEMOGLOBIN CONC (BEAKER) (test code = 752) RED CELL DISTRIBUTION 18.0 % 11.7-14.4 H WIDTH (BEAKER) (test code = 412) PLATELET COUNT 766 K/CU MM 150-450 H (BEAKER) (test code = 756) MEAN PLATELET VOLUME 10.1 fL 9.4-12.3 (BEAKER) (test code = 754) NUCLEATED RED BLOOD 0 /100 WBC 0-0 CELLS (BEAKER) (test code = 413) (CELLAVISION MANUAL DIFF)2023-01-27 07:42:58 Test Item Value Reference Range Interpretation Comments NEUTROPHILS - REL 84 % (CELLAVISION)(BEAKER) (test code = 2816) LYMPHOCYTES - REL 11 % (CELLAVISION)(BEAKER) (test code = 2817) MONOCYTES - REL 3 % (CELLAVISION)(BEAKER) (test code = 2818) EOSINOPHILS - REL 1 % (CELLAVISION)(BEAKER) (test code = 2819) NEUTROPHILS - ABS 15.79 K/ul 1.56-6.13 H (CELLAVISION)(BEAKER) (test code = 2830) LYMPHOCYTES - ABS 2.07 K/ul 1.18-3.74 (CELLAVISION)(BEAKER) (test code = 2831) MONOCYTES - ABS 0.56 K/uL 0.24-0.36 H (CELLAVISION)(BEAKER) (test code = 2832) EOSINOPHILS - ABS 0.19 K/uL 0.04-0.36 (CELLAVISION)(BEAKER) (test code = 2834) TOTAL COUNTED (BEAKER) (test code 100 = 1351) GIANT PLATELETS (BEAKER) (test Present code = 313) HYPERSEGMENTATION Present (CELLAVISION)(BEAKER) (test code = 3445) POLYCHROMATOPHILLIC RBCS(BEAKER) 2+ moderate (test code = 478) ARTIFACT (CELLAVISION)(BEAKER) Present (test code = 3432) PLATELET CONCENTRATION Increased (CELLAVISION)(BEAKER) (test code = 3438) Rail Specialist ID - cari Campos comments: Slide comments:POCT-GLUCOSE METER 2023-01-27 06:18:36 Test Item Value Reference Range Interpretation Comments POC-GLUCOSE METER 110 mg/dL 70-110 : TESTED A T [facility] 6720 (BEAKER) (test code = [place], 1538) [id number]: Rail Specialist/Techni mirtha ID = [id number] for Becky Craig [id number] 06:13:43 Test Item Value Reference Range Interpretation Comments MAGNESIUM (BEAKER) (test code = 1.7 mg/dL 1.6-2.6 627) Rail Specialist ID - DELLA WCOMPREHENSIVE METABOLIC [id number] 06:13:42 Test Item Value Reference Range Interpretation Comments TOTAL PROTEIN 5.3 gm/dL 6.0-8.3 L (BEAKER) (test code = 770) ALBUMIN (BEAKER) 2.3 g/dL 3.5-5.0 L (test code = 1145) ALKALINE 262 U/L 40-150 H PHOSPHATASE (BEAKER) (test code = 346) BILIRUBIN TOTAL 0.2 mg/dL 0.2-1.2 (BEAKER) (test code = 377) SODIUM (BEAKER) 138 meq/L 136-145 (test code = 381) POTASSIUM (BEAKER) 4.6 meq/L 3.5-5.1 (test code = 379) CHLORIDE (BEAKER) 99 meq/L 98-107 (test code = 382) CO2 (BEAKER) (test 29 meq/L 22-29 code = 355) BLOOD UREA 32 mg/dL 7-21 H NITROGEN (BEAKER) (test code = 354) CREATININE 0.57 mg/dL 0.57-1.25 (BEAKER) (test code = 358) GLUCOSE RANDOM 116 mg/dL 70-105 H (BEAKER) (test code = 652) CALCIUM (BEAKER) 9.0 mg/dL 8.4-10.2 (test code = 697) AST (SGOT) 39 U/L 5-34 H (BEAKER) (test code = 353) ALT (SGPT) 49 U/L 6-55 (BEAKER) (test code = 347) EGFR (BEAKER) 98 Interpretatio n of eGFR (test code = 1092) mL/min/1.[address] age Description sq m Result G1 Zainab l or high >=90 G2 Mildly decreased 60-89 G3a Mildl y to moderately 45-5 9 G3b Moderately to s everely 30-44 G4 Severl y decreased 15-29 G5 Kidney failure <15Reported eGF R is based on the CKD-EPI 2020 equation that d oes not use a race coefficientEsti mated GFR is not as accur ate as Creatinine Mamie devi in predicting glom erular filtration rate . Estimated GFR is not appl icable for dialysis patien ts Rail Specialist FUNMI HULL WBLOOD GAS, [id number] 05:29:29 Test Item Value Reference Range Interpretation Comments PH VENOUS (BEAKER) (test code = 7.51 7.32-7.42 H 701) PCO2 VENOUS (BEAKER) (test code = 43 mm Hg 41-51 755) PO2 VENOUS (BEAKER) (test code = 32 mm Hg 25-40 702) O2 SATURATION VENOUS (BEAKER) 67.8 % 40.0-70.0 (test code = 703) HCO3 VENOUS (BEAKER) (test code = 33 mmol/L 21-29 H 705) BASE EXCESS VENOUS (BEAKER) (test 9.3 mmol/L -2.0-3.0 H code = 704) PATIENT TEMPERATURE (BEAKER) (test 37.0 code = 1818) FIO2 (BEAKER) (test code = 1819) 30.0 POCT-GLUCOSE [id number] 23:31:32 Test Item Value Reference Range Interpretation Comments POC-GLUCOSE METER 107 mg/dL 70-110 : TESTED A T [facility] 6720 (BEAKER) (test code = [facility], 1538) [id number]: Rail Specialist/Techni mirtha ID = [id number] for Becky Craig POCT-GLUCOSE [id number] 17:35:44 Test Item Value Reference Range Interpretation Comments POC-GLUCOSE METER 123 mg/dL 70-110 H : TESTED A T [facility] 6720 (BEAKER) (test code = [facility], 1538) [address]: Rail Specialist/Techni mirtha ID = [id number] for MARIO WATKINS POCT-GLUCOSE [id number] 12:43:50 Test Item Value Reference Range Interpretation Comments POC-GLUCOSE METER 94 mg/dL 70-110 : TESTED A T [facility] 6720 (BEAKER) (test code = [facility], 1538) [address]: Rail Specialist/Techni mirtha ID = [id number] for MARIO CALZADA (CELLAVISION MANUAL DIFF)2023-01-26 06:48:54 Test Item Value Reference Range Interpretation Comments NEUTROPHILS - REL 93 % (CELLAVISION)(BEAKER) (test code = 2816) LYMPHOCYTES - REL 2 % (CELLAVISION)(BEAKER) (test code = 2817) MONOCYTES - REL 4 % (CELLAVISION)(BEAKER) (test code = 2818) EOSINOPHILS - REL 1 % (CELLAVISION)(BEAKER) (test code = 2819) NEUTROPHILS - ABS 19.07 K/ul 1.56-6.13 H (CELLAVISION)(BEAKER) (test code = 2830) LYMPHOCYTES - ABS 0.41 K/ul 1.18-3.74 L (CELLAVISION)(BEAKER) (test code = 2831) MONOCYTES - ABS 0.82 K/uL 0.24-0.36 H (CELLAVISION)(BEAKER) (test code = 2832) EOSINOPHILS - ABS 0.21 K/uL 0.04-0.36 (CELLAVISION)(BEAKER) (test code = 2834) TOTAL COUNTED (BEAKER) (test code 100 = 1351) WBC MORPHOLOGY (BEAKER) (test code Normal = 487) PLT MORPHOLOGY (BEAKER) (test code Normal = 486) POLYCHROMATOPHILLIC RBCS(BEAKER) 1+ few (test code = 478) ANISOCYTOSIS (BEAKER) (test code = 1+ few 961) MACROCYTES (BEAKER) (test code = 1+ few 964) ARTIFACT (CELLAVISION)(BEAKER) Present (test code = 3432) PLATELET CONCENTRATION Increased (CELLAVISION)(BEAKER) (test code = 3438) Rail Specialist ID - Lorraine OverholtUser comments: Slide comments:COMPREHENSIVE METABOLIC [id number] 06:11:29 Test Item Value Reference Range Interpretation Comments TOTAL PROTEIN 5.0 gm/dL 6.0-8.3 L (BEAKER) (test code = 770) ALBUMIN (BEAKER) 2.2 g/dL 3.5-5.0 L (test code = 1145) ALKALINE 253 U/L 40-150 H PHOSPHATASE (BEAKER) (test code = 346) BILIRUBIN TOTAL 0.2 mg/dL 0.2-1.2 (BEAKER) (test code = 377) SODIUM (BEAKER) 137 meq/L 136-145 (test code = 381) POTASSIUM (BEAKER) 4.3 meq/L 3.5-5.1 (test code = 379) CHLORIDE (BEAKER) 97 meq/L 98-107 L (test code = 382) CO2 (BEAKER) (test 32 meq/L 22-29 H code = 355) BLOOD UREA 29 mg/dL 7-21 H NITROGEN (BEAKER) (test code = 354) CREATININE 0.53 mg/dL 0.57-1.25 L (BEAKER) (test code = 358) GLUCOSE RANDOM 106 mg/dL 70-105 H (BEAKER) (test code = 652) CALCIUM (BEAKER) 8.6 mg/dL 8.4-10.2 (test code = 697) AST (SGOT) 44 U/L 5-34 H (BEAKER) (test code = 353) ALT (SGPT) 47 U/L 6-55 (BEAKER) (test code = 347) EGFR (BEAKER) 100 Interpretatio n of eGFR (test code = 1092) mL/min/1.[address] age Description sq m Result G1 Zainab l or high >=90 G2 Mildly decreased 60-89 G3a Mildl y to moderately 45-5 9 G3b Moderately to s everely 30-44 G4 Severl y decreased 15-29 G5 Kidney failure <15Reported eGF R is based on the CKD-EPI 2020 equation that d oes not use a race coefficientEsti mated GFR is not as accur ate as Creatinine Mamie devi in predicting glom erular filtration rate . Estimated GFR is not appl icable for dialysis patien ts Rail Specialist ID - DELLA [id number] 06:11:29 Test Item Value Reference Range Interpretation Comments MAGNESIUM (BEAKER) (test code = 1.6 mg/dL 1.6-2.6 627) Rail Specialist ID - DELLA WPOCT-GLUCOSE [id number] 05:56:44 Test Item Value Reference Range Interpretation Comments POC-GLUCOSE METER 111 mg/dL 70-110 H : TESTED A T [facility] 6720 (BEAKER) (test code = [place] [facility], 1538) [id number]: Rail Specialist/Techni mirtha ID = [id number] for Becky Craig CBC W/PLT COUNT & AUTO [id number] 05:45:23 Test Item Value Reference Range Interpretation Comments WHITE BLOOD CELL COUNT (BEAKER) 20.5 K/ L 3.5-10.5 H (test code = 775) RED BLOOD CELL COUNT (BEAKER) 2.74 M/ L 3.93-5.22 L (test code = 761) HEMOGLOBIN (BEAKER) (test code = 8.7 GM/DL 11.2-15.7 L 410) HEMATOCRIT (BEAKER) (test code = 26.0 % 34.1-44.9 L 411) MEAN CORPUSCULAR VOLUME (BEAKER) 95 fL 79-95 (test code = 753) MEAN CORPUSCULAR HEMOGLOBIN 31.8 pg 25.6-32.2 (BEAKER) (test code = 751) MEAN CORPUSCULAR HEMOGLOBIN CONC 33.5 GM/DL 32.2-35.5 (BEAKER) (test code = 752) RED CELL DISTRIBUTION WIDTH 17.3 % 11.7-14.4 H (BEAKER) (test code = 412) PLATELET COUNT (BEAKER) (test 803 K/CU MM 150-450 H code = 756) MEAN PLATELET VOLUME (BEAKER) 10.0 fL 9.4-12.3 (test code = 754) NUCLEATED RED BLOOD CELLS 0 /100 WBC 0-0 (BEAKER) (test code = 413) BLOOD GAS, [id number] 05:22:26 Test Item Value Reference Range Interpretation Comments PH VENOUS (BEAKER) (test code = 7.50 7.32-7.42 H 701) PCO2 VENOUS (BEAKER) (test code = 45 mm Hg 41-51 755) PO2 VENOUS (BEAKER) (test code = 47 mm Hg 25-40 H 702) O2 SATURATION VENOUS (BEAKER) 85.8 % 40.0-70.0 H (test code = 703) HCO3 VENOUS (BEAKER) (test code = 34 mmol/L 21-29 H 705) BASE EXCESS VENOUS (BEAKER) (test 10.0 mmol/L -2.0-3.0 H code = 704) PATIENT TEMPERATURE (BEAKER) 37.1 (test code = 1818) FIO2 (BEAKER) (test code = 1819) 30.0 POCT-GLUCOSE [id number] 23:59:58 Test Item Value Reference Range Interpretation Comments POC-GLUCOSE METER 130 mg/dL 70-110 H : TESTED A T [facility] 6720 (BEAKER) (test code = [place] [place] [facility], 153) [address]: Rail Specialist/Techni mirtha ID = [id number] for Becky Craig POCT-GLUCOSE [id number] 12:20:58 Test Item Value Reference Range Interpretation Comments POC-GLUCOSE METER 95 mg/dL 70-110 : TESTED A T [facility] 6720 (BEAKER) (test code = [place] [facility], 1538) 266[address]: Rail Specialist/Techni mirtha ID = [id number] for Morkirstin is, Zuri POCT-GLUCOSE [id number] 07:48:38 Test Item Value Reference Range Interpretation Comments POC-GLUCOSE METER 91 mg/dL 70-110 : Notified RN/MD: TESTED (BEAKER) (test [facility] = [facility] 1538) [facility], [facility] 30: Rail Specialist/Techni mirtha ID = [id number] for Elizabeth is, Zuri POCT-GLUCOSE [id number] 06:48:11 Test Item Value Reference Range Interpretation Comments POC-GLUCOSE METER 75 mg/dL 70-110 : TESTED A T [facility] 6720 (BEAKER) (test code = [place], 1538) [address]: Rail Specialist/Techni mirtha ID = [id number] for MIREYA ETTNovember [id number] 05:35:06 Test Item Value Reference Range Interpretation Comments MAGNESIUM (BEAKER) (test code = 1.6 mg/dL 1.6-2.6 627) Rail Specialist ID - MARCOCOMPREHENSIVE METABOLIC [id number] 05:35:05 Test Item Value Reference Range Interpretation Comments TOTAL PROTEIN 4.7 gm/dL 6.0-8.3 L (BEAKER) (test code = 770) ALBUMIN (BEAKER) 2.1 g/dL 3.5-5.0 L (test code = 1145) ALKALINE 204 U/L 40-150 H PHOSPHATASE (BEAKER) (test code = 346) BILIRUBIN TOTAL 0.3 mg/dL 0.2-1.2 (BEAKER) (test code = 377) SODIUM (BEAKER) 137 meq/L 136-145 (test code = 381) POTASSIUM (BEAKER) 4.1 meq/L 3.5-5.1 (test code = 379) CHLORIDE (BEAKER) 98 meq/L 98-107 (test code = 382) CO2 (BEAKER) (test 32 meq/L 22-29 H code = 355) BLOOD UREA 30 mg/dL 7-21 H NITROGEN (BEAKER) (test code = 354) CREATININE 0.54 mg/dL 0.57-1.25 L (BEAKER) (test code = 358) GLUCOSE RANDOM 114 mg/dL 70-105 H (BEAKER) (test code = 652) CALCIUM (BEAKER) 8.4 mg/dL 8.4-10.2 (test code = 697) AST (SGOT) 44 U/L 5-34 H (BEAKER) (test code = 353) ALT (SGPT) 38 U/L 6-55 (BEAKER) (test code = 347) EGFR (BEAKER) 100 Interpretatio n of eGFR (test code = 1092) mL/min/1.[address] age Description sq m Result G1 Zainab l or high >=90 G2 Mildly decreased 60-89 G3a Mildl y to moderately 45-5 9 G3b Moderately to s everely 30-44 G4 Severl y decreased 15-29 G5 Kidne y failure <15Reported eGF R is based on the CKD-EPI 2020 equation that d oes not use a race coefficientEsti mated GFR is not as accur ate as Creatinine Mamie devi in predicting glom erular filtration rate . Estimated GFR is not appl icable for dialysis patien ts Rail Specialist ID - MARCOCBC W/PLT COUNT & AUTO [id number] 05:20:03 Test Item Value Reference Range Interpretation Comments WHITE BLOOD CELL COUNT (BEAKER) 19.9 K/ L 3.5-10.5 H (test code = 775) RED BLOOD CELL COUNT (BEAKER) 2.44 M/ L 3.93-5.22 L (test code = 761) HEMOGLOBIN (BEAKER) (test code = 7.8 GM/DL 11.2-15.7 L 410) HEMATOCRIT (BEAKER) (test code = 23.9 % 34.1-44.9 L 411) MEAN CORPUSCULAR VOLUME (BEAKER) 98 fL 79-95 H (test code = 753) MEAN CORPUSCULAR HEMOGLOBIN 32.0 pg 25.6-32.2 (BEAKER) (test code = 751) MEAN CORPUSCULAR HEMOGLOBIN CONC 32.6 GM/DL 32.2-35.5 (BEAKER) (test code = 752) RED CELL DISTRIBUTION WIDTH 16.8 % 11.7-14.4 H (BEAKER) (test code = 412) PLATELET COUNT (BEAKER) (test 663 K/CU MM 150-450 H code = 756) MEAN PLATELET VOLUME (BEAKER) 10.3 fL 9.4-12.3 (test code = 754) NUCLEATED RED BLOOD CELLS 0 /100 WBC 0-0 (BEAKER) (test code = 413) NEUTROPHILS RELATIVE PERCENT 83 % (BEAKER) (test code = 429) LYMPHOCYTES RELATIVE PERCENT 7 % (BEAKER) (test code = 430) MONOCYTES RELATIVE PERCENT 7 % (BEAKER) (test code = 431) EOSINOPHILS RELATIVE PERCENT 2 % (BEAKER) (test code = 432) BASOPHILS RELATIVE PERCENT 0 % (BEAKER) (test code = 437) NEUTROPHILS ABSOLUTE COUNT 16.46 K/ L 1.56-6.13 H (BEAKER) (test code = 670) LYMPHOCYTES ABSOLUTE COUNT 1.45 K/ L 1.18-3.74 (BEAKER) (test code = 414) MONOCYTES ABSOLUTE COUNT (BEAKER) 1.39 K/ L 0.24-0.36 H (test code = 415) EOSINOPHILS ABSOLUTE COUNT 0.35 K/ L 0.04-0.36 (BEAKER) (test code = 416) BASOPHILS ABSOLUTE COUNT (BEAKER) 0.05 K/ L 0.01-0.08 (test code = 417) IMMATURE GRANULOCYTES-RELATIVE 0.80 % 0.00-1.00 PERCENT (BEAKER) (test code = 2801) BLOOD GAS, [id number] 04:53:59 Test Item Value Reference Range Interpretation Comments PH VENOUS (BEAKER) (test code = 7.49 7.32-7.42 H 701) PCO2 VENOUS (BEAKER) (test code = 47 mm Hg 41-51 755) PO2 VENOUS (BEAKER) (test code = 54 mm Hg 25-40 H 702) O2 SATURATION VENOUS (BEAKER) 90.2 % 40.0-70.0 H (test code = 703) HCO3 VENOUS (BEAKER) (test code = 35 mmol/L 21-29 H 705) BASE EXCESS VENOUS (BEAKER) (test 10.5 mmol/L -2.0-3.0 H code = 704) PATIENT TEMPERATURE (BEAKER) 36.9 (test code = 1818) FIO2 (BEAKER) (test code = 1819) 30.0 POCT-GLUCOSE [id number] 00:08:35 Test Item Value Reference Range Interpretation Comments POC-GLUCOSE METER 126 mg/dL 70-110 H : TESTED A T [facility] 6720 (BEAKER) (test code = [facility], 1538) [address]: Rail Specialist/Techni mirtha ID = [id number] for DO November POCT-GLUCOSE [id number] 17:52:48 Test Item Value Reference Range Interpretation Comments POC-GLUCOSE METER 103 mg/dL 70-110 : TESTED A T [facility] 6720 (BEAKER) (test code = [place], 1538) [address]: Rail Specialist/Techni mirtha ID = [id number] for JANIA العلي POCT-GLUCOSE [id number] 12:11:50 Test Item Value Reference Range Interpretation Comments POC-GLUCOSE METER 108 mg/dL 70-110 : TESTED A T [facility] 6720 (BEAKER) (test code = [place], 1538) [address]: Rail Specialist/Techni mirtha ID = [id number] for JANIA العلي COMPREHENSIVE METABOLIC [id number] 07:08:40 Test Item Value Reference Range Interpretation Comments TOTAL PROTEIN 5.2 gm/dL 6.0-8.3 L (BEAKER) (test code = 770) ALBUMIN (BEAKER) 2.2 g/dL 3.5-5.0 L (test code = 1145) ALKALINE 209 U/L 40-150 H PHOSPHATASE (BEAKER) (test code = 346) BILIRUBIN TOTAL 0.2 mg/dL 0.2-1.2 (BEAKER) (test code = 377) SODIUM (BEAKER) 135 meq/L 136-145 L (test code = 381) POTASSIUM (BEAKER) 4.3 meq/L 3.5-5.1 (test code = 379) CHLORIDE (BEAKER) 97 meq/L 98-107 L (test code = 382) CO2 (BEAKER) (test 29 meq/L 22-29 code = 355) BLOOD UREA 28 mg/dL 7-21 H NITROGEN (BEAKER) (test code = 354) CREATININE 0.56 mg/dL 0.57-1.25 L (BEAKER) (test code = 358) GLUCOSE RANDOM 110 mg/dL 70-105 H (BEAKER) (test code = 652) CALCIUM (BEAKER) 8.7 mg/dL 8.4-10.2 (test code = 697) AST (SGOT) 47 U/L 5-34 H (BEAKER) (test code = 353) ALT (SGPT) 36 U/L 6-55 (BEAKER) (test code = 347) EGFR (BEAKER) 99 Interpretatio n of eGFR (test code = 1092) mL/min/1.[address] age Description sq m Result G1 Zainab l or high >=90 G2 Mildly decreased 60-89 G3a Mildl y to moderately 45-5 9 G3b Moderately to s everely 30-44 G4 Severl y decreased 15-29 G5 Kidney failure <15Reported eGF R is based on the CKD-EPI 202 equation that d oes not use a race coefficientEsti mated GFR is not as accur ate as Creatinine Mamie devi in predicting glom erular filtration rate . Estimated GFR is not appl icable for dialysis patien ts Rail Specialist ID - [id number] 07:08:40 Test Item Value Reference Range Interpretation Comments MAGNESIUM (BEAKER) (test code = 1.6 mg/dL 1.6-2.6 627) Rail Specialist ID - BSPOCT-GLUCOSE [id number] 06:32:46 Test Item Value Reference Range Interpretation Comments POC-GLUCOSE METER 96 mg/dL 70-110 : TESTED A T [facility] 6720 (BEAKER) (test code = [place] [facility], 1538) [address]: Rail Specialist/Techni mirtha ID = [id number] for KAYODE JIMENEZ BLOOD GAS, [id number] 06:29:08 Test Item Value Reference Range Interpretation Comments PH VENOUS (BEAKER) (test code = 7.43 7.32-7.42 H 701) PCO2 VENOUS (BEAKER) (test code = 44 mm Hg 41-51 755) PO2 VENOUS (BEAKER) (test code = 72 mm Hg 25-40 H 702) O2 SATURATION VENOUS (BEAKER) 94.8 % 40.0-70.0 H (test code = 703) HCO3 VENOUS (BEAKER) (test code = 29 mmol/L 21-29 705) BASE EXCESS VENOUS (BEAKER) (test 4.1 mmol/L -2.0-3.0 H code = 704) PATIENT TEMPERATURE (BEAKER) (test 37.0 code = 1818) CBC W/PLT COUNT & AUTO [id number] 06:28:38 Test Item Value Reference Range Interpretation Comments WHITE BLOOD CELL COUNT (BEAKER) 23.0 K/ L 3.5-10.5 H (test code = 775) RED BLOOD CELL COUNT (BEAKER) 2.64 M/ L 3.93-5.22 L (test code = 761) HEMOGLOBIN (BEAKER) (test code = 8.4 GM/DL 11.2-15.7 L 410) HEMATOCRIT (BEAKER) (test code = 25.4 % 34.1-44.9 L 411) MEAN CORPUSCULAR VOLUME (BEAKER) 96 fL 79-95 H (test code = 753) MEAN CORPUSCULAR HEMOGLOBIN 31.8 pg 25.6-32.2 (BEAKER) (test code = 751) MEAN CORPUSCULAR HEMOGLOBIN CONC 33.1 GM/DL 32.2-35.5 (BEAKER) (test code = 752) RED CELL DISTRIBUTION WIDTH 16.5 % 11.7-14.4 H (BEAKER) (test code = 412) PLATELET COUNT (BEAKER) (test 674 K/CU MM 150-450 H code = 756) MEAN PLATELET VOLUME (BEAKER) 10.7 fL 9.4-12.3 (test code = 754) NUCLEATED RED BLOOD CELLS 0 /100 WBC 0-0 (BEAKER) (test code = 413) NEUTROPHILS RELATIVE PERCENT 83 % (BEAKER) (test code = 429) LYMPHOCYTES RELATIVE PERCENT 8 % (BEAKER) (test code = 430) MONOCYTES RELATIVE PERCENT 6 % (BEAKER) (test code = 431) EOSINOPHILS RELATIVE PERCENT 1 % (BEAKER) (test code = 432) BASOPHILS RELATIVE PERCENT 0 % (BEAKER) (test code = 437) NEUTROPHILS ABSOLUTE COUNT 19.09 K/ L 1.56-6.13 H (BEAKER) (test code = 670) LYMPHOCYTES ABSOLUTE COUNT 1.92 K/ L 1.18-3.74 (BEAKER) (test code = 414) MONOCYTES ABSOLUTE COUNT (BEAKER) 1.37 K/ L 0.24-0.36 H (test code = 415) EOSINOPHILS ABSOLUTE COUNT 0.33 K/ L 0.04-0.36 (BEAKER) (test code = 416) BASOPHILS ABSOLUTE COUNT (BEAKER) 0.06 K/ L 0.01-0.08 (test code = 417) IMMATURE GRANULOCYTES-RELATIVE 1.00 % 0.00-1.00 PERCENT (BEAKER) (test code = 2801) POCT-GLUCOSE [id number] 00:04:03 Test Item Value Reference Range Interpretation Comments POC-GLUCOSE METER 120 mg/dL 70-110 H : TESTED A T [facility] 6720 (BEAKER) (test code = [place], 1538) [address]: Rail Specialist/Techni mirtha ID = [id number] for KAYODE CHRISTOPHER POCT-GLUCOSE [id number] 18:36:48 Test Item Value Reference Range Interpretation Comments POC-GLUCOSE METER 133 mg/dL 70-110 H : TESTED A T [facility] 6720 (BEAKER) (test code = [place], 1538) [address]: Rail Specialist/Techni mirtha ID = [id number] for Larissa Akbar [id number] 05:35:50 Test Item Value Reference Range Interpretation Comments MAGNESIUM (BEAKER) (test code = 1.5 mg/dL 1.6-2.6 L 627) Rail Specialist ID - ADMINCOMPREHENSIVE METABOLIC [id number] 05:35:49 Test Item Value Reference Range Interpretation Comments TOTAL PROTEIN 4.6 gm/dL 6.0-8.3 L (BEAKER) (test code = 770) ALBUMIN (BEAKER) 2.0 g/dL 3.5-5.0 L (test code = 1145) ALKALINE 159 U/L 40-150 H PHOSPHATASE (BEAKER) (test code = 346) BILIRUBIN TOTAL 0.2 mg/dL 0.2-1.2 (BEAKER) (test code = 377) SODIUM (BEAKER) 135 meq/L 136-145 L (test code = 381) POTASSIUM (BEAKER) 4.1 meq/L 3.5-5.1 (test code = 379) CHLORIDE (BEAKER) 99 meq/L 98-107 (test code = 382) CO2 (BEAKER) (test 28 meq/L 22-29 code = 355) BLOOD UREA 26 mg/dL 7-21 H NITROGEN (BEAKER) (test code = 354) CREATININE 0.53 mg/dL 0.57-1.25 L (BEAKER) (test code = 358) GLUCOSE RANDOM 112 mg/dL 70-105 H (BEAKER) (test code = 652) CALCIUM (BEAKER) 8.4 mg/dL 8.4-10.2 (test code = 697) AST (SGOT) 33 U/L 5-34 (BEAKER) (test code = 353) ALT (SGPT) 24 U/L 6-55 (BEAKER) (test code = 347) EGFR (BEAKER) 100 Interpretatio n of eGFR (test code = 1092) mL/min/1.[address] age Description sq m Result G1 Zainab l or high >=90 G2 Mildly decreased 60-89 G3a Mildl y to moderately 45-5 9 G3b Moderately to s everely 30-44 G4 Severl y decreased 15-29 G5 Kidney failure <15Reported eGF R is based on the CKD-EPI 2020 equation that d oes not use a race coefficientEsti mated GFR is not as accur ate as Creatinine Mamie shandra in predicting glom erular filtration rate . Estimated GFR is not appl icable for dialysis patien ts Rail Specialist ID - ADMINPOCT-GLUCOSE [id number] 05:08:21 Test Item Value Reference Range Interpretation Comments POC-GLUCOSE METER 118 mg/dL 70-110 H : TESTED A T [facility] 6720 (BEAKER) (test code = ROBERT [place] [facility], 1538) [id number]: Rail Specialist/Techni mirtha ID = [id number] for Myranda tomasa (contract) [facility] BLOOD GAS, [id number] 04:51:55 Test Item Value Reference Range Interpretation Comments PH VENOUS (BEAKER) (test code = 7.52 7.32-7.42 H 701) PCO2 VENOUS (BEAKER) (test code = 41 mm Hg 41-51 755) PO2 VENOUS (BEAKER) (test code = 80 mm Hg 25-40 H 702) O2 SATURATION VENOUS (BEAKER) 97.1 % 40.0-70.0 H (test code = 703) HCO3 VENOUS (BEAKER) (test code = 33 mmol/L 21-29 H 705) BASE EXCESS VENOUS (BEAKER) (test 8.6 mmol/L -2.0-3.0 H code = 704) PATIENT TEMPERATURE (BEAKER) (test 36.1 code = 1818) FIO2 (BEAKER) (test code = 1819) 30.0 CBC W/PLT COUNT & AUTO [id number] 04:45:18 Test Item Value Reference Range Interpretation Comments WHITE BLOOD CELL COUNT (BEAKER) 20.1 K/ L 3.5-10.5 H (test code = 775) RED BLOOD CELL COUNT (BEAKER) 2.49 M/ L 3.93-5.22 L (test code = 761) HEMOGLOBIN (BEAKER) (test code = 7.7 GM/DL 11.2-15.7 L 410) HEMATOCRIT (BEAKER) (test code = 23.2 % 34.1-44.9 L 411) MEAN CORPUSCULAR VOLUME (BEAKER) 93 fL 79-95 (test code = 753) MEAN CORPUSCULAR HEMOGLOBIN 30.9 pg 25.6-32.2 (BEAKER) (test code = 751) MEAN CORPUSCULAR HEMOGLOBIN CONC 33.2 GM/DL 32.2-35.5 (BEAKER) (test code = 752) RED CELL DISTRIBUTION WIDTH 15.8 % 11.7-14.4 H (BEAKER) (test code = 412) PLATELET COUNT (BEAKER) (test 527 K/CU MM 150-450 H code = 756) MEAN PLATELET VOLUME (BEAKER) 10.4 fL 9.4-12.3 (test code = 754) NUCLEATED RED BLOOD CELLS 0 /100 WBC 0-0 (BEAKER) (test code = 413) NEUTROPHILS RELATIVE PERCENT 83 % (BEAKER) (test code = 429) LYMPHOCYTES RELATIVE PERCENT 9 % (BEAKER) (test code = 430) MONOCYTES RELATIVE PERCENT 6 % (BEAKER) (test code = 431) EOSINOPHILS RELATIVE PERCENT 2 % (BEAKER) (test code = 432) BASOPHILS RELATIVE PERCENT 0 % (BEAKER) (test code = 437) NEUTROPHILS ABSOLUTE COUNT 16.57 K/ L 1.56-6.13 H (BEAKER) (test code = 670) LYMPHOCYTES ABSOLUTE COUNT 1.70 K/ L 1.18-3.74 (BEAKER) (test code = 414) MONOCYTES ABSOLUTE COUNT (BEAKER) 1.17 K/ L 0.24-0.36 H (test code = 415) EOSINOPHILS ABSOLUTE COUNT 0.31 K/ L 0.04-0.36 (BEAKER) (test code = 416) BASOPHILS ABSOLUTE COUNT (BEAKER) 0.06 K/ L 0.01-0.08 (test code = 417) IMMATURE GRANULOCYTES-RELATIVE 1.20 % 0.00-1.00 H PERCENT (BEAKER) (test code = 2801) POCT-GLUCOSE [id number] 23:40:34 Test Item Value Reference Range Interpretation Comments POC-GLUCOSE METER 110 mg/dL 70-110 : TESTED A T [facility] 6720 (BEAKER) (test code = [place], 1538) [address]: Rail Specialist/Techni mirtha ID = [id number] for Myranda randolph (contract)Mir POCT-GLUCOSE [id number] 05:50:50 Test Item Value Reference Range Interpretation Comments POC-GLUCOSE METER 122 mg/dL 70-110 H : TESTED A T [facility] 6720 (BEAKER) (test code = S[place], 1538) [address]: Rail Specialist/Techni mirtha ID = [id number] for Ariel Steele COMPREHENSIVE METABOLIC [id number] 05:17:12 Test Item Value Reference Range Interpretation Comments TOTAL PROTEIN 4.5 gm/dL 6.0-8.3 L (BEAKER) (test code = 770) ALBUMIN (BEAKER) 2.0 g/dL 3.5-5.0 L (test code = 1145) ALKALINE 147 U/L 40-150 PHOSPHATASE (BEAKER) (test code = 346) BILIRUBIN TOTAL 0.2 mg/dL 0.2-1.2 (BEAKER) (test code = 377) SODIUM (BEAKER) 139 meq/L 136-145 (test code = 381) POTASSIUM (BEAKER) 4.3 meq/L 3.5-5.1 (test code = 379) CHLORIDE (BEAKER) 101 meq/L 98-107 (test code = 382) CO2 (BEAKER) (test 28 meq/L 22-29 code = 355) BLOOD UREA 26 mg/dL 7-21 H NITROGEN (BEAKER) (test code = 354) CREATININE 0.55 mg/dL 0.57-1.25 L (BEAKER) (test code = 358) GLUCOSE RANDOM 118 mg/dL 70-105 H (BEAKER) (test code = 652) CALCIUM (BEAKER) 8.0 mg/dL 8.4-10.2 L (test code = 697) AST (SGOT) 26 U/L 5-34 (BEAKER) (test code = 353) ALT (SGPT) 21 U/L 6-55 (BEAKER) (test code = 347) EGFR (BEAKER) 99 Interpretatio n of eGFR (test code = 1092) mL/min/1.[address] age Description sq m Result G1 Zainab l or high >=90 G2 Mildly decreased 60-89 G3a Mildl y to moderately 45-5 9 G3b Moderately to s everely 30-44 G4 Severl y decreased 15-29 G5 Kidney failure <15Reported eGF R is based on the CKD-EPI 2020 equation that d oes not use a race coefficientEsti mated GFR is not as accur ate as Creatinine Mamie devi in predicting glom erular filtration rate . Estimated GFR is not appl icable for dialysis patien ts Rail Specialist ID - [id number] 05:17:12 Test Item Value Reference Range Interpretation Comments MAGNESIUM (BEAKER) (test code = 1.6 mg/dL 1.6-2.6 627) Rail Specialist ID - MMBLOOD GAS, [id number] 04:54:55 Test Item Value Reference Range Interpretation Comments PH VENOUS (BEAKER) (test code = 7.48 7.32-7.42 H 701) PCO2 VENOUS (BEAKER) (test code = 45 mm Hg 41-51 755) PO2 VENOUS (BEAKER) (test code = 128 mm Hg 25-40 H 702) O2 SATURATION VENOUS (BEAKER) 98.7 % 40.0-70.0 H (test code = 703) HCO3 VENOUS (BEAKER) (test code = 33 mmol/L 21-29 H 705) BASE EXCESS VENOUS (BEAKER) (test 8.6 mmol/L -2.0-3.0 H code = 704) PATIENT TEMPERATURE (BEAKER) (test 37.0 code = 1818) FIO2 (BEAKER) (test code = 1819) 50.0 CBC W/PLT COUNT & AUTO [id number] 04:54:15 Test Item Value Reference Range Interpretation Comments WHITE BLOOD CELL COUNT (BEAKER) 21.6 K/ L 3.5-10.5 H (test code = 775) RED BLOOD CELL COUNT (BEAKER) 2.46 M/ L 3.93-5.22 L (test code = 761) HEMOGLOBIN (BEAKER) (test code = 7.8 GM/DL 11.2-15.7 L 410) HEMATOCRIT (BEAKER) (test code = 22.7 % 34.1-44.9 L 411) MEAN CORPUSCULAR VOLUME (BEAKER) 92 fL 79-95 (test code = 753) MEAN CORPUSCULAR HEMOGLOBIN 31.7 pg 25.6-32.2 (BEAKER) (test code = 751) MEAN CORPUSCULAR HEMOGLOBIN CONC 34.4 GM/DL 32.2-35.5 (BEAKER) (test code = 752) RED CELL DISTRIBUTION WIDTH 15.2 % 11.7-14.4 H (BEAKER) (test code = 412) PLATELET COUNT (BEAKER) (test 438 K/CU MM 150-450 code = 756) MEAN PLATELET VOLUME (BEAKER) 10.6 fL 9.4-12.3 (test code = 754) NUCLEATED RED BLOOD CELLS 0 /100 WBC 0-0 (BEAKER) (test code = 413) NEUTROPHILS RELATIVE PERCENT 89 % (BEAKER) (test code = 429) LYMPHOCYTES RELATIVE PERCENT 5 % (BEAKER) (test code = 430) MONOCYTES RELATIVE PERCENT 4 % (BEAKER) (test code = 431) EOSINOPHILS RELATIVE PERCENT 1 % (BEAKER) (test code = 432) BASOPHILS RELATIVE PERCENT 0 % (BEAKER) (test code = 437) NEUTROPHILS ABSOLUTE COUNT 19.12 K/ L 1.56-6.13 H (BEAKER) (test code = 670) LYMPHOCYTES ABSOLUTE COUNT 1.04 K/ L 1.18-3.74 L (BEAKER) (test code = 414) MONOCYTES ABSOLUTE COUNT (BEAKER) 0.83 K/ L 0.24-0.36 H (test code = 415) EOSINOPHILS ABSOLUTE COUNT 0.22 K/ L 0.04-0.36 (BEAKER) (test code = 416) BASOPHILS ABSOLUTE COUNT (BEAKER) 0.04 K/ L 0.01-0.08 (test code = 417) IMMATURE GRANULOCYTES-RELATIVE 1.60 % 0.00-1.00 H PERCENT (BEAKER) (test code = 2801) POCT-GLUCOSE [id number] 23:39:43 Test Item Value Reference Range Interpretation Comments POC-GLUCOSE METER 124 mg/dL 70-110 H : TESTED A T [facility] 6720 (BEAKER) (test code = ROBERT [place], 1538) [address]: Rail Specialist/Techni mirtha ID = [id number] for Jason oreArtemchele POTASSIUM, RANDOM [id number] 18:16:31 Test Item Value Reference Range Interpretation Comments POTASSIUM URINE (BEAKER) (test 13.0 meq/L code = 195) Reference Range: No NormalsOperator ID - BSSODIUM, RANDOM [id number] 18:16:31 Test Item Value Reference Range Interpretation Comments SODIUM URINE (BEAKER) (test code = 104 meq/L 243) Reference Range: No NormalsOperator ID - BSCHLORIDE, RANDOM [id number] 18:16:30 Test Item Value Reference Range Interpretation Comments CHLORIDE URINE (BEAKER) (test code 103 meq/L 20-330 = 682) Reference Range: No NormalsOperator ID - BSOSMOLALITY, [id number] 18:05:36 Test Item Value Reference Range Interpretation Comments OSMOLALITY URINE 387 mOsm/kg See_Comment [Automated message] (BEAKER) (test code = The sy stem which 614) generated this result transmitted ref erence range: 50-1,200 mOsm/kg. The reference range was not used to int erpret this result as normal/abnormal . POCT-GLUCOSE [id number] 17:55:13 Test Item Value Reference Range Interpretation Comments POC-GLUCOSE METER 132 mg/dL 70-110 H : TESTED A T [facility] 6720 (BEAKER) (test code = [place], 1538) [address]: Rail Specialist/Techni mirtha ID = [id number] for PREETHI DUGGAN U/S, RENAL, [id number] 16:40:00Reason for exam:->[facility]inary [facility] : 1955 Sex: FFINAL REPORT EXAM: Renal UltrasoundINDICATION: urinary retention COMPARISON: NoneTECHNIQUE: Transverse and longitudinal images of the kidneys and bladder were obtained. FINDINGS: Right Kidney: Length: 11.3 cmAppearance: Normal echogenicity. Collecting system: No hydronephrosisStones: NoneCyst/Mass: Anechoic simple cysts measure up to 2.4 cm. Left Kidney: Length: 8.6 cmAppearance: Normal echogenicity. Collecting system: No hydronephrosisStones: NoneCyst/Mass: None Bladder: Richards catheter in the decompressed bladder. Incidental note made of trace left pleural effusion. IMPRESSION:No hydronephrosis or renal calculi. Left simple renal cysts. Trace left pleural effusion. Signed: Chante Sanabria MDReport Verified Date/Time: 01/21/2023 16:40:28 Electronically signed by: CHANTE SANABRIA MD on01/21/2023 04:40 PMPOCT-GLUCOSE METER 2023-01-21 12:53:14 Test Item Value Reference Range Interpretation Comments POC-GLUCOSE METER 117 mg/dL 70-110 H : TESTED A T [facility] 6720 (BEAKER) (test code = [facility], 1538) [address]: Rail Specialist/Techni mirtha ID = [id number] for ARACELI MOISE POCT-GLUCOSE [id number] 05:40:41 Test Item Value Reference Range Interpretation Comments POC-GLUCOSE METER 136 mg/dL 70-110 H : TESTED A T [facility] 6720 (BEAKER) (test code = [facility], 1538) [address]: Rail Specialist/Techni mirtha ID = [id number] for Ariel Steele COMPREHENSIVE METABOLIC [id number] 05:29:29 Test Item Value Reference Range Interpretation Comments TOTAL PROTEIN 4.4 gm/dL 6.0-8.3 L (BEAKER) (test code = 770) ALBUMIN (BEAKER) 2.0 g/dL 3.5-5.0 L (test code = 1145) ALKALINE 124 U/L 40-150 PHOSPHATASE (BEAKER) (test code = 346) BILIRUBIN TOTAL 0.3 mg/dL 0.2-1.2 (BEAKER) (test code = 377) SODIUM (BEAKER) 132 meq/L 136-145 L (test code = 381) POTASSIUM (BEAKER) 4.0 meq/L 3.5-5.1 (test code = 379) CHLORIDE (BEAKER) 98 meq/L 98-107 (test code = 382) CO2 (BEAKER) (test 28 meq/L 22-29 code = 355) BLOOD UREA 28 mg/dL 7-21 H NITROGEN (BEAKER) (test code = 354) CREATININE 0.52 mg/dL 0.57-1.25 L (BEAKER) (test code = 358) GLUCOSE RANDOM 120 mg/dL 70-105 H (BEAKER) (test code = 652) CALCIUM (BEAKER) 7.5 mg/dL 8.4-10.2 L (test code = 697) AST (SGOT) 22 U/L 5-34 (BEAKER) (test code = 353) ALT (SGPT) 19 U/L 6-55 (BEAKER) (test code = 347) EGFR (BEAKER) 101 Interpretatio n of eGFR (test code = 1092) mL/min/1.[address] age Description sq m Result G1 Zainab l or high >=90 G2 Mildly decreased 60-89 G3a Mildl y to moderately 45-5 9 G3b Moderately to s everely 30-44 G4 Severl y decreased 15-29 G5 Kidney failure <15Reported eGF R is based on the CKD-EPI 2021 equation that d oes not use a race coefficientEsti mated GFR is not as accur ate as Creatinine Mamie devi in predicting glom erular filtration rate . Estimated GFR is not appl icable for dialysis patien ts Rail Specialist ID - [id number] 05:29:08 Test Item Value Reference Range Interpretation Comments MAGNESIUM (BEAKER) (test code = 1.6 mg/dL 1.6-2.6 627) Rail Specialist ID - BSBLOOD GAS, [id number] 04:36:11 Test Item Value Reference Range Interpretation Comments PH VENOUS (BEAKER) (test code = 7.47 7.32-7.42 H 701) PCO2 VENOUS (BEAKER) (test code = 44 mm Hg 41-51 755) PO2 VENOUS (BEAKER) (test code = 107 mm Hg 25-40 H 702) O2 SATURATION VENOUS (BEAKER) 98.2 % 40.0-70.0 H (test code = 703) HCO3 VENOUS (BEAKER) (test code = 32 mmol/L 21-29 H 705) BASE EXCESS VENOUS (BEAKER) (test 7.2 mmol/L -2.0-3.0 H code = 704) PATIENT TEMPERATURE (BEAKER) (test 37.0 code = 1818) FIO2 (BEAKER) (test code = 1819) 100.0 CBC W/PLT COUNT & AUTO [id number] 04:27:48 Test Item Value Reference Range Interpretation Comments WHITE BLOOD CELL COUNT (BEAKER) 17.2 K/ L 3.5-10.5 H (test code = 775) RED BLOOD CELL COUNT (BEAKER) 2.40 M/ L 3.93-5.22 L (test code = 761) HEMOGLOBIN (BEAKER) (test code = 7.6 GM/DL 11.2-15.7 L 410) HEMATOCRIT (BEAKER) (test code = 22.5 % 34.1-44.9 L 411) MEAN CORPUSCULAR VOLUME (BEAKER) 94 fL 79-95 (test code = 753) MEAN CORPUSCULAR HEMOGLOBIN 31.7 pg 25.6-32.2 (BEAKER) (test code = 751) MEAN CORPUSCULAR HEMOGLOBIN CONC 33.8 GM/DL 32.2-35.5 (BEAKER) (test code = 752) RED CELL DISTRIBUTION WIDTH 14.4 % 11.7-14.4 (BEAKER) (test code = 412) PLATELET COUNT (BEAKER) (test 339 K/CU MM 150-450 code = 756) MEAN PLATELET VOLUME (BEAKER) 11.1 fL 9.4-12.3 (test code = 754) NUCLEATED RED BLOOD CELLS 0 /100 WBC 0-0 (BEAKER) (test code = 413) NEUTROPHILS RELATIVE PERCENT 83 % (BEAKER) (test code = 429) LYMPHOCYTES RELATIVE PERCENT 7 % (BEAKER) (test code = 430) MONOCYTES RELATIVE PERCENT 5 % (BEAKER) (test code = 431) EOSINOPHILS RELATIVE PERCENT 3 % (BEAKER) (test code = 432) BASOPHILS RELATIVE PERCENT 0 % (BEAKER) (test code = 437) NEUTROPHILS ABSOLUTE COUNT 14.30 K/ L 1.56-6.13 H (BEAKER) (test code = 670) LYMPHOCYTES ABSOLUTE COUNT 1.26 K/ L 1.18-3.74 (BEAKER) (test code = 414) MONOCYTES ABSOLUTE COUNT (BEAKER) 0.79 K/ L 0.24-0.36 H (test code = 415) EOSINOPHILS ABSOLUTE COUNT 0.45 K/ L 0.04-0.36 H (BEAKER) (test code = 416) BASOPHILS ABSOLUTE COUNT (BEAKER) 0.03 K/ L 0.01-0.08 (test code = 417) IMMATURE GRANULOCYTES-RELATIVE 2.00 % 0.00-1.00 H PERCENT (BEAKER) (test code = 2801) POCT-GLUCOSE [id number] 23:57:02 Test Item Value Reference Range Interpretation Comments POC-GLUCOSE METER 130 mg/dL 70-110 H : TESTED A T [facility] 6720 ([facility]) (test code = [facility], 1538) [address]: Rail Specialist/Techni mirtha ID = [id number] for Az ore, Mary Kateilyn POCT-GLUCOSE [id number] 18:54:51 Test Item Value Reference Range Interpretation Comments POC-GLUCOSE METER 118 mg/dL 70-110 H : TESTED A T [facility] 6720 ([facility]) (test code = [facility], 1538) 70615: Rail Specialist/Techni mirtha ID = [id number] for Ch ricky, Cunthia POCT-GLUCOSE [id number] 12:50:51 Test Item Value Reference Range Interpretation Comments POC-GLUCOSE METER 119 mg/dL 70-110 H : TESTED A T [facility] 6720 ([facility]) (test code = [facility], 1538) 10[address]: Rail Specialist/Techni mirtha ID = [id number] for Ch ricky, Cunthia PERIPHERAL BLOOD SMEAR - PATHOLOGIST [id number] 11:25:16 Test Item Value Reference Range Interpretation Comments PERIPHERAL SMR REVIEW Normochromic normocytic (AKER) (test code = anemia with 2640) polychromasia and mild anisopoikilocytosis. No significant increase in schistocytes. [id number] Deni Barros M.D. ([facility]) (test code = 2849) COMPREHENSIVE METABOLIC [id number] 05:57:40 Test Item Value Reference Range Interpretation Comments TOTAL PROTEIN 4.4 gm/dL 6.0-8.3 L (AKER) (test code = 770) ALBUMIN (BEAKER) 2.0 g/dL 3.5-5.0 L (test code = 1145) ALKALINE 118 U/L 40-150 PHOSPHATASE (BEAKER) (test code = 346) BILIRUBIN TOTAL 0.4 mg/dL 0.2-1.2 (BEAKER) (test code = 377) SODIUM (BEAKER) 137 meq/L 136-145 (test code = 381) POTASSIUM (BEAKER) 4.0 meq/L 3.5-5.1 (test code = 379) CHLORIDE (BEAKER) 102 meq/L 98-107 (test code = 382) CO2 (BEAKER) (test 29 meq/L 22-29 code = 355) BLOOD UREA 29 mg/dL 7-21 H NITROGEN (BEAKER) (test code = 354) CREATININE 0.51 mg/dL 0.57-1.25 L (BEAKER) (test code = 358) GLUCOSE RANDOM 122 mg/dL 70-105 H (BEAKER) (test code = 652) CALCIUM (BEAKER) 7.7 mg/dL 8.4-10.2 L (test code = 697) AST (SGOT) 27 U/L 5-34 (BEAKER) (test code = 353) ALT (SGPT) 21 U/L 6-55 (BEAKER) (test code = 347) EGFR (BEAKER) 101 Interpretatio n of eGFR (test code = 1092) mL/min/1.[address] age Description sq m Result G1 Zainab l or high >=90 G2 Mildly decreased 60-89 G3a Mildl y to moderately 45-5 9 G3b Moderately to s everely 30-44 G4 Severl y decreased 15-29 G5 Kidney failure <15Reported eGF R is based on the CKD-EPI 2021 equation that d oes not use a race coefficientEsti mated GFR is not as accur ate as Creatinine Mamie devi in predicting glom erular filtration rate . Estimated GFR is not appl icable for dialysis patien ts Rail Specialist ID - [id number] 05:48:46 Test Item Value Reference Range Interpretation Comments MAGNESIUM (BEAKER) (test code = 1.4 mg/dL 1.6-2.6 L 627) Rail Specialist ID - MMCBC W/PLT COUNT & AUTO [id number] 05:34:06 Test Item Value Reference Range Interpretation Comments WHITE BLOOD CELL COUNT (BEAKER) 15.9 K/ L 3.5-10.5 H (test code = 775) RED BLOOD CELL COUNT (BEAKER) 2.41 M/ L 3.93-5.22 L (test code = 761) HEMOGLOBIN (BEAKER) (test code = 7.5 GM/DL 11.2-15.7 L 410) HEMATOCRIT (BEAKER) (test code = 22.6 % 34.1-44.9 L 411) MEAN CORPUSCULAR VOLUME (BEAKER) 94 fL 79-95 (test code = 753) MEAN CORPUSCULAR HEMOGLOBIN 31.1 pg 25.6-32.2 (BEAKER) (test code = 751) MEAN CORPUSCULAR HEMOGLOBIN CONC 33.2 GM/DL 32.2-35.5 (BEAKER) (test code = 752) RED CELL DISTRIBUTION WIDTH 14.5 % 11.7-14.4 H (BEAKER) (test code = 412) PLATELET COUNT (BEAKER) (test 268 K/CU MM 150-450 code = 756) MEAN PLATELET VOLUME (BEAKER) 11.2 fL 9.4-12.3 (test code = 754) NUCLEATED RED BLOOD CELLS 0 /100 WBC 0-0 (BEAKER) (test code = 413) NEUTROPHILS RELATIVE PERCENT 80 % (BEAKER) (test code = 429) LYMPHOCYTES RELATIVE PERCENT 10 % (BEAKER) (test code = 430) MONOCYTES RELATIVE PERCENT 5 % (BEAKER) (test code = 431) EOSINOPHILS RELATIVE PERCENT 2 % (BEAKER) (test code = 432) BASOPHILS RELATIVE PERCENT 0 % (BEAKER) (test code = 437) NEUTROPHILS ABSOLUTE COUNT 12.74 K/ L 1.56-6.13 H (BEAKER) (test code = 670) LYMPHOCYTES ABSOLUTE COUNT 1.55 K/ L 1.18-3.74 (BEAKER) (test code = 414) MONOCYTES ABSOLUTE COUNT (BEAKER) 0.83 K/ L 0.24-0.36 H (test code = 415) EOSINOPHILS ABSOLUTE COUNT 0.38 K/ L 0.04-0.36 H (BEAKER) (test code = 416) BASOPHILS ABSOLUTE COUNT (BEAKER) 0.03 K/ L 0.01-0.08 (test code = 417) IMMATURE GRANULOCYTES-RELATIVE 2.10 % 0.00-1.00 H PERCENT (BEAKER) (test code = 2801) BLOOD GAS, [id number] 05:13:27 Test Item Value Reference Range Interpretation Comments PH VENOUS (BEAKER) (test code = 7.50 7.32-7.42 H 701) PCO2 VENOUS (BEAKER) (test code = 42 mm Hg 41-51 755) PO2 VENOUS (BEAKER) (test code = 63 mm Hg 25-40 H 702) O2 SATURATION VENOUS (BEAKER) 93.5 % 40.0-70.0 H (test code = 703) HCO3 VENOUS (BEAKER) (test code = 32 mmol/L 21-29 H 705) BASE EXCESS VENOUS (BEAKER) (test 8.1 mmol/L -2.0-3.0 H code = 704) PATIENT TEMPERATURE (BEAKER) (test 37.2 code = 1818) FIO2 (BEAKER) (test code = 1819) 40.0 POCT-GLUCOSE [id number] 04:54:49 Test Item Value Reference Range Interpretation Comments POC-GLUCOSE METER 134 mg/dL 70-110 H : TESTED A T [facility] 6720 (BEAKER) (test code = [facility], 1538) 18094: Rail Specialist/Techni mirtha ID = [id number] for Asif Hanna POCT-GLUCOSE [id number] 18:51:07 Test Item Value Reference Range Interpretation Comments POC-GLUCOSE METER 109 mg/dL 70-110 : TESTED A T [facility] 6720 (BEAKER) (test code = [facility], 1538) 67327: Rail Specialist/Techni mirtha ID = [id number] for Ch ricky, Cunthia [id number] 17:50:27 Test Item Value Reference Range Interpretation Comments HAPTOGLOBIN (BEAKER) (test code = 257 mg/dL 14-258 366) Rail Specialist ID - ADMINLACTATE DEHYDROGENASE (LDH)2023-01-19 17:50:20 Test Item Value Reference Range Interpretation Comments LACTATE DEHYDROGENASE 318 U/L 125-220 H Specim en slightly (BEAKER) (test code = hemoly zed 635) Rail Specialist ID - ADMINRETICULOCYTE [id number] 17:23:36 Test Item Value Reference Range Interpretation Comments RETICULOCYTE COUNT PCT (BEAKER) (test 1.4 % 0.5-1.7 code = 575) Rail Specialist ID - 6000POCT-GLUCOSE [id number] 12:01:01 Test Item Value Reference Range Interpretation Comments POC-GLUCOSE METER 114 mg/dL 70-110 H : TESTED A T [facility] 6720 (BEAKER) (test code = [place], 1538) [address]: Rail Specialist/Techni mirtha ID = [id number] for Ch ricky, Cunthia CBC W/PLT COUNT & AUTO [id number] 07:32:27 Test Item Value Reference Range Interpretation Comments WHITE BLOOD CELL COUNT (BEAKER) 14.5 K/ L 3.5-10.5 H (test code = 775) RED BLOOD CELL COUNT (BEAKER) 2.34 M/ L 3.93-5.22 L (test code = 761) HEMOGLOBIN (BEAKER) (test code = 7.2 GM/DL 11.2-15.7 L 410) HEMATOCRIT (BEAKER) (test code = 21.7 % 34.1-44.9 L 411) MEAN CORPUSCULAR VOLUME (BEAKER) 93 fL 79-95 (test code = 753) MEAN CORPUSCULAR HEMOGLOBIN 30.8 pg 25.6-32.2 (BEAKER) (test code = 751) MEAN CORPUSCULAR HEMOGLOBIN CONC 33.2 GM/DL 32.2-35.5 (BEAKER) (test code = 752) RED CELL DISTRIBUTION WIDTH 15.2 % 11.7-14.4 H (BEAKER) (test code = 412) PLATELET COUNT (BEAKER) (test 188 K/CU MM 150-450 code = 756) MEAN PLATELET VOLUME (BEAKER) 10.9 fL 9.4-12.3 (test code = 754) NUCLEATED RED BLOOD CELLS 0 /100 WBC 0-0 (BEAKER) (test code = 413) (CELLAVISION MANUAL DIFF)2023-01-19 07:32:27 Test Item Value Reference Range Interpretation Comments NEUTROPHILS - REL 84 % (CELLAVISION)(BEAKER) (test code = 2816) LYMPHOCYTES - REL 10 % (CELLAVISION)(BEAKER) (test code = 2817) MONOCYTES - REL 2 % (CELLAVISION)(BEAKER) (test code = 2818) EOSINOPHILS - REL 4 % (CELLAVISION)(BEAKER) (test code = 2819) NEUTROPHILS - ABS 12.18 K/ul 1.56-6.13 H (CELLAVISION)(BEAKER) (test code = 2830) LYMPHOCYTES - ABS 1.45 K/ul 1.18-3.74 (CELLAVISION)(BEAKER) (test code = 2831) MONOCYTES - ABS 0.29 K/uL 0.24-0.36 (CELLAVISION)(BEAKER) (test code = 2832) EOSINOPHILS - ABS 0.58 K/uL 0.04-0.36 H (CELLAVISION)(BEAKER) (test code = 2834) TOTAL COUNTED (BEAKER) (test code 100 = 1351) RBC MORPHOLOGY (BEAKER) (test code Normal = 762) GIANT PLATELETS (BEAKER) (test Present code = 313) TOXIC GRANULATION (BEAKER) (test Present code = 771) ARTIFACT (CELLAVISION)(BEAKER) Present (test code = 3432) PLATELET CONCENTRATION Adequate (CELLAVISION)(BEAKER) (test code = 3438) Rail Specialist ID - cari Campos comments: Slide comments:COMPREHENSIVE METABOLIC [id number] 04:58:21 Test Item Value Reference Range Interpretation Comments TOTAL PROTEIN 4.1 gm/dL 6.0-8.3 L (BEAKER) (test code = 770) ALBUMIN (BEAKER) 2.0 g/dL 3.5-5.0 L (test code = 1145) ALKALINE 112 U/L 40-150 PHOSPHATASE (BEAKER) (test code = 346) BILIRUBIN TOTAL 0.5 mg/dL 0.2-1.2 (BEAKER) (test code = 377) SODIUM (BEAKER) 139 meq/L 136-145 (test code = 381) POTASSIUM (BEAKER) 4.0 meq/L 3.5-5.1 (test code = 379) CHLORIDE (BEAKER) 105 meq/L 98-107 (test code = 382) CO2 (BEAKER) (test 26 meq/L 22-29 code = 355) BLOOD UREA 32 mg/dL 7-21 H NITROGEN (BEAKER) (test code = 354) CREATININE 0.54 mg/dL 0.57-1.25 L (BEAKER) (test code = 358) GLUCOSE RANDOM 108 mg/dL 70-105 H (BEAKER) (test code = 652) CALCIUM (BEAKER) 7.6 mg/dL 8.4-10.2 L (test code = 697) AST (SGOT) 26 U/L 5-34 (BEAKER) (test code = 353) ALT (SGPT) 22 U/L 6-55 (BEAKER) (test code = 347) EGFR (BEAKER) 100 Interpretatio n of eGFR (test code = 1092) mL/min/1.[address] age Description sq m Result G1 Zainab l or high >=90 G2 Mildly decreased 60-89 G3a Mildl y to moderately 45-5 9 G3b Moderately to s everely 30-44 G4 Severl y decreased 15-29 G5 Kidney failure <15Reported eGF R is based on the CKD-EPI 2020 equation that d oes not use a race coefficientEsti mated GFR is not as accur ate as Creatinine Mamie shandra in predicting glom erular filtration rate . Estimated GFR is not appl icable for dialysis patien ts Rail Specialist ID - [id number] 04:31:18 Test Item Value Reference Range Interpretation Comments MAGNESIUM (BEAKER) (test code = 1.6 mg/dL 1.6-2.6 627) Rail Specialist ID - MMBLOOD GAS, [id number] 04:02:54 Test Item Value Reference Range Interpretation Comments PH VENOUS (BEAKER) (test code = 7.48 7.32-7.42 H 701) PCO2 VENOUS (BEAKER) (test code = 43 mm Hg 41-51 755) PO2 VENOUS (BEAKER) (test code = 121 mm Hg 25-40 H 702) O2 SATURATION VENOUS (BEAKER) 98.6 % 40.0-70.0 H (test code = 703) HCO3 VENOUS (BEAKER) (test code = 31 mmol/L 21-29 H 705) BASE EXCESS VENOUS (BEAKER) (test 7.2 mmol/L -2.0-3.0 H code = 704) PATIENT TEMPERATURE (BEAKER) (test 37.0 code = 1818) FIO2 (BEAKER) (test code = 1819) 40.0 BLOOD [id number] 03:00:45 Test Item Value Reference Range Interpretation Comments CULTURE (BEAKER) (test No growth in 5 days code = 1095) The specimen volume collected for this blood culture was below the optimum (10 mL per bottle or 20 mL total). Use of lower volumes may adversely affect recovery and/or detection times of some organisms.POCT-GLUCOSE [id number] 02:55:30 Test Item Value Reference Range Interpretation Comments POC-GLUCOSE METER 96 mg/dL 70-110 : TESTED A T [facility] 6720 (BEAKER) (test code = [facility], 1538) [id number]: Rail Specialist/Techni mirtha ID = [id number] for Asfi Rodriguez BLOOD [id number] 02:00:51 Test Item Value Reference Range Interpretation Comments CULTURE (BEAKER) (test No growth in 5 days code = 1095) POCT-GLUCOSE [id number] 17:07:57 Test Item Value Reference Range Interpretation Comments POC-GLUCOSE METER 110 mg/dL 70-110 : TESTED A T [facility] 6720 (BEAKER) (test code = [facility], 1538) [id number]: Rail Specialist/Techni mirtha ID = [id number] for EMILY [place] COMPREHENSIVE METABOLIC [id number] 04:19:44 Test Item Value Reference Range Interpretation Comments TOTAL PROTEIN 4.1 gm/dL 6.0-8.3 L (BEAKER) (test code = 770) ALBUMIN (BEAKER) 2.1 g/dL 3.5-5.0 L (test code = 1145) ALKALINE 133 U/L 40-150 PHOSPHATASE (BEAKER) (test code = 346) BILIRUBIN TOTAL 0.7 mg/dL 0.2-1.2 (BEAKER) (test code = 377) SODIUM (BEAKER) 142 meq/L 136-145 (test code = 381) POTASSIUM (BEAKER) 4.1 meq/L 3.5-5.1 (test code = 379) CHLORIDE (BEAKER) 107 meq/L 98-107 (test code = 382) CO2 (BEAKER) (test 27 meq/L 22-29 code = 355) BLOOD UREA 35 mg/dL 7-21 H NITROGEN (BEAKER) (test code = 354) CREATININE 0.56 mg/dL 0.57-1.25 L (BEAKER) (test code = 358) GLUCOSE RANDOM 92 mg/dL 70-105 (BEAKER) (test code = 652) CALCIUM (BEAKER) 7.8 mg/dL 8.4-10.2 L (test code = 697) AST (SGOT) 35 U/L 5-34 H (BEAKER) (test code = 353) ALT (SGPT) 23 U/L 6-55 (BEAKER) (test code = 347) EGFR (BEAKER) 99 Interpretatio n of eGFR (test code = 1092) mL/min/1.[address] age Description sq m Result G1 Zainab l or high >=90 G2 Mildly decreased 60-89 G3a Mildl y to moderately 45- 59 G3b Moderately to s everely 30-44 G4 Severl y decreased 15-29 G5 Kidney failure <15Reported eGF R is based on the CKD-EPI 2020 equation that d oes not use a race coefficientEsti mated GFR is not as accur ate as Creatinine Mamie shandra in predicting glom erular filtration rate . Estimated GFR is not appl icable for dialysis patien ts Rail Specialist ID - [id number] 03:57:54 Test Item Value Reference Range Interpretation Comments MAGNESIUM (BEAKER) (test code = 1.6 mg/dL 1.6-2.6 627) Rail Specialist ID - MARCOBLOOD GAS, [id number] 03:48:14 Test Item Value Reference Range Interpretation Comments PH VENOUS (BEAKER) (test code = 7.45 7.32-7.42 H 701) PCO2 VENOUS (BEAKER) (test code = 48 mm Hg 41-51 755) PO2 VENOUS (BEAKER) (test code = 105 mm Hg 25-40 H 702) O2 SATURATION VENOUS (BEAKER) 98.0 % 40.0-70.0 H (test code = 703) HCO3 VENOUS (BEAKER) (test code = 32 mmol/L 21-29 H 705) BASE EXCESS VENOUS (BEAKER) (test 7.4 mmol/L -2.0-3.0 H code = 704) PATIENT TEMPERATURE (BEAKER) (test 37.0 code = 1818) FIO2 (BEAKER) (test code = 1819) 21.0 CBC W/PLT COUNT & AUTO [id number] 03:31:58 Test Item Value Reference Range Interpretation Comments WHITE BLOOD CELL COUNT (BEAKER) 16.6 K/ L 3.5-10.5 H (test code = 775) RED BLOOD CELL COUNT (BEAKER) 2.61 M/ L 3.93-5.22 L (test code = 761) HEMOGLOBIN (BEAKER) (test code = 8.1 GM/DL 11.2-15.7 L 410) HEMATOCRIT (BEAKER) (test code = 23.8 % 34.1-44.9 L 411) MEAN CORPUSCULAR VOLUME (BEAKER) 91 fL 79-95 (test code = 753) MEAN CORPUSCULAR HEMOGLOBIN 31.0 pg 25.6-32.2 (BEAKER) (test code = 751) MEAN CORPUSCULAR HEMOGLOBIN CONC 34.0 GM/DL 32.2-35.5 (BEAKER) (test code = 752) RED CELL DISTRIBUTION WIDTH 15.2 % 11.7-14.4 H (BEAKER) (test code = 412) PLATELET COUNT (BEAKER) (test 151 K/CU MM 150-450 code = 756) MEAN PLATELET VOLUME (BEAKER) 11.0 fL 9.4-12.3 (test code = 754) NUCLEATED RED BLOOD CELLS 0 /100 WBC 0-0 (BEAKER) (test code = 413) NEUTROPHILS RELATIVE PERCENT 79 % (BEAKER) (test code = 429) LYMPHOCYTES RELATIVE PERCENT 15 % (BEAKER) (test code = 430) MONOCYTES RELATIVE PERCENT 4 % (BEAKER) (test code = 431) EOSINOPHILS RELATIVE PERCENT 1 % (BEAKER) (test code = 432) BASOPHILS RELATIVE PERCENT 0 % (BEAKER) (test code = 437) NEUTROPHILS ABSOLUTE COUNT 13.17 K/ L 1.56-6.13 H (BEAKER) (test code = 670) LYMPHOCYTES ABSOLUTE COUNT 2.48 K/ L 1.18-3.74 (BEAKER) (test code = 414) MONOCYTES ABSOLUTE COUNT (BEAKER) 0.62 K/ L 0.24-0.36 H (test code = 415) EOSINOPHILS ABSOLUTE COUNT 0.15 K/ L 0.04-0.36 (BEAKER) (test code = 416) BASOPHILS ABSOLUTE COUNT (BEAKER) 0.03 K/ L 0.01-0.08 (test code = 417) IMMATURE GRANULOCYTES-RELATIVE 1.10 % 0.00-1.00 H PERCENT (BEAKER) (test code = 2801) POCT-GLUCOSE [id number] 23:35:10 Test Item Value Reference Range Interpretation Comments POC-GLUCOSE METER 97 mg/dL 70-110 : TESTED A T [facility] (BEAKER) (test code = SOULEYMANEAL Kirstin [facility], 1538) 110[address]: Rail Specialist/Techni mirtha ID = [id number] for Kasey Juarez LACTIC ACID, [id number] 20:51:59 Test Item Value Reference Range Interpretation Comments LACTATE BLOOD VENOUS (2) (BEAKER) 1.12 mmol/L 0.50-2.00 (test code = 2872) Rail Specialist ID - ADMINPOCT-GLUCOSE [id number] 18:02:04 Test Item Value Reference Range Interpretation Comments POC-GLUCOSE METER 92 mg/dL 70-110 : TESTED A T [facility] ([facility]) (test code = [facility], 1538) 076[address]: Rail Specialist/Techni mirtha ID = [id number] for EMILY GUARDADO RAD, CHEST, 1 VIEW, NON [id number] 16:18:00Reason for exam:->hypoxemia/ PNAShould this be performed at the bedside?->Yes [facility] JENNIFER : 1955 Sex: FFINAL REPORT TECHNIQUE: Frontal view of the chest. INDICATION: hypoxemia/ PNA. COMPARISON: 01/17/2023 at 7:45 AM. FINDINGS: LINES/TUBES: Tracheostomy tube and esophagogastric tube, asbefore. HEART AND MEDIASTINUM: Cardiomediastinal contour is stable. Atherosclerotic calcifications are present within the arch of the aorta. LUNGS: Patchy bilateral mid to lower lung opacities, left greater than right, unchanged. PLEURA: Small bilateral pleural effusions, left greater than right. No pneumothorax. SOFT TISSUES AND BONES: Unremarkable. IMPRESSION:Bilateral patchy mid to lower lung predominant opacities, left greater than right with small bilateral pleural effusions, not significantly changed. Signed: Benjamin Mckenzie MDReport Verified Date/Time: 01/17/2023 16:18:26 Electronicallysigned by: BENJAMIN MCKENZIE MD on 01/17/2023 04:18 PMSPUTUM CULTURE + GRAM [id number] 11:35:40 Test Item Value Reference Range Interpretation Comments CULTURE (BEAKER) (test CRONOBACTER A 4+ Cr onobacter code = 1095) SAKAZAKII sakazakii Amikacin (test code = S 1) Aztreonam (test code = S 32) Cefepime (test code = S 51) Cefoxitin (test code = S 68) Ceftazidime (test code S = 27) Ceftriaxone (test code S = 52) Ertapenem (test code = S 38) Gentamicin (test code S = 18) Levofloxacin (test S code = 22) Meropenem (test code = S 34) Nitrofurantoin (test S code = 23) Piperacillin + S Tazobactam (test code = 29) Tetracycline (test S code = 2) Tobramycin (test code S = 25) Trimethoprim + S Sulfamethoxazole (test code = 47) CULTURE (BEAKER) (test PSEUDOMONAS A <1+ P seudomonas code = 1095) AERUGINOSA aeruginosa Amikacin (test code = See_Comment S [Auto mated 1) message] The system which generated this result transmitted reference range : Susceptible 0-1 6 , Resistant <0 or >16 . The reference range was not used to interpret this result as normal/abnormal . Aztreonam (test code = See_Comment S [Aut omated 32) message] The system which generated this result transmitted reference range : Susceptible 0-8 , Resistant <0 or >8 . The reference range was not used to interpret this result as normal/abnormal . Cefepime (test code = See_Comment S [Auto mated 51) message] The system which generated this result transmitted reference range : Susceptible 0-8 , Resistant <0 or >8 . The reference range was not used to interpret this result as normal/abnormal . Ceftazidime (test code See_Comment S [Aut omated = 27) message] The system which generated this result transmitted reference range : Susceptible 0-8 , Resistant <0 or >8 . The reference range was not used to interpret this result as normal/abnormal . Ciprofloxacin (test See_Comment S [Automa dustin code = 7) message] The system which generated this result transmitted reference range : Susceptible 0-0.5 , Resistant <0 or >.5 . The reference range was not used to interpret this result as normal/abnormal . Gentamicin (test code See_Comment S [Auto mated = 18) message] The system which generated this result transmitted reference range : Susceptible 0-4 , Resistant <0 or >4 . The reference range was not used to interpret this result as normal/abnormal . Levofloxacin (test See_Comment S [Automat ed code = 22) message] The system which generated this result transmitted reference range : Susceptible 0-1 , Resistant <0 or >1 . The reference range was not used to interpret this result as normal/abnormal . Meropenem (test code = See_Comment S [Aut omated 34) message] The system which generated this result transmitted reference range : Susceptible 0-2 , Resistant <0 or >2 . The reference range was not used to interpret this result as normal/abnormal . Piperacillin (test See_Comment S [Automat ed code = 24) message] The system which generated this result transmitted reference range : Susceptible 0-1 6 , Resistant <0 or >16 . The reference range was not used to interpret this result as normal/abnormal . Piperacillin + See_Comment S [Automated Tazobactam (test code messag e] The = 29) system which generated this result transmitted reference range : Susceptible 0-1 6 , Resistant <0 or >16 . The reference range was not used to interpret this result as normal/abnormal . Tobramycin (test code See_Comment S [Auto mated = 25) message] The system which generated this result transmitted reference range : Susceptible 0-4 , Resistant <0 or >4 . The reference range was not used to interpret this result as normal/abnormal . GRAM STAIN RESULT 4+ WBCs (BEAKER) (test code = 1123) GRAM STAIN RESULT <1+ gram variable (BEAKER) (test code = rods 688708) <1+ Normal respiratory michelle presentRAD, CHEST, 1 VIEW, NON [id number] 08:35:00Reason for exam:->pulm assessmentShould this be performed at the bedside?->[facility] : 1955 Sex: FFINAL REPORT Chest one view. Clinical history: pulm assessment Comparison: 01/16/2023 Discussion: A frontal chest is provided. Cardiomediastinal contours are unchanged. Right IJ line has been removed. Other lines and tubes are in stable position. Grossly unchanged mid to lower lung interstitial and airspace opacities. There are small bilateral pleural effusions. No pneumothorax. Signed: [facility] Verified Date/Time: 01/17/2023 08:35:37 Reading Location: [facility] B1 [id number] Ortho Consult Reading Room (CELLAVISION MANUAL DIFF)2023-01-17 07:51:36 Test Item Value Reference Range Interpretation Comments NEUTROPHILS - REL 91 % (CELLAVISION)(BEAKER) (test code = 2816) LYMPHOCYTES - REL 1 % (CELLAVISION)(BEAKER) (test code = 2817) MONOCYTES - REL 2 % (CELLAVISION)(BEAKER) (test code = 2818) BANDS - REL (CELLAVISION)(BEAKER) 6 % 0-10 (test code = 2826) NEUTROPHILS - ABS 25.66 K/ul 1.56-6.13 H (CELLAVISION)(BEAKER) (test code = 2830) LYMPHOCYTES - ABS 0.28 K/ul 1.18-3.74 L (CELLAVISION)(BEAKER) (test code = 2831) MONOCYTES - ABS 0.56 K/uL 0.24-0.36 H (CELLAVISION)(BEAKER) (test code = 2832) BANDS - ABS (CELLAVISION)(BEAKER) 1.69 K/uL 0.00-0.80 H (test code = 2840) TOTAL COUNTED (BEAKER) (test code 100 = 1351) PLT MORPHOLOGY (BEAKER) (test code Normal = 486) TOXIC GRANULATION (BEAKER) (test Present code = 771) ANISOCYTOSIS (BEAKER) (test code = 1+ few 961) ARTIFACT (CELLAVISION)(BEAKER) Present (test code = 3432) PLATELET CONCENTRATION Decreased (CELLAVISION)(BEAKER) (test code = 3438) Rail Specialist ID - Lynda Serrano comments: Slide comments:CBC W/PLT COUNT & AUTO [id number] 07:51:35 Test Item Value Reference Range Interpretation Comments WHITE BLOOD CELL COUNT 28.2 K/ L 3.5-10.5 H (BEAKER) (test code = 775) RED BLOOD CELL COUNT 3.04 M/ L 3.93-5.22 L (BEAKER) (test code = 761) HEMOGLOBIN (BEAKER) 9.2 GM/DL 11.2-15.7 L (test code = 410) HEMATOCRIT (BEAKER) 27.7 % 34.1-44.9 L (test code = 411) MEAN CORPUSCULAR 91 fL 79-95 Discordant results VOLUME (BEAKER) (test compar ed to previous code = 753) results; clinic al correlation req uired MEAN CORPUSCULAR 30.3 pg 25.6-32.2 HEMOGLOBIN (BEAKER) (test code = 751) MEAN CORPUSCULAR 33.2 GM/DL 32.2-35.5 HEMOGLOBIN CONC (BEAKER) (test code = 752) RED CELL DISTRIBUTION 15.5 % 11.7-14.4 H WIDTH (BEAKER) (test code = 412) PLATELET COUNT 136 K/CU MM 150-450 L (BEAKER) (test code = 756) MEAN PLATELET VOLUME 10.7 fL 9.4-12.3 (BEAKER) (test code = 754) NUCLEATED RED BLOOD 0 /100 WBC 0-0 CELLS (BEAKER) (test code = 413) POCT-GLUCOSE [id number] 05:40:38 Test Item Value Reference Range Interpretation Comments POC-GLUCOSE METER 120 mg/dL 70-110 H : TESTED A T [facility] (BEAKER) (test code = [place], 1538) [address]: Rail Specialist/Techni mirtha ID = [id number] for CecilioBlanco COMPREHENSIVE METABOLIC [id number] 04:59:27 Test Item Value Reference Range Interpretation Comments TOTAL PROTEIN 4.3 gm/dL 6.0-8.3 L (BEAKER) (test code = 770) ALBUMIN (BEAKER) 2.3 g/dL 3.5-5.0 L (test code = 1145) ALKALINE 170 U/L 40-150 H PHOSPHATASE (BEAKER) (test code = 346) BILIRUBIN TOTAL 0.9 mg/dL 0.2-1.2 (BEAKER) (test code = 377) SODIUM (BEAKER) 137 meq/L 136-145 (test code = 381) POTASSIUM (BEAKER) 3.9 meq/L 3.5-5.1 (test code = 379) CHLORIDE (BEAKER) 106 meq/L 98-107 (test code = 382) CO2 (BEAKER) (test 22 meq/L 22-29 code = 355) BLOOD UREA 38 mg/dL 7-21 H NITROGEN (BEAKER) (test code = 354) CREATININE 0.59 mg/dL 0.57-1.25 (BEAKER) (test code = 358) GLUCOSE RANDOM 144 mg/dL 70-105 H (BEAKER) (test code = 652) CALCIUM (BEAKER) 7.4 mg/dL 8.4-10.2 L (test code = 697) AST (SGOT) 27 U/L 5-34 (BEAKER) (test code = 353) ALT (SGPT) 21 U/L 6-55 (BEAKER) (test code = 347) EGFR (BEAKER) 97 Interpretatio n of eGFR (test code = 1092) mL/min/1.[address] age Description sq m Result G1 Zainab l or high >=90 G2 Mildly decreased 60-89 G3a Mildl y to moderately 45-5 9 G3b Moderately to s everely 30-44 G4 Severl y decreased 15-29 G5 Kidney failure <15Reported eGF R is based on the CKD-EPI 2020 equation that d oes not use a race coefficientEsti mated GFR is not as accur ate as Creatinine Mamie shandra in predicting glom erular filtration rate . Estimated GFR is not appl icable for dialysis patien ts Rail Specialist ID - [id number] 04:57:42 Test Item Value Reference Range Interpretation Comments MAGNESIUM (BEAKER) (test code = 1.5 mg/dL 1.6-2.6 L 627) Rail Specialist ID - MMBLOOD GAS, [id number] 04:13:52 Test Item Value Reference Range Interpretation Comments PH VENOUS (BEAKER) (test code = 7.37 7.32-7.42 701) PCO2 VENOUS (BEAKER) (test code = 50 mm Hg 41-51 755) PO2 VENOUS (BEAKER) (test code = 42 mm Hg 25-40 H 702) O2 SATURATION VENOUS (BEAKER) 78.7 % 40.0-70.0 H (test code = 703) HCO3 VENOUS (BEAKER) (test code = 29 mmol/L 21-29 705) BASE EXCESS VENOUS (BEAKER) (test 2.6 mmol/L -2.0-3.0 code = 704) PATIENT TEMPERATURE (BEAKER) (test 36.0 code = 1818) FIO2 (BEAKER) (test code = 1819) 40.0 POCT-GLUCOSE [id number] 00:08:39 Test Item Value Reference Range Interpretation Comments POC-GLUCOSE METER 117 mg/dL 70-110 H : TESTED A T [facility] (BEAKER) (test code = [place], 1538) 13590: Rail Specialist/Techni mirtha ID = [id number] for Blanco Hernandes POCT-GLUCOSE [id number] 17:34:09 Test Item Value Reference Range Interpretation Comments POC-GLUCOSE METER 131 mg/dL 70-110 H : TESTED A T [facility] 6720 (ROD) (test code = [place], 1538) 50[address]: Rail Specialist/Techni mirtha ID = [id number] for To Mauricio boyer MRSA [id number] 15:35:03 Test Item Value Reference Range Interpretation Comments CULTURE (ROD) (test code No MRSA isolated = 1095) RAD, CHEST, 1 VIEW, NON [id number] 14:23:00Reason for exam:->pulmonary evalShould this be performed at the bedside?->Yes [facility] : 1955 Sex: FFINAL REPORT CLINICAL HISTORY: pulmonary eval TECHNIQUE: 1 view of the chest. COMPARISON: 01/15/2023 IMPRESSION: The supporting lines and tubes are similar appearing. Bilateral mid and lower lung infiltrates are again seen with small bilateral pleural effusions. The cardiomediastinalsilhouette is magnified by technique. Signed: [facility] Verified Date/Time: 01/16/2023 1 4:23:50 -GLUCOSE [id number] 12:50:10 Test Item Value Reference Range Interpretation Comments POC-GLUCOSE METER 115 mg/dL 70-110 H : TESTED A T [facility] 6720 (ROD) (test code = [place], 1538) 15180: Rail Specialist/Techni mirtha ID = [id number] for To Mauricio boyer COMPREHENSIVE METABOLIC [id number] 07:36:50 Test Item Value Reference Range Interpretation Comments TOTAL PROTEIN 4.1 gm/dL 6.0-8.3 L (BEAKER) (test code = 770) ALBUMIN (BEAKER) 2.3 g/dL 3.5-5.0 L (test code = 1145) ALKALINE 173 U/L 40-150 H PHOSPHATASE (BEAKER) (test code = 346) BILIRUBIN TOTAL 1.1 mg/dL 0.2-1.2 (BEAKER) (test code = 377) SODIUM (BEAKER) 138 meq/L 136-145 (test code = 381) POTASSIUM (BEAKER) 4.3 meq/L 3.5-5.1 (test code = 379) CHLORIDE (BEAKER) 107 meq/L 98-107 (test code = 382) CO2 (BEAKER) (test 22 meq/L 22-29 code = 355) BLOOD UREA 41 mg/dL 7-21 H NITROGEN (BEAKER) (test code = 354) CREATININE 0.71 mg/dL 0.57-1.25 (BEAKER) (test code = 358) GLUCOSE RANDOM 90 mg/dL 70-105 (BEAKER) (test code = 652) CALCIUM (BEAKER) 7.6 mg/dL 8.4-10.2 L (test code = 697) AST (SGOT) 36 U/L 5-34 H (BEAKER) (test code = 353) ALT (SGPT) 22 U/L 6-55 (BEAKER) (test code = 347) EGFR (BEAKER) 92 Interpretatio n of eGFR (test code = 1092) mL/min/1.[address] age Description sq m Result G1 Zainab l or high >=90 G2 Mildly decreased 60-89 G3a Mildl y to moderately 45-5 9 G3b Moderately to s everely 30-44 G4 Severl y decreased 15-29 G5 Kidney failure <15Reported eGF R is based on the CKD-EPI 2020 equation that d oes not use a race coefficientEsti mated GFR is not as accur ate as Creatinine Mamie shandra in predicting glom erular filtration rate . Estimated GFR is not appl icable for dialysis patien ts Rail Specialist ID - MM(CELLAVISION MANUAL DIFF)2023-01-16 07:23:18 Test Item Value Reference Range Interpretation Comments NEUTROPHILS - REL 87 % (CELLAVISION)(BEAKER) (test code = 2816) LYMPHOCYTES - REL 5 % (CELLAVISION)(BEAKER) (test code = 2817) MONOCYTES - REL 1 % (CELLAVISION)(BEAKER) (test code = 2818) BANDS - REL (CELLAVISION)(BEAKER) 7 % 0-10 (test code = 2826) NEUTROPHILS - ABS 25.75 K/ul 1.56-6.13 H (CELLAVISION)(BEAKER) (test code = 2830) LYMPHOCYTES - ABS 1.48 K/ul 1.18-3.74 (CELLAVISION)(BEAKER) (test code = 2831) MONOCYTES - ABS 0.30 K/uL 0.24-0.36 (CELLAVISION)(BEAKER) (test code = 2832) BANDS - ABS (CELLAVISION)(BEAKER) 2.07 K/uL 0.00-0.80 H (test code = 2840) TOTAL COUNTED (BEAKER) (test code 100 = 1351) WBC MORPHOLOGY (BEAKER) (test Normal code = 487) GIANT PLATELETS (BEAKER) (test Present code = 313) POLYCHROMATOPHILLIC RBCS(BEAKER) 1+ few (test code = 478) POIKILOCYTES (BEAKER) (test code 2+ moderate = 966) ELLIPTOCYTES (BEAKER) (test code 1+ few = 962) ARTIFACT (CELLAVISION)(BEAKER) Present (test code = 3432) PLATELET CONCENTRATION Adequate (CELLAVISION)(BEAKER) (test code = 3438) Rail Specialist ID - cari Campos comments: Slide comments:CBC W/PLT COUNT & AUTO [id number] 07:23:17 Test Item Value Reference Range Interpretation Comments WHITE BLOOD CELL COUNT (BEAKER) 29.6 K/ L 3.5-10.5 H (test code = 775) RED BLOOD CELL COUNT (BEAKER) 2.92 M/ L 3.93-5.22 L (test code = 761) HEMOGLOBIN (BEAKER) (test code = 9.1 GM/DL 11.2-15.7 L 410) HEMATOCRIT (BEAKER) (test code = 27.9 % 34.1-44.9 L 411) MEAN CORPUSCULAR VOLUME (BEAKER) 96 fL 79-95 H (test code = 753) MEAN CORPUSCULAR HEMOGLOBIN 31.2 pg 25.6-32.2 (BEAKER) (test code = 751) MEAN CORPUSCULAR HEMOGLOBIN CONC 32.6 GM/DL 32.2-35.5 (BEAKER) (test code = 752) RED CELL DISTRIBUTION WIDTH 15.9 % 11.7-14.4 H (BEAKER) (test code = 412) PLATELET COUNT (BEAKER) (test 160 K/CU MM 150-450 code = 756) MEAN PLATELET VOLUME (BEAKER) 10.9 fL 9.4-12.3 (test code = 754) NUCLEATED RED BLOOD CELLS 0 /100 WBC 0-0 (BEAKER) (test code = 413) [id number] 07:11:26 Test Item Value Reference Range Interpretation Comments MAGNESIUM (BEAKER) (test code = 2.0 mg/dL 1.6-2.6 627) Rail Specialist ID - MMBLOOD GAS, [id number] 05:25:02 Test Item Value Reference Range Interpretation Comments PH VENOUS (BEAKER) (test code = 7.37 7.32-7.42 701) PCO2 VENOUS (BEAKER) (test code = 46 mm Hg 41-51 755) PO2 VENOUS (BEAKER) (test code = 62 mm Hg 25-40 H 702) O2 SATURATION VENOUS (BEAKER) 91.0 % 40.0-70.0 H (test code = 703) HCO3 VENOUS (BEAKER) (test code = 26 mmol/L 21-29 705) BASE EXCESS VENOUS (BEAKER) (test 0.2 mmol/L -2.0-3.0 code = 704) PATIENT TEMPERATURE (BEAKER) (test 37.0 code = 1818) FIO2 (BEAKER) (test code = 1819) 40.0 POCT-GLUCOSE [id number] 05:12:52 Test Item Value Reference Range Interpretation Comments POC-GLUCOSE METER 104 mg/dL 70-110 : [facility] (BEAKER) (test code = [place], 1538) 82[address]: Rail Specialist/Techni mirtha ID = [id number] for Blanco Hernandes POCT-GLUCOSE [id number] 23:28:46 Test Item Value Reference Range Interpretation Comments POC-GLUCOSE METER 100 mg/dL 70-110 : TESTED A T [facility] 6720 (BEAKER) (test code = [place] [facility], 1538) 59437: Rail Specialist/Techni mirtha ID = [id number] for Blanco Hernandes ittany POCT-GLUCOSE [id number] 17:47:24 Test Item Value Reference Range Interpretation Comments POC-GLUCOSE METER 85 mg/dL 70-110 : TESTED A T [facility] 6720 (BEAKER) (test code = [place]ERT [place] [facility], 1538) 90383: Rail Specialist/Techni mirtha ID = [id number] for ARACELI GALLO [id number] 15:36:47 Test Item Value Reference Range Interpretation Comments MAGNESIUM (BEAKER) (test code = 1.7 mg/dL 1.6-2.6 627) Rail Specialist ID - ADMINRAD, ABDOMEN/KUB, 1 VIEW [id number] 15:33:00Reason for exam:->Enteric tube placement verification [facility] : 1955 Sex: FFINAL REPORT EXAM: KUB Comparison: January 14, 2023 CLINICAL HISTORY: Enteric tube placement next FINDINGS: The tip of the nasogastric tube overlies the gastric fundus. Air-filled mildlyprominent bowel loops are noted in the left abdomen which may represent ileus. Scoliosis of the lumbar spine again noted. No gross evidence of pneumoperitoneum. Bibasilar airway disease again noted. Sig wero: Sonia Schmidt MDReport Verified Date/Time: 01/15/2023 15:33:21 POCT- GLUCOSE [id number] 11:46:35 Test Item Value Reference Range Interpretation Comments POC-GLUCOSE METER 71 mg/dL 70-110 : TESTED A T [facility] 6720 (BEAKER) (test code = [place], 1538) 27027: Rail Specialist/Techni mirtha ID = [id number] for ARACELI GALLO COMPREHENSIVE METABOLIC [id number] 09:21:39 Test Item Value Reference Range Interpretation Comments TOTAL PROTEIN 4.5 gm/dL 6.0-8.3 L (BEAKER) (test code = 770) ALBUMIN (BEAKER) 2.6 g/dL 3.5-5.0 L (test code = 1145) ALKALINE 117 U/L 40-150 PHOSPHATASE (BEAKER) (test code = 346) BILIRUBIN TOTAL 1.3 mg/dL 0.2-1.2 H (BEAKER) (test code = 377) SODIUM (BEAKER) 140 meq/L 136-145 (test code = 381) POTASSIUM (BEAKER) 3.9 meq/L 3.5-5.1 (test code = 379) CHLORIDE (BEAKER) 106 meq/L 98-107 (test code = 382) CO2 (BEAKER) (test 24 meq/L 22-29 code = 355) BLOOD UREA 37 mg/dL 7-21 H NITROGEN (BEAKER) (test code = 354) CREATININE 0.86 mg/dL 0.57-1.25 (BEAKER) (test code = 358) GLUCOSE RANDOM 81 mg/dL 70-105 (BEAKER) (test code = 652) CALCIUM (BEAKER) 7.7 mg/dL 8.4-10.2 L (test code = 697) AST (SGOT) 39 U/L 5-34 H (BEAKER) (test code = 353) ALT (SGPT) 25 U/L 6-55 (BEAKER) (test code = 347) EGFR (BEAKER) 73 Interpretatio n of eGFR (test code = 1092) mL/min/1.[address] age Description sq m Result G1 Zainab l or high >=90 G2 Mildly decreased 60-89 G3a Mildl y to moderately 45-5 9 G3b Moderately to s everely 30-44 G4 Severl y decreased 15-29 G5 Kidney failure <15Reported eGF R is based on the CKD-EPI 2020 equation that d oes not use a race coefficientEsti mated GFR is not as accur ate as Creatinine Mamie shandra in predicting glom erular filtration rate . Estimated GFR is not appl icable for dialysis patien ts [employer] Specialist ID - ADMINRAD, CHEST, 1 VIEW, NON [id number] 08:45:00Reason for exam:->pulmonary assessment/trachShould this be performed at the bedside?->YesS[facility] : 1955 Sex: FFINAL REPORT CLINICAL HISTORY: pulmonary assessment/trach TECHNIQUE: 1 view of the chest. COMPARISON: 01/14/2023 IMPRESSION: New NG tube below the diaphragm. Tracheostomy tube and right central line unchanged. Bilateral mid and lower lung consolidation is similar. Small bilateral pleural effusions are again seen. The cardiomediastinal silhouette is magnified by technique. Signed: Jimmie Jones MDReport Verified Date/Time: 01/15/2023 08:45:21 COMPREHENSIVE METABOLIC PANEL 2023-01-15 08:04:38 Test Item Value Reference Range Interpretation Comments TOTAL PROTEIN 4.7 gm/dL 6.0-8.3 L (BEAKER) (test code = 770) ALBUMIN (BEAKER) 2.7 g/dL 3.5-5.0 L (test code = 1145) ALKALINE 107 U/L 40-150 PHOSPHATASE (BEAKER) (test code = 346) BILIRUBIN TOTAL 1.4 mg/dL 0.2-1.2 H (BEAKER) (test code = 377) SODIUM (BEAKER) 139 meq/L 136-145 (test code = 381) POTASSIUM (BEAKER) 3.9 meq/L 3.5-5.1 (test code = 379) CHLORIDE (BEAKER) 106 meq/L 98-107 (test code = 382) CO2 (BEAKER) (test 23 meq/L 22-29 code = 355) BLOOD UREA 34 mg/dL 7-21 H NITROGEN (BEAKER) (test code = 354) CREATININE 0.81 mg/dL 0.57-1.25 (BEAKER) (test code = 358) GLUCOSE RANDOM 80 mg/dL 70-105 (BEAKER) (test code = 652) CALCIUM (BEAKER) 7.9 mg/dL 8.4-10.2 L (test code = 697) AST (SGOT) 40 U/L 5-34 H (BEAKER) (test code = 353) ALT (SGPT) 25 U/L 6-55 (BEAKER) (test code = 347) EGFR (BEAKER) 79 Interpretatio n of eGFR (test code = 1092) mL/min/1.[address] age Description sq m Result G1 Zainab l or high >=90 G2 Mildly decreased 60-89 G3a Mildl y to moderately 45-5 9 G3b Moderately to s everely 30-44 G4 Severl y decreased 15-29 G5 Kidney failure <15Reported eGF R is based on the CKD-EPI 2020 equation that d oes not use a race coefficientEsti mated GFR is not as accur ate as Creatinine Mamie shandra in predicting glom erular filtration rate . Estimated GFR is not appl icable for dialysis patien ts Rail Specialist ID - [id number] 07:55:17 Test Item Value Reference Range Interpretation Comments MAGNESIUM (BEAKER) (test code = 1.6 mg/dL 1.6-2.6 627) Rail Specialist ID - ADMIN(CELLAVISION MANUAL DIFF)2023-01-15 07:53:46 Test Item Value Reference Range Interpretation Comments NEUTROPHILS - REL 60 % (CELLAVISION)(BEAKER) (test code = 2816) LYMPHOCYTES - REL 2 % (CELLAVISION)(BEAKER) (test code = 2817) MONOCYTES - REL 4 % (CELLAVISION)(BEAKER) (test code = 2818) METAMYELOCYTES - REL 5 % 0-0 H (CELLAVISION)(BEAKER) (test code = 2821) BANDS - REL (CELLAVISION)(BEAKER) 29 % 0-10 H (test code = 2826) NEUTROPHILS - ABS 16.08 K/ul 1.56-6.13 H (CELLAVISION)(BEAKER) (test code = 2830) LYMPHOCYTES - ABS 0.54 K/ul 1.18-3.74 L (CELLAVISION)(BEAKER) (test code = 2831) MONOCYTES - ABS 1.07 K/uL 0.24-0.36 H (CELLAVISION)(BEAKER) (test code = 2832) METAMYELOCYTES - ABS 1.34 K/uL 0.00-0.00 H (CELLAVISION)(BEAKER) (test code = 2836) BANDS - ABS (CELLAVISION)(BEAKER) 7.77 K/uL 0.00-0.80 H (test code = 2840) TOTAL COUNTED (BEAKER) (test code 100 = 1351) PLT MORPHOLOGY (BEAKER) (test code Normal = 486) SMUDGE CELLS (BEAKER) (test code = Present 1371) ANISOCYTOSIS (BEAKER) (test code = 1+ few 961) MICROCYTES (BEAKER) (test code = 1+ few 965) POIKILOCYTES (BEAKER) (test code = 1+ few 966) NERIS CELLS (BEAKER) (test code = 1+ few 474) PLATELET CONCENTRATION Adequate (CELLAVISION)(BEAKER) (test code = 3438) Rail Specialist ID - Sherman Mereditho-onUser comments: Slide comments:CBC W/PLT COUNT & AUTO [id number] 07:53:45 Test Item Value Reference Range Interpretation Comments WHITE BLOOD CELL COUNT (BEAKER) 26.8 K/ L 3.5-10.5 H (test code = 775) RED BLOOD CELL COUNT (BEAKER) 2.91 M/ L 3.93-5.22 L (test code = 761) HEMOGLOBIN (BEAKER) (test code = 9.0 GM/DL 11.2-15.7 L 410) HEMATOCRIT (BEAKER) (test code = 27.5 % 34.1-44.9 L 411) MEAN CORPUSCULAR VOLUME (BEAKER) 95 fL 79-95 (test code = 753) MEAN CORPUSCULAR HEMOGLOBIN 30.9 pg 25.6-32.2 (BEAKER) (test code = 751) MEAN CORPUSCULAR HEMOGLOBIN CONC 32.7 GM/DL 32.2-35.5 (BEAKER) (test code = 752) RED CELL DISTRIBUTION WIDTH 15.9 % 11.7-14.4 H (BEAKER) (test code = 412) PLATELET COUNT (BEAKER) (test 191 K/CU MM 150-450 code = 756) MEAN PLATELET VOLUME (BEAKER) 10.6 fL 9.4-12.3 (test code = 754) NUCLEATED RED BLOOD CELLS 0 /100 WBC 0-0 (BEAKER) (test code = 413) POC-Glucose [id number] 05:04:08 Test Item Value Reference Range Interpretation Comments POC-Glucose Meter (test 84 mg/dL 70-110 : TE STED AT [facility] code = 1538) [address] [facility], 770 30: Rail Specialist/Techni mirtha ID = [id number] for Adela Hernandes Lab Interpretation (test Normal code = 25592-7) [facility] [id number] 05:04:08 Test Item Value Reference Range Interpretation Comments POC-GLUCOSE METER 84 mg/dL 70-110 : TESTED A T [facility] 6720 (BEAKER) (test code = [facility], 1538) [address]: Rail Specialist/Techni mirtha ID = [id number] for Adela Bryant BLOOD GAS, [id number] 05:00:36 Test Item Value Reference Range Interpretation Comments PH VENOUS (BEAKER) (test code = 7.40 7.32-7.42 701) PCO2 VENOUS (BEAKER) (test code = 43 mm Hg 41-51 755) PO2 VENOUS (BEAKER) (test code = 45 mm Hg 25-40 H 702) O2 SATURATION VENOUS (BEAKER) 81.1 % 40.0-70.0 H (test code = 703) HCO3 VENOUS (BEAKER) (test code = 26 mmol/L 21-29 705) BASE EXCESS VENOUS (BEAKER) (test 0.8 mmol/L -2.0-3.0 code = 704) PATIENT TEMPERATURE (BEAKER) (test 37.0 code = 1818) POCT-GLUCOSE [id number] 23:34:12 Test Item Value Reference Range Interpretation Comments POC-GLUCOSE METER 97 mg/dL 70-110 : TESTED A T [facility] 6720 (BEAKER) (test code = [place], 1538) [address]: Rail Specialist/Techni mirtha ID = [id number] for Miah Viramontes Adela BLOOD GAS, [id number] 18:24:58 Test Item Value Reference Range Interpretation Comments PH VENOUS (BEAKER) (test code = 7.36 7.32-7.42 701) PCO2 VENOUS (BEAKER) (test code = 48 mm Hg 41-51 755) PO2 VENOUS (BEAKER) (test code = 83 mm Hg 25-40 H 702) O2 SATURATION VENOUS (BEAKER) 95.7 % 40.0-70.0 H (test code = 703) HCO3 VENOUS (BEAKER) (test code = 26 mmol/L 21-29 705) BASE EXCESS VENOUS (BEAKER) (test 0.4 mmol/L -2.0-3.0 code = 704) PATIENT TEMPERATURE (BEAKER) (test 37.0 code = 1818) FIO2 (BEAKER) (test code = 1819) 90.0 Strep pneumoniae [id number] 14:42:25 Test Item Value Reference Range Interpretation Comments Strep pneumoniae Presumptive negative Presumptive Antigen (test code = [place] [address]-7) pneumonia - see pneumococcal comment pneumonia - see comment, Presumptive negative for pneumococcal meningitis - see comment NAS (test code = NAS) Presumptive negative for pneumococcal pneumonia, suggesting no current or recent pneumococcal infection. Infection due to S. pneumoniae cannot be ruled out since the antigen present in the sample may be below the detection limit of the test. Lab Interpretation Normal (test code = 04073-3) [facility] [id number] 14:42:25 Test Item Value Reference Range Interpretation Comments STREP PNEUMONIAE Presumptive negative Presumptive negative ANTIGEN (BEAKER) for pneumococcal for pneumococcal (test code = 1615) pneumonia - see pneumonia - see comment commen Presumptive negative for pneumococcal pneumonia, suggesting no current or recent pneumococcal infection. Infection due to S. pneumoniae cannot be ruled out since the antigen present in the sample may be below the detection limit of the test. Legionella antigen, [id number] 14:41:40 Test Item Value Reference Range Interpretation Comments Legionella Urine Negative - see Negative Negative for L. Antigen (test code = comment pneumop viraj 36373-9) serogroup 1 antigen, sugges ting no recent or current infecti on with this serogroup. Legionellosis cannot be ruled out since other serogroups and species may cau se disease. Lab Interpretation Normal (test code = 73789-7) [facility]ION[facility]LLA ANTIGEN, [id number] 14:41:40 Test Item Value Reference Range Interpretation Comments L. PNEUMOPHILA Negative - see Negative Negative fo r L. SEROGP 1 UR AG comment pneumophila (BEAKER) (test code serogrou p 1 antigen, = 1156) suggesting no r ecent or current infe ction with this serog roup. Legionellosis c annot be ruled out si nce other serogroup s and species may cau se disease. Sodium, random [id number] 13:52:35Sodium Urine<20meq/L01/14/2023 1:52 PM CDH[facility]ITALReference Range:No NormalsOperator ID - ADMINSeneca HospitalODIUM, RANDOM [id number] 13:52:35 Test Item Value Reference Range Interpretation Comments SODIUM URINE (BEAKER) (test code = < meq/L 243) Reference Range: No NormalsOperator ID - ADMINCreatinine, random [id number] 13:46:37 Test Item Value Reference Range Interpretation Comments Creatinine, Ur 79.0 mg/dL (test code = 2161-8) NAS (test code = Reference Range: No NAS) NormalsOperator ID - ADMIN [facility]AT[facility], RANDOM [id number] 13:46:37 Test Item Value Reference Range Interpretation Comments CREATININE URINE (BEAKER) (test 79.0 mg/dL code = 375) Reference Range: No NormalsOperator ID - ADMINHIV-1 ANTIGEN WITH HIV-1/2 [id number] 13:32:01 Test Item Value Reference Range Interpretation Comments HIV-1 ANTIGEN WITH HIV 1\\T\\2 Nonreactive Nonreactive ANTIBODY (2) (BEAKER) (test code = 2586) Rail Specialist ID - ADMINBLOOD GAS, [id number] 13:04:30 Test Item Value Reference Range Interpretation Comments PH VENOUS (BEAKER) (test code = 7.37 7.32-7.42 701) PCO2 VENOUS (BEAKER) (test code = 47 mm Hg 41-51 755) PO2 VENOUS (BEAKER) (test code = 66 mm Hg 25-40 H 702) O2 SATURATION VENOUS (BEAKER) 92.3 % 40.0-70.0 H (test code = 703) HCO3 VENOUS (BEAKER) (test code = 27 mmol/L 21-29 705) BASE EXCESS VENOUS (BEAKER) (test 1.0 mmol/L -2.0-3.0 code = 704) PATIENT TEMPERATURE (BEAKER) (test 37.0 code = 1818) FIO2 (BEAKER) (test code = 1819) 21.0 T4, [id number] 12:13:30 Test Item Value Reference Range Interpretation Comments FREE T4 (BEAKER) (test code = 655) 0.94 ng/dL 0.70-1.48 IRON, TIBC, % SAT. (WITHOUT FERRITIN)2023-01-14 11:51:23 Test Item Value Reference Range Interpretation Comments IRON (BEAKER) (test code = 547) 13.0 ug/dL 40.0-160.0 L TOTAL IRON BINDING CAPACITY 134 ug/dL 250-450 L (BEAKER) (test code = 769) IRON % SATURATION (2) (BEAKER) 10 % 20-55 L (test code = 2590) Rail Specialist ID - ADMINCBC W/PLT COUNT & AUTO [id number] 11:28:44 Test Item Value Reference Range Interpretation Comments WHITE BLOOD CELL COUNT (BEAKER) 3.8 K/ L 3.5-10.5 (test code = 775) RED BLOOD CELL COUNT (BEAKER) 2.88 M/ L 3.93-5.22 L (test code = 761) HEMOGLOBIN (BEAKER) (test code = 9.0 GM/DL 11.2-15.7 L 410) HEMATOCRIT (BEAKER) (test code = 27.7 % 34.1-44.9 L 411) MEAN CORPUSCULAR VOLUME (BEAKER) 96 fL 79-95 H (test code = 753) MEAN CORPUSCULAR HEMOGLOBIN 31.3 pg 25.6-32.2 (BEAKER) (test code = 751) MEAN CORPUSCULAR HEMOGLOBIN CONC 32.5 GM/DL 32.2-35.5 (BEAKER) (test code = 752) RED CELL DISTRIBUTION WIDTH 15.6 % 11.7-14.4 H (BEAKER) (test code = 412) PLATELET COUNT (BEAKER) (test 242 K/CU MM 150-450 code = 756) MEAN PLATELET VOLUME (BEAKER) 10.6 fL 9.4-12.3 (test code = 754) NUCLEATED RED BLOOD CELLS 0 /100 WBC 0-0 (BEAKER) (test code = 413) (CELLAVISION MANUAL DIFF)2023-01-14 11:28:44 Test Item Value Reference Range Interpretation Comments TOTAL COUNTED (BEAKER) (test code = 1351) RBC MORPHOLOGY (BEAKER) (test code = Normal 762) WBC MORPHOLOGY (BEAKER) (test code = Normal 487) PLT MORPHOLOGY (BEAKER) (test code = Normal 486) For best practice initiative, differentials are limited to 1 per day.TSH/FREE T4 IF [id number] 11:19:27 Test Item Value Reference Range Interpretation Comments THYROID STIMULATING HORMONE 0.306 uIU/mL 0.350-4.940 L (BEAKER) (test code = 772) CBC W/PLT COUNT & AUTO [id number] 11:02:42 Test Item Value Reference Range Interpretation Comments WHITE BLOOD CELL COUNT (BEAKER) 1.4 K/ L 3.5-10.5 L (test code = 775) RED BLOOD CELL COUNT (BEAKER) 3.16 M/ L 3.93-5.22 L (test code = 761) HEMOGLOBIN (BEAKER) (test code = 9.8 GM/DL 11.2-15.7 L 410) HEMATOCRIT (BEAKER) (test code = 30.5 % 34.1-44.9 L 411) MEAN CORPUSCULAR VOLUME (BEAKER) 97 fL 79-95 H (test code = 753) MEAN CORPUSCULAR HEMOGLOBIN 31.0 pg 25.6-32.2 (BEAKER) (test code = 751) MEAN CORPUSCULAR HEMOGLOBIN CONC 32.1 GM/DL 32.2-35.5 L (BEAKER) (test code = 752) RED CELL DISTRIBUTION WIDTH 15.2 % 11.7-14.4 H (BEAKER) (test code = 412) PLATELET COUNT (BEAKER) (test 192 K/CU MM 150-450 code = 756) MEAN PLATELET VOLUME (BEAKER) 9.7 fL 9.4-12.3 (test code = 754) NUCLEATED RED BLOOD CELLS 0 /100 WBC 0-0 (BEAKER) (test code = 413) RAD, ABDOMEN/KUB, 1 VIEW [id number] 10:41:00Reason for exam:->eval for severe constipation or SBO [facility] : 1955 Sex: FFINAL REPORT CLINICAL HISTORY: eval for severe constipation or SBO TECHNIQUE: Supine abdomen COMPARISON: None IMPRESSION: There is moderate stool in the colon. There are no focally dilated loops of bowel. Free air and air- fluid levels are not definitively seen, but cannot be excluded on the supine view. There is a dextroscoliosis of the lumbar spine. Bilateral lower lung infiltrates are similar to an earlier chest x-ray. Signed: Jimmie Jones [facility] CENTEReport Verified Date/Time: 01/14/2023 10:41:53 SARS-CoV2/RT-PCR (Asymptomatic ONLY) 2023-01-14 10:22:11 Test Item Value Reference Interpretation Comments Range SARS-COV2/RT-PCR Negative Negative The SARS-Co V-2 (test code = target nucleic 79169-7) acids are not detected in thi s specimen. Negat meghan results do not preclude SARS-C oV-2 infection and should not be u sed as the sole bas is for patient management decisions. Nega tive results must be combined with clinical observations, patient history , and epidemiolog ical information. A false negative result may occu r if a specimen is improperly collected, transported or handled. This S ARS CoV-2 test is a rapid, real-pio e RT-PCR test intended for th e qualitative detection of nucleic acid fr om SARS-CoV-2 in a nasopharyngeal swab specimen collec dustin from individual s suspected of COVID-19 by the ir healthcare provider. NAS (test code = This test has been NAS) authorized by FDA under an EUA for use by authorized laboratories. This test is only authorized for the duration of the declaration that circumstances exist justifying the authorization of emergency use of in vitro diagnostic tests for detection and/or diagnosis of COVID-19 under Section 564(b)(1) of the Federal Food, Drug and Cosmetic Act, 21 U.S.C. 360bbb-3(b)(1), unless the authorization is terminated or revoked sooner. Fact Sheet for Healthcare Providers: https://www.[employer]/Documents/Xp ert%20Xpress%20SAR S%20CoV-2/Fact%20S heets/3023802%20S ARS-COV-2%20HEALTH CARE%20PROVIDERS%2 0FACT%20SHEET.pdf Fact Sheet for Healthcare Patients: https://www.[employer]/Documents/Xp ert%20Xpress%20SAR S%20CoV-2/Fact%20S heets/3023801%20S ARS-COV-2%20PATIEN T%20FACT%20SHEET.p df Lab Interpretation Normal (test code = 71936-8) [facility])2023-01-14 10:22:11 Test Item Value Reference Range Interpretation Comments SARS-COV2/RT-PCR Negative Negative The SARS-Co V-2 target (test code = nucleic acids a re not 7775281) detected in thi s specimen. Negative result s do not preclude SARS-C oV-2 infection and s hould not be used as the abdulkadir e basis for patient managem ent decisions. Nega tive results must be combine d with clinical observ ations, patient history , and epidemiological information. A false negativ e result may occur if a spec imen is improperly jody ected, transported or handled. This SARS CoV-2 test is a rapid, real-time RT-PC R test intended for th e qualitative detection of nu cleic acid from SARS-CoV-2 in a nasopharyngeal swab specimen collected from individuals suspected of CO VID-19 by their healthcar e provider. This test has been authorized by FDA under an EUA for use by authorized laboratories. This test is only authorized for the duration of the declaration that circumstances exist justifying the authorization of emergency use of in vitro diagnostic tests for detection and/or diagnosis of COVID-19 under Section 564(b)(1) of the Federal Food, Drug and Cosmetic Act, 21 U.S.C. 360bbb-3(b)(1), unless the authorization is terminated or revoked sooner. Fact Sheet for Healthcare Providers: https://www.[employer].co m/Documents/Xpert%20Xpress%20SARS%20CoV-2/Fact%20Sheets/302-6652%35JGQU-JPJ-3%20 HEALTHCARE%20PROVIDERS%20FACT%20SHEET.pdf Fact Sheet for Healthcare Patients: https://www.[employer]/Documents/Xpert%20Xp ress%20SARS%20CoV-2/Fact%20Sheets/3023801%47EVIC-EOK-0%20PATIENT%20FACT%20SHEET .pdfVITAMIN [id number] 10:15:14 Test Item Value Reference Range Interpretation Comments VITAMIN B12 (BEAKER) (test code = 1826 pg/mL 213-816 H 774) [id number] 10:15:14 Test Item Value Reference Range Interpretation Comments FERRITIN (BEAKER) (test code = 150.00 ng/mL 5.00-275.00 361) LACTIC ACID, [id number] 09:48:49 Test Item Value Reference Range Interpretation Comments LACTATE BLOOD VENOUS (2) (BEAKER) 2.66 mmol/L 0.50-2.00 H (test code = 2872) CBC W/PLT COUNT & AUTO [id number] 09:44:48 Test Item Value Reference Range Interpretation Comments WHITE BLOOD CELL COUNT (BEAKER) 5.1 K/ L 3.5-10.5 (test code = 775) RED BLOOD CELL COUNT (BEAKER) 2.93 M/ L 3.93-5.22 L (test code = 761) HEMOGLOBIN (BEAKER) (test code = 9.2 GM/DL 11.2-15.7 L 410) HEMATOCRIT (BEAKER) (test code = 27.9 % 34.1-44.9 L 411) MEAN CORPUSCULAR VOLUME (BEAKER) 95 fL 79-95 (test code = 753) MEAN CORPUSCULAR HEMOGLOBIN 31.4 pg 25.6-32.2 (BEAKER) (test code = 751) MEAN CORPUSCULAR HEMOGLOBIN CONC 33.0 GM/DL 32.2-35.5 (BEAKER) (test code = 752) RED CELL DISTRIBUTION WIDTH 15.5 % 11.7-14.4 H (BEAKER) (test code = 412) PLATELET COUNT (BEAKER) (test 228 K/CU MM 150-450 code = 756) MEAN PLATELET VOLUME (BEAKER) 10.1 fL 9.4-12.3 (test code = 754) NUCLEATED RED BLOOD CELLS 0 /100 WBC 0-0 (BEAKER) (test code = 413) (CELLAVISION MANUAL DIFF)2023-01-14 09:44:48 Test Item Value Reference Range Interpretation Comments TOTAL COUNTED (BEAKER) (test code = 1351) RBC MORPHOLOGY (BEAKER) (test code = Normal 762) WBC MORPHOLOGY (BEAKER) (test code = Normal 487) PLT MORPHOLOGY (BEAKER) (test code = Normal 486) For best practice initiative, differentials are limited to 1 per day.CORTISOL 2023-01-14 09:00:55 Test Item Value Reference Range Interpretation Comments CORTISOL, TOTAL (BEAKER) (test 34.6 ug/dL 3.7-19.4 H code = 2755) LACTIC ACID, [id number] 08:30:06 Test Item Value Reference Range Interpretation Comments LACTATE BLOOD VENOUS 2.38 mmol/L 0.50-2.00 H Specime n slightly (2) (BEAKER) (test hemolyzed code = 2872) LACTIC ACID, [id number] 07:15:33 Test Item Value Reference Range Interpretation Comments LACTATE BLOOD VENOUS (2) (BEAKER) 2.91 mmol/L 0.50-2.00 H (test code = 2872) (CELLAVISION MANUAL DIFF)2023-01-14 07:11:15 Test Item Value Reference Range Interpretation Comments NEUTROPHILS - REL 33 % (CELLAVISION)(BEAKER) (test code = 2816) LYMPHOCYTES - REL 13 % (CELLAVISION)(BEAKER) (test code = 2817) MONOCYTES - REL 13 % (CELLAVISION)(BEAKER) (test code = 2818) METAMYELOCYTES - REL 15 % 0-0 H (CELLAVISION)(BEAKER) (test code = 2821) MYELOCYTES - REL 2 % 0-0 H (CELLAVISION)(BEAKER) (test code = 2822) BANDS - REL (CELLAVISION)(BEAKER) 22 % 0-10 H (test code = 2826) ATYPICAL LYMPHOCYTES - REL 1 % 0-0 H (CELLAVISION)(BEAKER) (test code = 2829) NEUTROPHILS - ABS 0.46 K/ul 1.56-6.13 L (CELLAVISION)(BEAKER) (test code = 2830) LYMPHOCYTES - ABS 0.18 K/ul 1.18-3.74 L (CELLAVISION)(BEAKER) (test code = 2831) MONOCYTES - ABS 0.18 K/uL 0.24-0.36 L (CELLAVISION)(BEAKER) (test code = 2832) METAMYELOCYTES - ABS 0.21 K/uL 0.00-0.00 H (CELLAVISION)(BEAKER) (test code = 2836) MYELOCYTES-ABS 0.03 K/uL 0.00-0.00 H (CELLAVISION)(BEAKER) (test code = 2837) BANDS - ABS (CELLAVISION)(BEAKER) 0.31 K/uL 0.00-0.80 (test code = 2840) ATYPICAL LYMPHOCYTES - ABS 0.01 K/uL 0.00-0.00 H (CELLAVISION)(BEAKER) (test code = 2858) TOTAL COUNTED (BEAKER) (test code 100 = 1351) MANUAL NRBC PER 100 CELLS (BEAKER) 1 /100 WBC 0-0 H (test code = 1353) PLT MORPHOLOGY (BEAKER) (test code Normal = 486) SMUDGE CELLS (BEAKER) (test code = Present 1371) ANISOCYTOSIS (BEAKER) (test code = 1+ few 961) MACROCYTES (BEAKER) (test code = 1+ few 964) POIKILOCYTES (BEAKER) (test code = 1+ few 966) OVALOCYTES (BEAKER) (test code = 1+ few 477) NERIS CELLS (BEAKER) (test code = 1+ few 474) ARTIFACT (CELLAVISION)(BEAKER) Present (test code = 3432) HELMET CELLS (CELLAVISION)(BEAKER) 1+ few (test code = 3434) PLATELET CONCENTRATION Adequate (CELLAVISION)(BEAKER) (test code = 3438) Rail Specialist ID - Sherman Moreno comments: Slide comments:HEMOGLOBIN AND [id number] 06:34:36 Test Item Value Reference Range Interpretation Comments HEMOGLOBIN (BEAKER) (test code = 9.0 GM/DL 11.2-15.7 L 410) HEMATOCRIT (BEAKER) (test code = 27.5 % 34.1-44.9 L 411) Rail Specialist ID - 6000BLOOD GAS, [id number] 06:23:48 Test Item Value Reference Range Interpretation Comments PH VENOUS (BEAKER) (test code = 7.32 7.32-7.42 701) PCO2 VENOUS (BEAKER) (test code = 53 mm Hg 41-51 H 755) PO2 VENOUS (BEAKER) (test code = 54 mm Hg 25-40 H 702) O2 SATURATION VENOUS (BEAKER) 85.2 % 40.0-70.0 H (test code = 703) HCO3 VENOUS (BEAKER) (test code = 27 mmol/L 21-29 705) BASE EXCESS VENOUS (BEAKER) (test 0.1 mmol/L -2.0-3.0 code = 704) PATIENT TEMPERATURE (BEAKER) (test 37.0 code = 1818) Urinalysis w/[id number] 05:28:57 Test Item Value Reference Range Interpretation Comments Color, UA (test code Yellow = 5778-6) Clarity, UA (test Clear code = 5767-9) Specific Rosalia, UA 1.025 1.001-1.035 (test code = 5811-5) pH, UA (test code = 5.0 5.0-8.0 5803-2) Protein, UA (test 20 mg/dL Negative A code = 16924-4) Glucose, UA (test Negative Negative code = 365) Ketones, UA (test Negative Negative code = 2514-8) Bilirubin, UA (test Negative Negative code = 04615-5) Blood, UA (test code Negative Negative = 42591-2) Nitrite, UA (test Negative Negative code = 5802-4) Leukocytes, UA (test Negative Negative code = 5799-2) Urobilinogen, UA 4 0.2-1.0 H (test code = 59104-8) RBC, UA (test code = 1 See_Comment [Autom ated 25962-0) message] The system which generated this result transmit dustin reference range : /HPF. The reference range was not used to interpret this result as normal/abnormal . WBC, UA (test code = See_Comment [Autom ated 5821-4) message] The system which generated this result transmit dustin reference range : /HPF. The reference range was not used to interpret this result as normal/abnormal . Bacteria, UA (test Rare code = 35834-8) Mucus (test code = Rare 8247-9) Squam Epithel, UA 1 See_Comment [Automate d (test code = 67452-8) messag e] The system which generated this result transmit dustin reference range : /HPF. The reference range was not used to interpret this result as normal/abnormal . Casts (test code = 1 See_Comment [Automat ed 9842-6) message] The system which generated this result transmit dustin reference range : /LPF. The reference range was not used to interpret this result as normal/abnormal . Specimen Source (test Urine, Richards code = 2795) NAS (test code = NAS) Rail Specialist ID - [auto]Rail Specialist ID - tech Lab Interpretation Abnormal (test code = 73245-2) [facility]/ [id number] 05:28:57 Test Item Value Reference Range Interpretation Comments COLOR (BEAKER) (test code = 470) Yellow CLARITY (BEAKER) (test code = Clear 469) SPECIFIC GRAVITY UA (BEAKER) 1.025 1.001-1.035 (test code = 468) PH UA (BEAKER) (test code = 467) 5.0 5.0-8.0 PROTEIN UA (BEAKER) (test code = 20 mg/dL Negative A 464) GLUCOSE UA (BEAKER) (test code = Negative Negative 365) KETONES UA (BEAKER) (test code = Negative Negative 371) BILIRUBIN UA (BEAKER) (test code Negative Negative = 462) BLOOD UA (BEAKER) (test code = Negative Negative 461) NITRITE UA (BEAKER) (test code = Negative Negative 465) LEUKOCYTE ESTERASE UA (BEAKER) Negative Negative (test code = 466) UROBILINOGEN UA (BEAKER) (test 4 0.2-1.0 H code = 463) RBC UA (BEAKER) (test code = 1 /HPF 519) WBC UA (BEAKER) (test code = < /HPF 520) BACTERIA (BEAKER) (test code = Rare 517) MUCUS (BEAKER) (test code = Rare 1574) SQUAMOUS EPITHELIAL (BEAKER) 1 /HPF (test code = 516) CASTS (BEAKER) (test code = 1 /LPF 1579) SOURCE(BEAKER) (test code = Urine, Richards 2795) Rail Specialist ID - [auto]Rail Specialist ID - [id number] 04:05:39 Test Item Value Reference Range Interpretation Comments MAGNESIUM (BEAKER) (test code = 1.5 mg/dL 1.6-2.6 L 627) Rail Specialist ID - DELLA WCOMPREHENSIVE METABOLIC [id number] 03:19:43 Test Item Value Reference Range Interpretation Comments TOTAL PROTEIN 4.4 gm/dL 6.0-8.3 L (BEAKER) (test code = 770) ALBUMIN (BEAKER) 2.7 g/dL 3.5-5.0 L (test code = 1145) ALKALINE 97 U/L 40-150 PHOSPHATASE (BEAKER) (test code = 346) BILIRUBIN TOTAL 1.2 mg/dL 0.2-1.2 (BEAKER) (test code = 377) SODIUM (BEAKER) 140 meq/L 136-145 (test code = 381) POTASSIUM (BEAKER) 3.2 meq/L 3.5-5.1 L (test code = 379) CHLORIDE (BEAKER) 105 meq/L 98-107 (test code = 382) CO2 (BEAKER) (test 23 meq/L 22-29 code = 355) BLOOD UREA 45 mg/dL 7-21 H NITROGEN (BEAKER) (test code = 354) CREATININE 0.95 mg/dL 0.57-1.25 (BEAKER) (test code = 358) GLUCOSE RANDOM 141 mg/dL 70-105 H (BEAKER) (test code = 652) CALCIUM (BEAKER) 7.2 mg/dL 8.4-10.2 L (test code = 697) AST (SGOT) 38 U/L 5-34 H (BEAKER) (test code = 353) ALT (SGPT) 28 U/L 6-55 (BEAKER) (test code = 347) EGFR (BEAKER) 65 Interpretatio n of eGFR (test code = 1092) mL/min/1.[address] age Description sq m Result G1 Zainab l or high >=90 G2 Mildly decreased 60-89 G3a Mildl y to moderately 45-5 9 G3b Moderately to s everely 30-44 G4 Severl y decreased 15-29 G5 Kidney failure <15Reported eGF R is based on the CKD-EPI 202 equation that d oes not use a race coefficientEsti mated GFR is not as accur ate as Creatinine Mamie shandra in predicting glom erular filtration rate . Estimated GFR is not appl icable for dialysis patien ts Rail Specialist ID - DBB-TYPE NATRIURETIC FACTOR (BNP)2023-01-14 02:59:15 Test Item Value Reference Range Interpretation Comments B-TYPE NATRIURETIC PEPTIDE 1096 pg/mL 0-100 H (BEAKER) (test code = 700) Rail Specialist ID - KHCHYHRPGIHQNFF9759-06-35 02:27:08 Test Item Value Reference Range Interpretation Comments PROCALCITONIN (BEAKER) (test 115.07 ng/mL <0.05 HH code = 3036) SEPSIS RISK (ng/mL)Low: 0.05-0.50Intermediate: 0.51-2.00High: >=2.01PT/APTT 2023-01-14 02:27:07 Test Item Value Reference Range Interpretation Comments PROTIME (BEAKER) (test code = 16.6 seconds 11.9-14.2 H 759) INR (BEAKER) (test code = 370) 1.43 <=5.90 PARTIAL THROMBOPLASTIN TIME 34.1 seconds 22.5-36.0 (BEAKER) (test code = 760) RECOMMENDED COUMADIN/WARFARIN INR THERAPY RANGESSTANDARD DOSE: 2.0 - 3.0 Includes: PROPHYLAXIS for venous thrombosis, systemic embolization; TREATMENT for venous thrombosis and/or pulmonary embolus.HIGH RISK: Target INR is 2.5-3.5 for patients with mechanical heart valves.LACTIC ACID, [id number] 02:07:11 Test Item Value Reference Range Interpretation Comments LACTATE BLOOD VENOUS (2) (BEAKER) 3.95 mmol/L 0.50-2.00 H (test code = 2872) Rail Specialist ID - DBBLOOD GAS, [id number] 01:53:27 Test Item Value Reference Range Interpretation Comments PH VENOUS (BEAKER) (test code = 7.31 7.32-7.42 L 701) PCO2 VENOUS (BEAKER) (test code = 53 mm Hg 41-51 H 755) PO2 VENOUS (BEAKER) (test code = 42 mm Hg 25-40 H 702) O2 SATURATION VENOUS (BEAKER) 71.8 % 40.0-70.0 H (test code = 703) HCO3 VENOUS (BEAKER) (test code = 26 mmol/L 21-29 705) BASE EXCESS VENOUS (BEAKER) (test -0.6 mmol/L -2.0-3.0 code = 704) PATIENT TEMPERATURE (BEAKER) 37.0 (test code = 1818) FIO2 (BEAKER) (test code = 1819) 21.0 RAD, CHEST, 1 VIEW, NON [id number] 01:24:00Reason for exam:->resp failureShould this be performed at the bedside?->Yes [facility] : 1955 Sex: FFINAL REPORT EXAM/TECHNIQUE: Single view frontal radiograph of the chest. INDICATION: Respiratory failure. COMPARISON: 06/19/2017. FINDINGS: Devices/Objects: Tracheostomy tube is present. Right internal jugular central venous catheter terminates in the lower SVC, appropriate. Lungs:Bilateral pleural effusions and basilar consolidation. Heart/Mediastinum: No cardiomegaly. No interstitial thickening. Osseous: No acute osseous process. No suspicious osseous lesion. Upper abdomen: Unremarkable. Impression: Basilar consolidation and pleural effusions may represent infection or edema.Signed: Abisai Bashir MDReport Verified Date/Time: 01/14/2023 01:24:48 Surgical pathology [id number] 16:05:27 Test Item Value Reference Range Interpretation Comments Case number (test code = [id number]) Surgical pathology See link below for report (test code = PDF Lab Report 2255) Result status (test code This is Final Report = [id number]) [id number] [facility] [id number] 16:05:27 Test Item Value Reference Range Interpretation Comments Case number (test code = [id number]) Surgical pathology See link below for report (test code = PDF Lab Report 2255) Result status (test code This is Final Report = [id number]) for [id number] [facility]Post [id number] 02:14:20 Test Item Value Reference Range Interpretation Comments Ventricular rate (test 61 code = 253) Atrial rate (test code 61 = 255) NM interval (test code 156 = 266) QRSD [...] of 17-JAN-2022 14:34,-No significant change was found- [facility] Pre/Post [id number] 02:14:20 Test Item Value Reference Range Interpretation Comments Ventricular rate (test 61 code = 253) Atrial rate (test code 61 = 255) NM interval (test code 156 = 266) QRSD [...] of 17-JAN-2022 14:34,-No significant change was found- [facility] [id number] 20:35:00 Test Item Value Reference Range Interpretation Comments Urine culture (test SEE COMMENT Bacteriu rupali screen code = 2576145) negative. [facility] [id number] 20:35:00 Test Item Value Reference Range Interpretation Comments Urine culture (test SEE COMMENT Bacteriu rupali screen code = 5648157) negative. [facility] (C[facility]) RNA [Presence] in Respiratory specimen by MENA with probe [id number] 22:16:15 Test Item Value Reference Range Interpretation Comments SARS-CoV-2 (COVID-19) RNA Not detected [Presence] in Respiratory specimen by MENA with probe detection (test code = 18250-5) Whether patient is employed in a Unknown healthcare setting (test code = 64565-5) Whether the patient has symptoms Unknown related to condition of interest (test code = 07545-0) Whether the patient was Unknown hospitalized for condition of interest (test code = 65604-8) Whether the patient was admitted Unknown to intensive care unit (ICU) for condition of interest (test code = 30840-5) Whether patient resides in a Unknown congregate care setting (test code = 99402-1) status (test code = Unknown 33858-1) Date and time of symptom onset Unknown (test code = 83843-4) [facility] Abs [facility] 2022-02-12 03:07:00 Test Item Value Reference Interpretation Comments Range C-ANCA (test <1:20 See_Comment [Automated mes clara] The code = 99009-6) system which generated this result tra nsmitted reference range : Neg:<1:20 titer . The reference range was not used to interpr et this result as normal/abnormal . Perinuclear <1:20 See_Comment The presence of positive (P-ANCA) (test fluorescence exhibiting code = 56876-9) P-ANCA or C- ANCApatterns alone is not sp ecific for the diagnosis o f Bette'sGranul omatosis (WG) or microsc opic polyangiitis. D ecisions abouttreatment should not be based solely on ANCA IFA results. TheInternationa l ANCA Group Consensus recommends foll ow up testing ofposit mgehan sera with both NM-3 and MPO-ANCA enzyme immunoassays. A smany as [...] code = pattern has bee n observed 08123-9) in a significantperc entage of patients with u lcerative colitis, primar y sclerosingchola ngitis and autoimmune hepa titis. [Automated mess age] The system which ge nerated this result tra nsmitted reference range : Neg:<1:20 titer . The reference range was not used to interpr et this result as normal/abnormal . NAS (test code = Performed at: [facility]) [address] [place] [id number] Director: Henrietta Taveras MD, Phone: [phone] [facility]2022-06-14 05:06:00 Test Item Value Reference Range Interpretation Comments SEGUNDO direct (test code Negative Negative = 8061-4) NAS (test code = NAS) Performed at: [address] [id number] Director: Benjamin Albarado MD, Phone: [phone] [facility] [id number] 14:10:00 Test Item Value Reference Range Interpretation Comments CRP (test code = 3 mg/L 0-1987-12) NAS (test code = Performed at: [facility]) [address] [id number] Director: Benjamin Albarado MD, Phone: [phone] [facility]umat[facility] [id number] 14:10:00 Test Item Value Reference Range Interpretation Comments Rheumatoid <10.0 See_Comment [Automated arthritis latex message] The turbid (test code system whi ch = 65078-0) generated this result transmit dustin reference range : <14.0 IU/mL. Th e reference range was not used to interpret this result as normal/abnormal . NAS (test code = Performed at: [facility]) [address] [id number] Director: Benjamin Albarado MD, Phone: [phone] [facility] [id number] 12:11:00 Test Item Value Reference Range Interpretation Comments Sedimentation rate 31 See_Comment [Automat ed (test code = 4537-7) message ] The system which generated this result transmitted reference range : 0 - 40 mm/hr. T he reference range was not used to interpret this result as normal/abnormal . NAS (test code = Performed at: 01 NAS) - [facility] [place], [place] [id number] Director: Benjamin Albarado MD, Phone: [phone] [facility] O2 [id number] 23:49:59 Test Item Value Reference Range Interpretation Comments SUPPLIER NAME (test [facility] code = 6415) SUPPLIER PHONE (test code [...] DELIVERY 01/24/2022 DATE (test code = 6422) [facility] MovtlsohAFVR-TmJ-7 (COVID-19) RNA [Presence] in Respiratory specimen by MENA with probe [id number] 15:25:38 Test Item Value Reference Range Interpretation Comments SARS-CoV-2 (COVID-19) RNA Not detected [Presence] in Respiratory specimen by MENA with probe detection (test code = 69083-7) Whether patient is employed in a Unknown healthcare setting (test code = 45119-1) Whether the patient has symptoms Unknown related to condition of interest (test code = 17535-7) Whether the patient was Unknown hospitalized for condition of interest (test code = 86501-7) Whether the patient was admitted Unknown to intensive care unit (ICU) for condition of interest (test code = 30674-8) Whether patient resides in a Unknown congregate care setting (test code = 10212-6) status (test code = Unknown 12795-5) Date and time of symptom onset Unknown (test code = 25534-4) [facility] 12 [id number] 19:59:16 Test Item Value Reference Range Interpretation Comments Ventricular rate (test 67 code = 253) Atrial rate (test code 67 = 255) NM interval (test code 146 = 266) QRSD [...] of 02-APR-2021 15:10,-No significant change was found- [facility] CmqrfcuxCNCZ-UxX-3 (COVID-19) RNA [Presence] in Respiratory specimen by MENA with probe uhlwxmsjd8806-68-65 08:29:07 Test Item Value Reference Range Interpretation Comments SARS-CoV-2 (COVID-19) RNA Not detected [Presence] in Respiratory specimen by MENA with probe detection (test code = 17193-9) Whether patient is employed in a Unknown healthcare setting (test code = 27671-5) Whether the patient has symptoms Unknown related to condition of interest (test code = 87979-0) Whether the patient was Unknown hospitalized for condition of interest (test code = 87912-2) Whether the patient was admitted Unknown to intensive care unit (ICU) for condition of interest (test code = 51309-0) Whether patient resides in a Unknown congregate care setting (test code = 73195-1) status (test code = Unknown 43202-7) Date and time of symptom onset Unknown (test code = 94194-1) IVIS CORTEZSARS-CoV-2 (COVID-19) RNA [Presence] in Respiratory specimen by MENA with probe pcgatiurc8654-08-17 19:55:27 Test Item Value Reference Range Interpretation Comments SARS-CoV-2 (COVID-19) RNA Not detected [Presence] in Respiratory specimen by MENA with probe detection (test code = 51427-3) Whether patient is employed in a Unknown healthcare setting (test code = 02197-9) Whether the patient has symptoms Unknown related to condition of interest (test code = 91246-4) Whether the patient was Unknown hospitalized for condition of interest (test code = 21776-4) Whether the patient was admitted Unknown to intensive care unit (ICU) for condition of interest (test code = 82128-5) Whether patient resides in a Unknown congregate care setting (test code = 39573-9) status (test code = Unknown 95341-9) Date and time of symptom onset Unknown (test code = 29536-6) IVIS CORTEZSARS-CoV-2 (COVID-19) RNA [Presence] in Respiratory specimen by MENA with probe [id number] 20:30:47 Test Item Value Reference Range Interpretation Comments SARS-CoV-2 (COVID-19) RNA Not detected Not-Detected [Presence] in Respiratory specimen by MENA with probe detection (test code = 46194-1) Whether patient is employed in a healthcare setting (test code = 86367-3) Whether the patient has symptoms related to condition of interest (test code = 03011-8) Patient was hospitalized because of this condition (test code = 76666-5) Whether the patient was admitted to intensive care unit (ICU) for condition of interest (test code = 20966-2) Whether patient resides in a congregate care setting (test code = 58784-3) IVIS CORTEZSARS-CoV-2 (COVID-19) RNA [Presence] in Respiratory specimen by MENA with probe qtothlsuf6243-26-76 22:21:01 Test Item Value Reference Range Interpretation Comments SARS-CoV-2 (COVID-19) RNA Not detected Not-Detected [Presence] in Respiratory specimen by MENA with probe detection (test code = 46148-9) Whether patient is employed in a healthcare setting (test code = 24696-4) Whether the patient has symptoms related to condition of interest (test code = 57154-8) Patient was hospitalized because of this condition (test code = 41922-4) Whether the patient was admitted to intensive care unit (ICU) for condition of interest (test code = 74031-5) Whether patient resides in a congregate care setting (test code = 02792-8) IV[facility]ALLCOMPREHENSIVE METABOLIC [id number] 11:50:00 Test Item Value Reference Range Interpretation [...] S NOT APPLICABLE FOR DIALYSIS PATIEN TS. Rail Specialist ID - RMPROTHROMBIN TIME/[id number] 11:44:00 Test Item Value Reference Range Interpretation Comments PROTIME (BEAKER) 12.4 seconds 11.9-14.2 (test code = 759) INR (BEAKER) (test 0.95 See_Comment [Automat ed message] code = 370) The system [employer] generated this result transmitted ref erence range: <=5.90. The reference range was not used to int erpret this result as normal/abnormal . Effective 01/26/2019: PT Reference Range ChangeNew: 11.9-14.2 Previous: 11.7- 14.7RECOMMENDED COUMADIN/WARFARIN INR THERAPY RANGESSTANDARD DOSE: 2.0-3.0 Includes: PROPHYLAXIS for venous thrombosis, systemic embolization; TREATMENT for venous thrombosis and/or pulmonary embolus.HIGH RISK: Target INR is 2.5-3.5 for patients wiht mechanical heart valves.[id number] 11:44:00 Test Item Value Reference Range Interpretation Comments PARTIAL THROMBOPLASTIN TIME 30.6 seconds 22.5-36.0 (BEAKER) (test code = 760) CBC W/PLT COUNT & AUTO [id number] 11:35:00 Test Item Value Reference Range Interpretation [...] = 2801) CBC W/PLT COUNT & AUTO [id number] 08:31:00 Test Item Value Reference Range Interpretation [...] CONCENTRATION Adequate (CELLAVISION)(BEAKER) (test code = 3438) Rail Specialist ID - LaniUser comments: Slide comments:COMPREHENSIVE METABOLIC PANEL 2020-10-12 08:03:00 [...] S NOT APPLICABLE FOR DIALYSIS PATIEN TS. Rail Specialist ID - KWESI [id number] 07:50:00 Test Item Value Reference Range Interpretation Comments PARTIAL THROMBOPLASTIN TIME 30.4 seconds 22.5-36.0 (BEAKER) (test code = 760) PROTHROMBIN TIME/[id number] 07:49:00 Test Item Value Reference Range Interpretation Comments PROTIME (BEAKER) 13.0 seconds 11.9-14.2 (test code = 759) INR (BEAKER) (test 1.01 See_Comment [Automat ed message] code = 370) The system [employer] generated this result transmitted ref erence range: <=5.90. The reference range was not used to int erpret this result as normal/abnormal . Effective 01/26/2019: PT Reference Range ChangeNew: 11.9-14.2 Previous: 11.7- 14.7RECOMMENDED COUMADIN/WARFARIN INR THERAPY RANGESSTANDARD DOSE: 2.0-3.0 Includes: PROPHYLAXIS for venous thrombosis, systemic embolization; TREATMENT for venous thrombosis and/or pulmonary embolus.HIGH RISK: Target INR is 2.5-3.5 for patients wiht mechanical heart valves.POCT-GLUCOSE [id number] 06:33:00 Test Item Value Reference Range Interpretation Comments POC-GLUCOSE METER 91 mg/dL 70-110 : TESTED A T [facility] [address] (BEAKER) (test code = [place], 1538) [address]: Rail Specialist/Techni mirtha ID = [id number] for JORD AN, LACRYSTAL COMPREHENSIVE METABOLIC [id number] 10:10:00 Test Item Value Reference Range Interpretation [...] S NOT APPLICABLE FOR DIALYSIS PATIEN TS. Rail Specialist ID - JUAN MPROTHROMBIN TIME/[id number] 09:42:00 Test Item Value Reference Range Interpretation [...] is 2.5-3.5 for patients wiht mechanical heart valves.[id number] 09:42:00 Test Item Value Reference Range Interpretation Comments PARTIAL THROMBOPLASTIN TIME 29.2 seconds 22.5-36.0 (BEAKER) (test code = 760) CBC W/PLT COUNT & AUTO [id number] 09:32:00 Test Item Value Reference Range Interpretation [...] (BEAKER) (test code = 2801) COMPREHENSIVE METABOLIC [id number] 10:02:00 Test Item Value Reference Range Interpretation [...] S NOT APPLICABLE FOR DIALYSIS PATIEN TS. Rail Specialist ID - ТАТЬЯНА FPROTHROMBIN TIME/[id number] 09:33:00 Test Item Value Reference Range Interpretation [...] is 2.5-3.5 for patients wiht mechanical heart valves.[id number] 09:33:00 Test Item Value Reference Range Interpretation Comments PARTIAL THROMBOPLASTIN TIME 30.6 seconds 22.5-36.0 (BEAKER) (test code = 760) CBC W/PLT COUNT & AUTO [id number] 09:25:00 Test Item Value Reference Range Interpretation [...] (BEAKER) (test code = 2801) COMPREHENSIVE METABOLIC [id number] 09:53:00 Test Item Value Reference Range Interpretation [...] S NOT APPLICABLE FOR DIALYSIS PATIEN TS. Rail Specialist ID - YAEL CPROTHROMBIN TIME/[id number] 09:47:00 Test Item Value Reference Range Interpretation [...] is 2.5-3.5 for patients wiht mechanical heart valves.[id number] 09:47:00 Test Item Value Reference Range Interpretation Comments PARTIAL THROMBOPLASTIN TIME 29.6 seconds 22.5-36.0 (BEAKER) (test code = 760) CBC W/PLT COUNT & AUTO [id number] 09:43:00 Test Item Value Reference Range Interpretation [...] PERCENT (BEAKER) (test code = 2801) POCT-GLUCOSE [id number] 08:59:00 Test Item Value Reference Range Interpretation Comments POC-GLUCOSE METER 81 mg/dL 70-110 : TESTED A T [facility] [address] (BEAKER) (test code = [place], 1538) [address]: Rail Specialist/Techni mirtha ID = [id number] for CHARIS MARIANO COMPREHENSIVE METABOLIC [id number] 11:27:00 Test Item Value Reference Range Interpretation [...] S NOT APPLICABLE FOR DIALYSIS PATIEN TS. Rail Specialist ID - NTPPROTHROMBIN TIME/[id number] 11:25:00 Test Item Value Reference Range Interpretation [...] mechanical heart valves.CBC W/PLT COUNT & AUTO [id number] 11:03:00 Test Item Value Reference Range Interpretation [...] PERCENT (BEAKER) (test code = 2801) POCT-GLUCOSE [id number] 09:13:00 Test Item Value Reference Range Interpretation Comments POC-GLUCOSE METER 75 mg/dL 70-110 : TESTED A T [facility] [address] (BEAKER) (test code = [place], 1538) [address]: Rail Specialist/Techni mirtha ID = [id number] for JORD AN, LACRYSTAL COMPREHENSIVE METABOLIC [id number] 07:36:00 Test Item Value Reference Range Interpretation [...] S NOT APPLICABLE FOR DIALYSIS PATIEN TS. Rail Specialist ID - LAPROTHROMBIN TIME/[id number] 07:29:00 Test Item Value Reference Range Interpretation [...] is 2.5-3.5 for patients wiht mechanical heart valves.[id number] 07:29:00 Test Item Value Reference Range Interpretation Comments PARTIAL THROMBOPLASTIN TIME 29.8 seconds 22.5-36.0 (BEAKER) (test code = 760) CBC W/PLT COUNT & AUTO [id number] 07:22:00 Test Item Value Reference Range Interpretation [...] (BEAKER) (test code = 2801) COMPREHENSIVE METABOLIC [id number] 13:37:00 Test Item Value Reference Range Interpretation [...] S NOT APPLICABLE FOR DIALYSIS PATIEN TS. Rail Specialist ID - JUAN MPROTHROMBIN TIME/[id number] 13:25:00 Test Item Value Reference Range Interpretation [...] is 2.5-3.5 for patients wiht mechanical heart valves.[id number] 13:25:00 Test Item Value Reference Range Interpretation Comments PARTIAL THROMBOPLASTIN TIME 31.3 seconds 22.5-36.0 (BEAKER) (test code = 760) CBC W/PLT COUNT & AUTO [id number] 13:18:00 Test Item Value Reference Range Interpretation [...] (BEAKER) (test code = 2801) COMPREHENSIVE METABOLIC [id number] 08:11:00 Test Item Value Reference Range Interpretation [...] S NOT APPLICABLE FOR DIALYSIS PATIEN TS. Rail Specialist ID - TCPSGMGYDXT7714-76-92 08:00:00 Test Item Value Reference Range Interpretation Comments PARTIAL THROMBOPLASTIN TIME 28.8 seconds 22.5-36.0 (BEAKER) (test code = 760) PROTHROMBIN TIME/[id number] 07:59:00 Test Item Value Reference Range Interpretation [...] mechanical heart valves.CBC W/PLT COUNT & AUTO [id number] 07:51:00 Test Item Value Reference Range Interpretation [...] (BEAKER) (test code = 2801) COMPREHENSIVE METABOLIC [id number] 10:29:00 Test Item Value Reference Range Interpretation [...] S NOT APPLICABLE FOR DIALYSIS PATIEN TS. [id number] 09:42:00 Test Item Value Reference Range Interpretation Comments PARTIAL THROMBOPLASTIN TIME 31.2 seconds 22.5-36.0 (BEAKER) (test code = 760) CBC W/PLT COUNT & AUTO [id number] 09:41:00 Test Item Value Reference Range Interpretation [...] PERCENT (BEAKER) (test code = 2801) PROTHROMBIN TIME/[id number] 09:41:00 Test Item Value Reference Range Interpretation [...] 2.5-3.5 for patients wiht mechanical heart valves.POCT-GLUCOSE [id number] 09:17:00 Test Item Value Reference Range Interpretation Comments POC-GLUCOSE METER 77 mg/dL 70-110 : TESTED [place] T [facility] [address] (BEAKER) (test code = ROBERT Kirstin [facility], 1538) [address]: Rail Specialist/Techni mirtha ID = [id number] for JORD AN, LACRYSTAL COMPREHENSIVE METABOLIC [id number] 07:43:00 Test Item Value Reference Range Interpretation [...] I S NOT APPLICABLE FOR DIALYSIS PATIEN ALEX. [id number] 07:39:00 Test Item Value Reference Range Interpretation Comments PARTIAL THROMBOPLASTIN TIME 29.3 seconds 22.5-36.0 (BEAKER) (test code = 760) PROTHROMBIN TIME/[id number] 07:38:00 Test Item Value Reference Range Interpretation [...] mechanical heart valves.CBC W/PLT COUNT & AUTO [id number] 07:28:00 Test Item Value Reference Range Interpretation [...] PERCENT (BEAKER) (test code = 2801) POCT-GLUCOSE [id number] 07:06:00 Test Item Value Reference Range Interpretation Comments POC-GLUCOSE METER 87 mg/dL 70-110 : TESTED A T [facility] [address] (BEAKER) (test code = [place], 1538) [address]: Rail Specialist/Techni mirtha ID = [id number] for CHARIS MARIANO BASIC METABOLIC [id number] 10:55:00 Test Item Value Reference Range Interpretation [...] NOT APPLICABLE FOR DIALYSIS PATIEN TS. PROTHROMBIN TIME/[id number] 10:42:00 Test Item Value Reference Range Interpretation [...] mechanical heart valves.CBC W/PLT COUNT & AUTO [id number] 10:35:00 Test Item Value Reference Range Interpretation [...] (BEAKER) (test code = 2801) COMPREHENSIVE METABOLIC [id number] 08:31:00 Test Item Value Reference Range Interpretation [...] S NOT APPLICABLE FOR DIALYSIS PATIEN TS. [id number] 08:24:00 Test Item Value Reference Range Interpretation Comments PARTIAL THROMBOPLASTIN TIME 30.6 seconds 22.5-36.0 (BEAKER) (test code = 760) PROTHROMBIN TIME/[id number] 08:23:00 Test Item Value Reference Range Interpretation Comments PROTIME (BEAKER) (test code = 14.7 seconds 11.7-14.7 759) INR (BEAKER) (test code = 370) 1.1 <=5.9 RECOMMENDED COUMADIN/WARFARIN INR THERAPY RANGESSTANDARD DOSE: 2.0 - 3.0 Includes: PROPHYLAXIS for venous thrombosis, systemic embolization; TREATMENT for venous thrombosis and/or pulmonary embolus.HIGH RISK: Target INR is 2.5-3.5 for patients with mechanical heart valves.CBC W/PLT COUNT & AUTO [id number] 08:13:00 Test Item Value Reference Range Interpretation [...] PERCENT (BEAKER) (test code = 2801) PROTHROMBIN TIME/[id number] 10:21:00 Test Item Value Reference Range Interpretation Comments PROTIME (BEAKER) (test code = 13.5 seconds 11.7-14.7 759) INR (BEAKER) (test code = 370) 1.0 <=5.9 RECOMMENDED COUMADIN/WARFARIN INR THERAPY RANGESSTANDARD DOSE: 2.0 - 3.0 Includes: PROPHYLAXIS for venous thrombosis, systemic embolization; TREATMENT for venous thrombosis and/or pulmonary embolus.HIGH RISK: Target INR is 2.5-3.5 for patients with mechanical heart valves.[id number] 10:21:00 Test Item Value Reference Range Interpretation Comments PARTIAL THROMBOPLASTIN TIME 28.7 seconds 22.5-36.0 (BEAKER) (test code = 760) CBC W/PLT COUNT & AUTO [id number] 10:05:00 Test Item Value Reference Range Interpretation [...] (BEAKER) (test code = 2801) COMPREHENSIVE METABOLIC [id number] 07:38:00 Test Item Value Reference Range Interpretation [...] NOT APPLICABLE FOR DIALYSIS PATIEN TS. PROTHROMBIN TIME/[id number] 07:25:00 Test Item Value Reference Range Interpretation Comments PROTIME (BEAKER) (test code = 12.8 seconds 11.7-14.7 759) INR (BEAKER) (test code = 370) 1.0 <=5.9 RECOMMENDED COUMADIN/WARFARIN INR THERAPY RANGESSTANDARD DOSE: 2.0 - 3.0 Includes: PROPHYLAXIS for venous thrombosis, systemic embolization; TREATMENT for venous thrombosis and/or pulmonary embolus.HIGH RISK: Target INR is 2.5-3.5 for patients with mechanical heart valves.[id number] 07:25:00 Test Item Value Reference Range Interpretation Comments PARTIAL THROMBOPLASTIN TIME 30.0 seconds 22.5-36.0 (BEAKER) (test code = 760) CBC W/PLT COUNT & AUTO [id number] 07:21:00 Test Item Value Reference Range Interpretation [...] 0-1 PERCENT (BEAKER) (test code = 2801) [id number] 10:05:00 Test Item Value Reference Range Interpretation Comments PARTIAL THROMBOPLASTIN TIME 29.5 seconds 22.5-36.0 (BEAKER) (test code = 760) PROTHROMBIN TIME/[id number] 10:04:00 Test Item Value Reference Range Interpretation [...] PATIEN TS. CBC W/PLT COUNT & AUTO [id number] 09:53:00 Test Item Value Reference Range Interpretation [...] PERCENT (BEAKER) (test code = 2801) TISSUE [id number] 09:41:00Surgical Pathology Report Case: [id number] Authorizing Provider: Ck Mccann MD Collected: 10/20/2017 1440 Ordering Location: [facility] Received: 10/20/2017 1500 SERVICES Pathologist: Castro Austin MD Specimen: Tracheal, EBBX A. 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 It has not been cleared [...] perform high complexity clinical laboratory testing.COMPREHENSIVE METABOLIC [id number] 11:47:00 Test Item Value Reference Range Interpretation [...] PATIEN TS. CBC W/PLT COUNT & AUTO [id number] 11:23:00 Test Item Value Reference Range Interpretation [...] PERCENT (BEAKER) (test code = 2801) TISSUE [id number] 17:05:00Surgical Pathology Report Case: [id number] Authorizing Provider: Ck Mccann MD Collected: 08/14/2017 1236 Ordering Location: [facility] Received: 08/14/2017 1313 SERVICES Pathologist: Gissell Kidd MD Specimen: Soft Tissue, Other, TRACHEAL TISSUE SOFT TISSUE, TRACHEA, EXCISION- GRANULATION TISSUE- ACUTE AND CHRONIC INFLAMMATION- GRANULOMATOUS INFLAMMATION WITH FOREIGN BODY GIANT CELLSSigning Pathologist Direct Phone Line: [phone] signed by Gissell Kidd MD on 08/17/2017 at 5:05 [id number] stenosis, acute allergic rhinitis, tracheostomy dependent and [...] S NOT APPLICABLE FOR DIALYSIS PATIEN TS. [id number] 09:12:00 Test Item Value Reference Range Interpretation Comments PARTIAL THROMBOPLASTIN TIME 30.4 seconds 22.5-36.0 (BEAKER) (test code = 760) PROTHROMBIN TIME/[id number] 09:11:00 Test Item Value Reference Range Interpretation Comments PROTIME (BEAKER) (test code = 12.3 seconds 11.7-14.7 759) INR (BEAKER) (test code = 370) 0.9 <=5.9 RECOMMENDED COUMADIN/WARFARIN INR THERAPY RANGESSTANDARD DOSE: 2.0 - 3.0 Includes: PROPHYLAXIS for venous thrombosis, systemic embolization; TREATMENT for venous thrombosis and/or pulmonary embolus.HIGH RISK: Target INR is 2.5-3.5 for patients with mechanical heart valves.CBC W/PLT COUNT & AUTO [id number] 08:55:00 Test Item Value Reference Range Interpretation [...] 0-1 PERCENT (BEAKER) (test code = 2801) [id number] 07:23:00 Test Item Value Reference Range Interpretation Comments PARTIAL THROMBOPLASTIN TIME 30.3 seconds 22.5-36.0 (BEAKER) (test code = 760) PROTHROMBIN [id number] 07:22:00 Test Item Value Reference Range Interpretation Comments PROTIME (BEAKER) (test code = 12.5 seconds 11.7-14.7 759) INR (BEAKER) (test code = 370) 0.9 <=5.9 RECOMMENDED COUMADIN/WARFARIN INR THERAPY RANGESSTANDARD DOSE: 2.0 - 3.0 Includes: PROPHYLAXIS for venous thrombosis, systemic embolization; TREATMENT for venous thrombosis and/or pulmonary embolus.HIGH RISK: Target INR is 2.5-3.5 for patients with mechanical heart valves.RAD, CHEST, 1 VIEW, NON [id number] 11:54:00Reason for exam:->post-op rigid bronchShould this be performed at the bedside?->YesFINAL REPORT Chest one view compared to April 07 Discussion: Tracheostomy in place. Cardiopulmonary appearance unremarkable. No effusion or pneumothorax. Signed: Adria Ellison Verified Date/Time: 06/19/2017 11:54:27 Reading Location: [facility] Radiology Reading Room COMPREHENSIVE METABOLIC [id number] 14:47:00 Test Item Value Reference Range Interpretation [...] S NOT APPLICABLE FOR DIALYSIS PATIEN TS. [id number] 14:42:00 Test Item Value Reference Range Interpretation [...] mechanical heart valves.CBC W/PLT COUNT & AUTO [id number] 14:29:00 Test Item Value Reference Range Interpretation [...] % 0-1 PERCENT (BEAKER) (test code = 7371)
[2023-06-18] MEDS ORDERED: NA CHLORIDE 0.9% 1,000 ML ONE (09:54)
[2023-06-18] MEDS ORDERED: NA CHLORIDE 0.9% 100 ML ONE (09:54)
[2023-06-18] MEDS ORDERED: ACETAMINOPHEN 325 MG TABLET ONE (09:54)
[2023-06-18] MEDS ORDERED: FAMOTIDINE 20 MG/2 ML VIAL IV ONE (09:54)
[2023-06-18] MEDS ORDERED: PIPERACIL/TAZO 3.375 GM VIAL IV ONE (09:55)
--- NOTE | 2023-06-18 10:01 | RAD REPORT ---
EXAM DESCRIPTION: CT - Chest Abd Pelvis Wo Con - 06/18/2023 9:40 am CLINICAL HISTORY: Cough and abdominal pain COMPARISON: CT abdomen 2021 TECHNIQUE: Computed axial tomography of the chest, abdomen and pelvis was obtained. Oral contrast wa s given. IV contrast was not requested. All CT scans are performed using dose optimization technique as appropriate and may include automated exposure control or mA/KV adjustment according to patient size. FINDINGS: The evaluation of mediastinum, viraj, vessels and solid organs is limited secondary to the lack of IV contrast administration Tracheostomy tube in place. Large left lower lobe consolidation. Mild right basilar lung opacities No mediastinal or hilar lymphadenopathy is seen. Small left pleural effusion. A pericardial effusion is not seen. The liver, spleen, pancreas, adrenals and kidneys appear grossly normal There is no evidence of diverticulitis. Moderate amount of stool within the colon. Small to moderate left inguinal hernia IMPRESSION: Large left lower lobe consolidation likely pneumonia
--- NOTE | 2023-06-18 10:24 | RAD REPORT ---
[facility] DESCRIPTION[facility] 9[facility]48 am CLINICAL HISTORY: sob COMPARISON: December 2022 FINDINGS: Left lower lobe consolidation improved from the prior exam Mild right lung opacities have mostly resolved Upper lobes clear Heart is mildly enlarged. Tracheostomy tube in place
[2023-06-18 10:29] LABS: Absolute Lymphocytes (CBC) 0.5 K/uL (0.7-4.9); Hematocrit 39.6 % (36.0-45.0); Lymphocytes % 3.5 % (15.3-44.8); MPV 8.1 fL (7.6-11.3); Platelets 225 thou/uL (152-406); RBC Red Blood Cell Count 4.26 M/uL (3.86-4.86)
[2023-06-18 10:30] LABS: Protime INR 1.3
[2023-06-18 10:45] LABS: Albumin 2.9 g/dL (3.4-5.0); Bilirubin Direct 0.2 mg/dL (0-0.2); Bilirubin Indirect, Calculated 0.2 mg/dL (0.2-0.8); Bilirubin Total 0.4 mg/dL (0.2-1.0); Magnesium 1.5 mg/dL (1.6-2.4); Potassium 3.6 mEq/L (3.5-5.1); Protein, Total 7.1 g/dL (6.4-8.2)
--- NOTE | 2023-06-18 10:57 | ER ---
Nurse's Notes [facility] Name: Demetra Hassan Age: 67 yrs Sex: Female : 1955 Arrival Date: 06/18/2023 Time: 09:24 Bed 7 Private MD: Diagnosis: Pneumonia due to other specified bacteria-left lower lobe pna;Tracheostomy status;Hypoxemia;Fever, unspecified;Dyspnea;Pneumonia due to SARS-associated coronavirus;SARS-associated coronavirus as the cause of diseases classified elsewhere Presentation: 06/18 09:20 Chief complaint: EMS states: PT PICKED UP FROM HOME. PT COMPLAINED OF DIFFICULTY db BREATHING ROOM AIR 88%. EMS PLACED PT ON O2. PT WITH FLU LIKE SYMPTOMS TAKING THERAFLU. 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 GLUCOSE 146. Coronavirus screen: Vaccine status: Patient reports being unvaccinated. Client denies travel out of the [place] in the last 14 days. At this time, the client does not indicate any symptoms associated with coronavirus-19. Ebola Screen: Patient negative for fever greater than or equal to 101.5 degrees Fahrenheit, and additional compatible Ebola Virus Disease symptoms Patient denies exposure to infectious person. Patient denies travel to an Ebola-affected area in the 21 days before illness onset. No symptoms or risks identified at this time. Initial Sepsis Screen: Does the patient meet any 2 criteria? No. Patient's initial sepsis screen is negative. Does the patient have a suspected source of infection? No. Patient's initial sepsis screen is negative. Risk Assessment: Do you want to hurt yourself or someone else? Patient reports no desire to harm self or others. Onset of symptoms was June 18, 2023. Care prior to arrival: Glucose check: 146. 09:20 Method Of Arrival: [facility] db 09:20 Acuity: JARAD 2 db Triage Assessment: 09:30 General: Appears in no apparent distress. Behavior is calm, cooperative. Pain: db Complains of pain in chest. Neuro: Level of Consciousness is awake, alert, obeys commands, Oriented to person, place, time, situation. Respiratory: Reports shortness of breath at rest Airway is patent Respiratory effort is even, unlabored, Respiratory pattern is regular, symmetrical, Pleural rub noted Onset: The symptoms/episode began/occurred this morning, the patient has moderate shortness of breath. Historical: - Allergies: 09:30 NARCOTICS; db - PMHx: 09:30 Anxiety; neuropathy; db - PSHx: 09:30 trach; db - Immunization history:: Adult Immunizations unknown. - Social history:: Smoking status: Patient reports the use of cigarette tobacco products, smokes one pack cigarettes per day. Screenin:36 [facility] ED Fall Risk Assessment (Adult) History of falling in the last 3 months, db including since admission No falls in past 3 months (0 pts) Confusion or Disorientation No (0 pts) Intoxicated or Sedated No (0 pts) Impaired Gait No (0 pts) Mobility Assist Device Used No (0 pt) Altered Elimination No (0 pt) Score/Fall Risk Level 0 - 2 = Low Risk Oriented to surroundings, Maintained a safe environment. Abuse screen: Denies threats or abuse. Denies injuries from another. Nutritional screening: No deficits noted. Tuberculosis screening: No symptoms or risk factors identified. Assessment: 09:49 Reassessment: PT RETURNED TO ROOM FROM CT. db 11:09 Reassessment: PATIENT ASSISTED TO BEDSIDE COMMODE. URINE COLLECTED. db 11:38 Reassessment: Patient appears in no apparent distress at this time. Patient and/or db family updated on plan of care and expected duration. Pain level reassessed. Patient is alert, oriented x 3, equal unlabored respirations, skin warm/dry/pink. 11:38 General: Appears in no apparent distress. comfortable, Behavior is calm, cooperative. db Neuro: Level of Consciousness is awake, alert, obeys commands, Oriented to person, place, time, situation. Cardiovascular: Rhythm is regular. Respiratory: Airway is patent Respiratory effort is even, unlabored, Respiratory pattern is regular, symmetrical, HAS TRACH COLLAR. 12:00 Reassessment: Patient appears in no apparent distress at this time. Patient and/or db family updated on plan of care and expected duration. Pain level reassessed. Patient is alert, oriented x 3, equal unlabored respirations, skin warm/dry/pink. 13:12 Reassessment: REPORT CALLED TO LIANA ROGER. db 13:12 Reassessment: Patient appears in no apparent distress at this time. Patient and/or db family updated on plan of care and expected duration. Pain level reassessed. Patient is alert, oriented x 3, equal unlabored respirations, skin warm/dry/pink. Patient states feeling better. Vital Signs: 09:20 BP 130 / 80; Pulse 85; Resp 16; Temp 100.2(O); Pulse Ox 88% on R/A; Weight 40.82 kg; db Height 5 ft. 3 in. ; 09:43 BP 143 / 67; Pulse 85; Resp 16; Pulse Ox 95% ; db 10:30 BP 110 / 62; Pulse 73; Resp 16; Pulse Ox 95% ; db 11:30 BP 117 / 70; Pulse 67; Resp 18; Pulse Ox 98% 5 lpm ; db 12:30 BP 94 / 53; Pulse 72; Resp 16; Pulse Ox 98% 5 lpm ; db 13:00 BP 94 / 57; Pulse 56; Resp 16; Pulse Ox 98% 5 lpm ; db 13:13 Temp 98.7; db 09:20 Body Mass Index 15.94 (40.82 kg, 160.02 cm) db ED Course: 09:26 Patient arrived in ED. db 09:27 Dino Quinteros MD is Attending Physician. long 09:29 Triage completed. db 09:30 Arm band placed on Patient placed in an exam room. db 09:41 CT Chest Abdomen Pelvis W/O Contrast In Process Unspecified. EDMS 09:48 Chelo Pisano, LIANA is Primary Nurse. db 09:49 XRAY Chest (1 view) In Process Unspecified. EDMS 10:05 First set of blood cultures drawn by me. db 10:12 Initial lab(s) drawn, by me, sent to lab. Second set of blood cultures drawn by me. db Inserted saline lock: 22 gauge in right forearm, using aseptic technique. Blood collected. 10:55 Jose F Esquivel is Hospitalizing Provider. long 11:36 Patient has correct armband on for positive identification. Bed in low position. Call db light in reach. Side rails up X 1. Client placed on continuous cardiac and pulse oximetry monitoring. NIBP monitoring applied. 13:15 Provided Education on: ADMISSION. db 13:15 No provider procedures requiring assistance completed. Patient admitted, IV remains in db place. Administered Medications: 09:30 CANCELLED (Duplicate Order): rocephin1 grams IV at per protocol once; Given slow IV long push per pharmacy instructions 09:50 Drug: Acetaminophen PO 650 mg PO once Route: PO; db 11:34 Follow up: Response: No adverse reaction db 10:15 Drug: NS 0.9% IV 1000 ml IV at 125 ml/hr continuous Route: IV; Rate: 125 ml/hr; Site: db right forearm; 13:17 Follow up: IV Status: Infusion continued upon admission db 10:16 Drug: Famotidine IVP 20 mg IVP once; dilute with 10 mL 0.9% NaCl; give over 2 minutes db Route: IVP; Site: right forearm; 11:34 Follow up: Response: No adverse reaction db 10:20 Drug: Piperacillin-Tazobactam IVPB 3.375 grams IVPB once over 60 mins; (mix in NS 100 db mL) Route: IVPB; Infused Over: 60 mins; Site: right forearm; 11:20 Follow up: Response: No adverse reaction; IV Status: Completed infusion; IV Intake: db 100ml 10:24 Not Given (Duplicate Order): acetaminophensuppository 650 mg NH once db 11:20 Drug: Levalbuterol Inhalation 1.25 mg Inhalation once Route: Inhalation; db 11:34 Follow up: Response: No adverse reaction db 11:20 Drug: Ipratropium Inhalation Aerosol 0.5 mg Inhalation once Route: Inhalation; db 11:34 Follow up: Response: No adverse reaction db 11:28 Drug: Zithromax IVPB 500 mg IVPB once over 1 hrs; mix in 250 mL NS Route: IVPB; Infused db Over: 1 hrs; Site: right forearm; 12:45 Follow up: Response: No adverse reaction; IV Status: Completed infusion; IV Intake: db 250ml 12:45 Drug: vancoMYCIN IVPB 800 mg IVPB once over 2 hrs Route: IVPB; Infused Over: 2 hrs; db Site: right forearm; 13:16 Follow up: IV Status: Infusion continued upon admission db Medication: 13:11 VIS not applicable for this client. db Intake: 11:20 IV: 100ml; Total: 100ml. db 12:45 IV: 250ml; Total: 350ml. db Outcome: 10:57 Decision to Hospitalize by Provider. long 11:47 Patient left the ED. rs5 13:15 Admitted to ER Hold. Please see [facility] for further documentation. db 13:15 Condition: stable 13:15 Instructed on the need for admit, 13:40 Patient left the ED. db Signatures: Dispatcher [employer] Dino Aguilar MD MD long Pisano, Chelo, RN RN db Zaki Reid RN RN rs5 Corrections: (The following items were deleted from the chart) 13:11 09:20 BP 130 / 80; Pulse 85bpm; Resp 16bpm; Pulse Ox 99% TRACH O2; Temp 100.2F Oral; db 40.82 kg; Height 5 ft. 3 in.; BMI: 15.9; db 13:15 13:00 BP 126 / 70; Pulse 56bpm; Resp 16bpm; Pulse Ox 98% 5 lpm; db db
--- NOTE | 2023-06-18 10:57 | EDPHYS ---
Physician Documentation [facility] Name: Demetra Hassan Age: 67 yrs Sex: Female : 1955 Arrival Date: 06/18/2023 Time: 09:24 Bed 7 Private MD: ED Physician Dino Quinteros HPI: 06/18 10:45 This 67 yrs old Female presents to ER via EMS with complaints of Breathing long Difficulty. 10:45 The patient has shortness of breath at rest, with light activity. Onset: The long symptoms/episode began/occurred 3 day(s) ago. Duration: The symptoms are continuous, and are steadily getting worse. The patient's shortness of breath is aggravated by coughing, supine position, is alleviated by nebulizer treatment, rest, sitting up, application of supplemental oxygen. Associated signs and symptoms: Pertinent positives: non-productive cough. Severity of symptoms: in the emergency department the symptoms have improved mildly. The patient has experienced similar episodes in the past, multiple times. Historical: - Allergies: 09:30 NARCOTICS; db - PMHx: 09:30 Anxiety; neuropathy; db - PSHx: 09:30 trach; db - Immunization history:: Adult Immunizations unknown. - Social history:: Smoking status: Patient reports the use of cigarette tobacco products, smokes one pack cigarettes per day. ROS: 10:49 Eyes: Negative for injury, pain, redness, and discharge, ENT: Negative for injury, long pain, and discharge, Neck: Negative for injury, pain, and swelling, Cardiovascular: Negative for chest pain, palpitations, and edema, Abdomen/GI: Negative for abdominal pain, nausea, vomiting, diarrhea, and constipation, Back: Negative for injury and pain, : Negative for injury, bleeding, discharge, and swelling, MS/Extremity: Negative for injury and deformity, Skin: Negative for injury, rash, and discoloration, Neuro: Negative for headache, weakness, numbness, tingling, and seizure, Psych: Negative for depression, anxiety, suicide ideation, homicidal ideation, and hallucinations, Allergy/Immunology: Negative for hives, rash, and allergies, Endocrine: Negative for neck swelling, polydipsia, polyuria, polyphagia, and marked weight changes, Hematologic/Lymphatic: Negative for swollen nodes, abnormal bleeding, and unusual bruising, 10:49 Constitutional: Positive for body aches, chills, fatigue, fever, malaise, 10:49 Respiratory: Positive for cough, shortness of breath, at rest. Exam: 10:49 Constitutional: This is a well developed, well nourished patient who is awake, alert, long and in no acute distress. Head/Face: Normocephalic, atraumatic. Eyes: Pupils equal round and reactive to light, extra-ocular motions intact. Lids and lashes normal. Conjunctiva and sclera are non-icteric and not injected. Cornea within normal limits. Periorbital areas with no swelling, redness, or edema. ENT: Nares patent. No nasal discharge, no septal abnormalities noted. Tympanic membranes are normal and external auditory canals are clear. Oropharynx with no redness, swelling, or masses, exudates, or evidence of obstruction, uvula midline. Mucous membranes moist. Neck: Trachea midline, no thyromegaly or masses palpated, and no cervical lymphadenopathy. Supple, full range of motion without nuchal rigidity, or vertebral point tenderness. No Meningismus. Chest/axilla: Normal chest wall appearance and motion. Nontender with no deformity. No lesions are appreciated. Cardiovascular: Regular rate and rhythm with a normal S1 and S2. No gallops, murmurs, or rubs. Normal PMI, no JVD. No pulse deficits. Abdomen/GI: Soft, non-tender, with normal bowel sounds. No distension or tympany. No guarding or rebound. No evidence of tenderness throughout. Back: No spinal tenderness. No costovertebral tenderness. Full range of motion. Female : Normal external genitalia. Skin: Warm, dry with normal turgor. Normal color with no rashes, no lesions, and no evidence of cellulitis. 10:49 ECG was reviewed by the Attending Physician. 10:49 Respiratory: mild respiratory distress is noted, Respirations: labored breathing, that is mild, Breath sounds: decreased breath sounds, that are moderate, are heard in the left posterior lower lobe, Respiratory rate: 16 Vital Signs: 09:20 BP 130 / 80; Pulse 85; Resp 16; Temp 100.2(O); Pulse Ox 88% on R/A; Weight 40.82 kg; db Height 5 ft. 3 in. ; 09:43 BP 143 / 67; Pulse 85; Resp 16; Pulse Ox 95% ; db 10:30 BP 110 / 62; Pulse 73; Resp 16; Pulse Ox 95% ; db 11:30 BP 117 / 70; Pulse 67; Resp 18; Pulse Ox 98% 5 lpm ; db 12:30 BP 94 / 53; Pulse 72; Resp 16; Pulse Ox 98% 5 lpm ; db 13:00 BP 94 / 57; Pulse 56; Resp 16; Pulse Ox 98% 5 lpm ; db 13:13 Temp 98.7; db 09:20 Body Mass Index 15.94 (40.82 kg, 160.02 cm) db MDM: 09:27 Patient medically screened. long 10:52 Differential diagnosis: asthma, Chronic Obstructive Pulmonary Disease viral Infection, long bacterial infection, URI, bronchitis, pneumonia gastroenteritis, pneumonia, pulmonary edema, reactive airway disease, Sepsis. Antibiotic administration: zosyn/zithromax. Differential Diagnosis: Obstructed Airway Bronchitis Influenza Upper Respiratory Infection Sinusitis Pharyngitis Asthma Exacerbation Viral Syndrome Pneumonia. Immunization status: Pneumococcal vaccine: within last 5 years. Influenza vaccine: within last 5 years. Data reviewed: vital signs, nurses notes, EMS record, lab test result(s), EKG, radiologic studies, CT scan, plain films. Consideration of Admission/Observation Patient was admitted/placed on observation. Escalation of care including admission/observation considered. I considered the following discharge prescriptions or medication management in the emergency department Medications were administered in the Emergency Department. See MAR. Independent interpretation of the following test(s) in the Emergency Department EKG: See my EKG interpretation above. Test considered but Not performed: MRI: no mri. Care significantly affected by the following chronic conditions: trach, depression, anxiety. 06/18 Order name: Basic Metabolic Panel [facility] 06/18 Order name: CBC with Diff [facility] 06/18 09:29 Order name: LFT's [facility] 06/18 09:29 Order name: Magnesium [facility] 06/18 09:29 Order name: NT PRO-BNP [facility] 06/18 09: Order name: PT-INR; Complete Time: 10:39 [facility] 06/18 09:29 Order name: Troponin HS [facility] 06/18 09:29 Order name: Blood Culture Adult (2) [facility] 06/18 09:29 Order name: Lactate w/ 2H reflex if indic. [facility] 06/18 09:29 Order name: Urinalysis w/ reflexes [facility] 06/18 09:29 Order name: Lipase [facility] 06/18 09:29 Order name: COVID-19 SARS RT PCR [facility] 06/18 09:29 Order name: Flu [facility] 06/18 11:01 Order name: CBC Smear Scan [facility] 06/18 12:23 Order name: Urinalysis w/ reflexes [facility] 06/18 12:23 Order name: Basic Metabolic Panel [facility] 06/18 12:23 Order name: Basic Metabolic Panel [facility] 06/18 12:23 Order name: CBC with Automated Diff [facility] 06/18 12:23 Order name: CBC with Automated Diff [facility] 06/18 12:23 Order name: Magnesium [facility] 06/18 12:23 Order name: Magnesium [facility] 06/18 12:23 Order name: Phosphorus [facility] 06/18 12:23 Order name: Phosphorus [facility] 06/18 12:23 Order name: Troponin High Sensitivity [facility] 06/18 09:29 Order name: XRAY Chest (1 view); Complete Time: 10:39 [facility] 06/18 09:29 Order name: CT Chest Abdomen Pelvis W/O Contrast; Complete Time: 10:39 [facility] 06/18 09:29 Order name: EKG; Complete Time: 09:29 [facility] 06/18 09:29 Order name: Cardiac monitoring; Complete Time: 10:24 [facility] 06/18 09:29 Order name: EKG - Nurse/Tech; Complete Time: 10:24 [facility] 06/18 09:29 Order name: IV Saline Lock; Complete Time: 10:24 [facility] 06/18 09:29 Order name: Labs collected and sent; Complete Time: 10:24 [facility] 06/18 09:29 Order name: O2 Per Protocol; Complete Time: 10:24 [facility] 06/18 09:29 Order name: O2 Sat Monitoring; Complete Time: 10:24 [facility] EC:49 Rate is 83 beats/min. Rhythm is regular. QRS [place] is Normal. [place] interval is normal. QRS long interval is normal. QT interval is normal. No Q waves. T waves are Normal. No ST changes noted. Clinical impression: NSR w/ Non-specific ST/T Changes and No evidence of ischemia. Interpreted by me. Reviewed by me. Administered Medications: 09:30 CANCELLED (Duplicate Order): rocephin1 grams IV at per protocol once; Given slow IV long push per pharmacy instructions 09:50 Drug: Acetaminophen PO 650 mg PO once Route: PO; db 11:34 Follow up: Response: No adverse reaction db 10:15 Drug: NS 0.9% IV 1000 ml IV at 125 ml/hr continuous Route: IV; Rate: 125 ml/hr; Site: db right forearm; 13:17 Follow up: IV Status: Infusion continued upon admission db 10:16 Drug: Famotidine IVP 20 mg IVP once; dilute with 10 mL 0.9% NaCl; give over 2 minutes db Route: IVP; Site: right forearm; 11:34 Follow up: Response: No adverse reaction db 10:20 Drug: Piperacillin-Tazobactam IVPB 3.375 grams IVPB once over 60 mins; (mix in NS 100 db mL) Route: IVPB; Infused Over: 60 mins; Site: right forearm; 11:20 Follow up: Response: No adverse reaction; IV Status: Completed infusion; IV Intake: db 100ml 10:24 Not Given (Duplicate Order): acetaminophensuppository 650 mg [place] once db 11:20 Drug: Levalbuterol Inhalation 1.25 mg Inhalation once Route: Inhalation; db 11:34 Follow up: Response: No adverse reaction db 11:20 Drug: Ipratropium Inhalation Aerosol 0.5 mg Inhalation once Route: Inhalation; db 11:34 Follow up: Response: No adverse reaction db 11:28 Drug: Zithromax IVPB 500 mg IVPB once over 1 hrs; mix in 250 mL NS Route: IVPB; Infused db Over: 1 hrs; Site: right forearm; 12:45 Follow up: Response: No adverse reaction; IV Status: Completed infusion; IV Intake: db 250ml 12:45 Drug: vancoMYCIN IVPB 800 mg IVPB once over 2 hrs Route: IVPB; Infused Over: 2 hrs; db Site: right forearm; 13:16 Follow up: IV Status: Infusion continued upon admission db Disposition Summary: 06/18/23 10:57 Hospitalization Ordered Notes: Hospitalization Status: Inpatient Admission long Provider: Jose F Esquivel cha Location: Telemetry/MedSurg (Inpatient) long Condition: Fair long Problem: new long Symptoms: have improved long Bed/Room Type: Standard long Room Assignment: 417(06/18/23 13:00) em1 Diagnosis - Pneumonia due to other specified bacteria - left lower lobe pna long - Tracheostomy status long - Hypoxemia long - Fever, unspecified long - Dyspnea long - Pneumonia due to SARS-associated coronavirus long - SARS-associated coronavirus as the cause of diseases classified elsewhere long Forms: - Medication Reconciliation Form long - SBAR form long - Leadership Thank You Letter [facility] Signatures: Dispatcher [employer] Dino Aguilar MD MD cha Martinez, Eric em1 Chelo Pisano RN RN db Corrections: (The following items were deleted from the chart) 09:30 09:30 Rocephin IV 1 grams IV at per protocol once; Given slow IV push per pharmacy long instructions ordered. [facility] 13:00 10:57 long em1
[2023-06-18 11:03] LABS: Blood Morphology Comment NOT SEEN (NOT SEEN); Platelet Estimate ADEQ; White Blood Cell Scan OK (OK)
[2023-06-18 11:15] LABS: Urine Bacteria None Seen /HPF (<20); Urine Bilirubin NEGATIVE (Negative); Urine Blood 2+ (Negative); Urine Clarity Extremely Turbid (Clear); Urine Color Yellow (Yellow); Urine Glucose NEGATIVE (Negative); Urine Mucus Slight /HPF (None Seen); Urine Protein 1+ (Negative); Urine Urobilinogen Normal (Normal); Urine pH 5.5 (5.0-7.0)
[2023-06-18] MEDS ORDERED: NA CHLORIDE 0.9% 250 ML ONE (11:36)
[2023-06-18] MEDS ORDERED: LEVALBUTEROL 1.25 MG/3 ML NEB ONE (11:36)
[2023-06-18] MEDS ORDERED: IPRATROPIUM BROM 0.5MG/2.5ML ONE (11:36)
[2023-06-18] MEDS ORDERED: AZITHROMYCIN 500 MG INJ IVPB ONE (11:36)
[2023-06-18] MEDS ORDERED: NA CHLORIDE 0.9% IVPB ONE (11:45)
[2023-06-18] MEDS ORDERED: VANCOMYCIN IVPB ONE (11:45)
--- NOTE | 2023-06-18 12:35 | P.HP ---
Certification for Inpatient Patient admitted to: Inpatient With expected LOS: >2 Midnights Patient will require the following post-hospital care: None Practitioner: I am a practitioner with admitting privileges, knowledge of patient current condition, hospital course, and medical plan of care. Services: Services provided to patient in accordance with Admission requirements found in Title 42 Section 412.3 of the Code of Federal Regulations Patient History Date of Service: 06/18/23 Reason for admission: COVID pneumonia, febrile History of Present Illness: Demetra Bassett is a 67-year-old female with past medical history of anxiety, neuropathy, trach placement, Presents to the ED with shortness of breath, weakness, fever at home up to 103.2 today with O2 saturation 80%. Son is at bedside and is a good historian, reports Demetra uses 3 L of oxygen as needed at home. He believes they both had the flu on Thursday and she has completed taking Tamiflu. Demetra has become more weak and fatigued x2 days with a syncopal episode in a sitting position. Demetra can usually ambulate well with a walker and has a Passy-Evonne at home. Initial vitals BP 130/80, HR 85, respirations 16, temperature 100.2, pulse ox 99% on trach O2. Significant labs WBC 14.8, lactic 0.9, troponin 91, BNP 2356, mag 1.5. COVID-positive, EKG with ST and T abnormalities, normal sinus rhythm with heart rate at 83.'s x-ray showing left lower lobe improvement, mild right lung opacities mostly resolved in comparison with December 2022, CT abdomen pelvis showing "small left pleural effusion, Large left lower lobe consolidation likely pneumonia", incidental finding of a "small to moderate left inguinal hernia." While in the IVFs, vancomycin, Zosyn, azithromycin, and DuoNebs were administered. Demetra will be admitted to hospitalist service for further evaluation and treatment of COVID-pneumonia. Allergies No Known Allergies Allergy (Verified 09/11/14 12:46) Home Medications: Atorvastatin Calcium [Lipitor] 10 mg PO BEDTIME 09/11/14 Gabapentin [Neurontin] 300 mg PO BEDTIME 09/11/14 Omeprazole [Prilosec] 20 mg PO DAILY 09/11/14 clonazePAM [Klonopin] 1 mg PO DAILY 09/11/14 Buprenorphine HCl/Naloxone HCl [Suboxone 8 mg-2 mg Sl Film] 1 film SL BID 06/18/23 Citalopram Hydrobromide [Citalopram HBr] 1 tab PO DAILY 06/18/23 - Family History Father -: Heart disease Mother -: Cancer Review of Systems General: Fever, Weakness, Other (fatigue) Eyes: Unremarkable ENT: Unremarkable Respiratory: Cough Cardiovascular: Unremarkable Gastrointestinal: Nausea, Vomiting, Unremarkable Musculoskeletal: Unremarkable Integumentary: Unremarkable Neurological: Other (syncope) Lymphatics: Unremarkable Physical Examination - Vital Signs Blood Pressure: 110/62 Pulse: 73 Respirations: 16 - Physical Exam General: Oriented x3, Cachectic, Other (uncomfortable, lethargic) HEENT: Atraumatic, Normocephalic, PERRLA Neck: Supple, 2+ carotid pulse no bruit, JVD not distended Respiratory: Clear to auscultation bilaterally, Normal air movement Cardiovascular: No edema, Normal pulses, Regular rate/rhythm, Normal S1 S2 Capillary refill: <2 Seconds Gastrointestinal: Soft and benign, Hyperactive Musculoskeletal: No clubbing, No swelling, No contractures Integumentary: No rashes, No breakdown, No significant lesion, Other (face flushed) Neurological: Normal speech, Normal strength at 5/5 x4 extr, Normal tone - Studies Laboratory Data (last 24 hrs) 06/18/23 06/18/23 06/18/23 10:12 10:12 10:12 WBC 14.80 H Hgb 13.5 Hct 39.6 Plt Count 225 PT 14.3 H INR 1.30 Sodium 138 Potassium 3.6 BUN 26 H Creatinine 0.87 Glucose 114 H Magnesium 1.5 L Total Bilirubin 0.4 AST 25 ALT 37 Alkaline Phosphatase 157 H Lipase 14 Microbiology Data (last 24 hrs): 06/18/23 09:50 Nasopharnyx Influenza Type A Antigen Screen - Final 06/18/23 09:50 Nasopharnyx Influenza Type B Antigen Screen - Final Assessment and Plan - Plan Assessment and plan COVID-19 positive test with Acute Pneumonia Acute hypoxic respiratory distress Leukocytosis Small left pleural effusion -Covid positive -CT CAP "small left pleural effusion, Large left lower lobe consolidation likely pneumonia" -Blood cultures pending -on trach O2- respiratory consulted -Vancomycin, Zosyn, azithromycin given in the ED -Continue azithromycin and vancomycin -procalcitonin 1.58 Elevated Troponin -Troponin 91, redraw 85.5 -EKG nonspecific ST and T wave abnormality, NSR, HR 83 -Son reports no heart history Hypomagnesemia -Replace -monitor in AM labs Left inquinal hernia -CT CAP- revealed incidental finding -follow up outpatient DVT ppx: lovenox LOS 3-4 days Full Code Discharge Plan: Home Plan to discharge in: 72 Hours - Advance Directives Does patient have a Living Will: No Does patient have a Durable POA for Healthcare: No Time Spent Managing Pts Care (In Minutes): 55
[2023-06-18] MEDS: NA CHLORIDE 0.9% 1,000 ML IV SCH (13:00)
[2023-06-18] MEDS ORDERED: ALBUTEROL 2.5 MG/3 ML NEB SOL NEB PRN ×2 (14:00→15:00)
[2023-06-18 14:01] VITALS: BMI 15.9
[2023-06-18] MEDS: ONDANSETRON 4 MG/2 ML VIAL IV PRN ×2 (14:51→23:25)
[2023-06-18] MEDS ORDERED: MAGNESIUM SULFATE 1 gm IVPB 1 GM/100 ML BAG IV ONE (15:38)
[2023-06-18] MEDS ORDERED: POTASSIUM CL SA 10 MEQ TAB PO ONE (16:00)
[2023-06-18] MEDS: AMPICILLIN/SULBACT 1.5 GM in NA CHLORIDE 0.9% 100 ML IVPB SCH ×2 (18:42→23:19)
[2023-06-18] MEDS: clonazePAM 1 MG TAB PO PRN (23:19)
[2023-06-18] MEDS: GABAPENTIN 300 MG CAP PO SCH (23:19)
[2023-06-18] MEDS: ATORVASTATIN 10 MG TAB PO SCH (23:19)
[2023-06-19 03:45] LABS: Magnesium 1.8 mg/dL (1.6-2.4); Phosphorus 2.3 mg/dL (2.5-4.9); Potassium 4.1 mEq/L (3.5-5.1)
[2023-06-19] MEDS: NA CHLORIDE 0.9% 1,000 ML IV SCH ×2 (04:01→15:40)
[2023-06-19] MEDS ORDERED: CALCIUM GLUC 10% INJ 4.65 MEQ in NA CHLORIDE 0.9% 100 ML IV ONE ×2 (04:01→08:00)
[2023-06-19] MEDS: ONDANSETRON 4 MG/2 ML VIAL IV PRN ×2 (05:05→10:19)
[2023-06-19] MEDS: AMPICILLIN/SULBACT 1.5 GM in NA CHLORIDE 0.9% 100 ML IVPB SCH ×2 (05:06→13:09)
[2023-06-19] MEDS ORDERED: CALCIUM GLUCONATE 1 GM IVPB 1 GM/50 ML BAG IV ONE (08:00)
[2023-06-19] MEDS: POTASS/SODIUM PHOSPHATE 1 PKT POWD.PACK PO SCH ×3 (08:41→10:26)
[2023-06-19] MEDS: AZITHROMYCIN IV 500 MG in NA CHLORIDE 0.9% 250 ML IVPB SCH (08:43)
[2023-06-19] MEDS: ACETAMINOPHEN 500 MG TAB PO PRN ×2 (08:43→20:24)
[2023-06-19] MEDS: ENOXAPARIN 40 MG/0.4 ML SQ SCH (08:43)
[2023-06-19] MEDS ORDERED: MAGNESIUM SULFATE 1 gm IVPB 1 GM/100 ML BAG IV ONE (09:00)
[2023-06-19] MEDS ORDERED: VANCOMYCIN 1 GM in NA CHLORIDE 0.9% 250 ML IVPB SCH (09:00)
[2023-06-19 09:54] LABS: Absolute Lymphocytes (CBC) 0.8 K/uL (0.7-4.9); Hematocrit 33.5 % (36.0-45.0); Lymphocytes % 5.4 % (15.3-44.8); MCV 93.1 fL (80-100); MPV 7.9 fL (7.6-11.3); Platelets 218 thou/uL (152-406)
--- NOTE | 2023-06-19 14:44 | EKG ---
Test Date: 2023-06-18 Test Time: 09:57:25 Tactical Debriefer Officer: RODRIGO MEASUREMENT RESULTS: Intervals: Rate: 83 GA: 128 QRSD: 72 QT: 386 QTc: 453 [place]: P: 71 GA: 128 QRS: 63 T: 23 INTERPRETIVE STATEMENTS: Normal sinus rhythm Nonspecific ST and T wave abnormality Abnormal ECG Compared to ECG 01/13/2023 19:54:20 Sinus tachycardia no longer present Prolonged QT interval no longer present ST (T wave) deviation still present Electronically Signed On 06-19-23 14:41:20 CDT by Wade Ervin
--- NOTE | 2023-06-19 17:40 | P.PN ---
Subjective Date of Service: 06/19/23 Chief Complaint: COVID pneumonia, febrile Patient is maintained on oxygen by trach collar. She states she feels better since admission. No recorded fever. She denies aspirating on her food or drink. Physical Examination - Vital Signs Temperature: 99 F Blood Pressure: 105/51 Pulse: 66 Respirations: 18 Pulse Ox (%): 99 Assessment And Plan - Plan Physical Exam General: Oriented x3, Cachectic, Other (uncomfortable, lethargic) HEENT: Atraumatic, Normocephalic, PERRLA Neck: Supple, 2+ carotid pulse no bruit, JVD not distended Respiratory: Clear to auscultation bilaterally, Normal air movement Cardiovascular: No edema, Normal pulses, Regular rate/rhythm, Normal S1 S2 Capillary refill: <2 Seconds Gastrointestinal: Soft and benign, Hyperactive Musculoskeletal: No clubbing, No swelling, No contractures Integumentary: No rashes, No breakdown, No significant lesion, Other (face flushed) Neurological: Normal speech, Normal strength at 5/5 x4 extr, Normal tone Plan: COVID-19 Acute Pneumonia Acute hypoxic respiratory distress Leukocytosis Small left pleural effusion -Covid positive -CT CAP "small left pleural effusion, Large left lower lobe consolidation likely pneumonia" -Blood cultures: No growth to date. -Suspected bacterial pneumonia -on trach collar -Vancomycin, Unasyn, and azithromycin -Swallow evaluation to rule out aspiration pneumonia given the presence of tracheostomy. -procalcitonin 1.58 Elevated Troponin -Troponin 91, redraw 85.5 -EKG nonspecific ST and T wave abnormality, NSR, HR 83 -Troponin trended flat. -Likely secondary to demand ischemia Left inquinal hernia -CT CAP- revealed incidental finding -follow up outpatient DVT ppx: lovenox Full Code Discharge Plan: Home
[2023-06-19] MEDS: AMPICILLIN/SULBACT 3 GM in NA CHLORIDE 0.9% 100 ML IV SCH (18:42)
[2023-06-19] MEDS: clonazePAM 1 MG TAB PO PRN (20:25)
[2023-06-19] MEDS: GABAPENTIN 300 MG CAP PO SCH (20:25)
[2023-06-19] MEDS: ATORVASTATIN 10 MG TAB PO SCH (20:25)
[2023-06-19] MEDS: ENSURE ENLIVE 237 ML CAN PO SCH (20:26)
[2023-06-19] MEDS: HOME MED 1 EA UNK (Buprenorphine Hcl/Naloxone Hcl [Suboxone 8 Mg-2 Mg Sl Film] Film) SL SCH (21:00)
[2023-06-19] MEDS ORDERED: ATORVASTATIN 10 MG TAB PO SCH (21:00)
[2023-06-19] MEDS ORDERED: HOME MED 1 EA UNK (Gabapentin [Neurontin] 600 MG Tablet) PO SCH (21:00)
[2023-06-20] MEDS: AMPICILLIN/SULBACT 3 GM in NA CHLORIDE 0.9% 100 ML IV SCH ×4 (00:01→17:11)
[2023-06-20] MEDS: PANTOPRAZOLE 40MG TABLET PO SCH (05:17)
[2023-06-20] MEDS: NA CHLORIDE 0.9% 1,000 ML IV SCH ×3 (05:20→18:20)
[2023-06-20 07:42] LABS: Potassium 3.9 mEq/L (3.5-5.1)
[2023-06-20] MEDS: AZITHROMYCIN IV 500 MG in NA CHLORIDE 0.9% 250 ML IVPB SCH (08:03)
[2023-06-20] MEDS: ENOXAPARIN 40 MG/0.4 ML SQ SCH (08:03)
[2023-06-20] MEDS: clonazePAM 1 MG TAB PO SCH (08:04)
[2023-06-20] MEDS: ONDANSETRON 4 MG/2 ML VIAL IV PRN ×2 (08:04→21:01)
[2023-06-20] MEDS: CITALOPRAM 10 MG TABLET PO SCH (08:04)
[2023-06-20] MEDS: ENSURE ENLIVE 237 ML CAN PO SCH ×2 (08:05→21:02)
[2023-06-20 08:36] LABS: Absolute Lymphocytes (CBC) 1.4 K/uL (0.7-4.9); Hematocrit 37.8 % (36.0-45.0); Lymphocytes % 9.8 % (15.3-44.8); MCV 94.3 fL (80-100); MPV 7.8 fL (7.6-11.3); Platelets 241 thou/uL (152-406); RBC Red Blood Cell Count 4.01 M/uL (3.86-4.86)
[2023-06-20] MEDS ORDERED: POTASSIUM CL SA 10 MEQ TAB PO ONE (09:00)
[2023-06-20] MEDS: HOME MED 1 EA UNK (Buprenorphine Hcl/Naloxone Hcl [Suboxone 8 Mg-2 Mg Sl Film] Film) SL SCH ×2 (09:00→21:00)
[2023-06-20] MEDS: ACETAMINOPHEN 500 MG TAB PO PRN (12:21)
--- NOTE | 2023-06-20 14:31 | P.PN ---
Subjective Date of Service: 06/20/23 Chief Complaint: COVID pneumonia, febrile Subjective: No new changes, Doing well HPI 06/18: Demetra Bassett is a 67-year-old female with past medical history of anxiety, neuropathy, trach placement, Presents to the ED with shortness of breath, weakness, fever at home up to 103.2 today with O2 saturation 80%. Son is at bedside and is a good historian, reports Demetra uses 3 L of oxygen as needed at home. He believes they both had the flu on Thursday and she has completed taking Tamiflu. Demetra has become more weak and fatigued x2 days with a syncopal episode in a sitting position. Demetra can usually ambulate well with a walker and has a Passy-Evonne at home. Initial vitals BP 130/80, HR 85, respirations 16, temperature 100.2, pulse ox 99% on trach O2. Significant labs WBC 14.8, lactic 0.9, troponin 91, BNP 2356, mag 1.5. COVID-positive, EKG with ST and T abnormalities, normal sinus rhythm with heart rate at 83.'s x-ray showing left lower lobe improvement, mild right lung opacities mostly resolved in comparison with December 2022, CT abdomen pelvis showing "small left pleural effusion, Large left lower lobe consolidation likely pneumonia", incidental finding of a "small to moderate left inguinal hernia." While in the IVFs, vancomycin, Zosyn, azithromycin, and DuoNebs were administered. Demetra will be admitted to hospitalist service for further evaluation and treatment of COVID-pneumonia. 06/19: Patient is maintained on oxygen by trach collar. She states she feels better since admission. No recorded fever. She denies aspirating on her food or drink 06/20: Demetra is awake and oriented. She was able to speak to me by covering her trach. She was eating breakfast and requested her trach to be suctioned. Much improved today. She denies fever, chills, CP, SOB, and MONTALVO Review of Systems 10-point ROS is otherwise unremarkable Physical Examination - Vital Signs Temperature: 100.1 F Blood Pressure: 131/64 Pulse: 86 Respirations: 20 Pulse Ox (%): 90 Assessment And Plan - Plan Physical Exam General: alert and Oriented x3, Cachectic HEENT: Atraumatic, Normocephalic, PERRLA Neck: Supple, 2+ carotid pulse no bruit, JVD not distended Respiratory: Clear to auscultation bilaterally, Normal air movement Cardiovascular: No edema, Normal pulses, Regular rate/rhythm, Normal S1 S2 Capillary refill: <2 Seconds Gastrointestinal: Soft and benign, Hyperactive Musculoskeletal: No clubbing, No swelling, No contractures Integumentary: No rashes, No breakdown, No significant lesion Neurological: Normal speech, Normal strength at 5/5 x4 extr, Normal tone Assessment and plan COVID-19 positive test with Acute Pneumonia Acute hypoxic respiratory distress Leukocytosis Small left pleural effusion -Covid positive -CT CAP "small left pleural effusion, Large left lower lobe consolidation likely pneumonia" -Blood cultures pending -on trach O2- respiratory consulted -Vancomycin, Zosyn, azithromycin given in the ED -Continue unasyn, azithromycin, and vancomycin -procalcitonin 1.58 -Swallow evaluation Elevated Troponin -Troponin 91, redraw 85.5 -EKG nonspecific ST and T wave abnormality, NSR, HR 83 -Likely secondary to demand ischemia Hypomagnesemia -Replace -monitor in AM labs Left inquinal hernia -CT CAP- revealed incidental finding -follow up outpatient DVT ppx: lovenox LOS 3-4 days discharge: home Full Code Discharge Plan: Home Plan to discharge in: 48 Hours Time Spent Managing PTS Care (In Minutes): 35
[2023-06-20] MEDS: clonazePAM 1 MG TAB PO PRN (21:00)
[2023-06-20] MEDS: GABAPENTIN 300 MG CAP PO SCH (21:00)
[2023-06-20] MEDS: ATORVASTATIN 10 MG TAB PO SCH (21:00)
[2023-06-21] MEDS: AMPICILLIN/SULBACT 3 GM in NA CHLORIDE 0.9% 100 ML IV SCH ×5 (06:00→17:07)
[2023-06-21] MEDS: PANTOPRAZOLE 40MG TABLET PO SCH (06:30)
[2023-06-21 06:47] LABS: Magnesium 1.6 mg/dL (1.6-2.4); Phosphorus 2.9 mg/dL (2.5-4.9); Potassium 3.9 mEq/L (3.5-5.1)
[2023-06-21] MEDS: ENOXAPARIN 40 MG/0.4 ML SQ SCH (08:13)
[2023-06-21] MEDS: AZITHROMYCIN IV 500 MG in NA CHLORIDE 0.9% 250 ML IVPB SCH (08:14)
[2023-06-21] MEDS: CITALOPRAM 10 MG TABLET PO SCH (08:14)
[2023-06-21] MEDS: ENSURE ENLIVE 237 ML CAN PO SCH ×2 (08:15→20:23)
[2023-06-21] MEDS: NA CHLORIDE 0.9% 1,000 ML IV SCH ×2 (08:15→21:44)
[2023-06-21] MEDS: HOME MED 1 EA UNK (Buprenorphine Hcl/Naloxone Hcl [Suboxone 8 Mg-2 Mg Sl Film] Film) SL SCH ×2 (08:15→20:24)
[2023-06-21] MEDS: clonazePAM 1 MG TAB PO SCH (08:15)
[2023-06-21] MEDS: ONDANSETRON 4 MG/2 ML VIAL IV PRN ×2 (08:34→17:07)
[2023-06-21] MEDS ORDERED: POTASSIUM CL SA 10 MEQ TAB PO ONE (09:00)
[2023-06-21] MEDS ORDERED: MAGNESIUM SULFATE 1 gm IVPB 1 GM/100 ML BAG IV ONE (09:00)
--- NOTE | 2023-06-21 13:10 | P.PN ---
Subjective Date of Service: 06/21/23 Chief Complaint: COVID pneumonia, febrile Subjective: No new changes, Doing well HPI 06/18: Demetra Bassett is a 67-year-old female with past medical history of anxiety, neuropathy, trach placement, Presents to the ED with shortness of breath, weakness, fever at home up to 103.2 today with O2 saturation 80%. Son is at bedside and is a good historian, reports Demetra uses 3 L of oxygen as needed at home. He believes they both had the flu on Thursday and she has completed taking Tamiflu. Demetra has become more weak and fatigued x2 days with a syncopal episode in a sitting position. Demetra can usually ambulate well with a walker and has a Passy[place] at home. Initial vitals BP 130/80, HR 85, respirations 16, temperature 100.2, pulse ox 99% on trach O2. Significant labs WBC 14.8, lactic 0.9, troponin 91, BNP 2356, mag 1.5. COVID-positive, EKG with ST and T abnormalities, normal sinus rhythm with heart rate at 83.'s x-ray showing left lower lobe improvement, mild right lung opacities mostly resolved in comparison with December 2022, CT abdomen pelvis showing "small left pleural effusion, Large left lower lobe consolidation likely pneumonia", incidental finding of a "small to moderate left inguinal hernia." While in the IVFs, vancomycin, Zosyn, azithromycin, and DuoNebs were administered. Demetra will be admitted to hospitalist service for further evaluation and treatment of COVID-pneumonia. 06/19: Patient is maintained on oxygen by trach collar. She states she feels better since admission. No recorded fever. She denies aspirating on her food or drink 06/20: Demetra is awake and oriented. She was able to speak to me by covering her trach. She was eating breakfast and requested her trach to be suctioned. Much improved today. She denies fever, chills, CP, SOB, and MONTALVO 06/21: Demetra states she feels better than she did on admission but feels to weak to walk, PT/OT consulted for strengthening. She is tolerating PO diet. She denies fever, chills, CP, SOB. Review of Systems 10-point ROS is otherwise unremarkable Physical Examination - Vital Signs Temperature: 99.1 F Blood Pressure: 141/62 Pulse: 82 Respirations: 20 Pulse Ox (%): 98 Assessment And Plan - Plan Physical Exam General: alert and Oriented x3, Cachectic HEENT: Atraumatic, Normocephalic, PERRLA Neck: Supple, 2+ carotid pulse no bruit, JVD not distended Respiratory: Clear to auscultation bilaterally, Normal air movement, on trach collar with high flow Cardiovascular: No edema, Normal pulses, Regular rate/rhythm, Normal S1 S2 Capillary refill: <2 Seconds Gastrointestinal: Soft and benign, Hyperactive Musculoskeletal: No clubbing, No swelling, No contractures Integumentary: No rashes, No breakdown, No significant lesion Neurological: Normal speech, Normal strength at 5/5 x4 extr, Normal tone Assessment and plan COVID-19 positive test with Acute Pneumonia Acute hypoxic respiratory distress Leukocytosis Small left pleural effusion -Covid positive -CT CAP "small left pleural effusion, Large left lower lobe consolidation likely pneumonia" -Blood cultures- NGTD -on trach O2- respiratory consulted, on high flow sating 98% but dropped durning the night to 89% -Vancomycin, Zosyn, azithromycin given in the ED -Continue unasyn, azithromycin, and vancomycin -procalcitonin 1.58 -Swallow evaluation- passed Elevated Troponin -Troponin 91, redraw 85.5 -EKG nonspecific ST and T wave abnormality, NSR, HR 83 -Likely secondary to demand ischemia Hypomagnesemia -Replace -monitor in AM labs Left inquinal hernia -CT CAP- revealed incidental finding -follow up outpatient DVT ppx: lovenox LOS 3-4 days discharge: home Full Code Discharge Plan: Home Plan to discharge in: 24 Hours Time Spent Managing PTS Care (In Minutes): 35
[2023-06-21] MEDS: ATORVASTATIN 10 MG TAB PO SCH (20:23)
[2023-06-21] MEDS: GABAPENTIN 300 MG CAP PO SCH (20:23)
[2023-06-21] MEDS: clonazePAM 1 MG TAB PO PRN (21:44)
[2023-06-22] MEDS: AMPICILLIN/SULBACT 3 GM in NA CHLORIDE 0.9% 100 ML IV SCH ×3 (00:44→11:57)
[2023-06-22] MEDS: PANTOPRAZOLE 40MG TABLET PO SCH (06:01)
[2023-06-22 07:32] LABS: Magnesium 1.7 mg/dL (1.6-2.4); Phosphorus 3.5 mg/dL (2.5-4.9); Potassium 4.2 mEq/L (3.5-5.1)
[2023-06-22] MEDS: HOME MED 1 EA UNK (Buprenorphine Hcl/Naloxone Hcl [Suboxone 8 Mg-2 Mg Sl Film] Film) SL SCH ×2 (08:08→20:48)
[2023-06-22] MEDS: NA CHLORIDE 0.9% 1,000 ML IV SCH ×2 (08:12→23:21)
[2023-06-22] MEDS: ONDANSETRON 4 MG/2 ML VIAL IV PRN (08:12)
[2023-06-22] MEDS: ENOXAPARIN 40 MG/0.4 ML SQ SCH (08:12)
[2023-06-22] MEDS: CITALOPRAM 10 MG TABLET PO SCH (08:14)
[2023-06-22] MEDS: clonazePAM 1 MG TAB PO SCH (08:14)
[2023-06-22] MEDS: ENSURE ENLIVE 237 ML CAN PO SCH ×3 (08:15→20:48)
[2023-06-22] MEDS: AZITHROMYCIN IV 500 MG in NA CHLORIDE 0.9% 250 ML IVPB SCH (08:15)
[2023-06-22] MEDS ORDERED: levoFLOXacin 750 MG TAB PO SCH (13:00)
[2023-06-22] MEDS: DOXYCYCLINE 100 MG CAP PO SCH ×2 (13:04→20:35)
--- NOTE | 2023-06-22 17:10 | P.PN ---
Subjective Date of Service: 06/22/23 Chief Complaint: COVID pneumonia, febrile Patient states her shortness of breath is better but she feels weak. No issues overnight. Physical Examination - Vital Signs Temperature: 97.3 F Blood Pressure: 138/62 Pulse: 71 Respirations: 17 Pulse Ox (%): 96 Assessment And Plan - Plan Physical Exam General: Oriented x3, Cachectic. Neck: Supple, oxygen by trach collar. Respiratory: Clear to auscultation bilaterally, Normal air movement Cardiovascular: No edema, Normal pulses, Regular rate/rhythm, Normal S1 S2 Gastrointestinal: Soft and benign, Hyperactive Musculoskeletal: No clubbing, No swelling, No contractures Integumentary: No rashes, No breakdown, No significant lesion, Other (face flushed) Neurological: Normal speech, Normal strength at 5/5 x4 extr, Normal tone Plan: COVID-19 Acute Pneumonia Acute hypoxic respiratory distress Leukocytosis Small left pleural effusion -Covid positive -CT CAP "small left pleural effusion, Large left lower lobe consolidation likely pneumonia" -Blood cultures: No growth to date. -Suspected bacterial pneumonia -on trach collar -Antibiotics transitioned to oral augmentin and Doxycycline. -Swallow evaluation to rule out aspiration pneumonia given the presence of tracheostomy. -procalcitonin 1.58 -PT evaluated and noted fatigue. -Continue PT Elevated Troponin -Troponin 91, 85.5 -EKG nonspecific ST and T wave abnormality, NSR, HR 83 -Troponin trended flat. -Likely secondary to demand ischemia Left inquinal hernia -CT CAP- revealed incidental finding -follow up outpatient DVT ppx: lovenox Full Code Discharge Plan: Home
--- NOTE | 2023-06-22 18:48 | P.DS ---
Admission Date: 06/18/23 Discharge Date: 06/22/23 Disposition: DC HOME/HOME HEALTH CARE Discharge Condition: FAIR Reason for Admission: COVID pneumonia, febrile Brief History of Present Illness: Demetra Bassett is a 67-year-old female with past medical history of anxiety, neuropathy, trach placement, presented to the ED with shortness of breath, weakness, fever at home up to 103.2 today with O2 saturation 80%. Son at her bedside provided the history. He reported Demetra uses 3 L of oxygen as needed at home. He believes they both had the flu on Thursday and she has completed taking Tamiflu. Demetra became more weak and fatigued x2 days with a syncopal episode in a sitting position. Demetra can usually ambulate well with a walker and has a Passy-[place] at home. Initial vitals BP 130/80, HR 85, respirations 16, temperature 100.2, pulse ox 99% on trach O2. Significant labs WBC 14.8, lactic 0.9, troponin 91, BNP 2356, mag 1.5. COVID-positive, EKG with ST and T abnormalities, normal sinus rhythm with heart rate at 83.'s x-ray showing left lower lobe improvement, mild right lung opacities mostly resolved in comparison with December 2022, CT abdomen pelvis showing "small left pleural effusion, Large left lower lobe consolidation likely pneumonia", incidental finding of a "small to moderate left inguinal hernia." While in the IVFs, vancomycin, Zosyn, azithromycin, and DuoNebs were administered. Patient admitted for further management. Hospital Course: Patient admitted to the medical floor and the following medical problems addressed: COVID-19 Acute Pneumonia Acute hypoxic respiratory distress Leukocytosis Small left pleural effusion -Covid positive -CT CAP "small left pleural effusion, Large left lower lobe consolidation likely pneumonia" -Blood cultures: No growth to date. -Suspected bacterial pneumonia -on trach collar -Antibiotics transitioned to oral augmentin and Doxycycline. -Patient evaluated by speech therapy and she had no trouble with swallowing. -procalcitonin 1.58 -PT evaluated and noted fatigue. -Patient opted for home health. -Patient was discharged with oral antibiotics and nebulizer treatments. Elevated Troponin -Troponin 91, 85.5 -EKG nonspecific ST and T wave abnormality, NSR, HR 83 -Troponin trended flat. -Likely secondary to demand ischemia Left inquinal hernia -CT CAP- revealed incidental finding -follow up outpatient Vital Signs/Physical Exam: Temp Pulse Resp BP Pulse Ox 97.3 F 71 17 138/62 96 06/22/23 17:21 06/22/23 17:21 06/22/23 17:21 06/22/23 17:21 06/22/23 17:21 General: Alert, In no apparent distress, Oriented x3 HEENT: Mucous membr. moist/pink Neck: Supple, JVD not distended Respiratory: Diminished Cardiovascular: Regular rate/rhythm, Normal S1 S2 Gastrointestinal: Normal bowel sounds, Soft and benign, Non-distended Musculoskeletal: No swelling Integumentary: No rashes, No cyanosis Neurological: Normal strength at 5/5 x4 extr Laboratory Data at Discharge: WBC 13.80 thou/uL (4.3-10.9) H 06/20/23 08:25 Hgb 12.7 g/dL (12.0-15.0) D 06/20/23 08:25 Hct 37.8 % (36.0-45.0) 06/20/23 08:25 Plt Count 241 thou/uL (152-406) 06/20/23 08:25 PT 14.3 SECONDS (9.5-12.5) H 06/18/23 10:12 INR 1.30 06/18/23 10:12 Sodium 140 mEq/L (136-145) 06/22/23 06:35 Potassium 4.2 mEq/L (3.5-5.1) 06/22/23 06:35 BUN 16 mg/dL (7-18) 06/22/23 06:35 Creatinine 0.69 mg/dL (0.55-1.02) 06/22/23 06:35 Glucose 93 mg/dL (74-106) 06/22/23 06:35 Phosphorus 3.5 mg/dL (2.5-4.9) 06/22/23 06:35 Magnesium 1.7 mg/dL (1.6-2.4) 06/22/23 06:35 Total Bilirubin 0.4 mg/dL (0.2-1.0) 06/18/23 10:12 AST 25 U/L (15-37) 06/18/23 10:12 ALT 37 U/L (13-56) 06/18/23 10:12 Alkaline Phosphatase 157 U/L (45-117) H 06/18/23 10:12 Lipase 14 U/L (13-75) 06/18/23 10:12 Home Medications: Atorvastatin Calcium [Lipitor*] 10 mg PO BEDTIME 09/11/14 Gabapentin [Neurontin] 300 mg PO BEDTIME 09/11/14 Omeprazole [Prilosec] 20 mg PO DAILY 09/11/14 clonazePAM [Klonopin] 1 mg PO DAILY 09/11/14 Buprenorphine HCl/Naloxone HCl [Suboxone 8 mg-2 mg Sl Film] 1 film SL BID 06/18/23 Citalopram Hydrobromide [Citalopram HBr] 1 tab PO DAILY 06/18/23 Amox/Clavulanate [Augmentin 875-125 Tab*] 875 mg PO BID #14 tab 06/22/23 Doxycycline Hyclate 100 mg PO BID #14 cap 06/22/23 Ensure Enlive 237 ml PO BID #30 can 06/22/23 Ipratropium/Albuterol Sulfate [Iprat-Albut 0.5-3(2.5) mg/3 ml] 3 ml IH QID PRN #120 amp 06/22/23 Nebulizer 1 each MC TID #1 ea 06/22/23 New Medications: Amox/Clavulanate [Augmentin 875-125 Tab*] 875 mg PO BID #14 tab Doxycycline Hyclate 100 mg PO BID #14 cap Ensure Enlive 237 ml PO BID #30 can Ipratropium/Albuterol Sulfate [Iprat-Albut 0.5-3(2.5) mg/3 ml] 3 ml IH QID PRN #120 amp PRN Reason: Shortness Of Breath Nebulizer 1 each MC TID #1 ea Diet: AHA Activity: Fall precautions Followup: Elder MITCHELL,Prasanna Blackmon DO [Primary Care Provider] - Time spent managing pt's care (in minutes): 36
[2023-06-22] MEDS: AMOX/K CLAV 875 MG TAB PO SCH (20:35)
[2023-06-22] MEDS: clonazePAM 1 MG TAB PO PRN (20:35)
[2023-06-22] MEDS: GABAPENTIN 300 MG CAP PO SCH (20:35)
[2023-06-22] MEDS: ATORVASTATIN 10 MG TAB PO SCH (20:35)
[2023-06-23] MEDS: PANTOPRAZOLE 40MG TABLET PO SCH (05:55)
[2023-06-23] MEDS: HOME MED 1 EA UNK (Buprenorphine Hcl/Naloxone Hcl [Suboxone 8 Mg-2 Mg Sl Film] Film) SL SCH (07:46)
[2023-06-23] MEDS: clonazePAM 1 MG TAB PO SCH (09:00)
[2023-06-23] MEDS: ENOXAPARIN 40 MG/0.4 ML SQ SCH (09:19)
[2023-06-23] MEDS: AMOX/K CLAV 875 MG TAB PO SCH (09:20)
[2023-06-23] MEDS: CITALOPRAM 10 MG TABLET PO SCH (09:20)
[2023-06-23] MEDS: DOXYCYCLINE 100 MG CAP PO SCH (09:20)
[2023-06-23] MEDS: ENSURE ENLIVE 237 ML CAN PO SCH (09:21)
[2023-06-23] MEDS: NA CHLORIDE 0.9% 1,000 ML IV SCH (12:29)
--- NOTE | 2023-06-23 15:01 | P.PN ---
Date of Service: 06/23/23 Discharge from 06/22/2020 was delayed as patient was feeling weak and had required 6 L/min of oxygen for her trach collar throughout the evening. Upon reevaluation today patient's oxygen saturation was satisfactory on 5 L satting 95 to 96%. She was concerned about her weakness and was evaluated by PT who ambulated her around 40 feet [id number] in the room into the door with minimal assistance. She will be discharged home with additional prescription for nausea medication as she was concerned about vomiting/nausea. Return precautions given, patient is to follow-up with her primary care doctor in 1 to 2 weeks, additional prescriptions for Zofran sent to pharmacy. Please refer to discharge summary on 06/22/2020 for further information. Exam General: Alert, In no apparent distress, Oriented x3 HEENT: Mucous membr. moist/pink Neck: Supple, JVD not distended Respiratory: Diminished, trach in place with trach collar oxygen Cardiovascular: Regular rate/rhythm, Normal S1 S2 Gastrointestinal: Normal bowel sounds, Soft and benign, Non-distended Musculoskeletal: No swelling Integumentary: No rashes, No cyanosis Neurological: Normal strength at 5/5 x4 extr
[2023-06-23] MEDS ORDERED: clonazePAM 1 MG TAB PO SCH (21:00)
[2023-06-25 12:42] VITALS: BP 148/74; TEMP 97.5
[2023-06-25 12:50] VITALS: O2SAT 96
== END 2023-06-23 16:36 | disposition home health service (06) | DRG 177 ==
LOC: ER 09:24 → ERHOLD 12:15 → 4TH 13:13
PROVIDERS: ADMIT Internal Medicine; ATTEND Hospitalist
DX: U07.1 COVID-19 (principal); J12.82 Pneumonia due to coronavirus disease 2019; J15.9 Unspecified bacterial pneumonia; R64 Cachexia; Z68.1 Body mass index [BMI] 19.9 or less, adult; E83.42 Hypomagnesemia; K40.90 Unilateral inguinal hernia, without obstruction or gangrene, not specified as recurrent; F17.210 Nicotine dependence, cigarettes, uncomplicated; R09.02 Hypoxemia; R06.03 Acute respiratory distress; R77.8 Other specified abnormalities of plasma proteins; Z88.5 Allergy status to narcotic agent; Z93.0 Tracheostomy status; Z79.899 Other long term (current) drug therapy
CPT/HCPCS: 36415; 71045; 71250; 74176; 80048; 80076; 81001; 83605; 83690; 83735; 83880; 84100; 84145; 84484; 85025; 85610; 87040; 87635; 87804; 92610; 93005; 94640; 96365; 96367; 96375; 97110; 97116; 97161; 97530; 99285; J0295; J0612; J1650; J2405; J2543; J3475; J7030; J7050; J7613; J7614; J7644